=== PATIENT | female | born 1940 | race Caucasian/White ===

== ENCOUNTER 2017-09-01 08:14 | Inpatient (IN) ==
[2017-08-25 13:47] LABS: Appearance,Urine HAZY; Bacteria,Urine FEW /hpf (0); Bilirubin,Urine NEG (NEG); Color,Urine YELLOW; Glucose,Urine (UA) NEGATIVE (NEG); Leukocyte Esterase,Urine 250 /uL (NEG); Mucus,Urine FEW /hpf (0); Protein,Urine NEG (NEG); Specific Gravity,Urine 1.016 (1.000-1.035); Urine Blood NEG mg/dL (<0.03); Urine Hyaline Cast 5 /lpf (0-2); Urine RBC 1 /hpf (0-1); Urine Squamous Epithelial Cell < 1 /hpf (0-4); Urine Transitional Epi Cells < 1 /hpf (0-2); Urine WBC 96 /hpf (0-4); Urobilinogen,Urine NEG (NEG)
[2017-08-25 14:25] LABS: Basophils # (Auto) 0 K/mcL (0.0-0.3); Basophils % (Auto) 0.5 % (0.0-2.0); Eosinophils # (Auto) 0.2 K/mcL (0.0-0.7); Granulocytes % (Auto) 65.7 % (38.0-78.0); Lymphocytes # (Auto) 1.9 K/mcL (1.5-4.8); Lymphocytes % (Auto) 21.7 % (15.5-49.0); Mean Cell Volume 91.7 fL (80.0-100.0); Mean Corpuscular Hemoglobin 31.2 pg (26.0-34.0); Monocytes # (Auto) 0.9 K/mcL (0.1-0.9); Monocytes % (Auto) 10.1 % (1.0-12.0); Platelet Count 362 K/mcL (140-440); RBC 4.64 M/mcL (4.00-5.20); Red Cell Distribution Width 13.3 % (11.5-14.5)
[2017-08-25 14:54] LABS: Blood Urea Nitrogen 25 mg/dl (8-23)
[~2017-09-01 08:14] MED LIST: PREGABALIN 75 MG CAPSULE PO SCH; ceFAZolin 1 GM VIAL IV SCH; oxyCODONE 10 MG TAB.ER.12H PO SCH
[2017-09-01 09:56] LABS: Appearance,Urine CLEAR; Bilirubin,Urine NEG (NEG); Color,Urine YELLOW; Glucose,Urine (UA) NEGATIVE (NEG); Leukocyte Esterase,Urine NEG /uL (NEG); Protein,Urine NEG (NEG); Specific Gravity,Urine 1.016 (1.000-1.035); Urine Blood NEG mg/dL (<0.03); Urobilinogen,Urine NEG (NEG)
[2017-09-01] MEDS ORDERED: SCOPOLAMINE 1 PATCH PATCH TOPICAL ONE (11:00)
[2017-09-01] MEDS ORDERED: LIDOCAINE HCL/PF 100 MG/5 ML SYRINGE IV ONE (11:55)
[2017-09-01] MEDS ORDERED: PROPOFOL 200 MG/20 ML VIAL IV ONE (11:55)
[2017-09-01] MEDS ORDERED: ONDANSETRON 4 MG/2 ML VIAL IV ONE (11:55)
[2017-09-01] MEDS ORDERED: DEXAMETHASONE 10 MG/ML VIAL IV ONE (11:55)
[2017-09-01] MEDS ORDERED: MIDAZOLAM 2 MG/2 ML VIAL IV ONE (11:55)
[2017-09-01] MEDS ORDERED: ePHEDrine 50 MG/ML AMPUL IV ONE (11:55)
[2017-09-01] MEDS ORDERED: TRANEXAMIC ACID 1,000 MG/10 ML VIAL IV ONE ×2 (11:55→13:17)
[2017-09-01] MEDS ORDERED: KETAMINE 100 MG/ML ML IV ONE (11:55)
[2017-09-01] MEDS ORDERED: PHENYLEPHRINE 10 MG/ML VIAL IV ONE (11:55)
[2017-09-01] MEDS ORDERED: GLYCOPYRROLATE 0.2 MG/ML VIAL IV ONE (11:55)
[2017-09-01] MEDS ORDERED: ONDANSETRON 4 MG/2 ML VIAL IV PRN ×2 (12:32→13:17)
[2017-09-01] MEDS ORDERED: NALOXONE HCL 0.4 MG/ML VIAL IV PRN (12:32)
[2017-09-01] MEDS ORDERED: LACTATED RINGERS 250 ML IV PRN (12:32)
[2017-09-01] MEDS ORDERED: FLUMAZENIL 0.1 MG/ML ML IV PRN (12:32)
[2017-09-01] MEDS ORDERED: METHOCARBAMOL 1,000 MG/10 ML VIAL IV PRN (12:32)
[2017-09-01] MEDS ORDERED: IPRATROPIUM/ALBUTEROL 3 ML AMPUL.NEB NEB PRN (12:32)
[2017-09-01] MEDS ORDERED: PROMETHAZINE 25 MG/ML VIAL IV PRN (12:32)
[2017-09-01] MEDS ORDERED: BENZOCAINE/MENTHOL 1 LOZENGE PO PRN ×2 (12:32→13:17)
[2017-09-01] MEDS ORDERED: ACETAMINOPHEN 1,000 MG/100 ML BOTTLE IV ONE (12:32)
[2017-09-01] MEDS ORDERED: HEPARIN 20,000 UNIT/ML VIAL IR ONE (12:36)
[2017-09-01] MEDS ORDERED: LACTATED RINGERS 1,000 ML IV SCH (12:45)
[2017-09-01] MEDS ORDERED: MAGNESIUM HYDROXIDE 30 ML ORAL.SUSP PO PRN (13:17)
[2017-09-01] MEDS ORDERED: FLEETS ADULT ENEMA PR PRN (13:17)
[2017-09-01] MEDS ORDERED: BISACODYL 10 MG SUPP.RECT PR PRN (13:17)
[2017-09-01] MEDS ORDERED: POLYETHYLENE GLYCOL 3350 17 GM PACKET PO PRN (13:17)
--- NOTE | 2017-09-01 13:17 | Brief Operative Note ---
Date of procedure: 09/01/17 Pre-op diagnosis: R hip OA Post-op diagnosis: same Procedure: Right anterior total hip arthroplasty Grafts/Implants: Yes (Depuy Corail 13 std, +1 32 mm head, 50 cup, neutral altrx liner) Anesthesia: spinal, GLMA Findings: arthritis Complications: other (Femur fracture) Surgeon: Jamar Beaulieu Machine Operator Helper: Aurelia Neil Estimated blood loss (cc): 150 Specimens Removed/Pathology: none sent Condition: stable Disposition: PACU
[2017-09-01] MEDS ORDERED: DEXTROSE 50% 50 ML VIAL IV PRN (13:26)
[2017-09-01] MEDS ORDERED: DEXTROSE 31 GM ORAL.SUSP PO PRN (13:26)
[2017-09-01] MEDS: fentaNYL 100 MCG/2 ML VIAL IV PRN ×2 (13:40→13:50)
[2017-09-01] MEDS: MEPERIDINE 25 MG/ML SYRINGE IV PRN ×2 (14:05→14:11)
[2017-09-01] MEDS ORDERED: hydrALAZINE 20 MG/ML VIAL IV ONE (14:25)
[2017-09-01] MEDS ORDERED: hydrALAZINE 20 MG/ML VIAL ONE (14:32)
--- NOTE | 2017-09-01 14:58 | XRay Report ---
HISTORY: Reason for Exam:post op FINDINGS: There is a well-positioned right total hip prosthesis. No fracture is present and there are no abnormal soft tissue calcifications around the joint. There is arthritis and disc degeneration at L4-5. IMPRESSION: Well-positioned right hip prosthesis Interpreted and Authenticated by: William Gauthier 09/01/17
[2017-09-01] MEDS: CRANBERRY 400 MG PO SCH (15:08)
[2017-09-01] MEDS: 0.9 % SODIUM CHLORIDE 1,000 ML IV SCH ×2 (15:21→23:31)
[2017-09-01] MEDS: 0.9 % SODIUM CHLORIDE 10 ML SYRINGE IV SCH ×2 (15:52→20:42)
[2017-09-01] MEDS: POTASSIUM CHLORIDE 20 MEQ TABLET PO SCH (17:31)
[2017-09-01] MEDS: CALCIUM W/VIT D3 500 MG TABLET PO SCH ×2 (17:31→21:47)
[2017-09-01] MEDS: cloNIDine HCL 0.1 MG TABLET PO SCH ×2 (17:31→21:46)
[2017-09-01] MEDS ORDERED: metFORMIN 500 MG TAB.XL.24H PO SCH (18:00)
[2017-09-01] MEDS: INSULIN LISPRO 1 UNIT/0.01 ML UNIT SQ SCH ×2 (18:33→20:41)
[2017-09-01] MEDS: ceFAZolin 1 GM VIAL IV SCH (20:21)
[2017-09-01] MEDS: DOCUSATE SODIUM 100 MG CAPSULE PO SCH (20:22)
[2017-09-01] MEDS: GLUCOSAMINE/CHONDROITIN SULF A 1 CAP CAPSULE PO SCH (20:23)
[2017-09-01] MEDS: ASPIRIN 325 MG ENTERIC COATED TABLET PO SCH (20:23)
[2017-09-01] MEDS: PSYLLIUM HUSK 6 GM PACKET PO SCH (20:41)
[2017-09-01] MEDS: HYDROcodone/APAP 5/325MG TABLET PO PRN ×2 (20:41→21:50)
[2017-09-01] MEDS: VIT A PO SCH (20:42)
[2017-09-01] MEDS: VIT E PO SCH (20:42)
[2017-09-01] MEDS: COPPER PO SCH (20:42)
[2017-09-01] MEDS: ZINC PO SCH (20:42)
[2017-09-01] MEDS: VIT C PO SCH (20:42)
[2017-09-01] MEDS ORDERED: SENNOSIDES 1 TABLET PO SCH (21:00)
[2017-09-01] MEDS ORDERED: POTASSIUM CHLORIDE 20 MEQ TABLET PO SCH (21:00)
[2017-09-01] MEDS ORDERED: FISH OIL 1,000 MG CAPSULE PO SCH (21:00)
[2017-09-01] MEDS ORDERED: SIMVASTATIN 10 MG TABLET PO SCH (21:00)
[2017-09-02] MEDS: HYDROcodone/APAP 5/325MG TABLET PO PRN ×3 (01:36→11:10)
[2017-09-02] MEDS: CRANBERRY 400 MG PO SCH ×2 (03:07→15:53)
[2017-09-02] MEDS: ceFAZolin 1 GM VIAL IV SCH (04:08)
[2017-09-02] MEDS: 0.9 % SODIUM CHLORIDE 10 ML SYRINGE IV SCH ×2 (05:57→15:53)
[2017-09-02] MEDS ORDERED: LEVOTHYROXINE 50 MCG TABLET PO SCH (07:30)
[2017-09-02] MEDS: INSULIN LISPRO 1 UNIT/0.01 ML UNIT SQ SCH ×2 (07:43→11:28)
[2017-09-02] MEDS: POTASSIUM CHLORIDE 20 MEQ TABLET PO SCH (07:52)
--- NOTE | 2017-09-02 08:08 | Discharge Summary ---
Ortho Discharge - [facility] - Patient Instructions Diet: Regular Diet Activity: activity as tolerated, weight bearing as tolerated Total Hip Protocol: Follow activity instructions as provided by Physical Therapy. Dressing Care: May shower in 2 days, Aquacel Ag - leave on for 5 days Patient Education: Total Hip Replacement (DC) Additional Instructions: Isac LUCERO Physical Therapy APPOINTMENT: WednesdaySeptember 06 @ 8:40 AM - Follow Up Plan Follow Up Appointments: Frantz Capellan PA-C [Physician Manager Administrative Services] - 09/16/17 9:20 am Disposition: Home, Self-Care Prognosis: Good Rehab Potential: Good - Orders For Discharge Additional Discharge Orders: Physical Therapy at Discharge - [facility] Location: Determined By Patient Toilet Riser Discharge Order Location: Determined By Patient Walker Location: Determined By Patient
[2017-09-02] MEDS: PSYLLIUM HUSK 6 GM PACKET PO SCH (08:53)
--- NOTE | 2017-09-02 08:53 | Operative Note ---
DATE OF OPERATION: 09/01/2017 PREOPERATIVE DIAGNOSIS: Right hip severe osteoarthritis. POSTOPERATIVE DIAGNOSIS: Right hip severe osteoarthritis. PROCEDURE PERFORMED: Right total hip arthroplasty through direct anterior approach placing a DePuy Corail size 13 standard offset femoral stem, a +1, 32 mm delta ceramic head ball, a 50 mm cup with a neutral AltrX liner. SURGEON: Jamar Beaulieu MD. AWNING HANGER: Aurelia Neil PA-C ANESTHESIA: Spinal plus general. DRAINS: None. SPECIMENS: None. COMPLICATIONS: Intraoperative calcar fracture. POSTOPERATIVE CONDITION: Stable. INDICATIONS FOR SURGERY: This is a 77-year-old female who had progressive worsening hip pain and radiographs showed advanced [id number] osteoarthritis. FINDINGS AT SURGERY: As above. Post implantation showed good component position with good leg length and offset rastafari. PROCEDURE IN DETAIL: The patient had been seen preoperatively. Informed consent had been obtained after discussion of risks and benefits of surgery. Risks including, but not limited to, bleeding, possibly requiring transfusion; infection, possibly requiring implant removal and prolonged IV antibiotics; injury to nerves, blood vessels, and other surrounding structures; anesthetic risks; incomplete or no resolution of symptoms; leg length discrepancy; dislocation; fracture; DVT and pulmonary embolus risks; and the possibility of needing further revision surgery. She understood these risks and wished to proceed. The correct operative site was marked in preoperative holding and then the patient received spinal anesthesia. She was then taken to the operating room and LMA general given. She was carefully positioned on the fracture table and then the right hip and groin were carefully prepped and draped in normal sterile fashion and a timeout was performed verifying patient name, operative site, and plan. Standard anterior approach incision was made with a scalpel through skin and subcutaneous tissue and then hemostasis obtained with Bovie cautery. Careful blunt dissection was taken down onto the tensor fascia and this was undermined circumferentially. We then irrigated with except and placed a ring retractor. Tensor fascia was incised with the muscle fibers and then careful blunt dissection taken medial to the muscle belly. Blunt cobra retractors were placed on the superior and inferior neck. We then coagulated and cut the circumflex vessels and then split vastus fascia distally. An anterior capsulectomy was performed with capsule releases to the trochanter and then a corkscrew was placed in the femoral head. Traction was placed on the leg and then osteotome was used under fluoro to identify our neck cut trajectory. We then used the oscillating tip saw to perform our osteotomy and the femoral head was removed. The acetabulum was then exposed removing labrum circumferentially. We then removed soft tissue from the floor and then started reaming, initially directly medializing to the tear drop and then increasing our reamer size and angle until we got rim ream with a 49 mm reamer. We opened a 50 mm 3-hole [place] cup. We irrigated the acetabulum with IrriSept. After waiting a minute we pulse lavaged copiously with saline. We then placed the cup on the ME 1000 and holding the inclination between approximately 35 and 40 degrees we impacted the cup at about 15 to 20 degrees of anteversion. We used fluoroscopy to verify cup position and that it was fully seated. We got good pressfit, so we went ahead and placed a center hole cover. A neutral AltrX liner was opened. We did remove some osteophytes anteriorly and then ME 1000 was used to impact the liner. We then double checked to make sure the tabs were all flush. We then removed traction from the leg. It was externally rotated. A capsule release was extended around the medial neck and posteriorly and then the leg was extended and adducted. Box osteotome and awl were used to gain canal entry and then the rongeur and rasp to lateralize. We then started broaching with the ME 1000 up to a size 12. This started seating below our neck cut so I chose to go up to a size 13. As we were impacting the 13 stem with the ME 1000, we discovered a calcar crack posterior medially. At this point, we went ahead and opened up a 1.8 cable and using a cable passer below the greater trochanter and above the lesser trochanter we then tensioned this to 50 kilograms and then crimped and cut the excess wire. We then completed broaching until we were flush with our neck cut. We trialed a standard offset with +1 head ball trial. The hip was reduced. AP pelvis was taken to verify rotation and AP of the nonoperative and operative hips. Overlay revealed symmetrical leg length and offset. The stem was in good position and appeared appropriately sized. We redislocated. We removed the 13 trial. The 13 implant was opened. We irrigated the canal with IrriSept. After waiting a minute we pulse lavaged copiously with saline and then the 13 trial was impacted with the ME 1000 until the collar was seated on the medial calcar. We then opened a +1 head ball, the stem was carefully cleaned and dried and then head ball was carefully impacted. We then reduced the hip without excessive tension. X-rays were taken and saved and printed. We then irrigated with IrriSept and after met with pulse lavaged. Then, #1 Vicryl was used for closure over the tensor fascia, one running proximal and one running distal. The ring retractor was removed and IrriSept was irrigated again. After a minute we pulse lavaged and then 2-0 Monocryl for and veena for skin. Xeroform and sterile dressing were applied. The patient was then awakened, extubated, and transferred to recovery in stable condition. [email or web address] Job ID: [id number] Doc ID: [id number] Jamar Beaulieu MD
[2017-09-02] MEDS: ASPIRIN 325 MG ENTERIC COATED TABLET PO SCH (08:54)
[2017-09-02] MEDS: GLUCOSAMINE/CHONDROITIN SULF A 1 CAP CAPSULE PO SCH (08:54)
[2017-09-02] MEDS: cloNIDine HCL 0.1 MG TABLET PO SCH ×2 (08:54→15:01)
[2017-09-02] MEDS: CALCIUM W/VIT D3 500 MG TABLET PO SCH ×2 (08:54→15:01)
[2017-09-02] MEDS: DOCUSATE SODIUM 100 MG CAPSULE PO SCH (08:54)
[2017-09-02] MEDS: VIT C PO SCH (08:55)
[2017-09-02] MEDS: VIT A PO SCH (08:55)
[2017-09-02] MEDS: VIT E PO SCH (08:55)
[2017-09-02] MEDS: ZINC PO SCH (08:55)
[2017-09-02] MEDS: COPPER PO SCH (08:55)
[2017-09-02] MEDS ORDERED: amLODIPine 10 MG TABLET PO SCH (09:00)
[2017-09-02] MEDS ORDERED: HYDROCHLOROTHIAZIDE 25 MG TABLET PO SCH (09:00)
[2017-09-02] MEDS ORDERED: LOSARTAN 50 MG TABLET PO SCH (09:00)
[2017-09-02] MEDS ORDERED: MULTIVIT,THER IRON,CA,FA & MIN 1 TABLET PO SCH (09:00)
[2017-09-02] MEDS ORDERED: METOPROLOL SUCCINATE 50 MG TAB.XL.24H PO SCH (09:00)
[2017-09-02] MEDS ORDERED: VITAMIN D3 1,000 UNIT TABLET PO SCH (09:00)
--- NOTE | 2017-09-02 09:14 | Orthopedic Progress Note ---
Subjective Patient information: Note initiated : 09/02/17 at 9:13 am Service Date, if different from initiated Date: [] Patient: Joanne Nguyễn 77 y/o F admitted on 09/01/17 for Right Total Hip Arthroplasty. Chief Complaint: [] Principal diagnosis: s/p total hip Interval history: pain controlled, wants to go home Objective Vital signs: Vital Signs Temp Pulse Pulse Resp BP BP Pulse Ox 09/02/17 08:56 98.0 F 77 16 149/69 95 09/02/17 04:00 98.4 F 64 14 153/66 92 09/02/17 00:08 99.0 F H 68 14 156/76 94 09/01/17 19:55 97.6 F 80 18 156/77 97 09/01/17 16:51 169/66 98 09/01/17 16:21 172/72 99 09/01/17 15:54 98 09/01/17 15:51 175/74 98 09/01/17 15:36 175/70 98 09/01/17 15:22 159/75 98 09/01/17 15:15 167/74 96 09/01/17 14:52 97.8 F 70 20 178/80 100 09/01/17 14:48 73 20 158/74 98 09/01/17 14:38 72 26 H 179/90 100 09/01/17 14:31 68 17 186/70 98 09/01/17 14:15 63 17 185/78 98 09/01/17 14:10 68 18 188/79 98 09/01/17 14:05 62 20 192/75 98 09/01/17 14:00 64 20 182/74 98 09/01/17 13:55 62 17 198/72 98 09/01/17 13:50 64 20 189/75 98 09/01/17 13:45 60 18 186/69 98 09/01/17 13:40 66 15 168/78 98 09/01/17 13:35 97.8 F 69 10 L 134/59 98 Intake and Output 09/01/17 09/02/17 09/02/17 21:59 05:59 13:59 Intake Total 541 / 541 1134 / 1134 1400 / 1400 Output Total 1000 / 1000 400 / 400 250 / 250 Balance -459 / -459 734 / 734 1150 / 1150 Intake: IV 541 / 541 459 / 459 Sodium Chloride 0.9% 1,000 ml @ 541 / 541 459 / 459 100 mls/hr IV .Q10H LILLIAN Rx#: [id number] Oral 675 / 675 1400 / 1400 Output: Void Amount 1000 / 1000 400 / 400 250 / 250 Straight 850 / 850 Other: Meal Breakfast Percent of Meal Consumed 100% Feeding Ability Independent # Voids 1 Weight 157 lb Intake & Output: Intake & Output 09/01/17 09/02/17 09/02/17 21:59 05:59 13:59 Intake Total 541 / 541 1134 / 1134 1400 / 1400 Output Total 1000 / 1000 400 / 400 250 / 250 Balance -459 / -459 734 / 734 1150 / 1150 Weight 157 lb Intake: IV 541 / 541 459 / 459 Sodium Chloride 0.9% 1,000 ml @ 541 / 541 459 / 459 100 mls/hr IV .Q10H LILLIAN Rx#: [id number] Oral 675 / 675 1400 / 1400 Output: Void Amount 1000 / 1000 400 / 400 250 / 250 Straight 850 / 850 Other: Meal Breakfast Percent of Meal Consumed 100% Feeding Ability Independent # Voids 1 Neurological exam IM: Yes alert, Yes oriented X3 - Labs CBC & BMP: 09/02/17 05:25 08/25/17 10:30 Labs: 09/02/17 08/25/17 05:25 10:30 Hgb 11.6 L 14.5 Hct 34.7 L 42.6 Assessment and Plan (1) S/P total hip arthroplasty POD#1-stable d/c home Status: Acute
[2017-09-02] MEDS: 0.9 % SODIUM CHLORIDE 1,000 ML IV SCH (10:38)
[2017-09-02] MEDS ORDERED: POTASSIUM CHLORIDE 20 MEQ TABLET PO SCH (12:00)
== END 2017-09-02 15:35 | disposition home or self-care (01) | DRG 470 ==
LOC: MEDSUR 08:14
PROVIDERS: ADMIT Orthopaedic Surgery; ATTEND Orthopaedic Surgery

== ENCOUNTER 2019-05-18 10:16 | Inpatient (IN) ==
[2019-05-18] MEDS ORDERED: 0.9 % SODIUM CHLORIDE 1,000 ML IV ONE ×3 (10:24→13:54)
[2019-05-18] MEDS ORDERED: ONDANSETRON 4 MG/2 ML VIAL IV ONE (10:24)
[2019-05-18 11:15] LABS: POC Blood Urea Nitrogen 90 mg/dl (8-23); POC CO2 20 mmol/L (22-30); POC Calcium, Ionized 1.13 mmol/L (1.16-1.32); POC Chloride 104 mmol/L (96-108); POC Glucose, Random 137 mg/dL (70-105); POC Potassium 3.5 mmol/L (3.3-5.1); POC Sodium 137 mmol/L (133-145)
--- NOTE | 2019-05-18 11:37 | XRay Report ---
CLINICAL INFORMATION: cough, n/v X 8 days. COMPARISON: None. FINDINGS: The heart is mildly enlarged. Mediastinum and pulmonary vessels are normal. There is minor bibasilar scarring or atelectasis noted - no infiltrates or effusions IMPRESSION: Mild cardiomegaly and minor bibasilar scarring or atelectasis Interpreted and Authenticated by: Matthew Vasquez 05/18/19
--- NOTE | 2019-05-18 11:38 | XRay Report ---
CLINICAL INFORMATION: constipation COMPARISON: None. FINDINGS: The stool gas pattern is unremarkable. There is no free air, soft tissue mass, organomegaly or pathologic calcification. IMPRESSION: Normal abdomen Interpreted and Authenticated by: Matthew Vasquez 05/18/19
[2019-05-18 11:41] LABS: Basophils # (Auto) 0 K/mcL (0.0-0.3); Basophils % (Auto) 0 % (0.0-2.0); Eosinophils # (Auto) 0 K/mcL (0.0-0.7); Eosinophils % (Auto) 0 % (0.0-7.0); Granulocytes % (Auto) 87.8 % (38.0-78.0); Hematocrit 38.9 % (36.0-48.0); Hemoglobin 12.7 g/dL (12.0-15.0); Lymphocytes # (Auto) 0.9 K/mcL (1.5-4.8); Lymphocytes % (Auto) 3.7 % (15.5-49.0); Mean Cell Volume 93.4 fL (80.0-100.0); Mean Corpuscular HGB Conc 32.7 g/dL (31.0-36.0); Mean Platelet Volume 8.6 fL (7.4-10.4); Monocytes # (Auto) 2.2 K/mcL (0.1-0.9); Monocytes % (Auto) 8.5 % (1.0-12.0); Platelet Count 321 K/mcL (140-440); RBC 4.17 M/mcL (4.00-5.20); Red Cell Distribution Width 14.9 % (11.5-14.5); WBC 25.6 K/mcL (4.5-11.0)
[2019-05-18 12:08] LABS: ALT/SGPT 157 U/l (0-40); AST/SGOT 95 U/l (0-37); Albumin 2.9 gm/dL (3.2-5.2); Albumin/Globulin Ratio 0.7 (1.0-2.3); Alkaline Phosphatase 192 U/L (39-117); Bilirubin,Total 0.4 mg/dL (0.0-1.0); Blood Urea Nitrogen 90 mg/dl (8-23); C-Reactive Protein 28.8 mg/dl (0.0-0.8); Calcium 8.8 mg/dl (8.6-10.4); Carbon Dioxide 19 mmol/L (22-30); Glomerular Filtration Rate 16; Glucose 137 mg/dL (70-105)
[2019-05-18] MEDS ORDERED: DILTIAZEM 25 MG/5 ML VIAL IV ONE ×2 (12:27→12:35)
--- NOTE | 2019-05-18 12:34 | Emergency Department Note ---
General Adult HPI - General Chief complaint: Nausea/Vomiting/Diarrhea Stated complaint: nausea, bloody stool Time Seen by Provider: 05/18/19 10:40 Source: patient Mode of arrival: ambulatory Limitations: no limitations - History of Present Illness HPI Narrative: This pleasant 79-year-old female comes to the emergency room accompanied by her . She has had 8 days of some abdominal discomfort and dry heaves and vomiting. She has abdominal pain she reports due to the vomiting. She feels like she is been constipated although has not had a bowel movement for 8 days but has not eaten and drank that well. Her last bowel movement was 9 days ago according to the . Prior to that she had blood every time she wiped in the preceding week or so. She describes being very sleepy. She has had chills and sweats but no fevers. REVIEW OF SYSTEMS: Denies blurry vision or double vision Denies chest pain. Has some swelling in her legs quite often. Has had a cough for a week. Denies shortness of breath and wheezing Denies acid reflux and heartburn. Denies dysuria, frequency, urgency Denies back pain Denies headaches. Feels generally weak. Feels lightheaded. - Related Data Home Medications Medication Instructions Recorded Confirmed Aspirin 325 mg PO DAILY 10/26/16 05/18/19 Calcium Carbonate/Vitamin D3 1 tablet PO TID 10/26/16 05/18/19 [Calcium 600 + Vit D Tablet] Cholecalciferol (Vitamin D3) 2,000 unit PO DAILY 10/26/16 05/18/19 [Vitamin D3] Cranberry 650 mg PO BID 10/26/16 05/18/19 Gluc HCl/Csa/Collagen/Hyalur A 1 each PO BID 10/26/16 08/25/17 [Glucosamine Chondroitin Cap] Hydrochlorothiazide [Oretic] 25 mg PO DAILY 10/26/16 05/18/19 Krill/Om3/Dha/Epa/Om6/Lip/Astx 1 each PO HS 10/26/16 05/18/19 [Krill Oil 1,000 mg Softgel] Levothyroxine [Synthroid] 50 mcg PO ACB 10/26/16 05/18/19 Losartan [Cozaar] 100 mg PO DAILY 10/26/16 05/18/19 Multivitamin [Multi-Day Vitamins] 1 each PO DAILY 10/26/16 08/25/17 Potassium Chloride [Kdur] 20 meq PO 5XD 10/26/16 05/18/19 Psyllium Husk [Metamucil] 6 gm PO BID 10/26/16 09/01/17 Simvastatin [Zocor] 10 mg PO HS 10/26/16 05/18/19 Vit A/Vit C/Vit E/Zinc/Copper 1 each PO BID 10/26/16 08/25/17 [Preservision Areds Softgel] amLODIPine BESYLATE [Amlodipine 10 mg PO DAILY 10/26/16 05/18/19 Besylate] cloNIDine HCL [Catapres] 0.3 mg PO QIDP 10/26/16 05/18/19 metFORMIN HCL [Metformin ER 500 mg PO DAILY@1800 10/26/16 05/18/19 Osmotic] Metoprolol Succinate [Toprol Xl] 100 mg PO DAILY 08/25/17 05/18/19 Allergies Allergy/AdvReac Type Severity Reaction Status Date / Time oxycodone [Oxycodone] AdvReac Mild Vomiting Verified 05/18/19 10:20 Sulfa (Sulfonamide AdvReac Mild Redness of Verified 05/18/19 10:20 Antibiotics) Skin Past Medical History - Past Medical History [facility], [facility] Narrative: Medical History (Last Updated 05/18/19 @ 14:35 by Korey Gale DO) Hypertension, essential (Chronic) Diabetes mellitus, type 2 (Chronic) Past Surgical History (Last Updated 05/18/19 @ 14:37 by Korey Gale DO) S/P total hip arthroplasty (Chronic) History of bladder repair surgery (Acute) History of total right knee replacement (TKR) (Acute) Family History (Last Reviewed 05/18/19 @ 14:37 by Korey Gale DO) Family/Other No problems noted. Other Diabetes mellitus Medical history: Reports: other (UTI's. DENIES pyelonephritis. ). Denies: atrial fibrillation, chronic anticoagulation (except aspirin.), CVA, myocardial infarction, renal disease, TIA - Social History smoking status: Never smoker Physical Exam Limitations: no limitations General appearance: alert, consternation (Slight or mild), in no apparent distress, lethargic, malaise Head: atraumatic, normocephalic Eye: Present: EOMI ENT: Present: mucous membranes dry, other (Midline tongue and uvula) Neck: Present: trachea midline. Absent: lymphadenopathy, thyromegaly Chest: Present: symmetric chest wall rise Respiratory: Present: normal lung sounds bilaterally. Absent: respiratory distress, wheezes, stridor, accessory muscle use, prolonged expiratory phase Cardiovascular: Present: tachycardia, irregular rhythm. Absent: systolic murmur, diastolic murmur Abdominal: Present: soft, tenderness. Absent: distention, guarding, rebound, rigidity, organomegaly, mass Abdominal tenderness: Present: epigastrium, moderate, severe Rectal: Present: normal rectal tone, other (Only trace residue present on glove. No internal obstruction or stool noted. The residue was trace positive on Hemoccult testing.) Extremities: Absent: pedal edema, pretibial edema, calf tenderness Neurological: Present: alert, oriented X3 Psychiatric: Present: flat affect, serious. Absent: depressed, agitated, anxious, tearful, poor eye contact Skin: Present: warm, dry Course Vital Signs Temperature 96.9 F L 05/18/19 10:16 Pulse Rate 147 H 05/18/19 10:16 Respiratory Rate 18 05/18/19 10:16 Blood Pressure 135/96 05/18/19 10:16 Pulse Oximetry (%) 99 05/18/19 10:16 Temperature 91.1 F L 05/18/19 16:00 Pulse Rate 136 H 05/18/19 16:00 Respiratory Rate 14 05/18/19 16:00 Blood Pressure 111/86 05/18/19 16:00 Pulse Oximetry (%) 95 05/18/19 16:00 Medical Decision Making - [facility] Narrative Medical decision making narrative: 10:27 AM - 8 days of vomiting and/or diarrhea and poor bowel movements. Pre- existing history of blood with wiping. Concern for severe dehydration. Has new onset atrial fibrillation with rapid ventricular response. If she is septic this may complicate trying to get her rate down and maintain blood pressure. We will do fluid bolus to start with. 11:45 AM approximately - markedly elevated white count with markedly elevated CRP. Lipase is normal. Chest x-ray is unremarkable. Blood cultures ordered. 12:45 PM - patient feels some improved from when she was admitted but still feels a bit boggy in her mind. She is able to report her blood pressure m edicines as losartan, clonidine, amlodipine, metoprolol. 12:58 PM - unknown source for her sepsis discussed with Dr. Draper, hospitalist. Has multiple conditions and problems and probable primary concern at this point is where is her sepsis coming from. After CT scan comes back he requested I speak with Dr. Khan, personnel research scientist, and Dr. Adams, surgeon. 3:35 PM - spoke with Dr. Khan, who reviewed with me briefly this patient's findings on CT and her UA. With the perinephric stranding and urine dip that is currently available most likely this is pyelonephritis. Not likely to be a dialysis patient in that she is producing significant urine. She is willing to look at the sediment herself under the microscope. 4:23 PM - I reviewed above with Dr. Draper, hospitalist, is willing to accept this patient. Of note is that she has developed a low-grade temperature. Her heart rate has come down to under 100 with the IV fluids at least some of the time. Urine culture has been ordered. Microscopic does appear to have evidence of urinary tract infection with out contamination. Patient has already received vancomycin 1 g, Rocephin 1 g, Zosyn 3.375. - Lab Data Lab results reviewed: Yes I reviewed the patient's lab results. Result diagrams: 05/18/19 11:09 05/18/19 10:24 Lab Results 05/18/19 05/18/19 05/18/19 Range/Units 10:24 11:09 11:09 WBC 25.6 H (4.5-11.0) K/mcL RBC 4.17 (4.00-5.20) M/mcL Hgb 12.7 (12.0-15.0) g/dL Hct 38.9 (36.0-48.0) % POC Hct 39.0 (36.0-48.0) % MCV 93.4 (80.0-100.0) fL MCH 30.5 (26.0-34.0) pg MCHC 32.7 (31.0-36.0) g/dL RDW 14.9 H (11.5-14.5) % Plt Count 321 (140-440) K/mcL MPV 8.6 (7.4-10.4) fL Gran % 87.8 H (38.0-78.0) % Lymph % (Auto) 3.7 L (15.5-49.0) % [place] % (Auto) 8.5 (1.0-12.0) % Eos % (Auto) 0 (0.0-7.0) % Baso % (Auto) 0 (0.0-2.0) % Gran # 22.5 H (1.8-8.0) K/mcL Lymph # (Auto) 0.9 L (1.5-4.8) K/mcL [place] # (Auto) 2.2 H (0.1-0.9) K/mcL Eos # (Auto) 0 (0.0-0.7) K/mcL Baso # (Auto) 0 (0.0-0.3) K/mcL VBG Lactic Acid (0.5-2.0) mmol/L POC Sodium 137 (133-145) mmol/L Sodium 137 (133-145) mmol/L POC Potassium 3.5 (3.3-5.1) mmol/L Potassium 3.6 (3.3-5.1) mmol/L POC Chloride 104 (96-108) mmol/L Chloride 101 (96-108) mmol/L Carbon Dioxide 19 L (22-30) mmol/L POC Total CO2 20 L (22-30) mmol/L Anion Gap 17.0 H (8-16) POC BUN 90 H (8-23) mg/dl BUN 90 H (8-23) mg/dl Creatinine 2.8 H (0.6-1.1) mg/dl POC Creatinine 3.0 H (0.6-1.1) mg/dl GFR Calculation 16 Glucose 137 H (70-105) mg/dL POC Glucose 137 H (70-105) mg/dL Calcium 8.8 (8.6-10.4) mg/dl POC WB Ioniz Calcium 1.13 L (1.16-1.32) mmol/L Total Bilirubin 0.4 (0.0-1.0) mg/dL AST 95 H (0-37) U/l ALT 157 H (0-40) U/l Alkaline Phosphatase 192 H (39-117) U/L Troponin T < 0.01 (0-0.03) ng/ml C-Reactive Protein 28.8 H (0.0-0.8) mg/dl Total Protein 6.9 (5.9-8.4) gm/dL Albumin 2.9 L (3.2-5.2) gm/dL Globulin 4.0 H (2.2-3.7) gm/dL Albumin/Globulin Ratio 0.7 L (1.0-2.3) Lipase 17 (7-60) U/L Procalcitonin (<0.10) ng/mL Urine Color Urine Appearance Urine pH (5.0-9.0) Ur Specific [place] (1.000-1.035) Urine Protein (NEG) mg/dL Urine Glucose (UA) (NEG) mg/dL Urine Ketones (NEG) mg/dL Urine Occult Blood (<0.03) mg/dL Urine Nitrate (NEG) Urine Bilirubin (NEG) mg/dL Urine Urobilinogen (NEG) mg/dL Ur Leukocyte Esterase (NEG) /uL Urine RBC (0-1) /hpf Urine WBC (0-4) /hpf Ur Squamous Epith Cells (0-4) /hpf Urine Bacteria (0) /hpf Urine Mucus (0) /hpf Ur Culture Indicated? 05/18/19 05/18/19 05/18/19 Range/Units 11:09 13:10 15:31 WBC (4.5-11.0) K/mcL RBC (4.00-5.20) M/mcL Hgb (12.0-15.0) g/dL Hct (36.0-48.0) % POC Hct (36.0-48.0) % MCV (80.0-100.0) fL MCH (26.0-34.0) pg MCHC (31.0-36.0) g/dL RDW (11.5-14.5) % Plt Count (140-440) K/mcL MPV (7.4-10.4) fL Gran % (38.0-78.0) % Lymph % (Auto) (15.5-49.0) % [place] % (Auto) (1.0-12.0) % Eos % (Auto) (0.0-7.0) % Baso % (Auto) (0.0-2.0) % Gran # (1.8-8.0) K/mcL Lymph # (Auto) (1.5-4.8) K/mcL [place] # (Auto) (0.1-0.9) K/mcL Eos # (Auto) (0.0-0.7) K/mcL Baso # (Auto) (0.0-0.3) K/mcL VBG Lactic Acid 1.8 (0.5-2.0) mmol/L POC Sodium (133-145) mmol/L Sodium (133-145) mmol/L POC Potassium (3.3-5.1) mmol/L Potassium (3.3-5.1) mmol/L POC Chloride (96-108) mmol/L Chloride (96-108) mmol/L Carbon Dioxide (22-30) mmol/L POC Total CO2 (22-30) mmol/L Anion Gap (8-16) POC BUN (8-23) mg/dl BUN (8-23) mg/dl Creatinine (0.6-1.1) mg/dl POC Creatinine (0.6-1.1) mg/dl GFR Calculation Glucose (70-105) mg/dL POC Glucose (70-105) mg/dL Calcium (8.6-10.4) mg/dl POC WB Ioniz Calcium (1.16-1.32) mmol/L Total Bilirubin (0.0-1.0) mg/dL AST (0-37) U/l ALT (0-40) U/l Alkaline Phosphatase (39-117) U/L Troponin T (0-0.03) ng/ml C-Reactive Protein (0.0-0.8) mg/dl Total Protein (5.9-8.4) gm/dL Albumin (3.2-5.2) gm/dL Globulin (2.2-3.7) gm/dL Albumin/Globulin Ratio (1.0-2.3) Lipase (7-60) U/L Procalcitonin 1.40 (<0.10) ng/mL Urine Color Straw Urine Appearance Clear Urine pH 5.0 (5.0-9.0) Ur Specific [place] 1.009 (1.000-1.035) Urine Protein Neg (NEG) mg/dL Urine Glucose (UA) Negative (NEG) mg/dL Urine Ketones Neg (NEG) mg/dL Urine Occult Blood 0.2 A (<0.03) mg/dL Urine Nitrate Neg (NEG) Urine Bilirubin Neg (NEG) mg/dL Urine Urobilinogen Neg (NEG) mg/dL Ur Leukocyte Esterase 25 A (NEG) /uL Urine RBC 4 H (0-1) /hpf Urine WBC 14 H (0-4) /hpf Ur Squamous Epith Cells < 1 (0-4) /hpf Urine Bacteria Mod A (0) /hpf Urine Mucus Few (0) /hpf Ur Culture Indicated? Yes - Radiology Data Radiology results reviewed: Yes I reviewed the patient's radiology results. - EKG Data EKG #1 EKG attestation: Yes There are no EKG findings of acute coronary syndrome, Yes This EKG will be read by shoe lacer Rate: tachycardia Rhythm: A.Fib Disposition Pt seen by [facility] only: No Clinical Impression: Atrial fibrillation with rapid ventricular response, Elevated LFTs, Acute pyelonephritis Sepsis Qualifiers: Sepsis type: sepsis due to unspecified organism Sepsis acute organ dysfunction status: with acute organ dysfunction Severe sepsis acute organ dysfunction type: acute renal failure Acute renal failure type: unspecified Severe sepsis shock status: without septic shock Qualified Code(s): A41.9 - Sepsis, unspecified organism Leukocytosis (leucocytosis) Qualifiers: Leukocytosis type: leukemoid reaction Qualified Code(s): D72.823 - Leukemoid reaction ARF (acute renal failure) Qualifiers: Acute renal failure type: unspecified Qualified Code(s): N17.9 - Acute kidney failure, unspecified Disposition: Xfer As Inpt ([facility] Condition: Serious Referrals: Wilbur Adame DO [Primary Care Provider] -
[2019-05-18] MEDS ORDERED: PIPERACILLIN SODIUM/TAZOBACTAM 3.375 GM in DEXTROSE 5% IN WATER 50 ML IV ONE (12:37)
[2019-05-18 12:39] LABS: Chloride 101 mmol/L (96-108)
--- NOTE | 2019-05-18 15:22 | Cat Scan Report ---
CLINICAL INFORMATION: Nausea /vomiting and bloody stools. COMPARISON: None. TECHNIQUE: IV contrast was withheld due to renal insufficiency. 0.625 mm helical slices were obtained from the mid heart through the subtrochanteric regions. Following reconstruction, 2.5 mm sagittal, coronal and axial reformatted images were processed and reviewed at bone and soft tissue windows.The exam was performed using radiation dose optimization techniques including, but not limited to, automated exposure control, adjustment of the mA and/or kV according to patient size and use of iterative reconstruction technique. FINDINGS: Lung bases show scattered scarring and/or atelectasis and chronic bronchitis. There are no effusions. The visualized heart is mildly enlarged. Abdominal images show the noncontrasted gallbladder and bile ducts, liver, pancreas, spleen and aorta are normal in size configuration and attenuation without focal lesion. 17 mm well-defined low-attenuation lesion in the right adrenal gland and a 11 mm well superior low-attenuation lesion in the left adrenal gland are all most certainly benign adenomas. Kidneys show slight inhomogeneity and perinephric fat stranding which is suggestive, but not diagnostic, diffuse renal inflammation such as glomerulonephritis. 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 There is no free air, free fluid or adenopathy. Pelvic images show urinary bladder is unremarkable. Anteflexed postmenopausal uterus is normal in size: 6 x 2.5 cm. The region of the ovaries is normal. Multiple sigmoid diverticuli but no evidence of diverticulitis. The remaining colon, small bowel and stomach are normal. Appendix not identified may be surgically absent. No evidence of appendicitis. Right total hip prostheses is anatomically aligned without loosening or infection. There is mild degenerative change in the left hip and moderate L4-5 degenerative disc disease. There are no focal osseous lesions. IMPRESSION: 1. Sigmoid diverticulosis, but no evidence of diverticulitis. No gross evidence of colonic pathology responsible for GI bleeding on this limited noncontrast exam 2. Mild edema in both kidneys with injection of the perinephric fat. This is suggestive, but certainly not diagnostic, of bilateral renal inflammatory condition such as glomerulonephritis. Please correlate with UA and other clinical symptoms. 3. Moderate pancreatic atrophy and fat replacement of the pancreatic head and neck. 4. 17 mm nodule right adrenal gland and 11 mm nodule in the left adrenal gland both almost certainly benign adenomas. Interpreted and Authenticated by: Matthew Vasquez 05/18/19
[2019-05-18 15:58] LABS: Appearance,Urine CLEAR; Bacteria,Urine MOD /hpf (0); Bilirubin,Urine NEG (NEG); Color,Urine STRAW; Culture Indicated,Urine YES; Glucose,Urine (UA) NEGATIVE (NEG); Ketones,Urine NEG (NEG); Leukocyte Esterase,Urine 25 /uL (NEG); Mucus,Urine FEW /hpf (0); Nitrate,Urine NEG (NEG); Protein,Urine NEG (NEG); Specific Gravity,Urine 1.009 (1.000-1.035); Urine Blood 0.2 mg/dL (<0.03); Urine RBC 4 /hpf (0-1); Urine Squamous Epithelial Cell < 1 /hpf (0-4); Urine WBC 14 /hpf (0-4); Urobilinogen,Urine NEG (NEG)
--- NOTE | 2019-05-18 16:44 | Internal Med History&Physical ---
Medical - H&P: [facility] Patient information: Note initiated : 05/18/19 at 4:39 pm Service Date, if different from initiated Date: [] Patient: Joanne Nguyễn a 79 y/o F admitted on for nausea, bloody stool. Chief Complaint: [] Chief complaint: Abdominal pain, nausea History of present illness: Ms. Nguyễn is a 79 year old F history of diabetes/hypertension and hypothyroidism who presents with over 1 week onset of progressive nausea/upper mid abdominal pain along with associated vomiting. Patient has not been able to eat or drink much in the last 10 days. She went to urgent care a few days prior to presentation and was discharged after evaluation. Patient however failed to improve. She denies associated fever chills. She has not had a restful night sleep. Her pain is described as 6 out of 10 to 8 out of 10 associated with coughing, constant around epigastric area without radiation. She denies associated bloody emesis/bloody stools. She endorses to cough, with unrelenting symptoms patient presents to the ER for further evaluation Initial work-up was consistent with acute pyelonephritis on CT abdomen, sepsis with white count 25,000, acute renal failure with creatinine 3 and BUN 90. Patient was found to be in A. fib with RVR with rate around 150. Nephrology was consulted and subsequently hospitalist service requested for admission. Cultures were drawn and antibiotics were initiated including Rocephin/vancomycin/Zosyn At the time of evaluation patient is extremely distressed. Unable to talk in full sentences, lethargic and anxious. She endorses to history as above. She denies prior similar episodes. Review of systems A 10 point review of system was performed and is negative except for one discussed above Medical - H&P: PMH Medical history: Medical History (Last Updated 05/18/19 @ 14:35 by Korey Gale DO) Hypertension, essential (Chronic) Diabetes mellitus, type 2 (Chronic) CAD Hypothyroidism Past Surgical History (Last Updated 05/18/19 @ 14:37 by Korey Gale DO) S/P total hip arthroplasty (Chronic) History of bladder repair surgery (Acute) History of total right knee replacement (TKR) (Acute) Family History (Last Reviewed 05/18/19 @ 14:37 by Korey Gale DO) Family/Other Father cancer Mother hypertension, CAD, DC Sibling CAD/DC Smoking status: Never smoker Have you smoked in the last 12 months: No Medical - H&P: Meds Home Medications Medication Instructions Recorded Confirmed Type Aspirin 325 mg PO DAILY 10/26/16 05/18/19 History Calcium Carbonate/Vitamin D3 1 tablet PO TID 10/26/16 05/18/19 History [Calcium 600 + Vit D Tablet] Cholecalciferol (Vitamin D3) 2,000 unit PO DAILY 10/26/16 05/18/19 History [Vitamin D3] Cranberry 650 mg PO BID 10/26/16 05/18/19 History Gluc HCl/Csa/Collagen/Hyalur A 1 each PO BID 10/26/16 08/25/17 History [Glucosamine Chondroitin Cap] Hydrochlorothiazide [Oretic] 25 mg PO DAILY 10/26/16 05/18/19 History Krill/Om3/Dha/Epa/Om6/Lip/Astx 1 each PO HS 10/26/16 05/18/19 History [Krill Oil 1,000 mg Softgel] Levothyroxine [Synthroid] 50 mcg PO ACB 10/26/16 05/18/19 History Losartan [Cozaar] 100 mg PO DAILY 10/26/16 05/18/19 History Multivitamin [Multi-Day Vitamins] 1 each PO DAILY 10/26/16 08/25/17 History Potassium Chloride [Kdur] 20 meq PO 5XD 10/26/16 05/18/19 History Psyllium Husk [Metamucil] 6 gm PO BID 10/26/16 09/01/17 History Simvastatin [Zocor] 10 mg PO HS 10/26/16 05/18/19 History Vit A/Vit C/Vit E/Zinc/Copper 1 each PO BID 10/26/16 08/25/17 History [Preservision Areds Softgel] amLODIPine BESYLATE [Amlodipine 10 mg PO DAILY 10/26/16 05/18/19 History Besylate] cloNIDine HCL [Catapres] 0.3 mg PO QIDP 10/26/16 05/18/19 History metFORMIN HCL [Metformin ER 500 mg PO DAILY@1800 10/26/16 05/18/19 History Osmotic] Metoprolol Succinate [Toprol Xl] 100 mg PO DAILY 08/25/17 05/18/19 History Allergies Allergy/AdvReac Type Severity Reaction Status Date / Time oxycodone [Oxycodone] AdvReac Mild Vomiting Verified 05/18/19 10:20 Sulfa (Sulfonamide AdvReac Mild Redness of Verified 05/18/19 10:20 Antibiotics) Skin Medical - H&P: Exam - Constitutional Vitals: Temp Pulse Resp BP Pulse Ox 100.3 F H 130 H 25 H 122/107 93 05/18/19 16:36 05/18/19 16:36 05/18/19 16:36 05/18/19 16:36 05/18/19 16:36 General appearance: moderate distress Exam: Fatigue lethargic Anxious Head normocephalic Oral cavity dry Eye movement symmetrical No ear nose discharge S1-S2 irregular, tachycardia Diminished breath sounds bases Abdomen soft but tender epigastric area on palpation Lower extremity no cyanosis clubbing no joint swelling or erythema Skin no suspicious lesion Psych alert but anxious Neuro nonfocal Medical - H&P: Reslt - Labs CBC & Chem 7: 05/18/19 11:09 05/18/19 10:24 Labs: Short CBC 05/18/19 Range/Units 11:09 WBC 25.6 H (4.5-11.0) K/mcL Hgb 12.7 (12.0-15.0) g/dL Hct 38.9 (36.0-48.0) % Plt Count 321 (140-440) K/mcL BMP 05/18/19 10:24 Sodium 137 Potassium 3.6 Chloride 101 Carbon Dioxide 19 L BUN 90 H Creatinine 2.8 H Glucose 137 H Calcium 8.8 Cardiac Enzymes 05/18/19 Range/Units 11:09 Troponin T < 0.01 (0-0.03) ng/ml Liver Function 05/18/19 Range/Units 10:24 Total Bilirubin 0.4 (0.0-1.0) mg/dL AST 95 H (0-37) U/l ALT 157 H (0-40) U/l Alkaline Phosphatase 192 H (39-117) U/L Albumin 2.9 L (3.2-5.2) gm/dL Urine 05/18/19 Range/Units 15:31 Urine Color Straw Urine Appearance Clear Urine pH 5.0 (5.0-9.0) Ur Specific [place] 1.009 (1.000-1.035) Urine Protein Neg (NEG) mg/dL Urine Glucose (UA) Negative (NEG) mg/dL Medical - H&P: A/P (1) Acute pyelonephritis Current visit: Yes Status: Acute * Acute pyelonephritis-bilateral, start empiric antibiotic on Rocephin/Levaquin, de-escalate based on culture sensitivities. * Severe sepsis secondary to above-continue management guidelines. Continue antibiotics/crystalloids/monitoring of renal function/keep map at goal. Admit to ICU. * A. fib with RVR-likely secondary to sepsis endorgan dysfunction-continue rate control measures including CCB/beta-aman. Treatment of primary etiology * Acute renal failure likely secondary sepsis. Creatinine at 3. Baseline creatinine 1. Nephrology consulted. Continue crystalloid and monitor renal function. Avoid nephrotoxins. * Elevated LFTs secondary to sepsis endorgan dysfunction. Close monitoring. No evidence of biliary obstruction on imaging * DM type II continue sliding-scale insulin/CC diet, hold metformin * History of hypertension hold SIMONE inhibitor, continue beta-aman, restart antihypertensives gradually once renal function improves and sepsis resolves * Full code * Prophylaxis- Heparin PLAN * ICU admit * Broad antibiotic coverage, based de-escalate based on cultures * Rate control measures * Sepsis management guidelines * Monitor renal and liver function * PT OT/nutrition support
[2019-05-18] MEDS ORDERED: NOREPINEPHRINE BITARTRATE 16 MG in 0.9 % SODIUM CHLORIDE 234 ML IV PRN (17:01)
[2019-05-18] MEDS ORDERED: ACETAMINOPHEN 325 MG TABLET PO PRN (17:01)
[2019-05-18] MEDS ORDERED: ACETAMINOPHEN 650 MG/65 ML BOTTLE IV PRN (17:01)
[2019-05-18] MEDS ORDERED: HYDROmorphone 2 MG/ML VIAL IV PRN (17:01)
[2019-05-18] MEDS ORDERED: DEXTROSE 31 GM ORAL.SUSP PO PRN (17:01)
[2019-05-18] MEDS ORDERED: DEXTROSE 50% 50 ML VIAL IV PRN (17:01)
[2019-05-18] MEDS ORDERED: cloNIDine HCL 0.1 MG TABLET PO SCH (17:01)
[2019-05-18] MEDS: METOPROLOL TARTRATE 5 MG/5 ML VIAL IV SCH (17:15)
[2019-05-18] MEDS: INSULIN LISPRO 1 UNIT/0.01 ML UNIT SQ SCH ×2 (17:16→20:30)
[2019-05-18] MEDS ORDERED: PROMETHAZINE 25 MG/ML VIAL IV PRN (17:17)
[2019-05-18] MEDS ORDERED: LORazepam 2 MG/ML VIAL IV ONE (17:22)
[2019-05-18] MEDS: 0.9 % SODIUM CHLORIDE 10 ML SYRINGE IV SCH ×2 (17:34→20:31)
[2019-05-18] MEDS: DILTIAZEM 125 MG in 0.9 % SODIUM CHLORIDE 100 ML IV SCH (17:44)
[2019-05-18] MEDS: 0.9 % SODIUM CHLORIDE 250 ML IV SCH (17:45)
[2019-05-18] MEDS: cefTRIAXone 2 GM in DEXTROSE 5% IN WATER 50 ML IV SCH (18:33)
[2019-05-18] MEDS: 0.9 % SODIUM CHLORIDE 1,000 ML IV SCH (18:34)
[2019-05-18] MEDS ORDERED: BISACODYL 10 MG SUPP.RECT PR PRN (19:06)
[2019-05-18] MEDS: LEVOFLOXACIN 750 MG/150 ML BAG IV SCH (19:20)
--- NOTE | 2019-05-18 19:40 | Nephrology Consult Note ---
History of Present Illness - Reason for Consult Patient information: Note initiated : 05/18/19 at 7:37 pm Service Date, if different from initiated Date: [] Patient: Joanne Nguyễn 79 y/o F admitted on 05/18/19 for nausea, bloody stool. Chief Complaint: [] - History of Present Illness 79 y.o with diabetes, HTN, hypothyroidism, presents with 1 week of nausea, vomiting, abdominal pain, constipation. Unable to tolerate PO well. + cough, denies blood in stool, urine, emesis. Initial work up + Scr 2.8, leukocytosis. note to be in Afib with RVR. History limited as the patient seems tired/ in some distress. Past History Past medical history: Medical History (Last Updated 05/18/19 @ 14:35 by Korey Gale DO) Hypertension, essential (Chronic) Diabetes mellitus, type 2 (Chronic) Past surgical history: Past Surgical History (Last Updated 05/18/19 @ 14:37 by Korey Gale DO) S/P total hip arthroplasty (Chronic) History of bladder repair surgery (Acute) History of total right knee replacement (TKR) (Acute) Past family history: Social History No Social History Section defined Past social history: Family History (Last Reviewed 05/18/19 @ 14:37 by Korey Gale DO) Family/Other No problems noted. Other Diabetes mellitus Medications and Allergies Home Medications Medication Instructions Recorded Confirmed Type Aspirin 325 mg PO HS 10/26/16 05/18/19 History Cholecalciferol (Vitamin D3) 2,000 unit PO DAILY 10/26/16 05/18/19 History [Vitamin D3] Cranberry 650 mg PO BID 10/26/16 05/18/19 History Hydrochlorothiazide [Oretic] 25 mg PO DAILY 10/26/16 05/18/19 History Krill/Om3/Dha/Epa/Om6/Lip/Astx 500 mg PO DAILY 10/26/16 05/18/19 History [Krill Oil 1,000 mg Softgel] Levothyroxine [Synthroid] 50 mcg PO ACB 10/26/16 05/18/19 History Losartan [Cozaar] 100 mg PO DAILY 10/26/16 05/18/19 History Multivitamin [Multi-Day Vitamins] 1 each PO DAILY 10/26/16 05/18/19 History Potassium Chloride [Kdur] 20 meq PO 5XD 10/26/16 05/18/19 History Psyllium Husk [Metamucil] 6 gm PO BID 10/26/16 05/18/19 History Simvastatin [Zocor] 10 mg PO HS 10/26/16 05/18/19 History amLODIPine BESYLATE [Amlodipine 10 mg PO DAILY 10/26/16 05/18/19 History Besylate] cloNIDine HCL [Catapres] 0.3 mg PO QID 10/26/16 05/18/19 History metFORMIN HCL [Metformin ER 500 mg PO DAILY@1800 10/26/16 05/18/19 History Osmotic] Metoprolol Succinate [Toprol Xl] 100 mg PO DAILY 08/25/17 05/18/19 History Calcium/Magnesium/Zinc 1 each PO TID 05/18/19 05/18/19 History [Zgbveve-Abenlzswt-Kctx Tablet] Lutein/Zeaxanthin [Ocuvite Lutein 1 each PO DAILY 05/18/19 05/18/19 History 25-5 mg Softgel] Magnesium Citrate [Citrate of 296 ml PO ONCE 05/18/19 05/18/19 History Magnesia] Melatonin/Pyridoxine [Melatonin 5 5 mg PO QHS 05/18/19 05/18/19 History mg Tablet] Allergies Allergy/AdvReac Type Severity Reaction Status Date / Time oxycodone [Oxycodone] AdvReac Mild Vomiting Verified 05/18/19 10:20 Sulfa (Sulfonamide AdvReac Mild Redness of Verified 05/18/19 10:20 Antibiotics) Skin Exam - Vital Signs Vital signs: Temp Pulse Resp BP Pulse Ox 38.2 C H 141 H 21 145/88 95 05/18/19 18:31 05/18/19 17:00 05/18/19 18:31 05/18/19 18:31 05/18/19 18:31 Results - Lab Results 05/19/19 03:55 05/19/19 03:55 Most recent lab results Calcium 8.8 mg/dl (8.6-10.4) 05/18/19 10:24 Assessment and Plan (1) RODRIGUEZ (acute kidney injury) Status: Acute Priority: High - Narrative A/P Narrative: baseline Scr. 0.8 in 08/2017. Scr. 2.8 on presentation. most likely pre-renal as poor po intake and nausea + vomiting. also could have a component of CKD + azotemia BUN 90 ua leukocytosis, a few RBC in the setting of Ellis; no protein on dipstick Ct a/p read as Kidneys show slight inhomogeneity and perinephric fat stranding which is suggestive, but not diagnostic, diffuse renal inflammation such as glomerulonephritis. 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 There is no free air, free fluid or adenopathy. hemodynamics- volume clinically "dry", normotensive at the time of my visit. low normal values prior. HR 140s. * agree with iv fluids for volume resuscitation * ua rather unimpressive for UTI as source of sepsis; since > 10WBC, culture should be obtained * antibiotic coverage per primary team * am labs
[2019-05-18] MEDS: CALCIUM W/VIT D3 500 MG TABLET PO SCH (20:29)
[2019-05-18] MEDS: FISH OIL 1,000 MG CAPSULE PO SCH (20:30)
[2019-05-18] MEDS: HEPARIN 5,000 UNIT/ML VIAL SQ SCH (20:30)
[2019-05-18] MEDS: SIMVASTATIN 10 MG TABLET PO SCH (20:30)
[2019-05-18] MEDS: DOCUSATE SODIUM 100 MG CAPSULE PO SCH (20:30)
[2019-05-18] MEDS: SENNOSIDES/DOCUSATE SODIUM 1 TAB TABLET PO SCH (20:30)
[2019-05-18] MEDS: CYANOCOBALAMIN (VITAMIN B-12) 500 MCG TABLET PO SCH (20:30)
[2019-05-18] MEDS: CRANBERRY 650 MG PO SCH (20:54)
[2019-05-18] MEDS: MELATONIN 3 MG TABLET PO PRN (21:08)
[2019-05-19] MEDS: METOPROLOL TARTRATE 5 MG/5 ML VIAL IV SCH ×2 (00:45→07:53)
[2019-05-19] MEDS ORDERED: METOPROLOL TARTRATE 5 MG/5 ML VIAL IV ONE (00:46)
[2019-05-19] MEDS ORDERED: DILTIAZEM 125 MG/25 ML VIAL IV ONE (02:18)
[2019-05-19] MEDS: DILTIAZEM 125 MG in 0.9 % SODIUM CHLORIDE 100 ML IV SCH ×4 (02:20→20:06)
[2019-05-19] MEDS: ONDANSETRON 4 MG/2 ML VIAL IV PRN ×3 (03:21→17:38)
[2019-05-19] MEDS: 0.9 % SODIUM CHLORIDE 10 ML SYRINGE IV SCH ×3 (05:28→21:12)
[2019-05-19] MEDS: 0.9 % SODIUM CHLORIDE 1,000 ML IV SCH ×3 (05:28→20:34)
[2019-05-19 05:36] LABS: Hematocrit 35.7 % (36.0-48.0); Hemoglobin 11.5 g/dL (12.0-15.0); Mean Cell Volume 94.7 fL (80.0-100.0); Mean Corpuscular HGB Conc 32.3 g/dL (31.0-36.0); Mean Platelet Volume 8.6 fL (7.4-10.4); Platelet Count 363 K/mcL (140-440); RBC 3.77 M/mcL (4.00-5.20)
[2019-05-19 05:45] LABS: ALT/SGPT 132 U/l (0-40); AST/SGOT 64 U/l (0-37); Albumin 2.7 gm/dL (3.2-5.2); Albumin/Globulin Ratio 0.7 (1.0-2.3); Alkaline Phosphatase 207 U/L (39-117); Bilirubin,Direct < 0.2 mg/dL (0.0-0.3); Bilirubin,Total 0.3 mg/dL (0.0-1.0); Blood Urea Nitrogen 61 mg/dl (8-23); C-Reactive Protein 20.4 mg/dl (0.0-0.8); Calcium 8.6 mg/dl (8.6-10.4); Carbon Dioxide 19 mmol/L (22-30); Chloride 110 mmol/L (96-108); Globulin 3.7 gm/dL (2.2-3.7); Glomerular Filtration Rate 21; Glucose 121 mg/dL (70-105); Lactate Dehydrogenase 276 U/L (94-250); Phosphorous 3.8 mg/dL (2.7-4.5); Triglycerides 203 mg/dl (<150); Uric Acid 7.4 mg/dL (2.5-8.0)
[2019-05-19 08:08] LABS: Band Neutrophils % 5 % (0-10); Lymphocytes % 5 % (15-49); Monocytes % (Manual) 5 % (1-12); Platelet Estimate NORMAL (NORMAL); RBC Morphology NORMAL (NORMAL); Reactive Lymphocytes 2 % (0-2); Segmented Neutrophils % 83 % (38-78)
[2019-05-19] MEDS: 0.9 % SODIUM CHLORIDE 250 ML IV SCH ×2 (08:18→17:23)
[2019-05-19] MEDS: INSULIN LISPRO 1 UNIT/0.01 ML UNIT SQ SCH ×4 (08:21→21:09)
[2019-05-19] MEDS: ASPIRIN 325 MG ENTERIC COATED TABLET PO SCH (08:22)
[2019-05-19] MEDS: METOPROLOL SUCCINATE 50 MG TAB.XL.24H PO SCH (08:22)
[2019-05-19] MEDS: POLYETHYLENE GLYCOL 3350 17 GM PACKET PO PRN (08:22)
[2019-05-19] MEDS: DOCUSATE SODIUM 100 MG CAPSULE PO SCH ×2 (08:22→21:10)
[2019-05-19] MEDS: HEPARIN 5,000 UNIT/ML VIAL SQ SCH ×2 (08:22→21:11)
[2019-05-19] MEDS: FOLIC ACID 1 MG TABLET PO SCH (08:22)
[2019-05-19] MEDS: CRANBERRY 650 MG PO SCH ×2 (08:23→21:11)
[2019-05-19] MEDS: CALCIUM W/VIT D3 500 MG TABLET PO SCH ×3 (08:30→21:10)
[2019-05-19] MEDS: VITAMIN D3 1,000 UNIT TABLET PO SCH (08:30)
[2019-05-19] MEDS: CYANOCOBALAMIN (VITAMIN B-12) 500 MCG TABLET PO SCH ×2 (08:30→21:10)
[2019-05-19] MEDS: THIAMINE 100 MG TABLET PO SCH (08:30)
[2019-05-19] MEDS: LEVOTHYROXINE 50 MCG TABLET PO SCH (08:30)
[2019-05-19] MEDS: MULTIVIT,THER IRON,CA,FA & MIN 1 TABLET PO SCH (08:31)
[2019-05-19] MEDS ORDERED: POTASSIUM CHLORIDE 40 MEQ in DEXTROSE 5% IN WATER 500 ML IV ONE (08:59)
[2019-05-19] MEDS: cefTRIAXone 2 GM in DEXTROSE 5% IN WATER 50 ML IV SCH (09:00)
[2019-05-19] MEDS ORDERED: traZODone HCL 50 MG TABLET PO PRN (09:45)
--- NOTE | 2019-05-19 09:53 | Internal Med Progress Note ---
Medical - PN: Subj Patient information: Note initiated : 05/19/19 at 9:50 am Service Date, if different from initiated Date: [] Patient: Joanne Nguyễn a 79 y/o F admitted on 05/18/19 for nausea, bloody stool. Chief Complaint: [] Interval history: Ms. Nguyễn is a 79 year old F history of diabetes/hypertension and hypothyroidism who presents with over 1 week onset of progressive nausea/upper mid abdominal pain along with associated vomiting. Patient has not been able to eat or drink much in the last 10 days. She went to urgent care a few days prior to presentation and was discharged after evaluation. Patient however failed to improve. She denies associated fever chills. She has not had a restful night sleep. Her pain is described as 6 out of 10 to 8 out of 10 associated with coughing, constant around epigastric area without radiation. She denies associated bloody emesis/bloody stools. She endorses to cough, with unrelenting symptoms patient presents to the ER for further evaluation Initial work-up was consistent with acute pyelonephritis on CT abdomen, sepsis with white count 25,000, acute renal failure with creatinine 3 and BUN 90. Patient was found to be in A. fib with RVR with rate around 150. Nephrology was consulted and subsequently hospitalist service requested for admission. Cultures were drawn and antibiotics were initiated including Rocephin/vancomycin/Zosyn At the time of evaluation patient is extremely distressed. Unable to talk in full sentences, lethargic and anxious. She endorses to history as above. She denies prior similar episodes. 05/19-patient doing well. No overnight events. No concerns per staff. No fever chills. Persistent nausea. A. fib currently rate controlled on diltiazem drip at 15. at bedside. Updated on treatment plan/clinical improvement. Creatinine down to 2.2, white count down from 25.6-24. Downtrending LFTs. Continue ICU care. Patient remains critically ill with [place] score over 15 in the setting of profound sepsis with multiple organ dysfunction - Constitutional Vitals: Vital Signs Temp Pulse Resp BP Pulse Ox 99.1 F H 94 H 19 130/91 92 05/19/19 09:31 05/19/19 02:00 05/19/19 09:31 05/19/19 09:01 05/19/19 09:31 Period Temp Pulse Resp BP Sys/Fitch Pulse Ox Last 24 Hr 96.9 F-100.9 F 57-154 11-30 80-153/57-116 87-99 Intake and Output 05/18/19 05/19/19 05/19/19 21:59 05:59 13:59 Intake Total 1328 1591 480 Output Total 1570 1890 1100 Balance -242 -299 -620 Weight 151 lb Intake & Output: Intake & Output 05/18/19 05/19/19 05/19/19 21:59 05:59 13:59 Intake Total 1328 1591 480 Output Total 1570 1890 1100 Balance -242 -299 -620 Weight 151 lb Intake: Nourishment/Supplement quantity 120 120 (ml) IV 1208 1111 Sodium Chloride 0.9% 1,000 ml @ 1000 1000 100 mls/hr IV .Q10H [facility] Rx#: [id number] Cardizem 125 mg In Sodium 8 111 Chloride 0.9% 100 ml @ 5 MG/HR 5 mls/hr IV Q12H [facility] Rx#: [id number] Rocephin 2 gm In Dextrose 5% in 50 Water 50 ml @ 100 mls/hr IV Q24H [facility] Rx#:[id number] Oral 360 480 Output: Urine Catheter Amount 1570 1890 1100 Other: Meal Nourishment/Supplement Nourishment/Supplement Nourishment/Supplement Percent of Meal Consumed 100% 100% 100% Feeding Ability Independent Assist with Tray Set Up Nourishment/Supplement name JOSTIN williamson Urine Appearance Clear Clear Clear Uretheral (Ellis) Clear Clear Urine Color Pale Pale Straw Uretheral (Ellis) Pale Pale Urine Odor Normal General appearance: no acute distress - Head Additional comments: Fatigue lethargic but oriented Nonlabored breathing Tachycardia on telemetry A. fib Improved urine output Abdominal tenderness epigastric area with negative flank tenderness on bimanual palpation No lymphedema Medical - PN: Obj Da - Labs CBC & Chem 7: 05/19/19 03:55 05/19/19 03:55 Labs: Abnormal Lab Results 05/19/19 05/19/19 05/18/19 03:55 03:55 Unknown WBC 24.0 H RBC 3.77 L Hgb 11.5 L Hct 35.7 L RDW 15.0 H Gran % Lymph % (Auto) Gran # Lymph # (Auto) [place] # (Auto) Seg Neutrophils % 83 H Lymphocytes % 5 L ESR 92 H Potassium 3.0 L Chloride 110 H Carbon Dioxide 19 L POC Total CO2 Anion Gap POC BUN BUN 61 H Creatinine 2.2 H POC Creatinine Glucose 121 H POC Glucose POC WB Ioniz Calcium GGT 50 H AST 64 H ALT 132 H Alkaline Phosphatase 207 H Lactate Dehydrogenase 276 H C-Reactive Protein 20.4 H Albumin 2.7 L Globulin Albumin/Globulin Ratio 0.7 L Triglycerides 203 H Urine Occult Blood Ur Leukocyte Esterase Urine RBC Urine WBC Urine Bacteria 05/18/19 05/18/19 05/18/19 15:31 11:09 10:24 WBC 25.6 H RBC Hgb Hct RDW 14.9 H Gran % 87.8 H Lymph % (Auto) 3.7 L Gran # 22.5 H Lymph # (Auto) 0.9 L [place] # (Auto) 2.2 H Seg Neutrophils % Lymphocytes % ESR Potassium Chloride Carbon Dioxide 19 L POC Total CO2 20 L Anion Gap 17.0 H POC BUN 90 H BUN 90 H Creatinine 2.8 H POC Creatinine 3.0 H Glucose 137 H POC Glucose 137 H POC WB Ioniz Calcium 1.13 L GGT AST 95 H ALT 157 H Alkaline Phosphatase 192 H Lactate Dehydrogenase C-Reactive Protein 28.8 H Albumin 2.9 L Globulin 4.0 H Albumin/Globulin Ratio 0.7 L Triglycerides Urine Occult Blood 0.2 A Ur Leukocyte Esterase 25 A Urine RBC 4 H Urine WBC 14 H Urine Bacteria Mod A Meds: Medications Acetaminophen (Tylenol) 650 mg PO Q4-6HP PRN; Protocol PRN Reason: Per Pain Protocol/Fever > 101 Aspirin (Ecotrin) 325 mg PO DAILY [facility] Last Admin: 05/19/19 08:22 Dose: 325 mg Documented by: Bisacodyl (Dulcolax) 10 mg MA DAILYP PRN PRN Reason: Constipation Calcium/Vitamin D (Calcium W/Vit D3) 500 mg PO TID [facility] Last Admin: 05/19/19 08:30 Dose: 500 mg Documented by: Clonidine HCl (Catapres) 0.3 mg PO QIDP [facility] Cyanocobalamin (Vitamin B-12) 1,000 mcg PO BID [facility] Stop: 05/23/19 09:01 Last Admin: 05/19/19 08:30 Dose: 1,000 mcg Documented by: Dextrose (Dextrose 50%) 0 ml IV UD PRN PRN Reason: Hypoglycemia Diagnostic Test (Pha) (Accu-Chek) 1 each FS ACHS [facility] Last Admin: 05/19/19 08:17 Dose: 1 each Documented by: Docusate Sodium (Colace) 100 mg PO BID [facility] Last Admin: 05/19/19 08:22 Dose: 100 mg Documented by: Fish Oil (Fish Oil) 1,000 mg PO HS [facility] Last Admin: 05/18/19 20:30 Dose: 1,000 mg Documented by: Folic Acid (Folic Acid) 1 mg PO DAILY [facility] Last Admin: 05/19/19 08:22 Dose: 1 mg Documented by: Glucose (Insta-Glucose) 15 gm PO PRN PRN PRN Reason: Hypoglycemia Heparin Sodium (Porcine) (Heparin) 5,000 unit SQ Q12 [facility] Last Admin: 05/19/19 08:22 Dose: 5,000 unit Documented by: Hydromorphone HCl (Dilaudid) 0 mg IV Q4HP PRN; Protocol PRN Reason: Per Pain Protocol Sodium Chloride (Sodium Chloride 0.9%) 1,000 mls @ 100 mls/hr IV .Q10H [facility] Stop: 05/19/19 23:00 Last Admin: 05/19/19 05:28 Dose: 100 mls/hr Documented by: Acetaminophen (Ofirmev) 650 mg in 65 mls @ 130 mls/hr IV Q6HP PRN; Protocol PRN Reason: Per Pain Protocol/Fever > 101 Ceftriaxone Sodium 2 gm/ (Dextrose) 50 mls @ 100 mls/hr IV Q24H [facility]; Protocol Last Admin: 05/19/19 09:00 Dose: 100 mls/hr Documented by: Levofloxacin (Levaquin) 750 mg in 150 mls @ 100 mls/hr IV Q48H [facility]; Protocol Last Infusion: 05/18/19 21:00 Dose: Infused Documented by: Norepinephrine Bitartrate 16 (mg/ Sodium Chloride) 250 mls @ 9.375 mls/hr IV Q24HP PRN; Protocol PRN Reason: Hypotension Diltiazem HCl 125 mg/ Sodium (Chloride) 125 mls @ 5 mls/hr IV Q12H [facility]; Protocol Last Admin: 05/19/19 05:10 Dose: Not Given Documented by: Sodium Chloride (Sodium Chloride 0.9%) 250 mls @ 20 mls/hr IV .[id number] [facility] Last Admin: 05/19/19 08:18 Dose: Not Given Documented by: Potassium Chloride 40 meq/ (Dextrose) 520 mls @ 130 mls/hr IV ONCE ONE Stop: 05/19/19 12:58 Last Admin: 05/19/19 09:00 Dose: 130 mls/hr Documented by: Insulin Human Lispro (Humalog) 0 unit SQ [facility]; Protocol Last Admin: 05/19/19 08:21 Dose: 1 unit Documented by: Iron Carb/Multivit/Video Systems Engineer/Folic Acid (Multivitamin W/Minerals) 1 tab PO DAILY [facility] Last Admin: 05/19/19 08:31 Dose: 1 tab Documented by: Levothyroxine Sodium (Synthroid) 50 mcg PO ACB [facility] Last Admin: 05/19/19 08:30 Dose: 50 mcg Documented by: Melatonin (Melatonin 3mg Tablet) 3 mg PO [facility] PRN PRN Reason: Insomnia Last Admin: 05/18/19 21:08 Dose: 3 mg Documented by: Metoprolol Succinate (Toprol Xl) 100 mg PO DAILY [facility] Last Admin: 05/19/19 08:22 Dose: 100 mg Documented by: Ondansetron HCl (Zofran) 4 mg IV Q4-6HP PRN; Protocol PRN Reason: Nausea And Vomiting Last Admin: 05/19/19 08:37 Dose: 4 mg Documented by: Cranberry 650 Mg Cap 1 dose PO BID [facility] Last Admin: 05/19/19 08:23 Dose: Not Given Documented by: Polyethylene Glycol (Miralax) 17 gm PO DAILYP PRN PRN Reason: Constipation Last Admin: 05/19/19 08:22 Dose: 17 gm Documented by: Promethazine HCl (Phenergan) 12.5 - 25 mg IV Q4-6HP PRN PRN Reason: Nausea And Vomiting Last Admin: 05/18/19 17:32 Dose: 12.5 mg Documented by: Senna/Docusate Sodium (Senna Plus Tablet) 1 tab PO [facility] Last Admin: 05/18/19 20:30 Dose: 1 tab Documented by: Simvastatin (Zocor) 10 mg PO [facility] Last Admin: 05/18/19 20:30 Dose: 10 mg Documented by: Sodium Chloride (Saline Flush) 10 ml IV Q8 [facility] Last Admin: 05/19/19 05:28 Dose: Not Given Documented by: Thiamine HCl (Vitamin B1) 100 mg PO DAILY [facility] Last Admin: 05/19/19 08:30 Dose: 100 mg Documented by: Trazodone HCl (Desyrel) 50 mg PO [facility] PRN PRN Reason: Insomnia Vitamin D (Vitamin D3) 2,000 unit PO DAILY [facility] Last Admin: 05/19/19 08:30 Dose: 2,000 unit Documented by: Medical - PN: A/P - Time Spent With Patient Total time spent is greater than 50% in coordination of care (as documented) at patient's floor/unit and/or counseling patient: Greater than 35 minutes (Critical care time) (1) Acute pyelonephritis Status: Acute Assessment and plan: * Severe sepsis with multiple organ system dysfunction -including RODRIGUEZ/elevated LFTs/A. fib RVR/mental status change. Clinically improving with aggressive treatment of primary etiology. * Acute pyelonephritis-bilateral, continue antibiotic coverage. Clinically improving * A. fib with RVR-rate controlled on diltiazem drip. * Persistent nausea continue antiemetics. If not resolving will require upper endoscopy/GI consult * Acute renal failure likely secondary sepsis. Creatinine down from 3-2.2. Nephrology on board. Continue crystalloids * Elevated LFTs secondary to sepsis endorgan dysfunction. Clinically improving and downtrending * DM type II continue sliding-scale insulin/CC diet, held metformin * History of hypertension held SIMONE inhibitor, continue beta-aman * Full code * Prophylaxis- Heparin PLAN * continue ICU care * Broad antibiotic coverage de-escalate once CS available * Wean diltiazem drip * GI consult for upper endoscopy if Persistent nausea * Monitor renal and liver function * PT OT/nutrition support * Discharge planning Current Visit: Yes Medical - PN: Qual - VTE Deep Vein Thrombosis/Pulmonary Embolism Present on Admission: No
--- NOTE | 2019-05-19 10:19 | Nephrology Progress Note ---
Subjective Patient information: Note initiated : 05/19/19 at 10:17 am Patient: Joanne Nguyễn 79 y/o F admitted on 05/18/19 for nausea, bloody stool. Chief Complaint: Weakness Pertinent ROS: Weakness Ellis catheter No confusion No shortness of breath No edema Objective - Vital Signs Vital signs: Vital Signs Temp Pulse Pulse Resp BP BP Pulse Ox 05/19/19 09:31 99.1 F H 19 92 05/19/19 09:20 96 05/19/19 09:01 99.1 F H 19 130/91 05/19/19 08:17 99.3 F H 22 97 05/19/19 08:01 99.2 F H 21 129/88 97 05/19/19 07:31 99.0 F 18 93 05/19/19 07:01 99.0 F 22 153/79 94 05/19/19 06:01 99.0 F 21 149/89 94 05/19/19 05:01 99.2 F H 22 142/71 93 05/19/19 04:01 99.2 F H 21 145/75 94 05/19/19 03:01 99.5 F H 24 H 136/92 92 05/19/19 02:01 99.4 F H 22 142/76 93 05/19/19 02:00 94 H 22 95 05/19/19 01:01 98.9 F 19 139/87 95 05/19/19 00:31 99.1 F H 28 H 144/96 92 05/19/19 00:01 99.1 F H 25 H 127/101 93 05/18/19 23:31 98.9 F 23 H 140/88 93 05/18/19 23:01 99.1 F H 23 H 133/90 94 05/18/19 22:31 99.4 F H 22 140/90 94 05/18/19 22:01 99.4 F H 24 H 129/89 92 05/18/19 21:31 99.5 F H 11 L 128/91 97 05/18/19 21:01 99.7 F H 24 H 134/81 96 05/18/19 20:31 99.8 F H 23 H 149/91 95 05/18/19 20:16 100.1 F H 19 141/94 95 05/18/19 20:01 100.5 F H 24 H 136/95 95 05/18/19 20:00 97 05/18/19 19:46 100.5 F H 25 H 132/85 95 05/18/19 19:31 100.7 F H 24 H 131/91 98 05/18/19 19:16 100.8 F H 30 H 141/59 93 05/18/19 19:01 100.8 F H 24 H 150/98 94 05/18/19 18:47 100.8 F H 26 H 134/90 95 05/18/19 18:45 100.8 F H 22 131/100 94 05/18/19 18:31 100.8 F H 21 145/88 95 05/18/19 18:16 100.8 F H 29 H 138/89 96 05/18/19 18:06 100.9 F H 24 H 129/89 96 05/18/19 17:46 100.9 F H 24 H 132/86 92 05/18/19 17:31 100.9 F H 24 H 141/101 92 05/18/19 17:16 100.7 F H 25 H 151/110 87 L 05/18/19 17:06 100.5 F H 153/94 05/18/19 17:00 100.6 F H 141 H 24 H 153/94 96 05/18/19 16:45 100.3 F H 57 L 21 128/90 94 05/18/19 16:36 100.3 F H 130 H 25 H 122/107 93 05/18/19 16:30 100.3 F H 154 H 18 122/107 93 05/18/19 16:15 100.1 F H 140 H 22 130/95 93 05/18/19 16:00 136 H 14 111/86 95 05/18/19 15:58 100.0 F H 145 H 18 128/84 87 L 05/18/19 15:46 99.7 F H 107 H 21 80/57 93 05/18/19 15:31 99.6 F H 92 H 19 117/82 92 05/18/19 15:25 99.1 F H 92 H 21 128/95 88 L 05/18/19 15:20 99.3 F H 134 H 24 H 149/116 93 05/18/19 13:57 98.8 F 133 H 28 H 131/93 93 05/18/19 13:30 24 H 131/93 05/18/19 13:10 57 L 17 96 05/18/19 12:45 123 H 12 131/94 92 05/18/19 12:30 129 H 13 123/93 96 05/18/19 12:16 122 H 13 121/71 94 05/18/19 11:45 121 H 15 141/100 97 05/18/19 11:36 119 H 15 130/83 97 05/18/19 11:30 73 17 130/83 98 05/18/19 11:15 132 H 19 137/90 98 05/18/19 10:36 59 L 18 135/96 97 05/18/19 10:30 116 H 15 135/96 97 Intake and Output 05/18/19 05/19/19 05/19/19 21:59 05:59 13:59 Intake Total 1328 1591 480 Output Total 1570 1890 1100 Balance -242 -716 -431 Intake: Nourishment/Supplement quantity 120 120 (ml) IV 1208 1111 Sodium Chloride 0.9% 1,000 ml @ 1000 1000 100 mls/hr IV .Q10H [facility] Rx#: [id number] Cardizem 125 mg In Sodium 8 111 Chloride 0.9% 100 ml @ 5 MG/HR 5 mls/hr IV Q12H [facility] Rx#: [id number] Rocephin 2 gm In Dextrose 5% in 50 Water 50 ml @ 100 mls/hr IV Q24H [facility] Rx#:[id number] Oral 360 480 Output: Urine Catheter Amount 1570 1890 1100 Other: Meal Nourishment/Supplement Nourishment/Supplement Nourishment/Supplement Percent of Meal Consumed 100% 100% 100% Feeding Ability Independent Assist with Tray Set Up Nourishment/Supplement name JOSTIN williamson Urine Appearance Clear Clear Clear Uretheral (Ellis) Clear Clear Urine Color Pale Pale Straw Uretheral (Ellis) Pale Pale Urine Odor Normal Weight 151 lb Intake & Output: Intake & Output 05/18/19 05/19/19 05/19/19 21:59 05:59 13:59 Intake Total 1328 1591 480 Output Total 1570 1890 1100 Balance -242 299 -908 Weight 151 lb Intake: Nourishment/Supplement quantity 120 120 (ml) IV 1208 1111 Sodium Chloride 0.9% 1,000 ml @ 1000 1000 100 mls/hr IV .Q10H [facility] Rx#: [id number] Cardizem 125 mg In Sodium 8 111 Chloride 0.9% 100 ml @ 5 MG/HR 5 mls/hr IV Q12H [facility] Rx#: [id number] Rocephin 2 gm In Dextrose 5% in 50 Water 50 ml @ 100 mls/hr IV Q24H [facility] Rx#:[id number] Oral 360 480 Output: Urine Catheter Amount 1570 1890 1100 Other: Meal Nourishment/Supplement Nourishment/Supplement Nourishment/Supplement Percent of Meal Consumed 100% 100% 100% Feeding Ability Independent Assist with Tray Set Up Nourishment/Supplement name JELLO jello Urine Appearance Clear Clear Clear Uretheral (Ellis) Clear Clear Urine Color Pale Pale Straw Uretheral (Ellis) Pale Pale Urine Odor Normal - General Appearance General appearance: fatigue EENT: mucous membranes moist Neck: supple Respiratory: clear Cardiology: no edema Integumentary: warm and dry Neurologic: no focal deficit, alert and oriented x3 Musculoskeletal: no deformities Psychiatric: mood/affect appropriate, cooperative - Lab 05/19/19 03:55 05/19/19 03:55 Most recent lab results Calcium 8.6 mg/dl (8.6-10.4) 05/19/19 03:55 Phosphorus 3.8 mg/dL (2.7-4.5) 05/19/19 03:55 Magnesium 2.1 mg/dL (1.6-2.5) 05/19/19 03:55 Assessment and Plan (1) RODRIGUEZ (acute kidney injury) Joanne Nguyễn is a 79-year-old female with coronary artery disease s/p CABG and stents, hypertension, hyperlipidemia, hypothyroidism, diabetes mellitus type 2, admitted on 05/18/19. Acute kidney injury with metabolic acidosis, associated with intravascular volume depletion and NSAID (Ibuprofen) use, present on arrival, improving. Work up: Urinalysis on 05/18/19: Straw, Clear, pH 5.0, SG 1.009, protein negative, occult blood 0.2, leukocyte esterase 25, urine WBC 14, urine culture pending. CT Abdomen and Pelvis without contrast on 05/18/19: Kidneys show slight inhomogeneity and perinephric fat stranding which is suggestive, but not diagnostic, diffuse renal inflammation such as glomerulonephritis. 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 Progress: Urine output: 3460 ml reported in the past 18 hours. Creatinine decreased from 2.8 to 2.2 in the past 18 hours. Metabolic acidosis. Hypokalemia. No fluid overload. No uremic symptoms. Plan: No acute hemodialysis need. Avoid NSAIDs, nephrotoxic medications and IV contrast. Monitor BMP and urine output. Sodium Bicarbonate supplement as needed for metabolic acidosis. Further work up will be considered due to renal US findings based on progress. Status: Acute Priority: High
[2019-05-19] MEDS: cloNIDine HCL 0.1 MG TABLET PO SCH ×3 (15:45→21:10)
[2019-05-19] MEDS: FISH OIL 1,000 MG CAPSULE PO SCH (21:10)
[2019-05-19] MEDS: MELATONIN 3 MG TABLET PO PRN (21:10)
[2019-05-19] MEDS: SIMVASTATIN 10 MG TABLET PO SCH (21:10)
[2019-05-19] MEDS: SENNOSIDES/DOCUSATE SODIUM 1 TAB TABLET PO SCH (21:10)
[2019-05-20] MEDS: DILTIAZEM 125 MG in 0.9 % SODIUM CHLORIDE 100 ML IV SCH (02:30)
[2019-05-20] MEDS: 0.9 % SODIUM CHLORIDE 10 ML SYRINGE IV SCH ×3 (05:25→21:08)
[2019-05-20 06:03] LABS: Hematocrit 34.5 % (36.0-48.0); Hemoglobin 11.2 g/dL (12.0-15.0); Mean Cell Volume 95.2 fL (80.0-100.0); Mean Corpuscular HGB Conc 32.4 g/dL (31.0-36.0); Mean Platelet Volume 8.1 fL (7.4-10.4); Platelet Count 356 K/mcL (140-440); RBC 3.62 M/mcL (4.00-5.20); Red Cell Distribution Width 15.5 % (11.5-14.5); WBC 16.3 K/mcL (4.5-11.0)
[2019-05-20 06:09] LABS: ALT/SGPT 127 U/l (0-40); AST/SGOT 85 U/l (0-37); Albumin 2.1 gm/dL (3.2-5.2); Albumin/Globulin Ratio 0.6 (1.0-2.3); Alkaline Phosphatase 179 U/L (39-117); Bilirubin,Direct < 0.2 mg/dL (0.0-0.3); Bilirubin,Total 0.2 mg/dL (0.0-1.0); Blood Urea Nitrogen 43 mg/dl (8-23); Calcium 8.9 mg/dl (8.6-10.4); Carbon Dioxide 17 mmol/L (22-30); Chloride 113 mmol/L (96-108); Globulin 3.5 gm/dL (2.2-3.7); Glomerular Filtration Rate 27; Glucose 101 mg/dL (70-105); Lactate Dehydrogenase 305 U/L (94-250); Phosphorous 2.8 mg/dL (2.7-4.5); Triglycerides 134 mg/dl (<150); Uric Acid 6.4 mg/dL (2.5-8.0)
[2019-05-20] MEDS: 0.9 % SODIUM CHLORIDE 250 ML IV SCH (06:28)
[2019-05-20] MEDS: INSULIN LISPRO 1 UNIT/0.01 ML UNIT SQ SCH ×4 (07:01→20:41)
[2019-05-20] MEDS: DOCUSATE SODIUM 100 MG CAPSULE PO SCH ×2 (07:05→20:30)
[2019-05-20] MEDS: LEVOTHYROXINE 50 MCG TABLET PO SCH (07:05)
[2019-05-20] MEDS: POLYETHYLENE GLYCOL 3350 17 GM PACKET PO PRN (07:05)
--- NOTE | 2019-05-20 07:22 | Nephrology Progress Note ---
Subjective Patient information: Note initiated : 05/20/19 at 7:20 am Patient: Joanne Nguyễn 79 y/o F admitted on 05/18/19 for nausea, bloody stool. Chief Complaint: Weakness Pertinent ROS: Eating breakfast Confusion improved Weakness Ellis catheter No edema Objective - Vital Signs Vital signs: Vital Signs Temp Pulse Resp BP Pulse Ox 05/20/19 06:04 98.5 F 23 H 94 05/20/19 06:02 98.5 F 16 134/87 95 05/20/19 05:01 98.4 F 19 145/105 95 05/20/19 04:09 98.7 F 20 129/70 96 05/20/19 04:01 98.7 F 19 139/101 95 05/20/19 03:07 98.9 F 16 95 05/20/19 03:00 98.9 F 17 123/68 95 05/20/19 02:28 99.0 F 19 97 05/20/19 02:01 99.1 F H 18 120/66 96 05/20/19 01:01 99.6 F H 18 124/75 92 05/20/19 00:56 99.6 F H 19 127/77 94 05/20/19 00:44 99.6 F H 18 94 05/20/19 00:30 79 96 05/20/19 00:01 99.8 F H 17 109/67 95 05/19/19 23:01 99.7 F H 17 124/75 88 L 05/19/19 23:00 88 L 05/19/19 22:01 99.5 F H 17 129/64 94 05/19/19 21:01 99.7 F H 18 120/67 92 05/19/19 20:01 99.5 F H 22 149/79 92 05/19/19 19:01 99.4 F H 22 147/95 95 05/19/19 18:45 96 05/19/19 18:33 97 H 96 05/19/19 18:01 99.5 F H 24 H 150/88 95 05/19/19 17:01 99.0 F 20 150/104 93 05/19/19 16:22 99.0 F 22 140/102 94 05/19/19 15:01 99.1 F H 20 149/83 93 05/19/19 14:01 99.2 F H 22 141/92 95 05/19/19 14:00 95 H 20 95 05/19/19 13:01 98.8 F 21 160/89 95 05/19/19 12:08 98.9 F 22 95 05/19/19 12:01 98.9 F 24 H 148/85 95 05/19/19 11:39 98.8 F 15 95 05/19/19 11:01 98.8 F 17 142/89 94 05/19/19 10:02 98.8 F 18 116/68 97 05/19/19 09:31 99.1 F H 19 92 05/19/19 09:20 96 05/19/19 09:01 99.1 F H 19 130/91 05/19/19 08:17 99.3 F H 22 97 05/19/19 08:01 99.2 F H 21 129/88 97 05/19/19 08:00 121 H 20 96 05/19/19 07:31 99.0 F 18 93 Intake and Output 05/19/19 05/20/19 05/20/19 21:59 05:59 13:59 Intake Total 3260 818 Output Total 570 1225 Balance 2690 -407 Intake: IV 1895 243 Sodium Chloride 0.9% 1,000 ml @ 1000 100 mls/hr IV .Q10H [facility] Rx#: [id number] Sodium Chloride 0.9% 250 ml @ 250 182 20 mls/hr IV .[id number] [facility] Rx#: [id number] Cardizem 125 mg In Sodium 125 61 Chloride 0.9% 100 ml @ 5 MG/HR 5 mls/hr IV Q8H [facility] Rx#: [id number] Potassium Chloride 40 Meq In 520 Dextrose 5% in Water 500 ml @ 130 mls/hr IV ONCE ONE Rx#: [id number] Oral 1365 575 Output: Urine Catheter Amount 570 1225 Other: Meal Nourishment/Supplement Percent of Meal Consumed 50% Feeding Ability Assist with Tray Set Up Urine Appearance Clear Cloudy Uretheral (Ellis) Clear Clear Urine Color Pale Pale Uretheral (Ellis) Pale Pale Urine Odor Normal Normal Uretheral (Ellis) Normal Weight 154 lb 1.6 oz Intake & Output: Intake & Output 10/18/19 10/19/19 10/19/19 21:59 05:59 13:59 Intake Total 3260 818 Output Total 570 1225 Balance 2690 -407 Weight 154 lb 1.6 oz Intake: IV 1895 243 Sodium Chloride 0.9% 1,000 ml @ 1000 100 mls/hr IV .Q10H [facility] Rx#: [id number] Sodium Chloride 0.9% 250 ml @ 250 182 20 mls/hr IV .[id number] [facility] Rx#: [id number] Cardizem 125 mg In Sodium 125 61 Chloride 0.9% 100 ml @ 5 MG/HR 5 mls/hr IV Q8H [facility] Rx#: [id number] Potassium Chloride 40 Meq In 520 Dextrose 5% in Water 500 ml @ 130 mls/hr IV ONCE ONE Rx#: [id number] Oral 1365 575 Output: Urine Catheter Amount 570 1225 Other: Meal Nourishment/Supplement Percent of Meal Consumed 50% Feeding Ability Assist with Tray Set Up Urine Appearance Clear Cloudy Uretheral (Ellis) Clear Clear Urine Color Pale Pale Uretheral (Ellis) Pale Pale Urine Odor Normal Normal Uretheral (Ellis) Normal - General Appearance General appearance: fatigue EENT: mucous membranes moist Neck: supple Respiratory: clear Cardiology: no edema Integumentary: no rash, warm and dry Neurologic: no focal deficit Musculoskeletal: no deformities Psychiatric: mood/affect appropriate, cooperative - Lab 05/20/19 03:42 05/20/19 03:42 Most recent lab results Calcium 8.9 mg/dl (8.6-10.4) 05/20/19 03:42 Phosphorus 2.8 mg/dL (2.7-4.5) 05/20/19 03:42 Magnesium 1.8 mg/dL (1.6-2.5) 05/20/19 03:42 Assessment and Plan (1) RODRIGUZE (acute kidney injury) Joanne Nguyễn is a 79-year-old female with coronary artery disease s/p CABG and stents, hypertension, hyperlipidemia, hypothyroidism, diabetes mellitus type 2, admitted on 05/18/19. Acute kidney injury with metabolic acidosis, associated with gram negative sepsis with suspected pyelonephritis and NSAID (Ibuprofen) use, present on arrival, improving. Work up: Urinalysis on 05/18/19: Straw, Clear, pH 5.0, SG 1.009, protein negative, occult blood 0.2, leukocyte esterase 25, urine WBC 14, urine culture growing gram negative rods. CT Abdomen and Pelvis without contrast on 05/18/19: Kidneys show slight inhomogeneity and perinephric fat stranding which is suggestive, but not diagnostic, diffuse renal inflammation such as glomerulonephritis. 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 Progress: Creatinine decreased from 2.2 to 1.8 in the past 24 hours. Urine output: 3595 ml reported in the past 24 hours. Hypernatremia and hyperchloremic metabolic acidosis associated with NS infusions, worsening. Hypokalemia, resolved. No fluid overload. Blood and urine culture growing gram negative rods. Recommendations: No acute hemodialysis need. Avoid NSAIDs, nephrotoxic medications and IV contrast. Monitor BMP and urine output. IVF as Sodium Bicarbonate 100 mEq in 1 L D5W or LR or oral Sodium Bicarbonate for worsening hypernatremia and hyperchloremic metabolic acidosis associated with NS infusions. Status: Acute Priority: High
[2019-05-20 07:44] LABS: Band Neutrophils % 3 % (0-10); Lymphocytes % 4 % (15-49); Monocytes % (Manual) 6 % (1-12); Platelet Estimate NORMAL (NORMAL); RBC Morphology NORMAL (NORMAL); Segmented Neutrophils % 87 % (38-78)
[2019-05-20] MEDS: CRANBERRY 650 MG PO SCH ×2 (08:07→21:11)
[2019-05-20] MEDS: THIAMINE 100 MG TABLET PO SCH (08:22)
[2019-05-20] MEDS: CYANOCOBALAMIN (VITAMIN B-12) 500 MCG TABLET PO SCH ×2 (08:22→20:31)
[2019-05-20] MEDS: FOLIC ACID 1 MG TABLET PO SCH (08:22)
[2019-05-20] MEDS: METOPROLOL SUCCINATE 50 MG TAB.XL.24H PO SCH (08:22)
[2019-05-20] MEDS: VITAMIN D3 1,000 UNIT TABLET PO SCH (08:22)
[2019-05-20] MEDS: HEPARIN 5,000 UNIT/ML VIAL SQ SCH ×2 (08:22→20:30)
[2019-05-20] MEDS: CALCIUM W/VIT D3 500 MG TABLET PO SCH ×3 (08:23→20:31)
[2019-05-20] MEDS: ASPIRIN 325 MG ENTERIC COATED TABLET PO SCH (08:23)
[2019-05-20] MEDS: cloNIDine HCL 0.1 MG TABLET PO SCH ×4 (08:23→20:30)
[2019-05-20] MEDS: MULTIVIT,THER IRON,CA,FA & MIN 1 TABLET PO SCH (08:23)
[2019-05-20] MEDS: cefTRIAXone 2 GM in DEXTROSE 5% IN WATER 50 ML IV SCH (08:29)
[2019-05-20] MEDS ORDERED: DILTIAZEM 25 MG/5 ML VIAL IV ONE (09:07)
[2019-05-20] MEDS: DILTIAZEM 30 MG TABLET PO SCH ×3 (09:59→21:40)
[2019-05-20] MEDS: LEVOFLOXACIN 750 MG/150 ML BAG IV SCH (10:00)
--- NOTE | 2019-05-20 10:24 | Internal Med Progress Note ---
Medical - PN: Subj Patient information: Note initiated : 05/20/19 at 10:20 am Service Date, if different from initiated Date: [] Patient: Joanne Nguyễn a 79 y/o F admitted on 05/18/19 for nausea, bloody stool. Chief Complaint: [] Interval history: Ms. Nguyễn is a 79 year old F history of diabetes/hypertension and hypothyroidism who presents with over 1 week onset of progressive nausea/upper mid abdominal pain along with associated vomiting. Patient has not been able to eat or drink much in the last 10 days. She went to urgent care a few days prior to presentation and was discharged after evaluation. Patient however failed to improve. She denies associated fever chills. She has not had a restful night sleep. Her pain is described as 6 out of 10 to 8 out of 10 associated with coughing, constant around epigastric area without radiation. She denies associated bloody emesis/bloody stools. She endorses to cough, with unrelenting symptoms patient presents to the ER for further evaluation Initial work-up was consistent with acute pyelonephritis on CT abdomen, sepsis with white count 25,000, acute renal failure with creatinine 3 and BUN 90. Patient was found to be in A. fib with RVR with rate around 150. Nephrology was consulted and subsequently hospitalist service requested for admission. Cultures were drawn and antibiotics were initiated including Rocephin/vancomycin/Zosyn At the time of evaluation patient is extremely distressed. Unable to talk in full sentences, lethargic and anxious. She endorses to history as above. She denies prior similar episodes. 05/19-patient doing well. No overnight events. No concerns per staff. No fever chills. Persistent nausea. A. fib currently rate controlled on diltiazem drip at 15. at bedside. Updated on treatment plan/clinical improvement. Creatinine down to 2.2, white count down from 25.6-24. Downtrending LFTs. Continue ICU care. Patient remains critically ill with [place] score over 15 in the setting of profound sepsis with multiple organ dysfunction 05/20-persistent A. fib with RVR. Continue diltiazem drip for rate control measures. White count down to 16.3. Gram-negative víctor 2 out of 2 on blood cultures/urine culture. Continue antibiotic coverage and de-escalate based on sensitivities. Liver function improving. Renal function improved with creatinine down from 2.8-1.8. Patient now ambulating with physical therapy more alert lucid. Family including son and at bedside. Anticipate SNF transfer in the next 48 to 72 hours pending clinical improvement. - Constitutional Vitals: Vital Signs Temp Pulse Resp BP Pulse Ox 98.9 F 79 23 H 121/64 91 05/20/19 10:01 05/20/19 00:30 05/20/19 10:01 05/20/19 10:01 05/20/19 10:01 Period Temp Pulse Resp BP Sys/Fitch Pulse Ox Last 24 Hr 98.4 F-99.8 F 79-97 15-24 109-160/64-128 88-97 Intake and Output 05/19/19 05/20/19 05/20/19 21:59 05:59 13:59 Intake Total 3260 818 1050 Output Total 570 1225 380 Balance 2690 -407 670 Weight 154 lb 1.6 oz Intake & Output: Intake & Output 05/19/19 05/20/19 05/20/19 21:59 05:59 13:59 Intake Total 3260 818 1050 Output Total 570 1225 380 Balance 2690 -407 670 Weight 154 lb 1.6 oz Intake: IV 8784 636 1452 Sodium Chloride 0.9% 1,000 ml @ 1000 1000 100 mls/hr IV .Q10H [facility] Rx#: [id number] Sodium Chloride 0.9% 250 ml @ 250 182 20 mls/hr IV .[id number] [facility] Rx#: [id number] Cardizem 125 mg In Sodium 125 61 Chloride 0.9% 100 ml @ 5 MG/HR 5 mls/hr IV Q8H [facility] Rx#: [id number] Potassium Chloride 40 Meq In 520 Dextrose 5% in Water 500 ml @ 130 mls/hr IV ONCE ONE Rx#: [id number] Rocephin 2 gm In Dextrose 5% in 50 Water 50 ml @ 100 mls/hr IV Q24H [facility] Rx#:[id number] Oral 1365 575 Output: Urine Catheter Amount 570 1225 380 Other: Meal Nourishment/Supplement Percent of Meal Consumed 50% Feeding Ability Assist with Tray Set Up Urine Appearance Clear Cloudy Clear Uretheral (Ellis) Clear Clear Urine Color Pale Pale Pale Uretheral (Ellis) Pale Pale Urine Odor Normal Normal Normal Uretheral (Ellis) Normal Stool Size Large Stool Color Brown Stool Consistency Soft # Bowel Movements 1 General appearance: no acute distress Exam: Alert oriented Nonlabored breathing A. fib with RVR on telemetry Diminished breath sounds bases No lymphedema Medical - PN: Obj Da - Labs CBC & Chem 7: 05/20/19 03:42 05/20/19 03:42 Labs: Abnormal Lab Results 05/20/19 05/20/19 05/19/19 03:42 03:42 03:55 WBC 16.3 H RBC 3.62 L Hgb 11.2 L Hct 34.5 L RDW 15.5 H Gran % Lymph % (Auto) Gran # Lymph # (Auto) [place] # (Auto) Seg Neutrophils % 87 H Lymphocytes % 4 L ESR Sodium 146 H Potassium 3.0 L Chloride 113 H 110 H Carbon Dioxide 17 L 19 L POC Total CO2 Anion Gap POC BUN BUN 43 H 61 H Creatinine 1.8 H 2.2 H POC Creatinine Glucose 121 H POC Glucose POC WB Ioniz Calcium GGT 50 H 50 H AST 85 H 64 H ALT 127 H 132 H Alkaline Phosphatase 179 H 207 H Lactate Dehydrogenase 305 H 276 H C-Reactive Protein 20.4 H Total Protein 5.6 L Albumin 2.1 L 2.7 L Globulin Albumin/Globulin Ratio 0.6 L 0.7 L Triglycerides 203 H Urine Occult Blood Ur Leukocyte Esterase Urine RBC Urine WBC Urine Bacteria 05/19/19 05/18/19 05/18/19 03:55 Unknown 15:31 WBC 24.0 H RBC 3.77 L Hgb 11.5 L Hct 35.7 L RDW 15.0 H Gran % Lymph % (Auto) Gran # Lymph # (Auto) [place] # (Auto) Seg Neutrophils % 83 H Lymphocytes % 5 L ESR 92 H Sodium Potassium Chloride Carbon Dioxide POC Total CO2 Anion Gap POC BUN BUN Creatinine POC Creatinine Glucose POC Glucose POC WB Ioniz Calcium GGT AST ALT Alkaline Phosphatase Lactate Dehydrogenase C-Reactive Protein Total Protein Albumin Globulin Albumin/Globulin Ratio Triglycerides Urine Occult Blood 0.2 A Ur Leukocyte Esterase 25 A Urine RBC 4 H Urine WBC 14 H Urine Bacteria Mod A 05/18/19 05/18/19 11:09 10:24 WBC 25.6 H RBC Hgb Hct RDW 14.9 H Gran % 87.8 H Lymph % (Auto) 3.7 L Gran # 22.5 H Lymph # (Auto) 0.9 L [place] # (Auto) 2.2 H Seg Neutrophils % Lymphocytes % ESR Sodium Potassium Chloride Carbon Dioxide 19 L POC Total CO2 20 L Anion Gap 17.0 H POC BUN 90 H BUN 90 H Creatinine 2.8 H POC Creatinine 3.0 H Glucose 137 H POC Glucose 137 H POC WB Ioniz Calcium 1.13 L GGT AST 95 H ALT 157 H Alkaline Phosphatase 192 H Lactate Dehydrogenase C-Reactive Protein 28.8 H Total Protein Albumin 2.9 L Globulin 4.0 H Albumin/Globulin Ratio 0.7 L Triglycerides Urine Occult Blood Ur Leukocyte Esterase Urine RBC Urine WBC Urine Bacteria Meds: Medications Acetaminophen (Tylenol) 650 mg PO Q4-6HP PRN; Protocol PRN Reason: Per Pain Protocol/Fever > 101 Last Admin: 05/20/19 08:23 Dose: 650 mg Documented by: Aspirin (Ecotrin) 325 mg PO DAILY [facility] Last Admin: 05/20/19 08:23 Dose: 325 mg Documented by: Bisacodyl (Dulcolax) 10 mg [place] DAILYP PRN PRN Reason: Constipation Calcium/Vitamin D (Calcium W/Vit D3) 500 mg PO TID [facility] Last Admin: 05/20/19 08:23 Dose: 500 mg Documented by: Clonidine HCl (Catapres) 0.3 mg PO QID [facility] Last Admin: 05/20/19 08:23 Dose: 0.3 mg Documented by: Cyanocobalamin (Vitamin B-12) 1,000 mcg PO BID [facility] Stop: 05/23/19 09:01 Last Admin: 05/20/19 08:22 Dose: 1,000 mcg Documented by: Dextrose (Dextrose 50%) 0 ml IV UD PRN PRN Reason: Hypoglycemia Diagnostic Test (Pha) (Accu-Chek) 1 each FS ACHS [facility] Last Admin: 05/20/19 06:57 Dose: 1 each Documented by: Diltiazem HCl (Cardizem) 60 mg PO Q6H [facility] Last Admin: 05/20/19 09:59 Dose: 60 mg Documented by: Docusate Sodium (Colace) 100 mg PO BID [facility] Last Admin: 05/20/19 07:05 Dose: 100 mg Documented by: Fish Oil (Fish Oil) 1,000 mg PO HS [facility] Last Admin: 05/19/19 21:10 Dose: 1,000 mg Documented by: Folic Acid (Folic Acid) 1 mg PO DAILY [facility] Last Admin: 05/20/19 08:22 Dose: 1 mg Documented by: Glucose (Insta-Glucose) 15 gm PO PRN PRN PRN Reason: Hypoglycemia Heparin Sodium (Porcine) (Heparin) 5,000 unit SQ Q12 [facility] Last Admin: 05/20/19 08:22 Dose: 5,000 unit Documented by: Hydromorphone HCl (Dilaudid) 0 mg IV Q4HP PRN; Protocol PRN Reason: Per Pain Protocol Acetaminophen (Ofirmev) 650 mg in 65 mls @ 130 mls/hr IV Q6HP PRN; Protocol PRN Reason: Per Pain Protocol/Fever > 101 Ceftriaxone Sodium 2 gm/ (Dextrose) 50 mls @ 100 mls/hr IV Q24H [facility]; Protocol Last Infusion: 05/20/19 09:00 Dose: Infused Documented by: Levofloxacin (Levaquin) 750 mg in 150 mls @ 100 mls/hr IV Q48H [facility]; Protocol Last Admin: 05/20/19 10:00 Dose: 100 mls/hr Documented by: Norepinephrine Bitartrate 16 (mg/ Sodium Chloride) 250 mls @ 9.375 mls/hr IV Q24HP PRN; Protocol PRN Reason: Hypotension Insulin Human Lispro (Humalog) 0 unit SQ ACHS [facility]; Protocol Last Admin: 05/20/19 07:01 Dose: Not Given Documented by: Iron Carb/Multivit/Acid Patroller/Folic Acid (Multivitamin W/Minerals) 1 tab PO DAILY [facility] Last Admin: 05/20/19 08:23 Dose: 1 tab Documented by: Levothyroxine Sodium (Synthroid) 50 mcg PO ACB [facility] Last Admin: 05/20/19 07:05 Dose: 50 mcg Documented by: Melatonin (Melatonin 3mg Tablet) 3 mg PO HSP PRN PRN Reason: Insomnia Last Admin: 05/19/19 21:10 Dose: 3 mg Documented by: Metoprolol Succinate (Toprol Xl) 100 mg PO DAILY [facility] Last Admin: 05/20/19 08:22 Dose: 100 mg Documented by: Ondansetron HCl (Zofran) 4 mg IV Q4-6HP PRN; Protocol PRN Reason: Nausea And Vomiting Last Admin: 05/19/19 17:38 Dose: 4 mg Documented by: Cranberry 650 Mg Cap 1 dose PO BID [facility] Last Admin: 05/20/19 08:07 Dose: Not Given Documented by: Polyethylene Glycol (Miralax) 17 gm PO DAILYP PRN PRN Reason: Constipation Last Admin: 05/20/19 07:05 Dose: 17 gm Documented by: Promethazine HCl (Phenergan) 12.5 - 25 mg IV Q4-6HP PRN PRN Reason: Nausea And Vomiting Last Admin: 05/18/19 17:32 Dose: 12.5 mg Documented by: Senna/Docusate Sodium (Senna Plus Tablet) 1 tab PO [facility] Last Admin: 05/19/19 21:10 Dose: 1 tab Documented by: Simvastatin (Zocor) 10 mg PO [facility] Last Admin: 05/19/19 21:10 Dose: 10 mg Documented by: Sodium Chloride (Saline Flush) 10 ml IV Q8 [facility] Last Admin: 05/20/19 05:25 Dose: Not Given Documented by: Thiamine HCl (Vitamin B1) 100 mg PO DAILY [facility] Last Admin: 05/20/19 08:22 Dose: 100 mg Documented by: Trazodone HCl (Desyrel) 50 mg PO [facility] Vitamin D (Vitamin D3) 2,000 unit PO DAILY [facility] Last Admin: 05/20/19 08:22 Dose: 2,000 unit Documented by: Medical - PN: A/P - Time Spent With Patient Total time spent is greater than 50% in coordination of care (as documented) at patient's floor/unit and/or counseling patient: 25 - 35 minutes (1) Acute pyelonephritis Status: Acute Assessment and plan: * Severe sepsis with multiple organ system dysfunction -including RODRIGUEZ/elevated LFTs/A. fib RVR/mental status change. Clinically improving with aggressive treatment of primary etiology. * A. fib with RVR-continue diltiazem drip/beta-aman. Transition to oral CCB. Check echocardiogram. Discussed option for anticoagulation for CVA prophylaxis. * Acute pyelonephritis-bilateral, continue antibiotic coverage. Clinically im proving * A. fib with RVR-rate controlled on diltiazem drip. * Persistent nausea continue antiemetics. If not resolving will require upper endoscopy/GI consult * Acute renal failure likely secondary sepsis. Creatinine down from 3-2.2. Nephrology on board. Continue crystalloids * Elevated LFTs secondary to sepsis endorgan dysfunction. Clinically improving and downtrending * DM type II continue sliding-scale insulin/CC diet, held metformin * History of hypertension held SIMONE inhibitor, continue beta-aman * Full code * Prophylaxis- Heparin PLAN * Target 14 days antibiotics based on sensitivities * Wean diltiazem drip and transition to oral diltiazem * Echocardiogram * Discussed anticoagulation for CVA prophylaxis * PT OT/nutrition support * Discharge planning likely to SNF Current Visit: Yes Medical - PN: Qual - VTE Deep Vein Thrombosis/Pulmonary Embolism Present on Admission: No
[2019-05-20] MEDS: SIMVASTATIN 10 MG TABLET PO SCH (20:30)
[2019-05-20] MEDS: SENNOSIDES/DOCUSATE SODIUM 1 TAB TABLET PO SCH (20:30)
[2019-05-20] MEDS: FISH OIL 1,000 MG CAPSULE PO SCH (20:31)
[2019-05-20] MEDS: traZODone HCL 50 MG TABLET PO SCH (20:31)
[2019-05-20] MEDS: MELATONIN 3 MG TABLET PO PRN (21:15)
[2019-05-21] MEDS: DILTIAZEM 30 MG TABLET PO SCH ×4 (03:45→20:53)
[2019-05-21 05:16] LABS: Hematocrit 35.6 % (36.0-48.0); Hemoglobin 11.6 g/dL (12.0-15.0); Mean Cell Volume 94.7 fL (80.0-100.0); Mean Corpuscular HGB Conc 32.5 g/dL (31.0-36.0); Mean Platelet Volume 8.1 fL (7.4-10.4); Platelet Count 458 K/mcL (140-440); RBC 3.76 M/mcL (4.00-5.20); WBC 18.1 K/mcL (4.5-11.0)
[2019-05-21] MEDS: ONDANSETRON 4 MG/2 ML VIAL IV PRN (05:16)
[2019-05-21] MEDS: 0.9 % SODIUM CHLORIDE 10 ML SYRINGE IV SCH ×3 (05:16→21:11)
[2019-05-21 05:38] LABS: ALT/SGPT 103 U/l (0-40); AST/SGOT 47 U/l (0-37); Albumin 2.3 gm/dL (3.2-5.2); Albumin/Globulin Ratio 0.7 (1.0-2.3); Alkaline Phosphatase 176 U/L (39-117); Bilirubin,Direct < 0.2 mg/dL (0.0-0.3); Bilirubin,Total 0.3 mg/dL (0.0-1.0); Blood Urea Nitrogen 38 mg/dl (8-23); Calcium 9.8 mg/dl (8.6-10.4); Carbon Dioxide 22 mmol/L (22-30); Chloride 108 mmol/L (96-108); Globulin 3.5 gm/dL (2.2-3.7); Glomerular Filtration Rate 27; Glucose 105 mg/dL (70-105); Lactate Dehydrogenase 221 U/L (94-250); Phosphorous 3.1 mg/dL (2.7-4.5); Triglycerides 142 mg/dl (<150); Uric Acid 6.3 mg/dL (2.5-8.0)
[2019-05-21 06:56] LABS: Band Neutrophils % 2 % (0-10); Eosinophils % (Manual) 1 % (0-7); Lymphocytes % 13 % (15-49); Monocytes % (Manual) 7 % (1-12); Platelet Estimate INCREASED (NORMAL); RBC Morphology NORMAL (NORMAL); Segmented Neutrophils % 77 % (38-78)
--- NOTE | 2019-05-21 07:12 | Nephrology Progress Note ---
Subjective Patient information: Note initiated : 05/21/19 at 7:10 am Patient: Joanne Nguyễn 79 y/o F admitted on 05/18/19 for nausea, bloody stool. Chief Complaint: Weakness Pertinent ROS: Weakness No edema Objective - Vital Signs Vital signs: Vital Signs Temp Pulse Resp BP Pulse Ox 05/21/19 07:01 99.4 F H 19 136/87 92 05/21/19 06:57 103 H 12 94 05/21/19 06:01 99.6 F H 150/108 93 05/21/19 05:06 163/98 05/21/19 05:01 99.7 F H 156/117 90 05/21/19 04:13 99.6 F H 159/106 05/21/19 04:01 99.6 F H 135/88 94 05/21/19 03:01 99.5 F H 12 157/74 91 05/21/19 02:27 99.5 F H 92 05/21/19 02:01 99.4 F H 151/77 95 05/21/19 01:01 99.1 F H 143/69 88 L 05/21/19 00:01 98.5 F 139/64 92 05/20/19 23:01 98.6 F 129/76 93 05/20/19 22:01 98.5 F 12 124/63 92 05/20/19 21:01 98.6 F 16 138/67 96 05/20/19 20:01 98.5 F 18 126/67 94 05/20/19 19:01 98.5 F 16 112/59 93 05/20/19 18:38 95 05/20/19 18:01 99.0 F 108/59 95 05/20/19 17:28 99.0 F 17 108/72 93 05/20/19 17:00 98.5 F 16 146/78 92 05/20/19 16:01 98.5 F 20 117/77 93 05/20/19 15:06 98.3 F 19 123/63 91 05/20/19 14:00 79 18 92 05/20/19 13:01 98.7 F 109/62 92 05/20/19 12:01 98.6 F 114/82 92 05/20/19 12:00 98.7 F 21 114/82 94 05/20/19 11:00 99.0 F 22 121/78 94 05/20/19 10:01 98.9 F 23 H 121/64 91 05/20/19 09:01 98.9 F 22 149/83 95 05/20/19 08:01 98.9 F 24 H 146/128 94 05/20/19 08:00 141 H 22 92 Intake and Output 05/20/19 05/21/19 05/21/19 21:59 05:59 13:59 Intake Total 940 780 Output Total 303 1255 Balance 637 -475 Intake: Oral 940 780 Output: Urine Catheter Amount 303 1255 Other: Urine Appearance Clear Clear Uretheral (Ellis) Clear Clear Clear Urine Color Bright Yellow Bright Yellow Uretheral (Ellis) Light Ani Light Ani Bright Yellow Urine Odor Normal Normal Uretheral (Ellis) Normal Normal Stool Size Large Large Stool Color Brown Brown Stool Consistency Soft Formed Liquid # Bowel Movements 1 Weight 157 lb 6.4 oz Intake & Output: Intake & Output 05/20/19 05/21/19 05/21/19 21:59 05:59 13:59 Intake Total 940 780 Output Total 303 1255 Balance 637 -475 Weight 157 lb 6.4 oz Intake: Oral 940 780 Output: Urine Catheter Amount 303 1255 Other: Urine Appearance Clear Clear Uretheral (Ellis) Clear Clear Clear Urine Color Bright Yellow Bright Yellow Uretheral (Ellis) Light Ani Light Ani Bright Yellow Urine Odor Normal Normal Uretheral (Ellis) Normal Normal Stool Size Large Large Stool Color Brown Brown Stool Consistency Soft Formed Liquid # Bowel Movements 1 - General Appearance General appearance: fatigue EENT: mucous membranes moist Neck: supple Respiratory: clear Cardiology: no edema, rapid rhythm, irregular rhythm Integumentary: warm and dry Neurologic: no focal deficit Musculoskeletal: no deformities Psychiatric: mood/affect appropriate, cooperative - Lab 05/21/19 04:04 05/21/19 04:04 Most recent lab results Calcium 9.8 mg/dl (8.6-10.4) 05/21/19 04:04 Phosphorus 3.1 mg/dL (2.7-4.5) 05/21/19 04:04 Magnesium 1.6 mg/dL (1.6-2.5) 05/21/19 04:04 Assessment and Plan (1) RODRIGUEZ (acute kidney injury) Joanne Nguyễn is a 79-year-old female with coronary artery disease s/p CABG and stents, hypertension, hyperlipidemia, hypothyroidism, diabetes mellitus type 2, admitted on 05/18/19. Acute kidney injury with metabolic acidosis, associated with gram negative sepsis with suspected pyelonephritis and NSAID (Ibuprofen) use, present on arrival, improving. Work up: Urinalysis on 05/18/19: Straw, Clear, pH 5.0, SG 1.009, protein negative, occult blood 0.2, leukocyte esterase 25, urine WBC 14, urine culture growing gram negative rods. CT Abdomen and Pelvis without contrast on 05/18/19: Kidneys show slight inhomogeneity and perinephric fat stranding which is suggestive, but not diagnostic, diffuse renal inflammation such as glomerulonephritis. 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 Progress: Creatinine 1.8, did not change in the past 24 hours. Urine output: Not reported in the past 24 hours. Hypernatremia and hyperchloremic metabolic acidosis, resolved. No fluid overload. Blood and urine culture growing gram negative rods. Recommendations: Avoid NSAIDs, nephrotoxic medications and IV contrast. Monitor BMP and urine output. Status: Acute Priority: High
[2019-05-21] MEDS: INSULIN LISPRO 1 UNIT/0.01 ML UNIT SQ SCH ×4 (08:28→20:53)
[2019-05-21] MEDS: METOPROLOL SUCCINATE 50 MG TAB.XL.24H PO SCH (09:05)
[2019-05-21] MEDS ORDERED: DILTIAZEM 30 MG TABLET PO ONE (09:10)
--- NOTE | 2019-05-21 10:00 | Internal Med Progress Note ---
Medical - PN: Subj Patient information: Note initiated : 05/21/19 at 9:58 am Service Date, if different from initiated Date: [] Patient: Joanne Nguyễn a 79 y/o F admitted on 05/18/19 for nausea, bloody stool. Chief Complaint: [] Interval history: Ms. Nguyễn is a 79 year old F history of diabetes/hypertension and hypothyroidism who presents with over 1 week onset of progressive nausea/upper mid abdominal pain along with associated vomiting. Patient has not been able to eat or drink much in the last 10 days. She went to urgent care a few days prior to presentation and was discharged after evaluation. Patient however failed to improve. She denies associated fever chills. She has not had a restful night sleep. Her pain is described as 6 out of 10 to 8 out of 10 associated with coughing, constant around epigastric area without radiation. She denies associated bloody emesis/bloody stools. She endorses to cough, with unrelenting symptoms patient presents to the ER for further evaluation Initial work-up was consistent with acute pyelonephritis on CT abdomen, sepsis with white count 25,000, acute renal failure with creatinine 3 and BUN 90. Patient was found to be in A. fib with RVR with rate around 150. Nephrology was consulted and subsequently hospitalist service requested for admission. Cultures were drawn and antibiotics were initiated including Rocephin/vancomycin/Zosyn At the time of evaluation patient is extremely distressed. Unable to talk in full sentences, lethargic and anxious. She endorses to history as above. She denies prior similar episodes. 05/19-patient doing well. No overnight events. No concerns per staff. No fever chills. Persistent nausea. A. fib currently rate controlled on diltiazem drip at 15. at bedside. Updated on treatment plan/clinical improvement. Creatinine down to 2.2, white count down from 25.6-24. Downtrending LFTs. Continue ICU care. Patient remains critically ill with Linwood score over 15 in the setting of profound sepsis with multiple organ dysfunction 05/20-persistent A. fib with RVR. Continue diltiazem drip for rate control measures. White count down to 16.3. Gram-negative víctor 2 out of 2 on blood cultures/urine culture. Continue antibiotic coverage and de-escalate based on sensitivities. Liver function improving. Renal function improved with creatinine down from 2.8-1.8. Patient now ambulating with physical therapy more alert lucid. Family including son and at bedside. Anticipate SNF transfer in the next 48 to 72 hours pending clinical improvement. 05/21-clinically improving. Pansensitive E. coli. Levaquin discontinued. Continue Rocephin for total of 14 days from start. Persistent A. fib RVR after brief spontaneous conversion to sinus last night. Start anticoagulation Eliquis for CVA prophylaxis. Consider digoxin as dual AV jose eduardo blockade unable to control rate. Continue PT OT/nutrition support. - Constitutional Vitals: Vital Signs Temp Pulse Resp BP Pulse Ox 98.2 F 103 H 20 142/74 96 05/21/19 08:03 05/21/19 06:57 05/21/19 08:03 05/21/19 08:03 05/21/19 08:18 Period Temp Pulse Resp BP Sys/Fitch Pulse Ox Last 24 Hr 98.2 F-99.7 F 79-103 12-23 108-163/59-117 88-96 Intake and Output 05/20/19 05/21/19 05/21/19 21:59 05:59 13:59 Intake Total 940 780 Output Total 303 1255 Balance 637 -475 Weight 157 lb 6.4 oz Intake & Output: Intake & Output 05/20/19 05/21/19 05/21/19 21:59 05:59 13:59 Intake Total 940 780 Output Total 303 1255 Balance 637 -475 Weight 157 lb 6.4 oz Intake: Oral 940 780 Output: Urine Catheter Amount 303 1255 Other: Urine Appearance Clear Clear Uretheral (Ellis) Clear Clear Clear Urine Color Bright Yellow Bright Yellow Uretheral (Ellis) Light Ani Light Ani Bright Yellow Urine Odor Normal Normal Uretheral (Ellis) Normal Normal Stool Size Large Large Copious Stool Color Brown Brown Brown Stool Consistency Soft Formed Soft Liquid # Bowel Movements 1 1 General appearance: no acute distress Exam: Alert oriented sitting on chair Nonlabored breathing Telemetry atrial fibrillation with RVR around 140 No lymphedema feels fatigue lethargic Medical - PN: Obj Da - Labs CBC & Chem 7: 05/21/19 04:04 05/21/19 04:04 Labs: Abnormal Lab Results 05/21/19 05/21/19 05/20/19 04:04 04:04 03:42 WBC 18.1 H RBC 3.76 L Hgb 11.6 L Hct 35.6 L RDW 15.0 H Plt Count 458 H Gran % Lymph % (Auto) Gran # Lymph # (Auto) [place] # (Auto) Seg Neutrophils % Lymphocytes % 13 L ESR Sodium 146 H Potassium Chloride 113 H Carbon Dioxide 17 L POC Total CO2 Anion Gap POC BUN BUN 38 H 43 H Creatinine 1.8 H 1.8 H POC Creatinine Glucose POC Glucose POC WB Ioniz Calcium GGT 69 H 50 H AST 47 H 85 H ALT 103 H 127 H Alkaline Phosphatase 176 H 179 H Lactate Dehydrogenase 305 H C-Reactive Protein Total Protein 5.8 L 5.6 L Albumin 2.3 L 2.1 L Globulin Albumin/Globulin Ratio 0.7 L 0.6 L Triglycerides Urine Occult Blood Ur Leukocyte Esterase Urine RBC Urine WBC Urine Bacteria 05/20/19 05/19/19 05/19/19 03:42 03:55 03:55 WBC 16.3 H 24.0 H RBC 3.62 L 3.77 L Hgb 11.2 L 11.5 L Hct 34.5 L 35.7 L RDW 15.5 H 15.0 H Plt Count Gran % Lymph % (Auto) Gran # Lymph # (Auto) [place] # (Auto) Seg Neutrophils % 87 H 83 H Lymphocytes % 4 L 5 L ESR Sodium Potassium 3.0 L Chloride 110 H Carbon Dioxide 19 L POC Total CO2 Anion Gap POC BUN BUN 61 H Creatinine 2.2 H POC Creatinine Glucose 121 H POC Glucose POC WB Ioniz Calcium GGT 50 H AST 64 H ALT 132 H Alkaline Phosphatase 207 H Lactate Dehydrogenase 276 H C-Reactive Protein 20.4 H Total Protein Albumin 2.7 L Globulin Albumin/Globulin Ratio 0.7 L Triglycerides 203 H Urine Occult Blood Ur Leukocyte Esterase Urine RBC Urine WBC Urine Bacteria 05/18/19 05/18/19 05/18/19 Unknown 15:31 11:09 WBC 25.6 H RBC Hgb Hct RDW 14.9 H Plt Count Gran % 87.8 H Lymph % (Auto) 3.7 L Gran # 22.5 H Lymph # (Auto) 0.9 L [place] # (Auto) 2.2 H Seg Neutrophils % Lymphocytes % ESR 92 H Sodium Potassium Chloride Carbon Dioxide POC Total CO2 Anion Gap POC BUN BUN Creatinine POC Creatinine Glucose POC Glucose POC WB Ioniz Calcium GGT AST ALT Alkaline Phosphatase Lactate Dehydrogenase C-Reactive Protein Total Protein Albumin Globulin Albumin/Globulin Ratio Triglycerides Urine Occult Blood 0.2 A Ur Leukocyte Esterase 25 A Urine RBC 4 H Urine WBC 14 H Urine Bacteria Mod A 05/18/19 10:24 WBC RBC Hgb Hct RDW Plt Count Gran % Lymph % (Auto) Gran # Lymph # (Auto) [place] # (Auto) Seg Neutrophils % Lymphocytes % ESR Sodium Potassium Chloride Carbon Dioxide 19 L POC Total CO2 20 L Anion Gap 17.0 H POC BUN 90 H BUN 90 H Creatinine 2.8 H POC Creatinine 3.0 H Glucose 137 H POC Glucose 137 H POC WB Ioniz Calcium 1.13 L GGT AST 95 H ALT 157 H Alkaline Phosphatase 192 H Lactate Dehydrogenase C-Reactive Protein 28.8 H Total Protein Albumin 2.9 L Globulin 4.0 H Albumin/Globulin Ratio 0.7 L Triglycerides Urine Occult Blood Ur Leukocyte Esterase Urine RBC Urine WBC Urine Bacteria Meds: Medications Acetaminophen (Tylenol) 650 mg PO Q4-6HP PRN; Protocol PRN Reason: Per Pain Protocol/Fever > 101 Last Admin: 05/20/19 08:23 Dose: 650 mg Documented by: Aspirin (Ecotrin) 325 mg PO DAILY [facility] Last Admin: 05/20/19 08:23 Dose: 325 mg Documented by: Bisacodyl (Dulcolax) 10 mg [place] DAILYP PRN PRN Reason: Constipation Calcium/Vitamin D (Calcium W/Vit D3) 500 mg PO TID [facility] Last Admin: 05/20/19 20:31 Dose: 500 mg Documented by: Clonidine HCl (Catapres) 0.3 mg PO QID [facility] Last Admin: 05/20/19 20:30 Dose: 0.3 mg Documented by: Cyanocobalamin (Vitamin B-12) 1,000 mcg PO BID [facility] Stop: 05/23/19 09:01 Last Admin: 05/20/19 20:31 Dose: 1,000 mcg Documented by: Dextrose (Dextrose 50%) 0 ml IV UD PRN PRN Reason: Hypoglycemia Diagnostic Test (Pha) (Accu-Chek) 1 each FS ACHS [facility] Last Admin: 05/21/19 08:26 Dose: 1 each Documented by: Diltiazem HCl (Cardizem) 90 mg PO Q6H [facility] Docusate Sodium (Colace) 100 mg PO BID [facility] Last Admin: 05/20/19 20:30 Dose: 100 mg Documented by: Fish Oil (Fish Oil) 1,000 mg PO HS [facility] Last Admin: 05/20/19 20:31 Dose: 1,000 mg Documented by: Folic Acid (Folic Acid) 1 mg PO DAILY [facility] Last Admin: 05/20/19 08:22 Dose: 1 mg Documented by: Glucose (Insta-Glucose) 15 gm PO PRN PRN PRN Reason: Hypoglycemia Heparin Sodium (Porcine) (Heparin) 5,000 unit SQ Q12 [facility] Last Admin: 05/20/19 20:30 Dose: 5,000 unit Documented by: Hydromorphone HCl (Dilaudid) 0 mg IV Q4HP PRN; Protocol PRN Reason: Per Pain Protocol Acetaminophen (Ofirmev) 650 mg in 65 mls @ 130 mls/hr IV Q6HP PRN; Protocol PRN Reason: Per Pain Protocol/Fever > 101 Ceftriaxone Sodium 2 gm/ (Dextrose) 50 mls @ 100 mls/hr IV Q24H [facility]; Protocol Last Infusion: 05/20/19 09:00 Dose: Infused Documented by: Norepinephrine Bitartrate 16 (mg/ Sodium Chloride) 250 mls @ 9.375 mls/hr IV Q24HP PRN; Protocol PRN Reason: Hypotension Insulin Human Lispro (Humalog) 0 unit SQ ACHS [facility]; Protocol Last Admin: 05/21/19 08:28 Dose: Not Given Documented by: Iron Carb/Multivit/[place]/Folic Acid (Multivitamin W/Minerals) 1 tab PO DAILY [facility] Last Admin: 05/20/19 08:23 Dose: 1 tab Documented by: Levothyroxine Sodium (Synthroid) 50 mcg PO ACB [facility] Last Admin: 05/20/19 07:05 Dose: 50 mcg Documented by: Melatonin (Melatonin 3mg Tablet) 3 mg PO HSP PRN PRN Reason: Insomnia Last Admin: 05/20/19 21:15 Dose: 3 mg Documented by: Metoprolol Succinate (Toprol Xl) 100 mg PO DAILY [facility] Last Admin: 05/21/19 09:05 Dose: 100 mg Documented by: Ondansetron HCl (Zofran) 4 mg IV Q4-6HP PRN; Protocol PRN Reason: Nausea And Vomiting Last Admin: 05/21/19 05:16 Dose: 4 mg Documented by: Cranberry 650 Mg Cap 1 dose PO BID [facility] Last Admin: 05/20/19 21:11 Dose: Not Given Documented by: Polyethylene Glycol (Miralax) 17 gm PO DAILYP PRN PRN Reason: Constipation Last Admin: 05/20/19 07:05 Dose: 17 gm Documented by: Promethazine HCl (Phenergan) 12.5 - 25 mg IV Q4-6HP PRN PRN Reason: Nausea And Vomiting Last Admin: 05/18/19 17:32 Dose: 12.5 mg Documented by: Senna/Docusate Sodium (Senna Plus Tablet) [address] [facility] Last Admin: 05/20/19 20:30 Dose: 1 tab Documented by: Simvastatin (Zocor) [address] [facility] Last Admin: 05/20/19 20:30 Dose: 10 mg Documented by: Sodium Chloride (Saline Flush) 10 ml IV Q8 [facility] Last Admin: 05/21/19 05:16 Dose: 10 ml Documented by: Thiamine HCl (Vitamin B1) 100 mg PO DAILY [facility] Last Admin: 05/20/19 08:22 Dose: 100 mg Documented by: Trazodone HCl (Desyrel) [address] [facility] Last Admin: 05/20/19 20:31 Dose: 50 mg Documented by: Vitamin D (Vitamin D3) 2,000 unit PO DAILY [facility] Last Admin: 05/20/19 08:22 Dose: 2,000 unit Documented by: Medical - PN: A/P - Time Spent With Patient Total time spent is greater than 50% in coordination of care (as documented) at patient's floor/unit and/or counseling patient: 25 - 35 minutes (1) Acute pyelonephritis Status: Acute Assessment and plan: * Severe sepsis secondary to E. coli bacteremia with multiple organ system dysfunction -clinical improvement noted. White count normalizing. * E. coli bacteremia-continue 14 days antibiotics. Pansensitive. * A. fib with RVR-continue diltiazem drip/beta-aman. Start digoxin load if inadequate control. Echocardiogram normal systolic function without valvular involvement. Start anticoagulation for CVA prophylaxis on Xarelto based on chads Vasc score * Acute pyelonephritis-bilateral, clinical improvement noted on antibiotic coverage * A. fib with RVR-rate controlled on diltiazem drip. * Acute renal failure likely secondary sepsis. Creatinine down to 1.8. * Elevated LFTs secondary to sepsis endorgan dysfunction. Clinically improving and downtrending * DM type II continue sliding-scale insulin/CC diet, held metformin * History of hypertension held SIMONE inhibitor, continue beta-aman * Full code * Prophylaxis- Heparin PLAN * DC Levaquin * Consider digoxin * Start anticoagulation on rivaroxaban * PT OT/nutrition support * Discharge planning likely to SNF in 48 hours Current Visit: Yes Medical - PN: Qual - VTE Deep Vein Thrombosis/Pulmonary Embolism Present on Admission: No
[2019-05-21] MEDS: DOCUSATE SODIUM 100 MG CAPSULE PO SCH ×2 (10:01→20:53)
[2019-05-21] MEDS: CRANBERRY 650 MG PO SCH ×2 (10:02→21:11)
[2019-05-21] MEDS: HEPARIN 5,000 UNIT/ML VIAL SQ SCH (10:04)
[2019-05-21] MEDS: FOLIC ACID 1 MG TABLET PO SCH (10:05)
[2019-05-21] MEDS: cloNIDine HCL 0.1 MG TABLET PO SCH ×4 (10:05→21:01)
[2019-05-21] MEDS: ASPIRIN 325 MG ENTERIC COATED TABLET PO SCH (10:05)
[2019-05-21] MEDS: cefTRIAXone 2 GM in DEXTROSE 5% IN WATER 50 ML IV SCH (10:06)
[2019-05-21] MEDS: CALCIUM W/VIT D3 500 MG TABLET PO SCH ×3 (10:10→20:53)
[2019-05-21] MEDS: CYANOCOBALAMIN (VITAMIN B-12) 500 MCG TABLET PO SCH ×2 (10:10→20:52)
[2019-05-21] MEDS: MULTIVIT,THER IRON,CA,FA & MIN 1 TABLET PO SCH (10:10)
[2019-05-21] MEDS: VITAMIN D3 1,000 UNIT TABLET PO SCH (10:10)
[2019-05-21] MEDS: LEVOTHYROXINE 50 MCG TABLET PO SCH (10:11)
[2019-05-21] MEDS: THIAMINE 100 MG TABLET PO SCH (10:15)
[2019-05-21] MEDS ORDERED: RIVAROXABAN 15 MG TABLET PO SCH (17:30)
[2019-05-21] MEDS: SIMVASTATIN 10 MG TABLET PO SCH (20:53)
[2019-05-21] MEDS: traZODone HCL 50 MG TABLET PO SCH (20:53)
[2019-05-21] MEDS: SENNOSIDES/DOCUSATE SODIUM 1 TAB TABLET PO SCH (21:11)
[2019-05-21] MEDS: FISH OIL 1,000 MG CAPSULE PO SCH (21:11)
[2019-05-22] MEDS: DILTIAZEM 30 MG TABLET PO SCH ×2 (02:44→12:32)
[2019-05-22] MEDS: 0.9 % SODIUM CHLORIDE 10 ML SYRINGE IV SCH ×3 (05:03→20:34)
[2019-05-22 05:50] LABS: Hematocrit 34.2 % (36.0-48.0); Hemoglobin 11.4 g/dL (12.0-15.0); Mean Cell Volume 93.5 fL (80.0-100.0); Mean Corpuscular HGB Conc 33.2 g/dL (31.0-36.0); Mean Platelet Volume 8.1 fL (7.4-10.4); Platelet Count 526 K/mcL (140-440); RBC 3.66 M/mcL (4.00-5.20); Red Cell Distribution Width 15.1 % (11.5-14.5); WBC 17.7 K/mcL (4.5-11.0)
[2019-05-22 07:14] LABS: ALT/SGPT 100 U/l (0-40); AST/SGOT 62 U/l (0-37); Albumin 2.2 gm/dL (3.2-5.2); Albumin/Globulin Ratio 0.6 (1.0-2.3); Alkaline Phosphatase 190 U/L (39-117); Bilirubin,Direct < 0.2 mg/dL (0.0-0.3); Bilirubin,Total 0.2 mg/dL (0.0-1.0); Blood Urea Nitrogen 33 mg/dl (8-23); Carbon Dioxide 22 mmol/L (22-30); Chloride 106 mmol/L (96-108); Globulin 3.5 gm/dL (2.2-3.7); Glomerular Filtration Rate 31; Glucose 116 mg/dL (70-105); Lactate Dehydrogenase 211 U/L (94-250); Phosphorous 4.2 mg/dL (2.7-4.5); Triglycerides 114 mg/dl (<150); Uric Acid 6.8 mg/dL (2.5-8.0)
--- NOTE | 2019-05-22 07:25 | Nephrology Progress Note ---
Subjective Patient information: Note initiated : 05/22/19 at 7:22 am Patient: Joanne Nguyễn 79 y/o F admitted on 05/18/19 for nausea, bloody stool. Chief Complaint: Weakness Pertinent ROS: Feels better Weakness Ellis catheter No edema Objective - Vital Signs Vital signs: Vital Signs Temp Pulse Pulse Resp BP Pulse Ox 05/22/19 05:02 99.3 F H 95 05/22/19 05:00 99.3 F H 16 127/78 95 05/22/19 04:19 99.4 F H 14 95 05/22/19 04:00 99.4 F H 138/98 89 L 05/22/19 03:59 99.4 F H 16 92 05/22/19 03:00 99.6 F H 16 152/74 97 05/22/19 02:59 99.6 F H 96 05/22/19 02:00 99.6 F H 14 135/83 96 05/22/19 01:59 99.6 F H 96 05/22/19 01:58 99.6 F H 14 135/83 96 05/22/19 01:00 99.3 F H 130/85 92 05/22/19 00:56 99.3 F H 16 91 05/22/19 00:06 99.0 F 16 95 05/22/19 00:00 99.0 F 131/69 95 05/21/19 23:29 66 18 95 05/21/19 23:01 98.9 F 14 119/68 94 05/21/19 23:00 98.9 F 93 05/21/19 22:12 98.9 F 18 91 05/21/19 22:08 98.9 F 89 L 05/21/19 22:01 98.9 F 117/77 89 L 05/21/19 21:04 99.1 F H 139/93 94 05/21/19 21:03 99.1 F H 95 05/21/19 21:01 99.1 F H 131/80 93 05/21/19 20:10 99.0 F 93 05/21/19 20:01 99.0 F 114/70 93 05/21/19 19:01 98.9 F 115/71 93 05/21/19 18:01 99.0 F 15 123/80 93 05/21/19 17:01 98.9 F 16 130/82 93 05/21/19 16:09 98.9 F 05/21/19 16:01 98.9 F 16 118/69 93 05/21/19 15:01 98.9 F 17 133/80 95 05/21/19 14:01 98.9 F 16 140/87 95 05/21/19 14:00 100 H 16 93 05/21/19 13:01 99.1 F H 19 121/60 05/21/19 12:01 98.5 F 16 129/67 94 05/21/19 11:01 98.5 F 16 128/89 93 05/21/19 10:01 98.5 F 20 140/97 94 05/21/19 09:01 98.5 F 16 138/107 92 05/21/19 08:18 96 05/21/19 08:03 98.2 F 20 142/74 94 Intake and Output 05/21/19 05/22/19 05/22/19 21:59 05:59 13:59 Intake Total 720 240 Output Total 1425 990 Balance -705 -990 240 Intake: Oral 720 240 Output: Urine Catheter Amount 1425 990 Other: Meal Dinner Percent of Meal Consumed 100% Feeding Ability Independent Urine Appearance Clear Clear Uretheral (Ellis) Clear Clear Urine Color Bright Yellow Bright Yellow Uretheral (Ellis) Bright Yellow Bright Yellow Urine Odor Strong Normal Uretheral (Ellis) Normal Stool Size Copious Moderate Stool Color Brown Green Stool Consistency Soft Soft Formed # Bowel Movements 1 Weight 164 lb 8 oz Intake & Output: Intake & Output 05/21/19 05/22/19 05/22/19 21:59 05:59 13:59 Intake Total 720 240 Output Total 1425 990 Balance -705 -990 240 Weight 164 lb 8 oz Intake: Oral 720 240 Output: Urine Catheter Amount 1425 990 Other: Meal Dinner Percent of Meal Consumed 100% Feeding Ability Independent Urine Appearance Clear Clear Uretheral (Ellis) Clear Clear Urine Color Bright Yellow Bright Yellow Uretheral (Ellis) Bright Yellow Bright Yellow Urine Odor Strong Normal Uretheral (Ellis) Normal Stool Size Copious Moderate Stool Color Brown Green Stool Consistency Soft Soft Formed # Bowel Movements 1 - General Appearance General appearance: fatigue EENT: mucous membranes moist Neck: supple Respiratory: clear Cardiology: no edema Gastrointestinal: no tenderness Integumentary: warm and dry Neurologic: no focal deficit Musculoskeletal: no deformities Psychiatric: mood/affect appropriate, cooperative - Lab 05/22/19 04:25 05/22/19 04:25 Most recent lab results Calcium 10.0 mg/dl (8.6-10.4) 05/22/19 04:25 Phosphorus 4.2 mg/dL (2.7-4.5) 05/22/19 04:25 Magnesium 1.6 mg/dL (1.6-2.5) 05/22/19 04:25 Assessment and Plan (1) RODRIGUEZ (acute kidney injury) Joanne Nguyễn is a 79-year-old female with coronary artery disease s/p CABG and stents, hypertension, hyperlipidemia, hypothyroidism, diabetes mellitus type 2, admitted on 05/18/19. Acute kidney injury with metabolic acidosis, associated with gram negative sepsis with suspected pyelonephritis and NSAID (Ibuprofen) use, present on arrival, improving. Work up: Urinalysis on 05/18/19: Straw, Clear, pH 5.0, SG 1.009, protein negative, occult blood 0.2, leukocyte esterase 25, urine WBC 14, urine culture growing gram negative rods. CT Abdomen and Pelvis without contrast on 05/18/19: Kidneys show slight inhomogeneity and perinephric fat stranding which is suggestive, but not diagnostic, diffuse renal inflammation such as glomerulonephritis. 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 Progress: Creatinine decreased from 1.8 to 1.6 in the past 24 hours. Urine output: 2415 reported in the past 24 hours. No fluid overload. Blood and urine culture growing gram negative rods. Recommendations: Avoid NSAIDs, nephrotoxic medications and IV contrast. Recommend outpatient nephrology referral. Nephrology will sign off. Status: Acute Priority: High
[2019-05-22] MEDS ORDERED: LEVOFLOXACIN 750 MG TABLET PO SCH (09:00)
[2019-05-22] MEDS ORDERED: DILTIAZEM 180 MG CAP.XL.24H PO SCH (09:00)
[2019-05-22] MEDS ORDERED: MAGNESIUM SULFATE 2 GM/50 ML BAG IV ONE (09:15)
[2019-05-22] MEDS: INSULIN LISPRO 1 UNIT/0.01 ML UNIT SQ SCH ×4 (09:16→20:26)
[2019-05-22] MEDS: LEVOTHYROXINE 50 MCG TABLET PO SCH (09:16)
[2019-05-22] MEDS: CALCIUM W/VIT D3 500 MG TABLET PO SCH ×3 (09:17→20:26)
[2019-05-22] MEDS: cloNIDine HCL 0.1 MG TABLET PO SCH ×4 (09:17→20:25)
--- NOTE | 2019-05-22 09:17 | Internal Med Progress Note ---
Medical - PN: Subj Patient information: Note initiated : 05/22/19 at 9:15 am Service Date, if different from initiated Date: [] Patient: Joanne Nguyễn a 79 y/o F admitted on 05/18/19 for nausea, bloody stool. Chief Complaint: [] Interval history: Ms. Nguyễn is a 79 year old F history of diabetes/hypertension and hypothyroidism who presents with over 1 week onset of progressive nausea/upper mid abdominal pain along with associated vomiting. Patient has not been able to eat or drink much in the last 10 days. She went to urgent care a few days prior to presentation and was discharged after evaluation. Patient however failed to improve. She denies associated fever chills. She has not had a restful night sleep. Her pain is described as 6 out of 10 to 8 out of 10 associated with coughing, constant around epigastric area without radiation. She denies associated bloody emesis/bloody stools. She endorses to cough, with unrelenting symptoms patient presents to the ER for further evaluation Initial work-up was consistent with acute pyelonephritis on CT abdomen, sepsis with white count 25,000, acute renal failure with creatinine 3 and BUN 90. Patient was found to be in A. fib with RVR with rate around 150. Nephrology was consulted and subsequently hospitalist service requested for admission. Cultures were drawn and antibiotics were initiated including Rocephin/vancomycin/Zosyn At the time of evaluation patient is extremely distressed. Unable to talk in full sentences, lethargic and anxious. She endorses to history as above. She denies prior similar episodes. 05/19-patient doing well. No overnight events. No concerns per staff. No fever chills. Persistent nausea. A. fib currently rate controlled on diltiazem drip at 15. at bedside. Updated on treatment plan/clinical improvement. Creatinine down to 2.2, white count down from 25.6-24. Downtrending LFTs. Continue ICU care. Patient remains critically ill with [place] score over 15 in the setting of profound sepsis with multiple organ dysfunction 05/20-persistent A. fib with RVR. Continue diltiazem drip for rate control measures. White count down to 16.3. Gram-negative víctor 2 out of 2 on blood cultures/urine culture. Continue antibiotic coverage and de-escalate based on sensitivities. Liver function improving. Renal function improved with creatinine down from 2.8-1.8. Patient now ambulating with physical therapy more alert lucid. Family including son and at bedside. Anticipate SNF transfer in the next 48 to 72 hours pending clinical improvement. 05/21-clinically improving. Pansensitive E. coli. Levaquin discontinued. Continue Rocephin for total of 14 days from start. Persistent A. fib RVR after brief spontaneous conversion to sinus last night. Start anticoagulation Eliquis for CVA prophylaxis. Consider digoxin as dual AV jose eduardo blockade unable to control rate. Continue PT OT/nutrition support. 05/22-pansensitive E. coli. De-escalate antibiotics to Levaquin for additional 10 days. White count 17.7. Afebrile and clinically improving. Atrial for ablation now rate controlled on diltiazem 360/metoprolol 100. On anticoagulation for CVA prophylaxis. Creatinine down to 1.6. Nephrology signing off. LFTs gradually improving. Anticipate discharge in 24 hours to SNF with continued antibiotics and aggressive posthospitalization rehab - Constitutional Vitals: Vital Signs Temp Pulse Resp BP Pulse Ox 99.7 F H 66 16 136/84 99 05/22/19 08:46 05/21/19 23:29 05/22/19 05:00 05/22/19 08:09 05/22/19 08:09 Period Temp Pulse Resp BP Sys/Fitch Pulse Ox Last 24 Hr 98.5 F-99.7 F 66-100 14-20 114-153/60-104 89-99 Intake and Output 05/21/19 05/22/19 05/22/19 21:59 05:59 13:59 Intake Total 720 240 Output Total 1425 990 Balance -705 -990 240 Weight 164 lb 8 oz Intake & Output: Intake & Output 05/21/19 05/22/19 05/22/19 21:59 05:59 13:59 Intake Total 720 240 Output Total 1425 990 Balance -705 -990 240 Weight 164 lb 8 oz Intake: Oral 720 240 Output: Urine Catheter Amount 1425 990 Other: Meal Dinner Percent of Meal Consumed 100% Feeding Ability Independent Urine Appearance Clear Clear Uretheral (Ellis) Clear Clear Urine Color Bright Yellow Bright Yellow Uretheral (Ellis) Bright Yellow Bright Yellow Urine Odor Strong Normal Uretheral (Ellis) Normal Stool Size Copious Moderate Stool Color Brown Green Stool Consistency Soft Soft Formed # Bowel Movements 1 General appearance: cooperative, no acute distress Exam: Minimally anxious Nonlabored breathing Telemetry atrial fibrillation now rate controlled Appears fatigued lethargic No lymphedema Medical - PN: Obj Da - Labs CBC & Chem 7: 05/22/19 04:25 05/22/19 04:25 Labs: Abnormal Lab Results 05/22/19 05/22/19 05/21/19 04:25 04:25 04:04 WBC 17.7 H RBC 3.66 L Hgb 11.4 L Hct 34.2 L RDW 15.1 H Plt Count 526 H Seg Neutrophils % Lymphocytes % Sodium Chloride Carbon Dioxide BUN 33 H 38 H Creatinine 1.6 H 1.8 H Glucose 116 H GGT 89 H 69 H AST 62 H 47 H ALT 100 H 103 H Alkaline Phosphatase 190 H 176 H Lactate Dehydrogenase Total Protein 5.7 L 5.8 L Albumin 2.2 L 2.3 L Albumin/Globulin Ratio 0.6 L 0.7 L 05/21/19 05/20/19 05/20/19 04:04 03:42 03:42 WBC 18.1 H 16.3 H RBC 3.76 L 3.62 L Hgb 11.6 L 11.2 L Hct 35.6 L 34.5 L RDW 15.0 H 15.5 H Plt Count 458 H Seg Neutrophils % 87 H Lymphocytes % 13 L 4 L Sodium 146 H Chloride 113 H Carbon Dioxide 17 L BUN 43 H Creatinine 1.8 H Glucose GGT 50 H AST 85 H ALT 127 H Alkaline Phosphatase 179 H Lactate Dehydrogenase 305 H Total Protein 5.6 L Albumin 2.1 L Albumin/Globulin Ratio 0.6 L Meds: Medications Acetaminophen (Tylenol) 650 mg PO Q4-6HP PRN; Protocol PRN Reason: Per Pain Protocol/Fever > 101 Last Admin: 05/20/19 08:23 Dose: 650 mg Documented by: Bisacodyl (Dulcolax) [address] DAILYP PRN PRN Reason: Constipation Calcium/Vitamin D (Calcium W/Vit D3) 500 mg PO TID [facility] Last Admin: 05/21/19 20:53 Dose: 500 mg Documented by: Clonidine HCl (Catapres) 0.3 mg PO QID [facility] Last Admin: 05/21/19 21:01 Dose: 0.3 mg Documented by: Cyanocobalamin (Vitamin B-12) 1,000 mcg PO BID [facility] Stop: 05/23/19 09:01 Last Admin: 05/21/19 20:52 Dose: 1,000 mcg Documented by: Dextrose (Dextrose 50%) 0 ml IV UD PRN PRN Reason: Hypoglycemia Diagnostic Test (Pha) (Accu-Chek) 1 each FS ACHS [facility] Last Admin: 05/21/19 20:25 Dose: 1 each Documented by: Diltiazem HCl (Cardizem Cd) 360 mg PO DAILY [facility] Docusate Sodium (Colace) 100 mg PO BID [facility] Last Admin: 05/21/19 20:53 Dose: 100 mg Documented by: Fish Oil (Fish Oil) 1,000 mg PO HS [facility] Last Admin: 05/21/19 21:11 Dose: 1,000 mg Documented by: Folic Acid (Folic Acid) 1 mg PO DAILY [facility] Last Admin: 05/21/19 10:05 Dose: 1 mg Documented by: Glucose (Insta-Glucose) 15 gm PO PRN PRN PRN Reason: Hypoglycemia Hydromorphone HCl (Dilaudid) 0 mg IV Q4HP PRN; Protocol PRN Reason: Per Pain Protocol Acetaminophen (Ofirmev) 650 mg in 65 mls @ 130 mls/hr IV Q6HP PRN; Protocol PRN Reason: Per Pain Protocol/Fever > 101 Norepinephrine Bitartrate 16 (mg/ Sodium Chloride) 250 mls @ 9.375 mls/hr IV Q2 4HP PRN; Protocol PRN Reason: Hypotension Magnesium Sulfate (Magnesium Sulfate) 2 gm in 50 mls @ 25 mls/hr IV ONCE ONE Stop: 05/22/19 11:14 Insulin Human Lispro (Humalog) [address] [facility]; Protocol Last Admin: 05/21/19 20:53 Dose: 2 unit Documented by: Iron Carb/Multivit/[place]namenter/Folic Acid (Multivitamin W/Minerals) 1 tab PO DAILY [facility] Last Admin: 05/21/19 10:10 Dose: 1 tab Documented by: Levofloxacin (Levaquin) 750 mg PO Q48H [facility] Stop: 05/30/19 09:01 Levothyroxine Sodium (Synthroid) 50 mcg PO ACB [facility] Last Admin: 05/21/19 10:11 Dose: 50 mcg Documented by: Melatonin (Melatonin 3mg Tablet) 3 mg PO HSP PRN PRN Reason: Insomnia Last Admin: 05/20/19 21:15 Dose: 3 mg Documented by: Metoprolol Succinate (Toprol Xl) 100 mg PO DAILY [facility] Last Admin: 05/21/19 09:05 Dose: 100 mg Documented by: Ondansetron HCl (Zofran) 4 mg IV Q4-6HP PRN; Protocol PRN Reason: Nausea And Vomiting Last Admin: 05/21/19 05:16 Dose: 4 mg Documented by: Cranberry 650 Mg Cap 1 dose PO BID [facility] Last Admin: 05/21/19 21:11 Dose: Not Given Documented by: Polyethylene Glycol (Miralax) 17 gm PO DAILYP PRN PRN Reason: Constipation Last Admin: 05/20/19 07:05 Dose: 17 gm Documented by: Promethazine HCl (Phenergan) 12.5 - 25 mg IV Q4-6HP PRN PRN Reason: Nausea And Vomiting Last Admin: 05/18/19 17:32 Dose: 12.5 mg Documented by: Rivaroxaban (Xarelto) 15 mg PO QPMCC [facility] Last Admin: 05/21/19 17:13 Dose: 15 mg Documented by: Senna/Docusate Sodium (Senna Plus Tablet) 1 tab PO [facility] Last Admin: 05/21/19 21:11 Dose: 1 tab Documented by: Simvastatin (Zocor) 10 mg PO [facility] Last Admin: 05/21/19 20:53 Dose: 10 mg Documented by: Sodium Chloride (Saline Flush) 10 ml IV Q8 [facility] Last Admin: 05/22/19 05:03 Dose: 10 ml Documented by: Thiamine HCl (Vitamin B1) 100 mg PO DAILY [facility] Last Admin: 05/21/19 10:15 Dose: 100 mg Documented by: Trazodone HCl (Desyrel) 50 mg PO [facility] Last Admin: 05/21/19 20:53 Dose: 50 mg Documented by: Vitamin D (Vitamin D3) 2,000 unit PO DAILY [facility] Last Admin: 05/21/19 10:10 Dose: 2,000 unit Documented by: Medical - PN: A/P - Time Spent With Patient Total time spent is greater than 50% in coordination of care (as documented) at patient's floor/unit and/or counseling patient: 25 - 35 minutes (1) Acute pyelonephritis Status: Acute Assessment and plan: * Severe sepsis secondary to E. coli bacteremia with multiple organ system dysfunction -white count down to 17.7 from 25. * E. coli bacteremia-continue additional 10 days of Levaquin based on culture sensitivities. * A. fib with RVR-continue metoprolol 100/diltiazem 360 extended release. Echocardiogram normal systolic function without valvular involvement. Continue Xarelto based on chads Vasc score * Acute pyelonephritis-bilateral, clinical improvement noted on antibiotic coverage * A. fib with RVR-rate controlled on diltiazem drip. * Acute renal failure likely secondary sepsis. Creatinine down to 1.8. * Elevated LFTs secondary to sepsis endorgan dysfunction. Clinically improving and downtrending * DM type II continue sliding-scale insulin/CC diet, held metformin * History of hypertension held SIMONE inhibitor, continue metoprolol * Full code * Prophylaxis- Heparin PLAN * Continue Cardizem 360 CD, DC amlodipine on discharge, restart losartan once creatinine less than 1.5 * Switch to Levaquin 750 every 48 for additional 10 days * Continue Xarelto for CVA prophylaxis * PT OT/nutrition support likely SNF transfer in 24 hours * Case management to coordinate discharge planning Current Visit: Yes Medical - PN: Qual - VTE Deep Vein Thrombosis/Pulmonary Embolism Present on Admission: No
[2019-05-22] MEDS: DOCUSATE SODIUM 100 MG CAPSULE PO SCH ×2 (09:18→20:25)
[2019-05-22] MEDS: FOLIC ACID 1 MG TABLET PO SCH (09:18)
[2019-05-22] MEDS: VITAMIN D3 1,000 UNIT TABLET PO SCH (09:18)
[2019-05-22] MEDS: CYANOCOBALAMIN (VITAMIN B-12) 500 MCG TABLET PO SCH ×2 (09:18→20:25)
[2019-05-22] MEDS: MULTIVIT,THER IRON,CA,FA & MIN 1 TABLET PO SCH (09:19)
[2019-05-22] MEDS: THIAMINE 100 MG TABLET PO SCH (09:19)
[2019-05-22] MEDS: METOPROLOL SUCCINATE 50 MG TAB.XL.24H PO SCH (09:19)
[2019-05-22] MEDS: cefTRIAXone 2 GM in DEXTROSE 5% IN WATER 50 ML IV SCH (09:22)
[2019-05-22] MEDS: CRANBERRY 650 MG PO SCH ×2 (09:31→21:51)
[2019-05-22 09:41] LABS: Band Neutrophils % 7 % (0-10); Basophils % (Manual) 1 % (0-2); Eosinophils % (Manual) 2 % (0-7); Lymphocytes % 5 % (15-49); Monocytes % (Manual) 3 % (1-12); Myelocytes % 1 % (0-0); Platelet Estimate INCREASED (NORMAL); RBC Morphology NORMAL (NORMAL); Segmented Neutrophils % 81 % (38-78)
[2019-05-22] MEDS: ONDANSETRON 4 MG/2 ML VIAL IV PRN (09:47)
[2019-05-22] MEDS ORDERED: DEXTROSE 50% 50 ML VIAL IV PRN (10:32)
[2019-05-22] MEDS ORDERED: HYDROmorphone 2 MG/ML VIAL IV PRN (10:32)
[2019-05-22] MEDS ORDERED: PROMETHAZINE 25 MG/ML VIAL IV PRN (10:32)
[2019-05-22] MEDS ORDERED: POLYETHYLENE GLYCOL 3350 17 GM PACKET PO PRN (10:32)
[2019-05-22] MEDS ORDERED: ACETAMINOPHEN 650 MG/65 ML BOTTLE IV PRN (10:32)
[2019-05-22] MEDS ORDERED: NOREPINEPHRINE BITARTRATE 16 MG in 0.9 % SODIUM CHLORIDE 234 ML IV PRN (10:32)
[2019-05-22] MEDS ORDERED: DEXTROSE 31 GM ORAL.SUSP PO PRN (10:32)
[2019-05-22] MEDS ORDERED: ACETAMINOPHEN 325 MG TABLET PO PRN (10:32)
[2019-05-22] MEDS ORDERED: BISACODYL 10 MG SUPP.RECT PR PRN (10:32)
[2019-05-22] MEDS: RIVAROXABAN 15 MG TABLET PO SCH (17:36)
[2019-05-22] MEDS: metFORMIN 500 MG TAB.XL.24H PO SCH (17:37)
[2019-05-22] MEDS ORDERED: metFORMIN 500 MG TAB.XL.24H PO SCH (18:00)
[2019-05-22] MEDS: traZODone HCL 50 MG TABLET PO SCH (20:25)
[2019-05-22] MEDS: SIMVASTATIN 10 MG TABLET PO SCH (20:26)
[2019-05-22] MEDS: FISH OIL 1,000 MG CAPSULE PO SCH (20:26)
[2019-05-22] MEDS: MELATONIN 3 MG TABLET PO SCH (20:26)
[2019-05-22] MEDS ORDERED: MELATONIN 3 MG TABLET PO SCH (21:00)
[2019-05-22] MEDS ORDERED: [UNRECOGNIZED DRUG - OTHER] PO SCH (21:00)
[2019-05-22] MEDS ORDERED: MELATONIN PO SCH (21:00)
[2019-05-22] MEDS ORDERED: PYRIDOXINE PO SCH (21:00)
[2019-05-22] MEDS: SENNOSIDES/DOCUSATE SODIUM 1 TAB TABLET PO SCH (21:16)
[2019-05-23] MEDS: 0.9 % SODIUM CHLORIDE 10 ML SYRINGE IV SCH ×3 (05:41→21:46)
[2019-05-23 05:49] LABS: Hemoglobin 11.1 g/dL (12.0-15.0); Mean Cell Volume 94.3 fL (80.0-100.0); Mean Corpuscular HGB Conc 32.7 g/dL (31.0-36.0); Mean Platelet Volume 7.9 fL (7.4-10.4); Platelet Count 537 K/mcL (140-440); RBC 3.61 M/mcL (4.00-5.20); Red Cell Distribution Width 14.9 % (11.5-14.5); WBC 17.9 K/mcL (4.5-11.0)
[2019-05-23 06:15] LABS: ALT/SGPT 105 U/l (0-40); AST/SGOT 64 U/l (0-37); Albumin 2.3 gm/dL (3.2-5.2); Albumin/Globulin Ratio 0.7 (1.0-2.3); Alkaline Phosphatase 191 U/L (39-117); Bilirubin,Direct < 0.2 mg/dL (0.0-0.3); Bilirubin,Total 0.2 mg/dL (0.0-1.0); Blood Urea Nitrogen 31 mg/dl (8-23); Calcium 10.2 mg/dl (8.6-10.4); Carbon Dioxide 25 mmol/L (22-30); Chloride 105 mmol/L (96-108); Globulin 3.4 gm/dL (2.2-3.7); Glomerular Filtration Rate 33; Glucose 108 mg/dL (70-105); Lactate Dehydrogenase 171 U/L (94-250); Phosphorous 3.9 mg/dL (2.7-4.5); Triglycerides 141 mg/dl (<150); Uric Acid 6.4 mg/dL (2.5-8.0)
[2019-05-23] MEDS: LEVOTHYROXINE 50 MCG TABLET PO SCH (07:37)
[2019-05-23] MEDS: INSULIN LISPRO 1 UNIT/0.01 ML UNIT SQ SCH ×4 (07:51→21:38)
[2019-05-23 08:23] LABS: Band Neutrophils % 1 % (0-10); Basophils % (Manual) 1 % (0-2); Eosinophils % (Manual) 2 % (0-7); Lymphocytes % 12 % (15-49); Monocytes % (Manual) 2 % (1-12); Platelet Estimate INCREASED (NORMAL); RBC Morphology NORMAL (NORMAL); Segmented Neutrophils % 82 % (38-78)
[2019-05-23] MEDS: CYANOCOBALAMIN (VITAMIN B-12) 500 MCG TABLET PO SCH (08:54)
[2019-05-23] MEDS: FOLIC ACID 1 MG TABLET PO SCH (08:55)
[2019-05-23] MEDS: THIAMINE 100 MG TABLET PO SCH (08:56)
[2019-05-23] MEDS: VITAMIN D3 1,000 UNIT TABLET PO SCH (08:57)
[2019-05-23] MEDS ORDERED: DILTIAZEM 180 MG CAP.XL.24H PO SCH (09:00)
[2019-05-23] MEDS: DILTIAZEM 240 MG CAP.XL.24H PO SCH (09:00)
[2019-05-23] MEDS ORDERED: amLODIPine 10 MG TABLET PO SCH (09:00)
[2019-05-23] MEDS: CALCIUM W/VIT D3 500 MG TABLET PO SCH ×3 (09:01→21:43)
[2019-05-23] MEDS: DOCUSATE SODIUM 100 MG CAPSULE PO SCH ×2 (09:01→21:43)
[2019-05-23] MEDS: MULTIVIT,THER IRON,CA,FA & MIN 1 TABLET PO SCH (09:02)
[2019-05-23] MEDS: METOPROLOL SUCCINATE 50 MG TAB.XL.24H PO SCH (09:03)
[2019-05-23] MEDS: ONDANSETRON 4 MG/2 ML VIAL IV PRN (09:39)
[2019-05-23] MEDS: cloNIDine HCL 0.1 MG TABLET PO SCH ×4 (10:42→21:44)
--- NOTE | 2019-05-23 14:33 | Internal Med Progress Note ---
Medical - PN: Subj Patient information: Note initiated : 05/23/19 at 2:28 pm Service Date, if different from initiated Date: [] Patient: Joanne Nguyễn a 79 y/o F admitted on 05/18/19 for nausea, bloody stool. Chief Complaint: [] Interval history: Ms. Nguyễn is a 79 year old F history of diabetes/hypertension and hypothyroidism who presents with over 1 week onset of progressive nausea/upper mid abdominal pain along with associated vomiting. Patient has not been able to eat or drink much in the last 10 days. She went to urgent care a few days prior to presentation and was discharged after evaluation. Patient however failed to improve. She denies associated fever chills. She has not had a restful night sleep. Her pain is described as 6 out of 10 to 8 out of 10 associated with coughing, constant around epigastric area without radiation. She denies associated bloody emesis/bloody stools. She endorses to cough, with unrelenting symptoms patient presents to the ER for further evaluation Initial work-up was consistent with acute pyelonephritis on CT abdomen, sepsis with white count 25,000, acute renal failure with creatinine 3 and BUN 90. Patient was found to be in A. fib with RVR with rate around 150. Nephrology was consulted and subsequently hospitalist service requested for admission. Cultures were drawn and antibiotics were initiated including Rocephin/vancomycin/Zosyn At the time of evaluation patient is extremely distressed. Unable to talk in full sentences, lethargic and anxious. She endorses to history as above. She denies prior similar episodes. 05/19-patient doing well. No overnight events. No concerns per staff. No fever chills. Persistent nausea. A. fib currently rate controlled on diltiazem drip at 15. at bedside. Updated on treatment plan/clinical improvement. Creatinine down to 2.2, white count down from 25.6-24. Downtrending LFTs. Continue ICU care. Patient remains critically ill with [place] score over 15 in the setting of profound sepsis with multiple organ dysfunction 05/20-persistent A. fib with RVR. Continue diltiazem drip for rate control measures. White count down to 16.3. Gram-negative víctor 2 out of 2 on blood cultures/urine culture. Continue antibiotic coverage and de-escalate based on sensitivities. Liver function improving. Renal function improved with creatinine down from 2.8-1.8. Patient now ambulating with physical therapy more alert lucid. Family including son and at bedside. Anticipate SNF transfer in the next 48 to 72 hours pending clinical improvement. 05/21-clinically improving. Pansensitive E. coli. Levaquin discontinued. Continue Rocephin for total of 14 days from start. Persistent A. fib RVR after brief spontaneous conversion to sinus last night. Start anticoagulation Eliquis for CVA prophylaxis. Consider digoxin as dual AV jose eduardo blockade unable to control rate. Continue PT OT/nutrition support. 05/22-pansensitive E. coli. De-escalate antibiotics to Levaquin for additional 10 days. White count 17.7. Afebrile and clinically improving. Atrial for ablation now rate controlled on diltiazem 360/metoprolol 100. On anticoagulation for CVA prophylaxis. Creatinine down to 1.6. Nephrology signing off. LFTs gradually improving. Anticipate discharge in 24 hours to SNF with continued antibiotics and aggressive posthospitalization rehab 05/23-persistent elevation white count at 17.9. LFTs uptrending. Despite antibiotics. Continues to experience nausea. Case discussed with ID. Recommends monitoring labs for additional 24 hours as the course coincides with normal clearance of pyelonephritis. Afebrile. Will rescan in 24 hours if patient does not show improvement. Intermittent RVR but over the last 24 hours heart rate has been steady around 90s to 110. Case discussed with family. Discharge pending improvement in 24 to 48 hours. Patient does not want to go to SNF. - Constitutional Vitals: Vital Signs Temp Pulse Resp BP Pulse Ox 97.5 F 122 H 20 130/86 92 05/23/19 12:00 05/23/19 12:00 05/23/19 12:00 05/23/19 12:00 05/23/19 12:00 Period Temp Pulse Resp BP Sys/Fitch Pulse Ox Last 24 Hr 97.1 F-98.6 F 89-123 16-20 116-153/64-86 91-94 Intake and Output 05/23/19 05/23/19 05/23/19 05:59 13:59 21:59 Intake Total 350 960 Output Total 650 450 Balance -300 510 Weight 167 lb 6.4 oz Patient Weight 05/24/19 05:59 Weight 167 lb 6.4 oz Intake & Output: Intake & Output 05/23/19 05/23/19 05/23/19 05:59 13:59 21:59 Intake Total 350 960 Output Total 650 450 Balance -300 510 Weight 167 lb 6.4 oz Intake: Oral 350 960 Output: Void Amount 650 450 Other: Meal Lunch Percent of Meal Consumed 75% Feeding Ability Independent Urine Appearance Clear Clear Urine Color Bright Yellow Straw Urine Odor Normal Normal Stool Size Moderate Stool Color Brown Green Stool Consistency Liquid Loose # Voids 1 # Bowel Movements 1 General appearance: no acute distress Exam: Alert but anxious Intermittent nausea Nonlabored breathing Intermittent RVR Abdomen nontender Medical - PN: Obj Da - Labs CBC & Chem 7: 05/23/19 04:15 05/23/19 04:15 Labs: Abnormal Lab Results 05/23/19 05/23/19 05/22/19 04:15 04:15 04:25 WBC 17.9 H RBC 3.61 L Hgb 11.1 L Hct 34.0 L RDW 14.9 H Plt Count 537 H Seg Neutrophils % 82 H Lymphocytes % 12 L Myelocytes % BUN 31 H 33 H Creatinine 1.5 H 1.6 H Glucose 108 H 116 H GGT 95 H 89 H AST 64 H 62 H ALT 105 H 100 H Alkaline Phosphatase 191 H 190 H Total Protein 5.7 L 5.7 L Albumin 2.3 L 2.2 L Albumin/Globulin Ratio 0.7 L 0.6 L 05/22/19 05/21/19 05/21/19 04:25 04:04 04:04 WBC 17.7 H 18.1 H RBC 3.66 L 3.76 L Hgb 11.4 L 11.6 L Hct 34.2 L 35.6 L RDW 15.1 H 15.0 H Plt Count 526 H 458 H Seg Neutrophils % 81 H Lymphocytes % 5 L 13 L Myelocytes % 1 H BUN 38 H Creatinine 1.8 H Glucose GGT 69 H AST 47 H ALT 103 H Alkaline Phosphatase 176 H Total Protein 5.8 L Albumin 2.3 L Albumin/Globulin Ratio 0.7 L Meds: Medications Acetaminophen (Tylenol) 650 mg PO Q4-6HP PRN; Protocol PRN Reason: Per Pain Protocol/Fever > 101 Bisacodyl (Dulcolax) 10 mg [place] DAILYP PRN PRN Reason: Constipation Calcium/Vitamin D (Calcium W/Vit D3) 500 mg PO TID [facility] Last Admin: 05/23/19 09:01 Dose: 500 mg Documented by: Clonidine HCl (Catapres) 0.3 mg PO QID [facility] Last Admin: 05/23/19 10:42 Dose: 0.3 mg Documented by: Dextrose (Dextrose 50%) 0 ml IV UD PRN PRN Reason: Hypoglycemia Diagnostic Test (Pha) (Accu-Chek) 1 each FS ACHS [facility] Last Admin: 05/23/19 13:03 Dose: Not Given Documented by: Diltiazem HCl (Cardizem Cd) 480 mg PO DAILY [facility] Last Admin: 05/23/19 09:00 Dose: 480 mg Documented by: Docusate Sodium (Colace) 100 mg PO BID [facility] Last Admin: 05/23/19 09:01 Dose: 100 mg Documented by: Fish Oil (Fish Oil) 1,000 mg PO HS [facility] Last Admin: 05/22/19 20:26 Dose: 1,000 mg Documented by: Folic Acid (Folic Acid) 1 mg PO DAILY [facility] Last Admin: 05/23/19 08:55 Dose: 1 mg Documented by: Glucose (Insta-Glucose) 15 gm PO PRN PRN PRN Reason: Hypoglycemia Hydromorphone HCl (Dilaudid) 0 mg IV Q4HP PRN; Protocol PRN Reason: Per Pain Protocol Norepinephrine Bitartrate 16 (mg/ Sodium Chloride) 250 mls @ 9.375 mls/hr IV Q24HP PRN; Protocol PRN Reason: Hypotension Acetaminophen (Ofirmev) 650 mg in 65 mls @ 130 mls/hr IV Q6HP PRN; Protocol PRN Reason: Per Pain Protocol/Fever > 101 Insulin Human Lispro (Humalog) 0 unit SQ [facility]; Protocol Last Admin: 05/23/19 07:51 Dose: Not Given Documented by: Iron Carb/Multivit/[place]/Folic Acid (Multivitamin W/Minerals) 1 tab PO DAILY [facility] Last Admin: 05/23/19 09:02 Dose: 1 tab Documented by: Levofloxacin (Levaquin) 750 mg PO Q48H [facility] Stop: 05/30/19 09:01 Levothyroxine Sodium (Synthroid) 50 mcg PO ACB [facility] Last Admin: 05/23/19 07:37 Dose: 50 mcg Documented by: Melatonin (Melatonin 3mg Tablet) 6 mg PO [facility] Last Admin: 05/22/19 20:26 Dose: 6 mg Documented by: Metformin HCl (Glucophage) 500 mg PO DAILY@1800 [facility] Last Admin: 05/22/19 17:37 Dose: 500 mg Documented by: Metoprolol Succinate (Toprol Xl) 100 mg PO DAILY [facility] Last Admin: 05/23/19 09:03 Dose: 100 mg Documented by: Ondansetron HCl (Zofran) 4 mg IV Q4-6HP PRN; Protocol PRN Reason: Nausea And Vomiting Last Admin: 05/23/19 09:39 Dose: 4 mg Documented by: Cranberry 650 Mg Cap 1 dose PO BID [facility] Last Admin: 05/22/19 21:51 Dose: Not Given Documented by: Polyethylene Glycol (Miralax) 17 gm PO DAILYP PRN PRN Reason: Constipation Promethazine HCl (Phenergan) 12.5 - 25 mg IV Q4-6HP PRN PRN Reason: Nausea And Vomiting Rivaroxaban (Xarelto) 15 mg PO QPMCC [facility] Last Admin: 05/22/19 17:36 Dose: 15 mg Documented by: Senna/Docusate Sodium (Senna Plus Tablet) 1 tab PO [facility] Last Admin: 05/22/19 21:16 Dose: Not Given Documented by: Simvastatin (Zocor) 10 mg PO [facility] Last Admin: 05/22/19 20:26 Dose: 10 mg Documented by: Sodium Chloride (Saline Flush) 10 ml IV Q8 [facility] Last Admin: 05/23/19 05:41 Dose: 10 ml Documented by: Thiamine HCl (Vitamin B1) 100 mg PO DAILY [facility] Last Admin: 05/23/19 08:56 Dose: 100 mg Documented by: Trazodone HCl (Desyrel) 50 mg PO [facility] Last Admin: 05/22/19 20:25 Dose: 50 mg Documented by: Vitamin D (Vitamin D3) 2,000 unit PO DAILY [facility] Last Admin: 05/23/19 08:57 Dose: 2,000 unit Documented by: Medical - PN: A/P - Time Spent With Patient Total time spent is greater than 50% in coordination of care (as documented) at patient's floor/unit and/or counseling patient: 25 - 35 minutes (1) Acute pyelonephritis Status: Acute Assessment and plan: * Acute pyelonephritis-bilateral, on antibiotic coverage. Rescan in 24 hours if no clinical improvement * Severe sepsis secondary to E. coli bacteremia with multiple organ system dysfunction -persistent elevation white count around 17.9. Continue trending white count and rescan in 24 hours * Reactive thrombocytosis-secondary to infection * E. coli bacteremia-continue additional 9 days Levaquin based on culture sensitivities. * A. fib with RVR-continue metoprolol 100/diltiazem for 480 extended release. Echocardiogram normal LVEF without valvular involvement. Continue Xarelto based on chads Vasc score * A. fib with RVR-rate controlled on diltiazem drip. * Acute renal failure likely secondary sepsis. Creatinine down to 1.8. * Elevated LFTs secondary to sepsis endorgan dysfunction. Clinically improving and downtrending * DM type II continue sliding-scale insulin/CC diet, held metformin * History of hypertension held SIMONE inhibitor, continue metoprolol * Full code * Prophylaxis- Heparin PLAN * Continues diltiazem for AT/metoprolol 100 * Continue Levaquin 750 every 48 for 9 days * Repeat abdominal imaging in 24 hours if no improvement * Continue Xarelto for CVA prophylaxis * PT OT/nutrition support * Case management to coordinate discharge planning Current Visit: Yes Medical - PN: Qual - VTE Deep Vein Thrombosis/Pulmonary Embolism Present on Admission: No
[2019-05-23] MEDS: CRANBERRY 650 MG PO SCH ×2 (15:56→21:44)
[2019-05-23] MEDS: RIVAROXABAN 15 MG TABLET PO SCH (17:41)
[2019-05-23] MEDS: metFORMIN 500 MG TAB.XL.24H PO SCH (18:11)
[2019-05-23] MEDS: SENNOSIDES/DOCUSATE SODIUM 1 TAB TABLET PO SCH (21:42)
[2019-05-23] MEDS: FISH OIL 1,000 MG CAPSULE PO SCH (21:43)
[2019-05-23] MEDS: SIMVASTATIN 10 MG TABLET PO SCH (21:43)
[2019-05-23] MEDS: traZODone HCL 50 MG TABLET PO SCH (21:43)
[2019-05-23] MEDS: MELATONIN 3 MG TABLET PO SCH (21:43)
[2019-05-24] MEDS: 0.9 % SODIUM CHLORIDE 10 ML SYRINGE IV SCH ×3 (06:12→22:03)
[2019-05-24] MEDS: LEVOTHYROXINE 50 MCG TABLET PO SCH (08:31)
[2019-05-24] MEDS: INSULIN LISPRO 1 UNIT/0.01 ML UNIT SQ SCH ×4 (08:32→21:35)
[2019-05-24 08:48] LABS: Hematocrit 36.4 % (36.0-48.0); Mean Cell Volume 93.7 fL (80.0-100.0); Mean Corpuscular HGB Conc 33.1 g/dL (31.0-36.0); Mean Platelet Volume 7.3 fL (7.4-10.4); Platelet Count 657 K/mcL (140-440); RBC 3.88 M/mcL (4.00-5.20); WBC 20.6 K/mcL (4.5-11.0)
[2019-05-24] MEDS: cloNIDine HCL 0.1 MG TABLET PO SCH ×4 (08:52→22:00)
[2019-05-24] MEDS: DILTIAZEM 240 MG CAP.XL.24H PO SCH (08:52)
[2019-05-24] MEDS: METOPROLOL SUCCINATE 50 MG TAB.XL.24H PO SCH (08:52)
[2019-05-24] MEDS: CALCIUM W/VIT D3 500 MG TABLET PO SCH ×3 (08:56→22:00)
[2019-05-24] MEDS: THIAMINE 100 MG TABLET PO SCH (08:57)
[2019-05-24] MEDS: MULTIVIT,THER IRON,CA,FA & MIN 1 TABLET PO SCH (08:57)
[2019-05-24] MEDS: FOLIC ACID 1 MG TABLET PO SCH (08:57)
[2019-05-24] MEDS: DOCUSATE SODIUM 100 MG CAPSULE PO SCH ×2 (08:58→22:00)
[2019-05-24] MEDS: VITAMIN D3 1,000 UNIT TABLET PO SCH (08:58)
[2019-05-24] MEDS: CRANBERRY 650 MG PO SCH ×2 (08:59→22:01)
[2019-05-24] MEDS ORDERED: LEVOFLOXACIN 750 MG TABLET PO SCH (09:00)
[2019-05-24 09:06] LABS: ALT/SGPT 98 U/l (0-40); AST/SGOT 43 U/l (0-37); Albumin 3.1 gm/dL (3.2-5.2); Albumin/Globulin Ratio 0.8 (1.0-2.3); Alkaline Phosphatase 208 U/L (39-117); Bilirubin,Direct < 0.2 mg/dL (0.0-0.3); Bilirubin,Total 0.3 mg/dL (0.0-1.0); Blood Urea Nitrogen 22 mg/dl (8-23); Calcium 10.5 mg/dl (8.6-10.4); Carbon Dioxide 26 mmol/L (22-30); Chloride 104 mmol/L (96-108); Glomerular Filtration Rate 36; Glucose 107 mg/dL (70-105); Lactate Dehydrogenase 163 U/L (94-250); Phosphorous 3.9 mg/dL (2.7-4.5); Triglycerides 198 mg/dl (<150); Uric Acid 6.4 mg/dL (2.5-8.0)
[2019-05-24] MEDS ORDERED: DIGOXIN 500 MCG/2 ML AMPUL IV ONE (09:15)
[2019-05-24 09:40] LABS: Lymphocytes % 12 % (15-49); Monocytes % (Manual) 11 % (1-12); Platelet Estimate INCREASED (NORMAL); RBC Morphology NORMAL (NORMAL); Segmented Neutrophils % 77 % (38-78)
--- NOTE | 2019-05-24 10:18 | Internal Med Progress Note ---
Medical - PN: Subj Patient information: Note initiated : 05/24/19 at 10:16 am Service Date, if different from initiated Date: [] Patient: Joanne Nguyễn a 79 y/o F admitted on 05/18/19 for nausea, bloody stool. Chief Complaint: [] Interval history: Ms. Nguyễn is a 79 year old F history of diabetes/hypertension and hypothyroidism who presents with over 1 week onset of progressive nausea/upper mid abdominal pain along with associated vomiting. Patient has not been able to eat or drink much in the last 10 days. She went to urgent care a few days prior to presentation and was discharged after evaluation. Patient however failed to improve. She denies associated fever chills. She has not had a restful night sleep. Her pain is described as 6 out of 10 to 8 out of 10 associated with coughing, constant around epigastric area without radiation. She denies associated bloody emesis/bloody stools. She endorses to cough, with unrelenting symptoms patient presents to the ER for further evaluation Initial work-up was consistent with acute pyelonephritis on CT abdomen, sepsis with white count 25,000, acute renal failure with creatinine 3 and BUN 90. Patient was found to be in A. fib with RVR with rate around 150. Nephrology was consulted and subsequently hospitalist service requested for admission. Cultures were drawn and antibiotics were initiated including Rocephin/vancomycin/Zosyn At the time of evaluation patient is extremely distressed. Unable to talk in full sentences, lethargic and anxious. She endorses to history as above. She denies prior similar episodes. 05/19-patient doing well. No overnight events. No concerns per staff. No fever chills. Persistent nausea. A. fib currently rate controlled on diltiazem drip at 15. at bedside. Updated on treatment plan/clinical improvement. Creatinine down to 2.2, white count down from 25.6-24. Downtrending LFTs. Continue ICU care. Patient remains critically ill with [place] score over 15 in the setting of profound sepsis with multiple organ dysfunction 05/20-persistent A. fib with RVR. Continue diltiazem drip for rate control measures. White count down to 16.3. Gram-negative víctor 2 out of 2 on blood cultures/urine culture. Continue antibiotic coverage and de-escalate based on sensitivities. Liver function improving. Renal function improved with creatinine down from 2.8-1.8. Patient now ambulating with physical therapy more alert lucid. Family including son and at bedside. Anticipate SNF transfer in the next 48 to 72 hours pending clinical improvement. 05/21-clinically improving. Pansensitive E. coli. Levaquin discontinued. Continue Rocephin for total of 14 days from start. Persistent A. fib RVR after brief spontaneous conversion to sinus last night. Start anticoagulation Eliquis for CVA prophylaxis. Consider digoxin as dual AV jose eduardo blockade unable to control rate. Continue PT OT/nutrition support. 05/22-pansensitive E. coli. De-escalate antibiotics to Levaquin for additional 10 days. White count 17.7. Afebrile and clinically improving. Atrial for ablation now rate controlled on diltiazem 360/metoprolol 100. On anticoagulation for CVA prophylaxis. Creatinine down to 1.6. Nephrology signing off. LFTs gradually improving. Anticipate discharge in 24 hours to SNF with continued antibiotics and aggressive posthospitalization rehab 05/23-persistent elevation white count at 17.9. LFTs uptrending. Despite antibiotics. Continues to experience nausea. Case discussed with ID. Recommends monitoring labs for additional 24 hours as the course coincides with normal clearance of pyelonephritis. Afebrile. Will rescan in 24 hours if patient does not show improvement. Intermittent RVR but over the last 24 hours heart rate has been steady around 90s to 110. Case discussed with family. Discharge pending improvement in 24 to 48 hours. Patient does not want to go to SNF. 05/24-worsening leukocytosis. Persistent A. fib RVR. Started digoxin load. CT abdomen pelvis with contrast to rule out intra-abdominal abscess. Repeat blood cultures. ID consulted. No overnight fever chills. at bedside. Discussed treatment plan. Continuing anticoagulation. Will possibly require cardioversion in 28 days if persistent A. fib despite multidrug rate control measures. Worsening reactive thrombocytosis highly suspicious for smoldering infection/abscess. Creatinine improved to 1.4 - Constitutional Vitals: Vital Signs Temp Pulse Resp BP Pulse Ox 98.3 F 128 H 18 157/84 95 05/24/19 07:54 05/24/19 08:30 05/24/19 08:30 05/24/19 07:54 05/24/19 08:30 Period Temp Pulse Resp BP Sys/Fitch Pulse Ox Last 24 Hr 97.4 F-98.5 F 103-128 18-24 125-157/71-91 92-96 Intake and Output 05/23/19 05/24/19 05/24/19 21:59 05:59 13:59 Intake Total 960 450 Output Total 5577 611 1097 Balance -190 -450 -1150 Weight 166 lb 8 oz Intake & Output: Intake & Output 05/23/19 05/24/19 05/24/19 21:59 05:59 13:59 Intake Total 960 450 Output Total 5342 973 4585 Balance -190 -450 -1150 Weight 166 lb 8 oz Intake: Oral 960 450 Output: Void Amount 9055 181 9164 Other: Meal Dinner Percent of Meal Consumed 75% Feeding Ability Independent Urine Appearance Clear Clear Clear Urine Color Bright Yellow Bright Yellow Straw Urine Odor Normal Normal Normal Stool Size Small Moderate Stool Color Brown Brown Stool Consistency Formed Soft # Voids 1 # Bowel Movements 1 Exam: Nauseous and anxious Nonlabored breathing A. fib with intermittent RVR up to 150 Nontender nondistended abdomen Diminished breath sounds bases Medical - PN: Obj Da - Labs CBC & Chem 7: 05/24/19 08:18 05/24/19 08:18 Labs: Abnormal Lab Results 05/24/19 05/24/19 05/23/19 08:18 08:18 04:15 WBC 20.6 H RBC 3.88 L Hgb Hct RDW 15.0 H Plt Count 657 H MPV 7.3 L Seg Neutrophils % Lymphocytes % 12 L Myelocytes % BUN 31 H Creatinine 1.4 H 1.5 H Glucose 107 H 108 H Calcium 10.5 H GGT 101 H 95 H AST 43 H 64 H ALT 98 H 105 H Alkaline Phosphatase 208 H 191 H Total Protein 5.7 L Albumin 3.1 L 2.3 L Globulin 4.0 H Albumin/Globulin Ratio 0.8 L 0.7 L Triglycerides 198 H 05/23/19 05/22/19 05/22/19 04:15 04:25 04:25 WBC 17.9 H 17.7 H RBC 3.61 L 3.66 L Hgb 11.1 L 11.4 L Hct 34.0 L 34.2 L RDW 14.9 H 15.1 H Plt Count 537 H 526 H MPV Seg Neutrophils % 82 H 81 H Lymphocytes % 12 L 5 L Myelocytes % 1 H BUN 33 H Creatinine 1.6 H Glucose 116 H Calcium GGT 89 H AST 62 H ALT 100 H Alkaline Phosphatase 190 H Total Protein 5.7 L Albumin 2.2 L Globulin Albumin/Globulin Ratio 0.6 L Triglycerides Meds: Medications Acetaminophen (Tylenol) 650 mg PO Q4-6HP PRN; Protocol PRN Reason: Per Pain Protocol/Fever > 101 Bisacodyl (Dulcolax) 10 mg [place] DAILYP PRN PRN Reason: Constipation Calcium/Vitamin D (Calcium W/Vit D3) 500 mg PO TID [facility] Last Admin: 05/24/19 08:56 Dose: 500 mg Documented by: Clonidine HCl (Catapres) 0.3 mg PO QID [facility] Last Admin: 05/24/19 08:52 Dose: 0.3 mg Documented by: Dextrose (Dextrose 50%) 0 ml IV UD PRN PRN Reason: Hypoglycemia Diagnostic Test (Pha) (Accu-Chek) 1 each FS [facility] Last Admin: 05/24/19 08:30 Dose: 1 each Documented by: Diltiazem HCl (Cardizem Cd) 480 mg PO DAILY [facility] Last Admin: 05/24/19 08:52 Dose: 480 mg Documented by: Docusate Sodium (Colace) 100 mg PO BID [facility] Last Admin: 05/24/19 08:58 Dose: 100 mg Documented by: Fish Oil (Fish Oil) 1,000 mg PO HS [facility] Last Admin: 05/23/19 21:43 Dose: 1,000 mg Documented by: Folic Acid (Folic Acid) 1 mg PO DAILY [facility] Last Admin: 05/24/19 08:57 Dose: 1 mg Documented by: Glucose (Insta-Glucose) 15 gm PO PRN PRN PRN Reason: Hypoglycemia Hydromorphone HCl (Dilaudid) 0 mg IV Q4HP PRN; Protocol PRN Reason: Per Pain Protocol Norepinephrine Bitartrate 16 (mg/ Sodium Chloride) 250 mls @ 9.375 mls/hr IV Q24HP PRN; Protocol PRN Reason: Hypotension Insulin Human Lispro (Humalog) 0 unit SQ ACHS [facility]; Protocol Last Admin: 05/24/19 08:32 Dose: Not Given Documented by: Iron Carb/Multivit/Rosamond/Folic Acid (Multivitamin W/Minerals) 1 tab PO DAILY [facility] Last Admin: 05/24/19 08:57 Dose: 1 tab Documented by: Levofloxacin (Levaquin) 750 mg PO Q48H [facility] Stop: 05/30/19 09:01 Last Admin: 05/24/19 09:05 Dose: 750 mg Documented by: Levothyroxine Sodium (Synthroid) 50 mcg PO ACB [facility] Last Admin: 05/24/19 08:31 Dose: 50 mcg Documented by: Melatonin (Melatonin 3mg Tablet) 6 mg PO [facility] Last Admin: 05/23/19 21:43 Dose: 6 mg Documented by: Metformin HCl (Glucophage) 500 mg PO DAILY@1800 [facility] Last Admin: 05/23/19 18:11 Dose: 500 mg Documented by: Metoprolol Succinate (Toprol Xl) 100 mg PO DAILY [facility] Last Admin: 05/24/19 08:52 Dose: 100 mg Documented by: Ondansetron HCl (Zofran) 4 mg IV Q4-6HP PRN; Protocol PRN Reason: Nausea And Vomiting Last Admin: 05/23/19 09:39 Dose: 4 mg Documented by: Cranberry 650 Mg Cap 1 dose PO BID [facility] Last Admin: 05/24/19 08:59 Dose: Not Given Documented by: Polyethylene Glycol (Miralax) 17 gm PO DAILYP PRN PRN Reason: Constipation Promethazine HCl (Phenergan) 12.5 - 25 mg IV Q4-6HP PRN PRN Reason: Nausea And Vomiting Rivaroxaban (Xarelto) 15 mg PO QPMCC [facility] Last Admin: 05/23/19 17:41 Dose: 15 mg Documented by: Senna/Docusate Sodium (Senna Plus Tablet) 1 tab PO [facility] Last Admin: 05/23/19 21:42 Dose: 1 tab Documented by: Simvastatin (Zocor) 10 mg PO [facility] Last Admin: 05/23/19 21:43 Dose: 10 mg Documented by: Sodium Chloride (Saline Flush) 10 ml IV Q8 [facility] Last Admin: 05/24/19 06:12 Dose: Not Given Documented by: Thiamine HCl (Vitamin B1) 100 mg PO DAILY [facility] Last Admin: 05/24/19 08:57 Dose: 100 mg Documented by: Trazodone HCl (Desyrel) 50 mg PO [facility] Last Admin: 05/23/19 21:43 Dose: 50 mg Documented by: Vitamin D (Vitamin D3) 2,000 unit PO DAILY [facility] Last Admin: 05/24/19 08:58 Dose: 2,000 unit Documented by: Medical - PN: A/P - Time Spent With Patient Total time spent is greater than 50% in coordination of care (as documented) at patient's floor/unit and/or counseling patient: 25 - 35 minutes (1) Acute pyelonephritis Status: Acute Assessment and plan: * Worsening leukocytosis highly suspicious for abscess/persistent infection. ID consulted. CT abdomen pelvis with contrast. Blood cultures drawn. * Acute pyelonephritis-bilateral, on Levaquin * Severe sepsis secondary to E. coli bacteremia with multiple organ system dysfunction -white count over 20,000 with reactive thrombocytosis. Abdominal imaging * Reactive thrombocytosis-secondary to infection. Platelets over 650 * E. coli bacteremia-on oral Levaquin * A. fib with RVR-inadequate rate control. Start digoxin load. Continue metoprolol 100/diltiazem for 480 extended release. Echocardiogram normal LVEF without valvular involvement. Continue Xarelto based on chads Vasc score * Acute renal failure likely secondary sepsis. Creatinine down from 2.2-1.4 * Elevated LFTs secondary to sepsis endorgan dysfunction. Transaminitis now plateaued * DM type II continue sliding-scale insulin/CC diet, held metformin * History of hypertension held SIMONE inhibitor, continue metoprolol * Full code * Prophylaxis- Heparin PLAN * CT abdomen pelvis with contrast * Blood cultures/ID consult * Digoxin load * Antibiotics per ID * Consider cardioversion in 4 weeks * Continue Xarelto for CVA prophylaxis * Continue PT OT/nutrition support * Hold discharge until further work-up negative for persistent infection Current Visit: Yes Medical - PN: Qual - VTE Deep Vein Thrombosis/Pulmonary Embolism Present on Admission: No
[2019-05-24] MEDS: ONDANSETRON 4 MG/2 ML VIAL IV PRN ×2 (11:00→19:05)
[2019-05-24] MEDS ORDERED: IOPAMIDOL 100 ML BOTTLE IV ONE (11:12)
--- NOTE | 2019-05-24 11:31 | Cat Scan Report ---
CLINICAL INFORMATION: Elevated white blood cell count. Nausea. Gastrointestinal bleeding TECHNIQUE: Axial images through the abdomen and pelvis. Arterial and portal venous phase images obtained. Sagittal and coronal reformatted images COMPARISON: Noncontrast enhanced examination dated 05/18/2019 FINDINGS: Lung bases: Small bilateral pleural effusions. Bilateral lower lobe volume loss, left worse than right. These findings are new since previous examination. Probable small hiatal hernia. No pericardial effusion. Lung bases are otherwise negative. No parenchymal mass. Liver: No focal intrahepatic abnormality. Liver contour is smooth. No evidence for cirrhosis. No hepatic mass. No evidence for abscess. Gallbladder, biliary colon no calcified gallstones. No dilated bile ducts. Common bile duct measures 3 mm Spleen: Negative spleen. No splenomegaly. Normal enhancement of splenic and portal veins. Superior mesenteric vein enhances normally Pancreas: Negative. No pancreatic mass. No peripancreatic abnormality. Adrenal glands: 12 mm right adrenal nodule. 11 mm left adrenal nodule. Findings are unchanged and probably benign Kidneys: Negative. No solid renal mass. There are very small right renal cysts. No hydronephrosis. No hydroureter. No obstructing or nonobstructing calculi. There is no perinephric abnormality. Reproductive: Uterus is present. No adnexal mass Gastrointestinal: Colon is negative. There is mild sigmoid diverticulosis. No diverticulitis. No detectable colonic mass. There is prominent fecal material within the ascending colon. Appendix is not well-visualized but there is no evidence for appendicitis. Small bowel is not dilated. No mechanical small bowel obstruction Vascular: Calcification of the abdominal aorta and common iliac arteries. No abdominal aortic aneurysm musculoskeletal: Degenerative disc disease at L4-5 and L5-S1. No compression deformities. Sacrum and pelvis are negative. Previous right total hip arthroplasty. Degenerative joint disease in the left hip. No abdominal wall or inguinal hernia Peritoneal, mesenteric: No free intraperitoneal fluid. No intra-abdominal abscess. There is no pneumoperitoneum. No biliary or portal venous gas. No pneumatosis. IMPRESSION: 1. Small bilateral pleural effusions and bilateral lower lobe volume loss 2. Small adrenal nodules. These are probably benign and are unchanged 3. Degenerative disc disease in the lower lumbar spine. Degenerative joint disease in the left hip Interpreted and Authenticated by: Matthew Farrell 05/24/19
--- NOTE | 2019-05-24 14:03 | Infectious Disease Consult ---
History of Present Illness Patient information: Note initiated : 05/24/19 at 1:58 pm Service Date, if different from initiated Date: [] Patient: Joanne Nguyễn 79 y/o F admitted on 05/18/19 for nausea, bloody stool. Chief Complaint: [] Consult date: 05/24/19 Requesting Physician: Pancho Guo Reason for Consult: worsening leucocytosis Chief complaint: i have some nausea History of present illness: 79 year old lady with past history of Afib, DM2, hypertension and hypothyroidism; was admitted on 05/18 with about a week history of progressive nausea, vomiting and belly pain. The belly pain was in epigastric region, rated 6-8/10 at admission. She also had fever, chills, loss of appetite associated with these symptoms. She denied any burning while urination, flank pain, increased freq of urination, cough, SOB, chest pain. In ED: she was tachycardic with HR 147, BP 135/96, RR 18 on room air. WBC was 25 .6K, Cr 2.8, Lactic acid 1.8. CT abd showed perinepheric stranding concerning for pyelonepheritis. EKG showed Afib with RVR. Pt received IV vancomycin 1 g, Rocephin 1 g, Zosyn 3.375, and was admitted. 2 sets of blood cx, urine Cx were sent. Both blood Cx and urine Cx grew baron sens E coli. She was on IV Zosyn which was changed to IV Ceftriaxone 2 gm q24 on 05/21 once sensitivities came back. She was switched to PO Levaquin on 05/22 (renally dosed as 500 q48 hrs). Although she became afebrile, her WBC didnot come down and went from 17k to 20k on 05/24. In addition her LFts didnot come down and have been fluctuating. Today AST 43, ALT 98, ALP 208, normal rose. Today her blood Cx were repeated. At time of visit, she confirmed above Hx. Added that she feels about 50% better. She specifically denied any belly pain, flank pain, fever, chills, cough, SOB, diarrhea. Endorsed nausea when she takes pills or when she sits up. Review of Systems All systems PM: reviewed and no additional remarkable complaints except as stated Constitutional: as per HPI Past History Past family history: no sick contacts Past social history: doesnot smoke Medications and Allergies Home Medications Medication Instructions Recorded Confirmed Type Aspirin 325 mg PO HS 10/26/16 05/18/19 History Cholecalciferol (Vitamin D3) 2,000 unit PO DAILY 10/26/16 05/18/19 History [Vitamin D3] Cranberry 650 mg PO BID 10/26/16 05/18/19 History Hydrochlorothiazide [Oretic] 25 mg PO DAILY 10/26/16 05/18/19 History Krill/Om3/Dha/Epa/Om6/Lip/Astx 500 mg PO DAILY 10/26/16 05/18/19 History [Krill Oil 1,000 mg Softgel] Levothyroxine [Synthroid] 50 mcg PO ACB 10/26/16 05/18/19 History Multivitamin [Multi-Day Vitamins] 1 each PO DAILY 10/26/16 05/18/19 History Potassium Chloride [Kdur] 20 meq PO 5XD 10/26/16 05/18/19 History Psyllium Husk [Metamucil] 6 gm PO BID 10/26/16 05/18/19 History Simvastatin [Zocor] 10 mg PO HS 10/26/16 05/18/19 History cloNIDine HCL [Catapres] 0.3 mg PO QID 10/26/16 05/18/19 History metFORMIN HCL [Metformin ER 500 mg PO DAILY@1800 10/26/16 05/18/19 History Osmotic] Metoprolol Succinate [Toprol Xl] 100 mg PO DAILY 08/25/17 05/18/19 History Calcium/Magnesium/Zinc 1 each PO TID 05/18/19 05/18/19 History [Ghnxyzh-Wfpyjwbei-Qnej Tablet] Lutein/Zeaxanthin [Ocuvite Lutein 1 each PO DAILY 05/18/19 05/18/19 History 25-5 mg Softgel] Magnesium Citrate [Citrate of 296 ml PO ONCE 05/18/19 05/18/19 History Magnesia] Melatonin/Pyridoxine [Melatonin 5 5 mg PO QHS 05/18/19 05/18/19 History mg Tablet] Diltiazem [Cardizem Cd] 480 mg PO DAILY #30 cap.xl.24h 05/25/19 Rx Losartan [Cozaar] 50 mg PO DAILY #30 tab 05/25/19 Rx Rivaroxaban [Xarelto] 15 mg PO QPMCC #30 tab 05/25/19 Rx Allergies Allergy/AdvReac Type Severity Reaction Status Date / Time oxycodone [Oxycodone] AdvReac Mild Vomiting Verified 05/18/19 10:20 Sulfa (Sulfonamide AdvReac Mild Redness of Verified 05/18/19 10:20 Antibiotics) Skin Physical Examination Vital signs: Temp Pulse Resp BP Pulse Ox 37.0 C 128 H 18 140/71 95 05/24/19 12:00 05/24/19 08:30 05/24/19 12:00 05/24/19 12:00 05/24/19 12:00 General appearance: no acute distress Eyes pulmonary: nonicteric ENT: oropharynx moist Auscultation: bilateral: clear Cardiovascular: other (s1 s2 normal, no m/r/g) Gastrointestinal: normoactive bowel sounds, soft, non-tender Extremities: no edema normal mental status no CVA tenderness Results - Laboratory Findings CBC and BMP: 05/25/19 06:17 05/25/19 06:17 Abnormal lab findings: Abnormal Labs 05/18/19 05/18/19 05/18/19 10:24 11:09 15:31 WBC 25.6 H RBC Hgb Hct RDW 14.9 H Plt Count MPV Gran % 87.8 H Lymph % (Auto) 3.7 L Gran # 22.5 H Lymph # (Auto) 0.9 L [place] # (Auto) 2.2 H Seg Neutrophils % Lymphocytes % Myelocytes % ESR Sodium Potassium Chloride Carbon Dioxide 19 L POC Total CO2 20 L Anion Gap 17.0 H POC BUN 90 H BUN 90 H Creatinine 2.8 H POC Creatinine 3.0 H Glucose 137 H POC Glucose 137 H Calcium POC WB Ioniz Calcium 1.13 L GGT AST 95 H ALT 157 H Alkaline Phosphatase 192 H Lactate Dehydrogenase C-Reactive Protein 28.8 H Total Protein Albumin 2.9 L Globulin 4.0 H Albumin/Globulin Ratio 0.7 L Triglycerides Urine Occult Blood 0.2 A Ur Leukocyte Esterase 25 A Urine RBC 4 H Urine WBC 14 H Urine Bacteria Mod A 05/18/19 05/19/19 05/19/19 Unknown 03:55 03:55 WBC 24.0 H RBC 3.77 L Hgb 11.5 L Hct 35.7 L RDW 15.0 H Plt Count MPV Gran % Lymph % (Auto) Gran # Lymph # (Auto) [place] # (Auto) Seg Neutrophils % 83 H Lymphocytes % 5 L Myelocytes % ESR 92 H Sodium Potassium 3.0 L Chloride 110 H Carbon Dioxide 19 L POC Total CO2 Anion Gap POC BUN BUN 61 H Creatinine 2.2 H POC Creatinine Glucose 121 H POC Glucose Calcium POC WB Ioniz Calcium GGT 50 H AST 64 H ALT 132 H Alkaline Phosphatase 207 H Lactate Dehydrogenase 276 H C-Reactive Protein 20.4 H Total Protein Albumin 2.7 L Globulin Albumin/Globulin Ratio 0.7 L Triglycerides 203 H Urine Occult Blood Ur Leukocyte Esterase Urine RBC Urine WBC Urine Bacteria 05/20/19 05/20/19 05/21/19 03:42 03:42 04:04 WBC 16.3 H 18.1 H RBC 3.62 L 3.76 L Hgb 11.2 L 11.6 L Hct 34.5 L 35.6 L RDW 15.5 H 15.0 H Plt Count 458 H MPV Gran % Lymph % (Auto) Gran # Lymph # (Auto) [place] # (Auto) Seg Neutrophils % 87 H Lymphocytes % 4 L 13 L Myelocytes % ESR Sodium 146 H Potassium Chloride 113 H Carbon Dioxide 17 L POC Total CO2 Anion Gap POC BUN BUN 43 H Creatinine 1.8 H POC Creatinine Glucose POC Glucose Calcium POC WB Ioniz Calcium GGT 50 H AST 85 H ALT 127 H Alkaline Phosphatase 179 H Lactate Dehydrogenase 305 H C-Reactive Protein Total Protein 5.6 L Albumin 2.1 L Globulin Albumin/Globulin Ratio 0.6 L Triglycerides Urine Occult Blood Ur Leukocyte Esterase Urine RBC Urine WBC Urine Bacteria 05/21/19 05/22/19 05/22/19 04:04 04:25 04:25 WBC 17.7 H RBC 3.66 L Hgb 11.4 L Hct 34.2 L RDW 15.1 H Plt Count 526 H MPV Gran % Lymph % (Auto) Gran # Lymph # (Auto) [place] # (Auto) Seg Neutrophils % 81 H Lymphocytes % 5 L Myelocytes % 1 H ESR Sodium Potassium Chloride Carbon Dioxide POC Total CO2 Anion Gap POC BUN BUN 38 H 33 H Creatinine 1.8 H 1.6 H POC Creatinine Glucose 116 H POC Glucose Calcium POC WB Ioniz Calcium GGT 69 H 89 H AST 47 H 62 H ALT 103 H 100 H Alkaline Phosphatase 176 H 190 H Lactate Dehydrogenase C-Reactive Protein Total Protein 5.8 L 5.7 L Albumin 2.3 L 2.2 L Globulin Albumin/Globulin Ratio 0.7 L 0.6 L Triglycerides Urine Occult Blood Ur Leukocyte Esterase Urine RBC Urine WBC Urine Bacteria 05/23/19 05/23/19 05/24/19 04:15 04:15 08:18 WBC 17.9 H 20.6 H RBC 3.61 L 3.88 L Hgb 11.1 L Hct 34.0 L RDW 14.9 H 15.0 H Plt Count 537 H 657 H MPV 7.3 L Gran % Lymph % (Auto) Gran # Lymph # (Auto) [place] # (Auto) Seg Neutrophils % 82 H Lymphocytes % 12 L 12 L Myelocytes % ESR Sodium Potassium Chloride Carbon Dioxide POC Total CO2 Anion Gap POC BUN BUN 31 H Creatinine 1.5 H POC Creatinine Glucose 108 H POC Glucose Calcium POC WB Ioniz Calcium GGT 95 H AST 64 H ALT 105 H Alkaline Phosphatase 191 H Lactate Dehydrogenase C-Reactive Protein Total Protein 5.7 L Albumin 2.3 L Globulin Albumin/Globulin Ratio 0.7 L Triglycerides Urine Occult Blood Ur Leukocyte Esterase Urine RBC Urine WBC Urine Bacteria 05/24/19 08:18 WBC RBC Hgb Hct RDW Plt Count MPV Gran % Lymph % (Auto) Gran # Lymph # (Auto) [place] # (Auto) Seg Neutrophils % Lymphocytes % Myelocytes % ESR Sodium Potassium Chloride Carbon Dioxide POC Total CO2 Anion Gap POC BUN BUN Creatinine 1.4 H POC Creatinine Glucose 107 H POC Glucose Calcium 10.5 H POC WB Ioniz Calcium GGT 101 H AST 43 H ALT 98 H Alkaline Phosphatase 208 H Lactate Dehydrogenase C-Reactive Protein Total Protein Albumin 3.1 L Globulin 4.0 H Albumin/Globulin Ratio 0.8 L Triglycerides 198 H Urine Occult Blood Ur Leukocyte Esterase Urine RBC Urine WBC Urine Bacteria Microbiology: Microbiology 05/18/19 13:12 Blood Blood Culture - Final Escherichia coli 05/18/19 15:57 Urine - Clean Void Mid-Stream Urine Culture - Final Escherichia coli Gram negative bacillus#2 05/18/19 13:19 Blood Blood Culture - Final Escherichia coli 05/18/19 17:03 Nose MRSA (PCR) - Final Assessment and Plan - Narrative A/P Narrative: A: 1. E coli bacteremia: urine likely source - no defined pyelonepheritis on CT imaging, although perinepheric tranding coul dbe suggestive - afebrile, on appropriate antibiotics (Ceftriaxone initially, now on PO Levofloxacin- renally dosed) 2. Worsening leucocytosis: neutrophilic predominance - based on LFT abnormalities, neg gall stones on CT imaging; acalculous cholecystitis must be ruled out - I am not convinced if it is due to infection alone 3. Elevated liver enz:?drug-induced Recommendations: - Switch Levofloxacin to IV Ceftriaxone 2 gm q24 hrs - Consider GB US (HIDA scan not available) - await repeat blood Cx will follow Casey Cabral MD Infectious diseases
[2019-05-24] MEDS: cefTRIAXone 2 GM in DEXTROSE 5% IN WATER 50 ML IV SCH (15:03)
[2019-05-24] MEDS: RIVAROXABAN 15 MG TABLET PO SCH (17:36)
[2019-05-24] MEDS: metFORMIN 500 MG TAB.XL.24H PO SCH (17:37)
--- NOTE | 2019-05-24 19:35 | Ultrasound Report ---
CLINICAL INFORMATION: Elevated white blood cell count. TECHNIQUE: Routine grayscale and color flow Doppler spectral imaging COMPARISON: CT scans dated 05/24/2019 and 05/18/2019 FINDINGS: Possible 2 mm gallbladder wall polyp or adherent stone. No other gallbladder abnormality. No mobile gallstones. Gallbladder wall thickening. No pericholecystic fluid. No dilated bile ducts. Common bile duct measures 5 mm. There is a 6 mm echogenic abnormality in the left lobe liver. In retrospect this is identified on CT scan. This may be a small hemangioma. Liver is otherwise negative. Spleen is not evaluated. Normal hepatopedal portal venous flow. Visualized portions of the pancreas are negative. Right kidney measures 13.2 x 5.1 x 4.7 cm. No solid or cystic lesions. No hydronephrosis. IMPRESSION: Negative gallbladder. Negative limited abdominal ultrasound Interpreted and Authenticated by: Matthew Farrell 05/24/19
[2019-05-24] MEDS: FISH OIL 1,000 MG CAPSULE PO SCH (22:00)
[2019-05-24] MEDS: MELATONIN 3 MG TABLET PO SCH (22:00)
[2019-05-24] MEDS: SENNOSIDES/DOCUSATE SODIUM 1 TAB TABLET PO SCH (22:00)
[2019-05-24] MEDS: SIMVASTATIN 10 MG TABLET PO SCH (22:01)
[2019-05-24] MEDS: traZODone HCL 50 MG TABLET PO SCH (22:01)
[2019-05-25] MEDS: 0.9 % SODIUM CHLORIDE 10 ML SYRINGE IV SCH ×3 (05:19→21:51)
[2019-05-25 07:18] LABS: Hematocrit 29.9 % (36.0-48.0); Hemoglobin 9.9 g/dL (12.0-15.0); Mean Cell Volume 94.8 fL (80.0-100.0); Mean Corpuscular HGB Conc 33.2 g/dL (31.0-36.0); Mean Platelet Volume 7.3 fL (7.4-10.4); Platelet Count 561 K/mcL (140-440); RBC 3.15 M/mcL (4.00-5.20); WBC 14.9 K/mcL (4.5-11.0)
[2019-05-25] MEDS: INSULIN LISPRO 1 UNIT/0.01 ML UNIT SQ SCH ×4 (07:34→22:00)
[2019-05-25] MEDS: LEVOTHYROXINE 50 MCG TABLET PO SCH (07:36)
[2019-05-25 07:42] LABS: ALT/SGPT 66 U/l (0-40); AST/SGOT 31 U/l (0-37); Albumin 2.7 gm/dL (3.2-5.2); Albumin/Globulin Ratio 0.8 (1.0-2.3); Alkaline Phosphatase 156 U/L (39-117); Bilirubin,Direct < 0.2 mg/dL (0.0-0.3); Bilirubin,Total 0.2 mg/dL (0.0-1.0); Blood Urea Nitrogen 20 mg/dl (8-23); Calcium 9.5 mg/dl (8.6-10.4); Carbon Dioxide 28 mmol/L (22-30); Chloride 103 mmol/L (96-108); Globulin 3.3 gm/dL (2.2-3.7); Glomerular Filtration Rate 33; Glucose 98 mg/dL (70-105); Lactate Dehydrogenase 165 U/L (94-250); Phosphorous 4.4 mg/dL (2.7-4.5); Triglycerides 147 mg/dl (<150); Uric Acid 6.4 mg/dL (2.5-8.0)
[2019-05-25 08:12] LABS: Band Neutrophils % 15 % (0-10); Hypochromasia 1+ (NONE SEEN); Lymphocytes % 8 % (15-49); Metamyelocytes % 1 % (0-0); Monocytes % (Manual) 6 % (1-12); Platelet Estimate INCREASED (NORMAL); Polychromasia 1+ (NONE SEEN); RBC Morphology ABNORM (NORMAL); Segmented Neutrophils % 70 % (38-78); Toxic Granulation FEW (NONE SEEN)
[2019-05-25] MEDS: ONDANSETRON 4 MG/2 ML VIAL IV PRN (09:20)
[2019-05-25] MEDS: METOPROLOL SUCCINATE 50 MG TAB.XL.24H PO SCH (09:21)
[2019-05-25] MEDS: DILTIAZEM 240 MG CAP.XL.24H PO SCH (09:21)
[2019-05-25] MEDS: THIAMINE 100 MG TABLET PO SCH (09:27)
[2019-05-25] MEDS: FOLIC ACID 1 MG TABLET PO SCH (09:27)
[2019-05-25] MEDS: VITAMIN D3 1,000 UNIT TABLET PO SCH (09:28)
[2019-05-25] MEDS: MULTIVIT,THER IRON,CA,FA & MIN 1 TABLET PO SCH (09:28)
[2019-05-25] MEDS: CALCIUM W/VIT D3 500 MG TABLET PO SCH ×3 (09:28→21:47)
[2019-05-25] MEDS: DOCUSATE SODIUM 100 MG CAPSULE PO SCH ×2 (09:28→21:48)
[2019-05-25] MEDS: cloNIDine HCL 0.1 MG TABLET PO SCH ×4 (09:29→21:48)
[2019-05-25] MEDS: CRANBERRY 650 MG PO SCH ×2 (09:29→21:48)
[2019-05-25] MEDS: cefTRIAXone 2 GM in DEXTROSE 5% IN WATER 50 ML IV SCH (10:07)
--- NOTE | 2019-05-25 10:31 | Discharge Summary ---
Medical - DS: Prov Patient information: Note initiated : 05/26/19 at 07:28 am Service Date, if different from initiated Date: [] Patient: Joanne Nguyễn 79 y/o F admitted on 05/18/19 for nausea, bloody stool. Chief Complaint: [] Date of admission: 05/18/19 16:55 Discharge date: 05/26/19 Primary care physician: Wilbur Adame Consults: 05/18/19 Consult to Physician [CONS] Stat Comment: Consulting Provider: Pancho Guo Reason For Exam: Physician to Consult 05/18/19 15:35 Consult to Physician [CONS] Routine Comment: Consulting Provider: Adriana Khan Reason For Exam: Physician to Consult 05/24/19 10:07 Consult to Physician [CONS] Routine Comment: Consulting Provider: Casey Cabral Reason For Exam: Physician to Consult Medical - DS: Meds - Discharge Medications Prescriptions: Diltiazem [Cardizem Cd] 480 mg PO DAILY #30 cap.xl.24h Prescription Printed Losartan [Cozaar] 50 mg PO DAILY #30 tab Prescription Printed cefTRIAXone [Rocephin] 2 gm IV Q24H #1 vial Prescription Printed Rivaroxaban [Xarelto] 15 mg PO QPMCC #30 tab Prescription Printed Active and Home Medications: Home Medications Aspirin 325 mg PO HS 10/26/16 [History Confirmed 05/18/19 Last Taken 08/25/17] Cholecalciferol (Vitamin D3) [Vitamin D3] 2,000 unit PO DAILY 10/26/16 [History Confirmed 05/18/19 Last Taken 10/27/16 08:00] Cranberry 650 mg PO BID 10/26/16 [History Confirmed 05/18/19 Last Taken 10/27/16 22:00] Hydrochlorothiazide [Oretic] 25 mg PO DAILY 10/26/16 [History Confirmed 05/18/19 Last Taken 08/31/17] Krill/Om3/Dha/Epa/Om6/Lip/Astx [Krill Oil 1,000 mg Softgel] 500 mg PO DAILY 10/26/16 [History Confirmed 05/18/19 Last Taken 10/21/16] Levothyroxine [Synthroid] 50 mcg PO ACB 10/26/16 [History Confirmed 05/18/19 Last Taken 08/31/17] Losartan [Cozaar] 100 mg PO DAILY 10/26/16 [History Confirmed 05/18/19 Last Taken 09/01/17] Multivitamin [Multi-Day Vitamins] 1 each PO DAILY 10/26/16 [History Confirmed 05/18/19 Last Taken 10/27/16 08:00] Potassium Chloride [Kdur] 20 meq PO 5XD 10/26/16 [History Confirmed 05/18/19 Last Taken 08/31/17] Psyllium Husk [Metamucil] 6 gm PO BID 10/26/16 [History Confirmed 05/18/19 Last Taken 08/30/17] Simvastatin [Zocor] 10 mg PO HS 10/26/16 [History Confirmed 05/18/19 Last Taken 08/31/17] cloNIDine HCL [Catapres] 0.3 mg PO QID 10/26/16 [History Confirmed 05/18/19 Last Taken 09/01/17] metFORMIN HCL [Metformin ER Osmotic] 500 mg PO DAILY@1800 10/26/16 [History Confirmed 05/18/19 Last Taken 08/31/17] Metoprolol Succinate [Toprol Xl] 100 mg PO DAILY 08/25/17 [History Confirmed 05/18/19 Last Taken 09/01/17] Calcium/Magnesium/Zinc [Ymdhgso-Djfmxtakp-Hhao Tablet] 1 each PO TID 05/18/19 [History Confirmed 05/18/19 Last Taken Unknown] Lutein/Zeaxanthin [Ocuvite Lutein 25-5 mg Softgel] 1 each PO DAILY 05/18/19 [History Confirmed 05/18/19 Last Taken Unknown] Magnesium Citrate [Citrate of Magnesia] 296 ml PO ONCE 05/18/19 [History Confirmed 05/18/19 Last Taken Unknown] Melatonin/Pyridoxine [Melatonin 5 mg Tablet] 5 mg PO QHS 05/18/19 [History Confirmed 05/18/19 Last Taken Unknown] Diltiazem [Cardizem Cd] 360 mg PO DAILY #0 cap.xl.24h 05/22/19 [Rx Last Taken Unknown] Rivaroxaban [Xarelto] 15 mg PO QPMCC #60 tab 05/22/19 [Rx Last Taken Unknown] Medical - DS: Hosp Hospital Course: Discharge diagnosis * E. coli bacteremia secondary to acute pyelonephritis. Status post 8 days antibiotics. Continue additional 1 days rocephin * Severe sepsis secondary to E. coli bacteremia with multiple endorgan dysfunction. Patient was managed aggressively during hospitalization for 8 days with white count downtrending to 14,000 prior to discharge. Endorgan dysfunction have resolved. * Acute pyelonephritis as evident on abdominal imaging. Clinically improved on interval imaging. * A. fib with RVR-converted to sinus. Continue diltiazem/metoprolol. Patient anticoagulated for CVA prophylaxis on rivaroxaban based on chads Vasc score. * Reactive thrombocytosis-secondary to infection. Platelets now downtrending * Acute on chronic kidney disease secondary sepsis endorgan dysfunction. Creatinine down from 2.2-1.5 * Elevated LFTs secondary to sepsis endorgan dysfunction. Improved transaminases * DM type II continue sliding-restart home dose metformin/CC diet * History of hypertension-continue metoprolol/diltiazem/thiazide/restart ARB at half dose at 50. PCP to further optimize hypertension management as outpatient Brief hospital course Ms. Nguyễn is a 79 year old F history of diabetes/hypertension and hypothyroidism who presents with over 1 week onset of progressive nausea/upper mid abdominal pain along with associated vomiting. Patient has not been able to eat or drink much in the last 10 days. She went to urgent care a few days prior to presentation and was discharged after evaluation. Patient however failed to improve. She denies associated fever chills. She has not had a restful night sleep. Her pain is described as 6 out of 10 to 8 out of 10 associated with coughing, constant around epigastric area without radiation. She denies associated bloody emesis/bloody stools. She endorses to cough, with unrelenting symptoms patient presents to the ER for further evaluation Initial work-up was consistent with acute pyelonephritis on CT abdomen, sepsis with white count 25,000, acute renal failure with creatinine 3 and BUN 90. Patient was found to be in A. fib with RVR with rate around 150. Nephrology was consulted and subsequently hospitalist service requested for admission. Cultures were drawn and antibiotics were initiated including Rocephin/vancomycin/Zosyn At the time of evaluation patient is extremely distressed. Unable to talk in full sentences, lethargic and anxious. She endorses to history as above. She denies prior similar episodes. 05/19-patient doing well. No overnight events. No concerns per staff. No fever chills. Persistent nausea. A. fib currently rate controlled on diltiazem drip at 15. at bedside. Updated on treatment plan/clinical improvement. Creatinine down to 2.2, white count down from 25.6-24. Downtrending LFTs. Continue ICU care. Patient remains critically ill with [place] score over 15 in the setting of profound sepsis with multiple organ dysfunction 05/20-persistent A. fib with RVR. Continue diltiazem drip for rate control measures. White count down to 16.3. Gram-negative víctor 2 out of 2 on blood cultures/urine culture. Continue antibiotic coverage and de-escalate based on sensitivities. Liver function improving. Renal function improved with creatinine down from 2.8-1.8. Patient now ambulating with physical therapy more alert lucid. Family including son and at bedside. Anticipate SNF transfer in the next 48 to 72 hours pending clinical improvement. 05/21-clinically improving. Pansensitive E. coli. Levaquin discontinued. Continue Rocephin for total of 14 days from start. Persistent A. fib RVR after brief spontaneous conversion to sinus last night. Start anticoagulation Eliquis for CVA prophylaxis. Consider digoxin as dual AV jose eduardo blockade unable to control rate. Continue PT OT/nutrition support. 05/22-pansensitive E. coli. De-escalate antibiotics to Levaquin for additional 10 days. White count 17.7. Afebrile and clinically improving. Atrial for ablation now rate controlled on diltiazem 360/metoprolol 100. On anticoagulation for CVA prophylaxis. Creatinine down to 1.6. Nephrology signing off. LFTs gradually improving. Anticipate discharge in 24 hours to SNF with continued antibiotics and aggressive posthospitalization rehab 05/23-persistent elevation white count at 17.9. LFTs uptrending. Despite antibiotics. Continues to experience nausea. Case discussed with ID. Recommends monitoring labs for additional 24 hours as the course coincides with normal clearance of pyelonephritis. Afebrile. Will rescan in 24 hours if patient does not show improvement. Intermittent RVR but over the last 24 hours heart rate has been steady around 90s to 110. Case discussed with family. Discharge pending improvement in 24 to 48 hours. Patient does not want to go to SNF. 05/24-worsening leukocytosis. Persistent A. fib RVR. Started digoxin load. CT abdomen pelvis with contrast to rule out intra-abdominal abscess. Repeat blood cultures. ID consulted. No overnight fever chills. at bedside. Discussed treatment plan. Continuing anticoagulation. Will possibly require cardioversion in 28 days if persistent A. fib despite multidrug rate control measures. Worsening reactive thrombocytosis highly suspicious for smoldering infection/abscess. Creatinine improved to 1.4 05/25-patient clinically improved. Heart rate now around 70-1 10. White count down to 14,000. CT abdomen with contrast negative for acute process. Abdominal ultrasound negative for cholecystitis. LFTs downtrending. Patient feels remarkably improved. Discharging on antibiotics as per ID recommendations. Schedule follow-up with primary care physician in 5 to 7 days on discharge. Patient will require outpatient cardioversion in 28 days. Continue anticoagulation on rivaroxaban. Detailed discharge instructions as below. 05/26-patient doing better. No overnight events. Continue antibiotic coverage for additional 24 hours as per ID. No overnight fever chills. Ongoing systolics at goal. Sats 90% on room air. Alert and nondistressed. No concerns expressed by nursing staff. Currently in sinus. Ongoing physical therapy and progressing at goal. Continue metoprolol/Cardizem/rivaroxaban for CVA prophylaxis. Discharge diagnosis: . - Time Spent with Patient Total time spent providing and/or coordinating discharge services: Greater than 30 minutes Medical - DS: Exam - Constitutional Vitals: Vital Signs Temp Pulse Pulse Resp BP BP BP 05/25/19 07:49 71 16 05/25/19 07:47 98.1 F 76 16 156/77 146/75 05/25/19 03:12 97.8 F 77 16 146/69 05/24/19 22:59 98.4 F 80 14 148/74 05/24/19 18:53 98.5 F 111 H 16 143/97 05/24/19 16:00 97.7 F 18 136/80 05/24/19 12:00 98.6 F 18 140/71 Pulse Ox 05/25/19 07:49 95 05/25/19 07:47 91 05/25/19 03:12 91 05/24/19 22:59 91 05/24/19 18:53 96 05/24/19 16:00 95 05/24/19 12:00 95 Intake and Output 05/24/19 05/25/19 05/25/19 21:59 05:59 13:59 Intake Total 850 420 360 Output Total 1200 600 500 Balance -350 -180 -140 Intake: IV 50 Rocephin 2 gm In Dextrose 5% in 50 Water 50 ml @ 100 mls/hr IV Q24H [facility] Rx#:[id number] Oral 800 420 360 Output: Urine Catheter Amount 400 Void Amount 800 600 500 Other: Meal Dinner Percent of Meal Consumed 25% Feeding Ability Assist with Tray Set Up Urine Appearance Clear Clear Clear Urine Color Bright Yellow Bright Yellow Bright Yellow Urine Odor Normal Normal Weight 162 lb Medical - DS: Data Labs on day of discharge: Labs from last 24 hours 05/25/19 05/25/19 06:17 06:17 WBC 14.9 H RBC 3.15 L Hgb 9.9 L Hct 29.9 L MCV 94.8 MCH 31.5 MCHC 33.2 RDW 15.0 H Plt Count 561 H MPV 7.3 L Total Counted 100 Seg Neutrophils % 70 Band Neutrophils % 15 H Lymphocytes % 8 L Monocytes % (Manual) 6 Metamyelocytes % 1 H WBC Morphology Abnorm A Toxic Granulation Few A Platelet Estimate Increased RBC Morphology Abnorm A Polychromasia 1+ A Hypochromasia 1+ A Sodium 141 Potassium 3.4 Chloride 103 Carbon Dioxide 28 Anion Gap 10.0 BUN 20 Creatinine 1.5 H GFR Calculation 33 Glucose 98 Uric Acid 6.4 Calcium 9.5 Phosphorus 4.4 Magnesium 1.8 Total Bilirubin 0.2 Direct Bilirubin < 0.2 GGT 76 H AST 31 ALT 66 H Alkaline Phosphatase 156 H Lactate Dehydrogenase 165 Total Protein 6.0 Albumin 2.7 L Globulin 3.3 Albumin/Globulin Ratio 0.8 L Triglycerides 147 Medical - DS: A/P - Patient/Caregiver Discharge Instructions Activity: increase activity as tolerated Diet: Regular Diet Additional Instructions: Continue rivaroxaban for paroxysmal atrial fibrillation CVA prophylaxis PCP to address anticoagulation if patient remains in sinus may be discontinued at a later date Continue rate control measures on metoprolol and diltiazem as advised for proximal atrial fibrillation Follow primary care physician in 5 to 7 days Continue rocephin for additional 24 hours as outpatient Return to ER worsening abdominal pain nausea vomiting diarrhea noted. Lower dose of losartan to 50. PCP to further optimize hypertension management as outpatient Continue aggressive bowel regimen to prevent constipation Continue fall precaution Home health PT OT All meals on chair sitting upright at 90 degrees to prevent aspiration Review risk and side effect profile of medications including antibiotics/diltiazem. Side effect may include mild to severe reaction including hypotension/bradycardia, rash, diarrhea, cdiff and even which can be prevented by close follow-up with PCP and monitoring for side effects Continue low-sodium diet Discussed importance of medication adherence Please review medication list with patient prior to discharge Please schedule follow-up with PCP/Providers prior to discharge and provide printouts Prescriptions: Diltiazem [Cardizem Cd] 480 mg PO DAILY #30 cap.xl.24h Prescription Printed Losartan [Cozaar] 50 mg PO DAILY #30 tab Prescription Printed cefTRIAXone [Rocephin] 2 gm IV Q24H #1 vial Prescription Printed Rivaroxaban [Xarelto] 15 mg PO QPMCC #30 tab Prescription Printed - Problem Maintenance (1) Acute pyelonephritis Status: Acute - Follow up Plan Follow up with: Wilbur Adame DO [Primary Care Provider] - 06/01/19 10:20 am Disposition: Home Health Service Prognosis: Fair Rehab Potential: Fair I certify that the patient requires SNF services: No Overall status at discharge: patient is progressing back to baseline Medical - DS: Qual - VTE Deep Vein Thrombosis/Pulmonary Embolism Present on Admission: No
--- NOTE | 2019-05-25 11:21 | Internal Med Progress Note ---
Medical - PN: Subj Patient information: Note initiated : 05/25/19 at 11:15 am Service Date, if different from initiated Date: [] Patient: Joanne Nguyễn a 79 y/o F admitted on 05/18/19 for nausea, bloody stool. Chief Complaint: [] Interval history: Ms. Nguyễn is a 79 year old F history of diabetes/hypertension and hypothyroidism who presents with over 1 week onset of progressive nausea/upper mid abdominal pain along with associated vomiting. Patient has not been able to eat or drink much in the last 10 days. She went to urgent care a few days prior to presentation and was discharged after evaluation. Patient however failed to improve. She denies associated fever chills. She has not had a restful night sleep. Her pain is described as 6 out of 10 to 8 out of 10 associated with coughing, constant around epigastric area without radiation. She denies associated bloody emesis/bloody stools. She endorses to cough, with unrelenting symptoms patient presents to the ER for further evaluation Initial work-up was consistent with acute pyelonephritis on CT abdomen, sepsis with white count 25,000, acute renal failure with creatinine 3 and BUN 90. Patient was found to be in A. fib with RVR with rate around 150. Nephrology was consulted and subsequently hospitalist service requested for admission. Cultures were drawn and antibiotics were initiated including Rocephin/vancomycin/Zosyn At the time of evaluation patient is extremely distressed. Unable to talk in full sentences, lethargic and anxious. She endorses to history as above. She denies prior similar episodes. 05/19-patient doing well. No overnight events. No concerns per staff. No fever chills. Persistent nausea. A. fib currently rate controlled on diltiazem drip at 15. at bedside. Updated on treatment plan/clinical improvement. Creatinine down to 2.2, white count down from 25.6-24. Downtrending LFTs. Continue ICU care. Patient remains critically ill with Mastic score over 15 in the setting of profound sepsis with multiple organ dysfunction 05/20-persistent A. fib with RVR. Continue diltiazem drip for rate control measures. White count down to 16.3. Gram-negative víctor 2 out of 2 on blood cultures/urine culture. Continue antibiotic coverage and de-escalate based on sensitivities. Liver function improving. Renal function improved with creatinine down from 2.8-1.8. Patient now ambulating with physical therapy more alert lucid. Family including son and at bedside. Anticipate SNF transfer in the next 48 to 72 hours pending clinical improvement. 05/21-clinically improving. Pansensitive E. coli. Levaquin discontinued. Continue Rocephin for total of 14 days from start. Persistent A. fib RVR after brief spontaneous conversion to sinus last night. Start anticoagulation Eliquis for CVA prophylaxis. Consider digoxin as dual AV jose eduardo blockade unable to control rate. Continue PT OT/nutrition support. 05/22-pansensitive E. coli. De-escalate antibiotics to Levaquin for additional 10 days. White count 17.7. Afebrile and clinically improving. Atrial for ablation now rate controlled on diltiazem 360/metoprolol 100. On anticoagulation for CVA prophylaxis. Creatinine down to 1.6. Nephrology signing off. LFTs gradually improving. Anticipate discharge in 24 hours to SNF with continued antibiotics and aggressive posthospitalization rehab 05/23-persistent elevation white count at 17.9. LFTs uptrending. Despite antibiotics. Continues to experience nausea. Case discussed with ID. Recommends monitoring labs for additional 24 hours as the course coincides with normal clearance of pyelonephritis. Afebrile. Will rescan in 24 hours if patient does not show improvement. Intermittent RVR but over the last 24 hours heart rate has been steady around 90s to 110. Case discussed with family. Discharge pending improvement in 24 to 48 hours. Patient does not want to go to SNF. 05/24-worsening leukocytosis. Persistent A. fib RVR. Started digoxin load. CT abdomen pelvis with contrast to rule out intra-abdominal abscess. Repeat blood cultures. ID consulted. No overnight fever chills. at bedside. Discussed treatment plan. Continuing anticoagulation. Will possibly require cardioversion in 28 days if persistent A. fib despite multidrug rate control measures. Worsening reactive thrombocytosis highly suspicious for smoldering infection/abscess. Creatinine improved to 1.4 05/25-patient clinically improved. Heart rate now around 70-110. White count down to 14,900. Cr 1.5. CT abdomen with contrast negative for acute process. Abdominal ultrasound negative for cholecystitis. LFTs downtrending. Patient feels remarkably improved. plan discharge in 24 hours pending clinical improvement on antibiotics as per ID recommendations. 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 Patient will require outpatient car dioversion in 28 days. Continue anticoagulation on rivaroxaban. - Constitutional Vitals: Vital Signs Temp Pulse Resp BP Pulse Ox 98.1 F 71 16 156/77 95 05/25/19 07:47 05/25/19 07:49 05/25/19 07:49 05/25/19 07:47 05/25/19 07:49 Period Temp Pulse Resp BP Sys/Fitch Pulse Ox Last 24 Hr 97.7 F-98.6 F 71-111 14-18 136-156/69-97 91-96 Intake and Output 05/24/19 05/25/19 05/25/19 21:59 05:59 13:59 Intake Total 850 420 360 Output Total 1200 600 500 Balance -350 -180 -140 Weight 162 lb Intake & Output: Intake & Output 05/24/19 05/25/19 05/25/19 21:59 05:59 13:59 Intake Total 850 420 360 Output Total 1200 600 500 Balance -350 -180 -140 Weight 162 lb Intake: IV 50 Rocephin 2 gm In Dextrose 5% in 50 Water 50 ml @ 100 mls/hr IV Q24H [facility] Rx#:[id number] Oral 800 420 360 Output: Urine Catheter Amount 400 Void Amount 800 600 500 Other: Meal Dinner Percent of Meal Consumed 25% Feeding Ability Assist with Tray Set Up Urine Appearance Clear Clear Clear Urine Color Bright Yellow Bright Yellow Bright Yellow Urine Odor Normal Normal General appearance: no acute distress Exam: Alert oriented Nonlabored breathing Irregular rate but controlled around 70-1 10 No lymphedema No anxiety Medical - PN: Obj Da - Labs CBC & Chem 7: 05/25/19 06:17 05/25/19 06:17 Labs: Abnormal Lab Results 05/25/19 05/25/19 05/24/19 06:17 06:17 08:18 WBC 14.9 H RBC 3.15 L Hgb 9.9 L Hct 29.9 L RDW 15.0 H Plt Count 561 H MPV 7.3 L Seg Neutrophils % Band Neutrophils % 15 H Lymphocytes % 8 L Metamyelocytes % 1 H WBC Morphology Abnorm A Toxic Granulation Few A RBC Morphology Abnorm A Polychromasia 1+ A Hypochromasia 1+ A BUN Creatinine 1.5 H 1.4 H Glucose 107 H Calcium 10.5 H GGT 76 H 101 H AST 43 H ALT 66 H 98 H Alkaline Phosphatase 156 H 208 H Total Protein Albumin 2.7 L 3.1 L Globulin 4.0 H Albumin/Globulin Ratio 0.8 L 0.8 L Triglycerides 198 H 05/24/19 05/23/19 05/23/19 08:18 04:15 04:15 WBC 20.6 H 17.9 H RBC 3.88 L 3.61 L Hgb 11.1 L Hct 34.0 L RDW 15.0 H 14.9 H Plt Count 657 H 537 H MPV 7.3 L Seg Neutrophils % 82 H Band Neutrophils % Lymphocytes % 12 L 12 L Metamyelocytes % WBC Morphology Toxic Granulation RBC Morphology Polychromasia Hypochromasia BUN 31 H Creatinine 1.5 H Glucose 108 H Calcium GGT 95 H AST 64 H ALT 105 H Alkaline Phosphatase 191 H Total Protein 5.7 L Albumin 2.3 L Globulin Albumin/Globulin Ratio 0.7 L Triglycerides Meds: Medications Acetaminophen (Tylenol) 650 mg PO Q4-6HP PRN; Protocol PRN Reason: Per Pain Protocol/Fever > 101 Bisacodyl (Dulcolax) 10 mg MI DAILYP PRN PRN Reason: Constipation Calcium/Vitamin D (Calcium W/Vit D3) 500 mg PO TID [facility] Last Admin: 05/25/19 09:28 Dose: 500 mg Documented by: Clonidine HCl (Catapres) 0.3 mg PO QID [facility] Last Admin: 05/25/19 09:29 Dose: 0.3 mg Documented by: Dextrose (Dextrose 50%) 0 ml IV UD PRN PRN Reason: Hypoglycemia Diagnostic Test (Pha) (Accu-Chek) 1 each FS ACHS [facility] Last Admin: 05/25/19 07:34 Dose: 1 each Documented by: Diltiazem HCl (Cardizem Cd) 480 mg PO DAILY [facility] Last Admin: 05/25/19 09:21 Dose: 480 mg Documented by: Docusate Sodium (Colace) 100 mg PO BID [facility] Last Admin: 05/25/19 09:28 Dose: 100 mg Documented by: Fish Oil (Fish Oil) 1,000 mg PO HS [facility] Last Admin: 05/24/19 22:00 Dose: 1,000 mg Documented by: Folic Acid (Folic Acid) 1 mg PO DAILY [facility] Last Admin: 05/25/19 09:27 Dose: 1 mg Documented by: Glucose (Insta-Glucose) 15 gm PO PRN PRN PRN Reason: Hypoglycemia Hydromorphone HCl (Dilaudid) 0 mg IV Q4HP PRN; Protocol PRN Reason: Per Pain Protocol Norepinephrine Bitartrate 16 (mg/ Sodium Chloride) 250 mls @ 9.375 mls/hr IV Q24HP PRN; Protocol PRN Reason: Hypotension Ceftriaxone Sodium 2 gm/ (Dextrose) 50 mls @ 100 mls/hr IV Q24H [facility]; Protocol Last Admin: 05/25/19 10:07 Dose: 100 mls/hr Documented by: Insulin Human Lispro (Humalog) 0 unit SQ ACHS [facility]; Protocol Last Admin: 05/25/19 07:34 Dose: Not Given Documented by: Iron Carb/Multivit/[place]/Folic Acid (Multivitamin W/Minerals) 1 tab PO DAILY [facility] Last Admin: 05/25/19 09:28 Dose: 1 tab Documented by: Levothyroxine Sodium (Synthroid) 50 mcg PO ACB [facility] Last Admin: 05/25/19 07:36 Dose: 50 mcg Documented by: Melatonin (Melatonin 3mg Tablet) 6 mg PO HS [facility] Last Admin: 05/24/19 22:00 Dose: 6 mg Documented by: Metformin HCl (Glucophage) 500 mg PO DAILY@1800 [facility] Last Admin: 05/24/19 17:37 Dose: Not Given Documented by: Metoprolol Succinate (Toprol Xl) 100 mg PO DAILY [facility] Last Admin: 05/25/19 09:21 Dose: 100 mg Documented by: Ondansetron HCl (Zofran) 4 mg IV Q4-6HP PRN; Protocol PRN Reason: Nausea And Vomiting Last Admin: 05/25/19 09:20 Dose: 4 mg Documented by: Cranberry 650 Mg Cap 1 dose PO BID [facility] Last Admin: 05/25/19 09:29 Dose: Not Given Documented by: Polyethylene Glycol (Miralax) 17 gm PO DAILYP PRN PRN Reason: Constipation Last Admin: 05/25/19 09:31 Dose: 17 gm Documented by: Promethazine HCl (Phenergan) 12.5 - 25 mg IV Q4-6HP PRN PRN Reason: Nausea And Vomiting Last Admin: 05/24/19 21:35 Dose: 12.5 mg Documented by: Rivaroxaban (Xarelto) 15 mg PO QPMCC [facility] Last Admin: 05/24/19 17:36 Dose: Not Given Documented by: Senna/Docusate Sodium (Senna Plus Tablet) 1 tab PO HS [facility] Last Admin: 05/24/19 22:00 Dose: 1 tab Documented by: Simvastatin (Zocor) 10 mg PO HS [facility] Last Admin: 05/24/19 22:01 Dose: 10 mg Documented by: Sodium Chloride (Saline Flush) 10 ml IV Q8 [facility] Last Admin: 05/25/19 05:19 Dose: 10 ml Documented by: Thiamine HCl (Vitamin B1) 100 mg PO DAILY [facility] Last Admin: 05/25/19 09:27 Dose: 100 mg Documented by: Trazodone HCl (Desyrel) 50 mg PO [facility] Last Admin: 05/24/19 22:01 Dose: 50 mg Documented by: Vitamin D (Vitamin D3) 2,000 unit PO DAILY [facility] Last Admin: 05/25/19 09:28 Dose: 2,000 unit Documented by: Medical - PN: A/P - Time Spent With Patient Total time spent is greater than 50% in coordination of care (as documented) at patient's floor/unit and/or counseling patient: 25 - 35 minutes (1) Acute pyelonephritis Status: Acute Assessment and plan: * E. coli bacteremia secondary to acute pyelonephritis. Status post 8 days antibiotics. Continue antibiotics as per ID * Severe sepsis secondary to E. coli bacteremia with multiple endorgan dysfunction. WBC downtrending. Endorgan dysfunction have resolved. * Acute pyelonephritis as evident on abdominal imaging. Clinically improved on interval imaging. * A. fib with RVR-aggressively rate controlled on dual AV jose eduardo blockade initially on diltiazem drip followed by Cardizem for AT/metoprolol 100. Patient anticoagulated for CVA prophylaxis on rivaroxaban based on chads Vasc score. Will require outpatient cardiology follow-up in 4 weeks for elective cardioversion * Reactive thrombocytosis-secondary to infection. Platelets now downtrending * Acute on chronic kidney disease secondary sepsis endorgan dysfunction. Creatinine down from 2.2-1.5 * Elevated LFTs secondary to sepsis endorgan dysfunction. Improved transaminases * DM type II continue sliding-sliding scale insulin/continue CC diet * History of hypertension-continue metoprolol/diltiazem/thiazide/restart ARB at half dose at 50 on discharge. Recommend PCP to further optimize hypertension management as outpatient PLAN * Antibiotics per ID * Schedule cardiology follow-up for elective cardioversion in 4 weeks * Continue Xarelto for CVA prophylaxis * Continue PT OT/nutrition support * Possible discharge in 24 hours pending clinical improvement Current Visit: Yes Medical - PN: Qual - VTE Deep Vein Thrombosis/Pulmonary Embolism Present on Admission: No
--- NOTE | 2019-05-25 14:19 | Infectious Disease Prog Note ---
Subjective Patient information: Note initiated : 05/25/19 at 2:16 pm Service Date, if different from initiated Date: [] Patient: Joanne Nguyễn 79 y/o F admitted on 05/18/19 for nausea, bloody stool. Chief Complaint: [] Interval history: Pt feels much better. denied any fevers, chills, n/v, diarrhea. discussed wbc and ongoing antibiotics. possible d/c tomorrow if wbc continues to downtrend Objective Objective Narrative: ao x 3, in nad no thrush chest cta s1 s2 normal bs ++ nttd - Vital Signs Vital signs: Vital Signs Temp Pulse Pulse Resp BP BP BP 05/25/19 13:25 36.9 C 72 16 141/72 05/25/19 11:34 88 16 05/25/19 07:49 71 16 05/25/19 07:47 36.7 C 76 16 156/77 146/75 05/25/19 03:12 36.6 C 77 16 146/69 05/24/19 22:59 36.9 C 80 14 148/74 05/24/19 18:53 36.9 C 111 H 16 143/97 05/24/19 16:00 36.5 C 18 136/80 Pulse Ox 05/25/19 13:25 91 05/25/19 11:34 95 05/25/19 07:49 95 05/25/19 07:47 91 05/25/19 03:12 91 05/24/19 22:59 91 05/24/19 18:53 96 05/24/19 16:00 95 Intake and Output 05/25/19 05/25/19 05/25/19 05:59 13:59 21:59 Intake Total 420 1190 Output Total 600 1050 Balance -180 140 Intake: Nourishment/Supplement quantity 240 (ml) IV 50 Rocephin 2 gm In Dextrose 5% in 50 Water 50 ml @ 100 mls/hr IV Q24H [facility] Rx#:[id number] Oral 420 900 Output: Void Amount 600 1050 Other: Meal Breakfast Percent of Meal Consumed 100% Nourishment/Supplement name Glucerna Urine Appearance Clear Clear Urine Color Bright Yellow Bright Yellow Urine Odor Normal Intake & Output: Intake & Output 05/25/19 05/25/19 05/25/19 05:59 13:59 21:59 Intake Total 420 1190 Output Total 600 1050 Balance -180 140 Intake: Nourishment/Supplement quantity 240 (ml) IV 50 Rocephin 2 gm In Dextrose 5% in 50 Water 50 ml @ 100 mls/hr IV Q24H [facility] Rx#:[id number] Oral 420 900 Output: Void Amount 600 1050 Other: Meal Breakfast Percent of Meal Consumed 100% Nourishment/Supplement name Glucerna Urine Appearance Clear Clear Urine Color Bright Yellow Bright Yellow Urine Odor Normal - Lab 05/25/19 06:17 05/25/19 06:17 Most recent lab results Calcium 9.5 mg/dl (8.6-10.4) 05/25/19 06:17 Phosphorus 4.4 mg/dL (2.7-4.5) 05/25/19 06:17 Magnesium 1.8 mg/dL (1.6-2.5) 05/25/19 06:17 Microbiology 05/24/19 10:33 Blood Blood Culture - Preliminary 05/24/19 10:39 Blood Blood Culture - Preliminary 05/18/19 13:12 Blood Blood Culture - Final Escherichia coli 05/18/19 15:57 Urine - Clean Void Mid-Stream Urine Culture - Final Escherichia coli Gram negative bacillus#2 05/18/19 13:19 Blood Blood Culture - Final Escherichia coli 05/18/19 17:03 Nose MRSA (PCR) - Final Medications Active Medications: Acetaminophen (Tylenol) 650 mg PO Q4-6HP PRN; Protocol PRN Reason: Per Pain Protocol/Fever > 101 Bisacodyl (Dulcolax) 10 mg NV DAILYP PRN PRN Reason: Constipation Calcium/Vitamin D (Calcium W/Vit D3) 500 mg PO TID [facility] Last Admin: 05/25/19 09:28 Dose: 500 mg Documented by: [email or web address] Admin: 05/24/19 22:00 Dose: 500 mg Documented by: Admin: 05/24/19 15:03 Dose: Not Given Documented by: EZRA Non-Admin Reason: NPO Admin: 05/24/19 08:56 Dose: 500 mg Documented by: [email or web address] Admin: 05/23/19 21:43 Dose: 500 mg Documented by: Admin: 05/23/19 15:20 Dose: 500 mg Documented by: Admin: 05/23/19 09:01 Dose: 500 mg Documented by: TREY Cosigned by: CHRISTA Admin: 05/22/19 20:26 Dose: 500 mg Documented by: Admin: 05/22/19 15:13 Dose: 500 mg Documented by: HALLIE Cosigned by: CHRISTA Clonidine HCl (Catapres) 0.3 mg PO QID [facility] Last Admin: 05/25/19 13:06 Dose: 0.3 mg Documented by: [email or web address] Admin: 05/25/19 09:29 Dose: 0.3 mg Documented by: Admin: 05/24/19 22:00 Dose: 0.3 mg Documented by: Admin: 05/24/19 17:36 Dose: Not Given Documented by: EZRA Non-Admin Reason: NPO Admin: 05/24/19 13:01 Dose: 0.3 mg Documented by: Admin: 05/24/19 08:52 Dose: 0.3 mg Documented by: Admin: 05/23/19 21:44 Dose: 0.3 mg Documented by: Admin: 05/23/19 21:37 Dose: Not Given Documented by: IRENE Non-Admin Reason: Clinical Judgement Admin: 05/23/19 15:19 Dose: 0.3 mg Documented by: Admin: 05/23/19 10:42 Dose: 0.3 mg Documented by: Admin: 05/22/19 20:25 Dose: 0.3 mg Documented by: Admin: 05/22/19 17:36 Dose: 0.3 mg Documented by: [email or web address] Admin: 05/22/19 12:48 Dose: 0.3 mg Documented by: [email or web address] Dextrose (Dextrose 50%) 0 ml IV UD PRN PRN Reason: Hypoglycemia Diagnostic Test (Pha) (Accu-Chek) 1 each FS ACHS [facility] Last Admin: 05/25/19 11:19 Dose: 1 each Documented by: [email or web address] Admin: 05/25/19 07:34 Dose: 1 each Documented by: [email or web address] Admin: 05/24/19 21:34 Dose: 1 each Documented by: Admin: 05/24/19 17:24 Dose: 1 each Documented by: [email or web address] Admin: 05/24/19 12:03 Dose: 1 each Documented by: Admin: 05/24/19 08:30 Dose: 1 each Documented by: [email or web address] Admin: 05/23/19 21:37 Dose: 1 each Documented by: Admin: 05/23/19 17:37 Dose: Not Given Documented by: DON Non-Admin Reason: No Coverage Needed Admin: 05/23/19 13:03 Dose: Not Given Documented by: DON Non-Admin Reason: No Coverage Needed Admin: 05/23/19 07:49 Dose: 1 each Documented by: Admin: 05/22/19 20:24 Dose: 1 each Documented by: Admin: 05/22/19 17:37 Dose: 1 each Documented by: [email or web address] Admin: 05/22/19 12:11 Dose: 1 each Documented by: [email or web address] Diltiazem HCl (Cardizem Cd) 480 mg PO DAILY [facility] Last Admin: 05/25/19 09:21 Dose: 480 mg Documented by: [email or web address] Admin: 05/24/19 08:52 Dose: 480 mg Documented by: [email or web address] Admin: 05/23/19 09:00 Dose: 480 mg Documented by: TREY Cosigned by: CHRISTA Docusate Sodium (Colace) 100 mg PO BID [facility] Last Admin: 05/25/19 09:28 Dose: 100 mg Documented by: [email or web address] Admin: 05/24/19 22:00 Dose: 100 mg Documented by: Admin: 05/24/19 08:58 Dose: 100 mg Documented by: [email or web address] Admin: 05/23/19 21:43 Dose: 100 mg Documented by: Admin: 05/23/19 09:01 Dose: 100 mg Documented by: TREY Cosigned by: CHRISTA Admin: 05/22/19 20:25 Dose: 100 mg Documented by: JORGE Fish Oil (Fish Oil) 1,000 mg PO HS [facility] Last Admin: 05/24/19 22:00 Dose: 1,000 mg Documented by: Admin: 05/23/19 21:43 Dose: 1,000 mg Documented by: Admin: 05/22/19 20:26 Dose: 1,000 mg Documented by: JORGE Folic Acid (Folic Acid) 1 mg PO DAILY [facility] Last Admin: 05/25/19 09:27 Dose: 1 mg Documented by: [email or web address] Admin: 05/24/19 08:57 Dose: 1 mg Documented by: [email or web address] Admin: 05/23/19 08:55 Dose: 1 mg Documented by: TREY Cosigned by: CHRISTA Glucose (Insta-Glucose) 15 gm PO PRN PRN PRN Reason: Hypoglycemia Hydromorphone HCl (Dilaudid) 0 mg IV Q4HP PRN; Protocol PRN Reason: Per Pain Protocol Norepinephrine Bitartrate 16 (mg/ Sodium Chloride) 250 mls @ 9.375 mls/hr IV Q24HP PRN; Protocol PRN Reason: Hypotension Ceftriaxone Sodium 2 gm/ (Dextrose) 50 mls @ 100 mls/hr IV Q24H [facility]; Protocol Last Infusion: 05/25/19 10:37 Dose: 0 mls/hr Documented by: [email or web address] Admin: 05/25/19 10:07 Dose: 100 mls/hr Documented by: [email or web address] Infusion: 05/24/19 15:40 Dose: 0 mls/hr Documented by: Admin: 05/24/19 15:03 Dose: 100 mls/hr Documented by: EZRA Insulin Human Lispro (Humalog) 0 unit SQ ACHS [facility]; Protocol Last Admin: 05/25/19 11:24 Dose: Not Given Documented by: [email or web address] Non-Admin Reason: No Coverage Needed Admin: 05/25/19 07:34 Dose: Not Given Documented by: [email or web address] Non-Admin Reason: No Coverage Needed Admin: 05/24/19 21:35 Dose: Not Given Documented by: IRENE Non-Admin Reason: No Coverage Needed Admin: 05/24/19 17:24 Dose: Not Given Documented by: [email or web address] Non-Admin Reason: No Coverage Needed Admin: 05/24/19 12:03 Dose: Not Given Documented by: EZRA Non-Admin Reason: No Coverage Needed Admin: 05/24/19 08:32 Dose: Not Given Documented by: [email or web address] Non-Admin Reason: No Coverage Needed Admin: 05/23/19 21:38 Dose: Not Given Documented by: IRENE Non-Admin Reason: No Coverage Needed Admin: 05/23/19 17:37 Dose: Not Given Documented by: DON Non-Admin Reason: No Coverage Needed Admin: 05/23/19 15:57 Dose: Not Given Documented by: DON Non-Admin Reason: No Coverage Needed Admin: 05/23/19 07:51 Dose: Not Given Documented by: DON Non-Admin Reason: No Coverage Needed Admin: 05/22/19 20:26 Dose: 1 unit Documented by: Admin: 05/22/19 17:37 Dose: Not Given Documented by: DEMARCUS Non-Admin Reason: No Coverage Needed Admin: 05/22/19 12:18 Dose: 1 unit Documented by: [email or web address] Iron Carb/Multivit/Tensas/Folic Acid (Multivitamin W/Minerals) 1 tab PO DAILY [facility] Last Admin: 05/25/19 09:28 Dose: 1 tab Documented by: [email or web address] Admin: 05/24/19 08:57 Dose: 1 tab Documented by: Admin: 05/23/19 09:02 Dose: 1 tab Documented by: TREY Cosigned by: CHRISTA Levothyroxine Sodium (Synthroid) 50 mcg PO ACB [facility] Last Admin: 05/25/19 07:36 Dose: 50 mcg Documented by: [email or web address] Admin: 05/24/19 08:31 Dose: 50 mcg Documented by: [email or web address] Admin: 05/23/19 07:37 Dose: 50 mcg Documented by: DON Melatonin (Melatonin 3mg Tablet) 6 mg PO HS [facility] Last Admin: 05/24/19 22:00 Dose: 6 mg Documented by: Admin: 05/23/19 21:43 Dose: 6 mg Documented by: Admin: 05/22/19 20:26 Dose: 6 mg Documented by: JORGE Metformin HCl (Glucophage) 500 mg PO DAILY@1800 [facility] Last Admin: 05/24/19 17:37 Dose: Not Given Documented by: EZRA Non-Admin Reason: recent CT scan Admin: 05/23/19 18:11 Dose: 500 mg Documented by: [email or web address] Admin: 05/22/19 17:37 Dose: 500 mg Documented by: [email or web address] Metoprolol Succinate (Toprol Xl) 100 mg PO DAILY [facility] Last Admin: 05/25/19 09:21 Dose: 100 mg Documented by: [email or web address] Admin: 05/24/19 08:52 Dose: 100 mg Documented by: [email or web address] Admin: 05/23/19 09:03 Dose: 100 mg Documented by: TREY Cosigned by: CHRISTA Ondansetron HCl (Zofran) 4 mg IV Q4-6HP PRN; Protocol PRN Reason: Nausea And Vomiting Last Admin: 05/25/19 09:20 Dose: 4 mg Documented by: [email or web address] Admin: 05/24/19 19:05 Dose: 4 mg Documented by: Admin: 05/24/19 11:00 Dose: 4 mg Documented by: [email or web address] Admin: 05/23/19 09:39 Dose: 4 mg Documented by: DON Cranberry 650 Mg Cap 1 dose PO BID [facility] Last Admin: 05/25/19 09:29 Dose: Not Given Documented by: DELICIA Non-Admin Reason: Unavailable Admin: 05/24/19 22:01 Dose: Not Given Documented by: IRENE Non-Admin Reason: Unavailable Admin: 05/24/19 08:59 Dose: Not Given Documented by: DELICIA Non-Admin Reason: Unavailable Admin: 05/23/19 21:44 Dose: Not Given Documented by: IRENE Non-Admin Reason: Unavailable Admin: 05/23/19 15:56 Dose: Not Given Documented by: DON Non-Admin Reason: Unavailable Admin: 05/22/19 21:51 Dose: Not Given Documented by: JORGE Non-Admin Reason: Unavailable Polyethylene Glycol (Miralax) 17 gm PO DAILYP PRN PRN Reason: Constipation Last Admin: 05/25/19 09:31 Dose: 17 gm Documented by: [email or web address] Promethazine HCl (Phenergan) 12.5 - 25 mg IV Q4-6HP PRN PRN Reason: Nausea And Vomiting Last Admin: 05/24/19 21:35 Dose: 12.5 mg Documented by: IRENE Rivaroxaban (Xarelto) 15 mg PO QPMCC [facility] Last Admin: 05/24/19 17:36 Dose: Not Given Documented by: EZRA Non-Admin Reason: NPO Admin: 05/23/19 17:41 Dose: 15 mg Documented by: Admin: 05/22/19 17:36 Dose: 15 mg Documented by: [email or web address] Senna/Docusate Sodium (Senna Plus Tablet) 1 tab PO [facility] Admin: 05/24/19 22:00 Dose: 1 tab Documented by: Admin: 05/23/19 21:42 Dose: 1 tab Documented by: Admin: 05/22/19 21:16 Dose: Not Given Documented by: JORGE Non-Admin Reason: Patient Request Simvastatin (Zocor) 10 mg PO [facility] Last Admin: 05/24/19 22:01 Dose: 10 mg Documented by: Admin: 05/23/19 21:43 Dose: 10 mg Documented by: Admin: 05/22/19 20:26 Dose: 10 mg Documented by: JORGE Sodium Chloride (Saline Flush) 10 ml IV Q8 [facility] Admin: 05/25/19 13:10 Dose: 10 ml Documented by: [email or web address] Admin: 05/25/19 05:19 Dose: 10 ml Documented by: Admin: 05/24/19 22:03 Dose: 10 ml Documented by: Admin: 05/24/19 13:01 Dose: 10 ml Documented by: Admin: 05/24/19 06:12 Dose: Not Given Documented by: IRENE Non-Admin Reason: Patient Asleep Admin: 05/23/19 21:46 Dose: 10 ml Documented by: Admin: 05/23/19 15:20 Dose: 10 ml Documented by: Admin: 05/23/19 05:41 Dose: 10 ml Documented by: Admin: 05/22/19 20:34 Dose: 10 ml Documented by: Admin: 05/22/19 13:52 Dose: 10 ml Documented by: [email or web address] Thiamine HCl (Vitamin B1) 100 mg PO DAILY [facility] Admin: 05/25/19 09:27 Dose: 100 mg Documented by: [email or web address] Admin: 05/24/19 08:57 Dose: 100 mg Documented by: [email or web address] Admin: 05/23/19 08:56 Dose: 100 mg Documented by: TREY Cosigned by: CHRISTA Trazodone HCl (Desyrel) 50 mg PO HS [facility] Last Admin: 05/24/19 22:01 Dose: 50 mg Documented by: Admin: 05/23/19 21:43 Dose: 50 mg Documented by: Admin: 05/22/19 20:25 Dose: 50 mg Documented by: JORGE Vitamin D (Vitamin D3) 2,000 unit PO DAILY [facility] Last Admin: 05/25/19 09:28 Dose: 2,000 unit Documented by: [email or web address] Admin: 05/24/19 08:58 Dose: 2,000 unit Documented by: [email or web address] Admin: 05/23/19 08:57 Dose: 2,000 unit Documented by: TREY Cosigned by: CHRISTA Assessment and Plan - Narrative A/P Narrative: A: 1. E coli bacteremia: urine likely source - no defined pyelonepheritis on CT imaging, although perinepheric stranding seen could be suggestive of it - afebrile, on appropriate antibiotics (Ceftriaxone initially, then on PO Levofloxacin- renally dosed, on IV Ceftriaxone again) - no active s/s of infection 2. Leucocytosis: neutrophilic predominance - improving. 20k yesterday ----> 14k today - GB US and CT abd/pelvis/chest neg for obvious infection 3. Elevated liver enz:?drug-induced - resolving Recommendations: -Continue IV Ceftriaxone 2 gm q24 hrs until tomorrow. If WBC further downtrending, will switch to PO Cipro 500 mg bid x 1 additional day will follow Casey Cabral MD Infectious diseases
[2019-05-25] MEDS: RIVAROXABAN 15 MG TABLET PO SCH (17:21)
[2019-05-25] MEDS: metFORMIN 500 MG TAB.XL.24H PO SCH (17:21)
[2019-05-25] MEDS: MELATONIN 3 MG TABLET PO SCH (21:47)
[2019-05-25] MEDS: SIMVASTATIN 10 MG TABLET PO SCH (21:47)
[2019-05-25] MEDS: SENNOSIDES/DOCUSATE SODIUM 1 TAB TABLET PO SCH (21:47)
[2019-05-25] MEDS: traZODone HCL 50 MG TABLET PO SCH (21:47)
[2019-05-25] MEDS: FISH OIL 1,000 MG CAPSULE PO SCH (21:48)
[2019-05-26] MEDS: 0.9 % SODIUM CHLORIDE 10 ML SYRINGE IV SCH (05:26)
[2019-05-26] MEDS: INSULIN LISPRO 1 UNIT/0.01 ML UNIT SQ SCH ×2 (07:38→13:22)
[2019-05-26] MEDS: LEVOTHYROXINE 50 MCG TABLET PO SCH (07:39)
[2019-05-26 08:18] LABS: Hematocrit 31.7 % (36.0-48.0); Hemoglobin 10.5 g/dL (12.0-15.0); Mean Cell Volume 93.9 fL (80.0-100.0); Mean Corpuscular HGB Conc 33.1 g/dL (31.0-36.0); Mean Platelet Volume 7.2 fL (7.4-10.4); Platelet Count 598 K/mcL (140-440); RBC 3.38 M/mcL (4.00-5.20); Red Cell Distribution Width 14.9 % (11.5-14.5); WBC 14.6 K/mcL (4.5-11.0)
[2019-05-26 08:46] LABS: ALT/SGPT 58 U/l (0-40); AST/SGOT 27 U/l (0-37); Albumin 2.9 gm/dL (3.2-5.2); Albumin/Globulin Ratio 0.9 (1.0-2.3); Alkaline Phosphatase 157 U/L (39-117); Bilirubin,Direct < 0.2 mg/dL (0.0-0.3); Bilirubin,Total 0.3 mg/dL (0.0-1.0); Blood Urea Nitrogen 21 mg/dl (8-23); Calcium 9.6 mg/dl (8.6-10.4); Carbon Dioxide 26 mmol/L (22-30); Chloride 102 mmol/L (96-108); Globulin 3.4 gm/dL (2.2-3.7); Glomerular Filtration Rate 33; Glucose 93 mg/dL (70-105); Lactate Dehydrogenase 179 U/L (94-250); Phosphorous 3.9 mg/dL (2.7-4.5); Triglycerides 136 mg/dl (<150); Uric Acid 6.1 mg/dL (2.5-8.0)
[2019-05-26 08:48] LABS: Band Neutrophils % 4 % (0-10); Hypochromasia FEW (NONE SEEN); Lymphocytes % 9 % (15-49); Monocytes % (Manual) 4 % (1-12); Plasmacytoid RARE (NONE SEEN); Platelet Estimate INCREASED (NORMAL); Polychromasia FEW (NONE SEEN); RBC Morphology ABNORM (NORMAL); Reactive Lymphocytes 1 % (0-2); Segmented Neutrophils % 82 % (38-78)
[2019-05-26] MEDS: VITAMIN D3 1,000 UNIT TABLET PO SCH (09:08)
[2019-05-26] MEDS: DILTIAZEM 240 MG CAP.XL.24H PO SCH (09:09)
[2019-05-26] MEDS: METOPROLOL SUCCINATE 50 MG TAB.XL.24H PO SCH (09:09)
[2019-05-26] MEDS: DOCUSATE SODIUM 100 MG CAPSULE PO SCH (09:09)
[2019-05-26] MEDS: cloNIDine HCL 0.1 MG TABLET PO SCH (09:09)
[2019-05-26] MEDS: THIAMINE 100 MG TABLET PO SCH (09:10)
[2019-05-26] MEDS: CALCIUM W/VIT D3 500 MG TABLET PO SCH (09:10)
[2019-05-26] MEDS: CRANBERRY 650 MG PO SCH (09:10)
[2019-05-26] MEDS: FOLIC ACID 1 MG TABLET PO SCH (09:10)
[2019-05-26] MEDS: ONDANSETRON 4 MG/2 ML VIAL IV PRN (09:18)
[2019-05-26] MEDS: cefTRIAXone 2 GM in DEXTROSE 5% IN WATER 50 ML IV SCH (10:26)
[2019-05-26] MEDS: MULTIVIT,THER IRON,CA,FA & MIN 1 TABLET PO SCH (10:26)
== END 2019-05-26 11:55 | disposition home health service (06) | DRG 872 ==
LOC: ED 10:16 → ICU 16:55 → MEDSUR 05-22 14:04
PROVIDERS: ADMIT Internal Medicine; ATTEND Internal Medicine

== ENCOUNTER 2019-06-20 12:55 | Inpatient (IN) ==
[2019-06-20] MEDS ORDERED: LACTATED RINGERS 1,000 ML IV ONE (13:12)
--- NOTE | 2019-06-20 13:21 | Emergency Department Note ---
GI Bleed HPI - General Chief complaint: Rectal Bleed Stated complaint: Rectal bleed Time Seen by Provider: 06/20/19 13:11 Source: patient Mode of arrival: ambulatory Limitations: no limitations - History of Present Illness HPI Narrative: This patient has recently had some blood mixed with her stools. She was on Xarelto until last week for atrial fibrillation apparently has stopped that. She also has some nausea. No abdominal pain. - Related Data Home Medications Medication Instructions Recorded Confirmed Hydrochlorothiazide [Oretic] 25 mg PO DAILY 10/26/16 06/20/19 Levothyroxine [Synthroid] 50 mcg PO ACB 10/26/16 06/20/19 Potassium Chloride [Kdur] 20 meq PO 5XD 10/26/16 06/20/19 Simvastatin [Zocor] 10 mg PO HS 10/26/16 06/20/19 cloNIDine HCL [Catapres] 0.3 mg PO BID 10/26/16 06/20/19 metFORMIN HCL [Metformin ER 500 mg PO DAILY@1800 10/26/16 06/20/19 Osmotic] Metoprolol Succinate [Toprol Xl] 100 mg PO DAILY 08/25/17 06/20/19 Furosemide [Lasix] 20 mg PO DAILY 06/20/19 06/20/19 Melatonin 5 mg PO HS 06/20/19 06/20/19 Omeprazole 40 mg PO QAM 06/20/19 06/20/19 Polyethylene Glycol 3350 [Miralax] 1 dose PO DAILY 06/20/19 06/20/19 Sucralfate [Carafate] 1 gm PO BID 06/20/19 06/20/19 Previous Rx's Medication Instructions Recorded Diltiazem [Cardizem Cd] 480 mg PO DAILY #30 cap.xl.24h 05/25/19 Losartan [Cozaar] 50 mg PO DAILY #30 tab 05/25/19 Rivaroxaban [Xarelto] 15 mg PO QPMCC #30 tab 05/25/19 Ondansetron [Zofran ODT] 4 mg SL Q4-6HP PRN #10 tab 06/15/19 Allergies Allergy/AdvReac Type Severity Reaction Status Date / Time hydrocodone Allergy Vomiting Verified 06/15/19 14:15 oxycodone [Oxycodone] AdvReac Mild Vomiting Verified 06/15/19 09:40 Sulfa (Sulfonamide AdvReac Mild Redness of Verified 06/15/19 09:40 Antibiotics) Skin Review of Systems All systems ED: reviewed and negative except as stated. Past Medical History - Past Medical History [facility] Narrative: Medical History (Last Reviewed 06/15/19 @ 12:03 by Ani Williamson PA-C) Hypertension, essential (Chronic) Diabetes mellitus, type 2 (Chronic) Past Surgical History (Last Reviewed 06/15/19 @ 12:03 by Ani Williamson PA-C) S/P total hip arthroplasty (Chronic) History of bladder repair surgery (Acute) History of total right knee replacement (TKR) (Acute) Family History (Last Reviewed 06/15/19 @ 12:03 by Ani Williamson PA-C) Family/Other No problems noted. Other Diabetes mellitus Medical history: Reports: DM, other (UTI's. DENIES pyelonephritis. ). Denies: atrial fibrillation, chronic anticoagulation (except aspirin.), CVA, myocardial infarction, renal disease, [employer]ERK history: Reports: non-contributory Surgical history ED: Reports: hip replacement, orthopedic, other - Social History smoking status: Never smoker Alcohol use: Reports: None Physical Exam Limitations: no limitations General appearance: alert Head: atraumatic Eye: Present: normal appearance ENT: Present: normal exam Neck: Present: normal inspection Chest: Present: normal inspection Respiratory: Present: normal lung sounds bilaterally Cardiovascular: Present: regular rate, normal rhythm, normal heart sounds Abdominal: Present: soft. Absent: distention, tenderness Rectal: Present: normal inspection, normal rectal tone, hemorrhoids. Absent: black stool, bloody stool, fecal impaction, mass, tenderness Neurological: Present: alert Psychiatric: Present: normal affect Skin: Present: warm, dry Course Vital Signs Temperature 97.9 F 06/20/19 12:57 Pulse Rate 140 H 06/20/19 12:57 Respiratory Rate 20 06/20/19 12:57 Blood Pressure 112/78 06/20/19 12:57 Pulse Oximetry (%) 99 06/20/19 12:57 Temperature 97.9 F 06/20/19 12:57 Pulse Rate 41 L 06/20/19 14:50 Respiratory Rate 17 06/20/19 14:50 Blood Pressure 119/74 06/20/19 14:46 Pulse Oximetry (%) 91 06/20/19 14:50 GI Bleed - [facility] Narrative Medical decision making narrative: This patient was given diltiazem 20 mg IV and a 5 mg/h drip for her atrial fibrillation. Heart rate came down to about 90. I discussed the case with Dr. Draper and she will be admitted to the hospital. - Lab Data Lab results reviewed: Yes I reviewed the patient's lab results. Result diagrams: 06/20/19 13:19 06/20/19 13: Lab Results 06/20/19 06/20/19 Range/Units 13: 13: WBC 13.3 H (4.5-11.0) K/mcL RBC 3.32 L (4.00-5.20) M/mcL Hgb 9.9 L (12.0-15.0) g/dL Hct 31.2 L (36.0-48.0) % POC Hct 30.0 L (36.0-48.0) % MCV 93.9 (80.0-100.0) fL MCH 29.8 (26.0-34.0) pg MCHC 31.7 (31.0-36.0) g/dL RDW 15.3 H (11.5-14.5) % Plt Count 387 (140-440) K/mcL MPV 8.9 (7.4-10.4) fL Gran % 73.4 (38.0-78.0) % Lymph % (Auto) 17.5 (15.5-49.0) % Piatt % (Auto) 8.0 (1.0-12.0) % Eos % (Auto) 0.5 (0.0-7.0) % Baso % (Auto) 0.6 (0.0-2.0) % Gran # 9.7 H (1.8-8.0) K/mcL Lymph # (Auto) 2.3 (1.5-4.8) K/mcL Piatt # (Auto) 1.1 H (0.1-0.9) K/mcL Eos # (Auto) 0.1 (0.0-0.7) K/mcL Baso # (Auto) 0.1 (0.0-0.3) K/mcL POC Sodium 139 (133-145) mmol/L Sodium 140 (133-145) mmol/L POC Potassium 5.4 H (3.3-5.1) mmol/L Potassium 5.5 H (3.3-5.1) mmol/L POC Chloride 109 H (96-108) mmol/L Chloride 106 (96-108) mmol/L Carbon Dioxide 18 L (22-30) mmol/L POC Total CO2 20 L (22-30) mmol/L Anion Gap 16.0 (8-16) POC BUN 64 H (8-23) mg/dl BUN 64 H (8-23) mg/dl Creatinine 2.5 H (0.6-1.1) mg/dl POC Creatinine 2.8 H (0.6-1.1) mg/dl GFR Calculation 18 Glucose 123 H (70-105) mg/dL POC Glucose 121 H (70-105) mg/dL Calcium 9.6 (8.6-10.4) mg/dl POC WB Ioniz Calcium 1.16 (1.16-1.32) mmol/L Total Bilirubin 0.6 (0.0-1.0) mg/dL AST 258 H (0-37) U/l ALT 220 H (0-40) U/l Alkaline Phosphatase 217 H (39-117) U/L Total Protein 7.1 (5.9-8.4) gm/dL Albumin 3.4 (3.2-5.2) gm/dL Globulin 3.7 (2.2-3.7) gm/dL Albumin/Globulin Ratio 0.9 L (1.0-2.3) Disposition 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
[2019-06-20 13:27] LABS: POC Blood Urea Nitrogen 64 mg/dl (8-23); POC CO2 20 mmol/L (22-30); POC Calcium, Ionized 1.16 mmol/L (1.16-1.32); POC Chloride 109 mmol/L (96-108); POC Creatinine 2.8 mg/dl (0.6-1.1); POC Glucose, Random 121 mg/dL (70-105); POC Potassium 5.4 mmol/L (3.3-5.1); POC Sodium 139 mmol/L (133-145)
[2019-06-20] MEDS ORDERED: DILTIAZEM 25 MG/5 ML VIAL IV ONE (14:19)
[2019-06-20 14:29] LABS: Basophils # (Auto) 0.1 K/mcL (0.0-0.3); Basophils % (Auto) 0.6 % (0.0-2.0); Eosinophils # (Auto) 0.1 K/mcL (0.0-0.7); Eosinophils % (Auto) 0.5 % (0.0-7.0); Granulocytes % (Auto) 73.4 % (38.0-78.0); Hematocrit 31.2 % (36.0-48.0); Hemoglobin 9.9 g/dL (12.0-15.0); Lymphocytes # (Auto) 2.3 K/mcL (1.5-4.8); Lymphocytes % (Auto) 17.5 % (15.5-49.0); Mean Cell Volume 93.9 fL (80.0-100.0); Mean Corpuscular HGB Conc 31.7 g/dL (31.0-36.0); Mean Platelet Volume 8.9 fL (7.4-10.4); Monocytes # (Auto) 1.1 K/mcL (0.1-0.9); Platelet Count 387 K/mcL (140-440); RBC 3.32 M/mcL (4.00-5.20); Red Cell Distribution Width 15.3 % (11.5-14.5); WBC 13.3 K/mcL (4.5-11.0)
[2019-06-20] MEDS ORDERED: DILTIAZEM 125 MG in DEXTROSE 5% IN WATER 100 ML IV SCH (14:30)
[2019-06-20 14:35] LABS: ALT/SGPT 220 U/l (0-40); AST/SGOT 258 U/l (0-37); Albumin 3.4 gm/dL (3.2-5.2); Albumin/Globulin Ratio 0.9 (1.0-2.3); Alkaline Phosphatase 217 U/L (39-117); Bilirubin,Total 0.6 mg/dL (0.0-1.0); Calcium 9.6 mg/dl (8.6-10.4); Chloride 106 mmol/L (96-108); Globulin 3.7 gm/dL (2.2-3.7); Glomerular Filtration Rate 18; Glucose 123 mg/dL (70-105)
[2019-06-20 14:41] LABS: Blood Urea Nitrogen 64 mg/dl (8-23); Carbon Dioxide 18 mmol/L (22-30)
--- NOTE | 2019-06-20 16:08 | Internal Med History&Physical ---
Medical - H&P: [facility] Patient information: Note initiated : 06/20/19 at 4:05 pm Service Date, if different from initiated Date: [] Patient: Joanne Nguyễn a 79 y/o F admitted on for Rectal bleed. Chief Complaint: [] Chief complaint: Nausea vomiting, rectal bleed History of present illness: Ms. Nguyễn is a 79 year old F with a known history of CAD/CABG, CKD stage III, HTN, HLD and DM type II who was recently discharged following sepsis secondary to E. coli bacteremia and pyelonephritis. She was discharged and completed 10 days antibiotics. Patient has been intermittently nauseous with episodic retching. She has not been able to eat normal diet. Symptoms are triggered after each meals. She denies food getting stuck in her throat or dysphagia to solids but preferentially takes liquids as she does well with those. She has been taking Zofran to alleviate her symptoms. She has had a progressive decline with severe dehydration due to inability to keep fluids down. She was seen at primary care physician Wilbur garsia office and was given IV fluids. She was diagnosed with dehydration. However within 24 hours patient comes back after she noted blood smeared stool and on toilet paper. She however denies large volume bloody bowel. She endorses it was fresh blood. She presents to the ER with combination of above symptoms. Initial work-up was consistent with A. fib with RVR, elevated creatinine at 2.5, elevated potassium 5.5, BUN 65 but hemoglobin at 9.9. However negative digital rectal exam for blood. She also had elevated LFTs and underwent abdominal ultrasound. Subsequently hospitalist service was consulted after it was controlled on diltiazem drip. At the time of evaluation patient is accompanied with her . She was able to answer most of the questions. She is quite distressed due to her symptoms. She endorses symptoms as above. Denies fever, dysuria, diarrhea, headache, photophobia. Review of systems A 10 point review of system was performed and is negative except was discussed above Medical - H&P: PMH Medical history: Hypertension, essential (Chronic) Diabetes mellitus, type 2 (Chronic) CAD CKD III Hypothyroidism Acute pyelonephritis/ Ecoli bacteremia 05/18/19 Mod PAHTN echo/Nl LVEF Past Surgical History S/P total hip arthroplasty (Chronic) History of bladder repair surgery (Acute) History of total right knee replacement (TKR) (Acute) Family History Family/Other Father cancer Mother hypertension, CAD, [place] Sibling CAD/[place] Smoking status: Never smoker Medical - H&P: Meds Home Medications Medication Instructions Recorded Confirmed Type Hydrochlorothiazide [Oretic] 25 mg PO DAILY 10/26/16 06/20/19 History Levothyroxine [Synthroid] 50 mcg PO ACB 10/26/16 06/20/19 History Potassium Chloride [Kdur] 20 meq PO 5XD 10/26/16 06/20/19 History Simvastatin [Zocor] 10 mg PO HS 10/26/16 06/20/19 History cloNIDine HCL [Catapres] 0.3 mg PO BID 10/26/16 06/20/19 History metFORMIN HCL [Metformin ER 500 mg PO DAILY@1800 10/26/16 06/20/19 History Osmotic] Metoprolol Succinate [Toprol Xl] 100 mg PO DAILY 08/25/17 06/20/19 History Diltiazem [Cardizem Cd] 480 mg PO DAILY #30 cap.xl.24h 05/25/19 06/20/19 Rx Losartan [Cozaar] 50 mg PO DAILY #30 tab 05/25/19 06/20/19 Rx Rivaroxaban [Xarelto] 15 mg PO QPMCC #30 tab 05/25/19 06/20/19 Rx Ondansetron [Zofran ODT] 4 mg SL Q4-6HP PRN #10 tab 06/15/19 06/20/19 Rx Furosemide [Lasix] 20 mg PO DAILY 06/20/19 06/20/19 History Melatonin 5 mg PO HS 06/20/19 06/20/19 History Omeprazole 40 mg PO QAM 06/20/19 06/20/19 History Polyethylene Glycol 3350 [Miralax] 1 dose PO DAILY 06/20/19 06/20/19 History Sucralfate [Carafate] 1 gm PO BID 06/20/19 06/20/19 History Allergies Allergy/AdvReac Type Severity Reaction Status Date / Time hydrocodone Allergy Vomiting Verified 06/15/19 14:15 oxycodone [Oxycodone] AdvReac Mild Vomiting Verified 06/15/19 09:40 Sulfa (Sulfonamide AdvReac Mild Redness of Verified 06/15/19 09:40 Antibiotics) Skin Medical - H&P: Exam - Constitutional Vitals: Temp Pulse Resp BP Pulse Ox 97.9 F 41 L 17 119/74 91 06/20/19 12:57 06/20/19 14:50 06/20/19 14:50 06/20/19 14:46 06/20/19 14:50 General appearance: no acute distress Exam: Fatigued but respond to commands Oriented Nonlabored breathing Head normocephalic Oral cavity dry No ear nose discharge Neck no lymph adenopathy S1-S2 irregular, tachycardia, ESM Diminished breath sounds bases Abdomen soft nontender Lower extremity no cyanosis clubbing no joint swelling Skin no suspicious lesion Psych alert cooperative Neuro nonfocal Medical - H&P: Reslt - Labs CBC & Chem 7: 06/20/19 13:19 06/20/19 13:19 Labs: Short CBC 06/20/19 Range/Units 13:19 WBC 13.3 H (4.5-11.0) K/mcL Hgb 9.9 L (12.0-15.0) g/dL Hct 31.2 L (36.0-48.0) % Plt Count 387 (140-440) K/mcL BMP 06/20/19 13:19 Sodium 140 Potassium 5.5 H Chloride 106 Carbon Dioxide 18 L BUN 64 H Creatinine 2.5 H Glucose 123 H Calcium 9.6 Liver Function 06/20/19 Range/Units 13:19 Total Bilirubin 0.6 (0.0-1.0) mg/dL AST 258 H (0-37) U/l ALT 220 H (0-40) U/l Alkaline Phosphatase 217 H (39-117) U/L Albumin 3.4 (3.2-5.2) gm/dL Medical - H&P: A/P (1) Atrial fibrillation with rapid ventricular response Current visit: Yes Status: Acute * A. fib with RVR-continue weaning diltiazem drip and transition to oral AV jose eduardo blockers. Echocardiogram reviewed from May 2019. * Elevated LFTs-abdominal ultrasound awaited. May represent shock liver in light of volume depletion. Review of prior CT/ultrasound no chronic process * Persistent nausea vomiting and retching with oral intake. GI consult for upper endoscopy * Volume depletion with metabolic acidosis-nephrology on board. Initiating bicarbonate drip * Acute on chronic kidney disease, baseline creatinine 1.5 current creatinine 2.5. Nephrology consulted * Leukocytosis-blood cultures. Antibiotics if elevated procalcitonin or signs of infection. * Pulmonary hypertension * Rectal bleed-no further bleeding noted. Hold Xarelto for 24 hours. Check serial hemoglobin * DM type II continue CC diet/sliding scale insulin. * Hypothyroidism continue thyroxine * Moderate pulmonary hypertension at baseline * History of CAD continue aspirin/beta-aman/statin * History of hypertension continue beta-aman/clonidine/hold ARB/thiazide until renal function improves * Full code * Prophylaxis anticoagulations on hold continue SCDs Plan * Inpatient PCU admit * Diltiazem drip wean as tolerated * nephrology consult * GI consult for severe nausea vomiting * Volume expansion * Bicarbonate and diltiazem drip * Restart anticoagulation if no evidence of further bleed * PT OT * Nutrition support
--- NOTE | 2019-06-20 16:23 | Nephrology Consult Note ---
History of Present Illness - Reason for Consult Patient information: Note initiated : 06/20/19 at 4:21 pm Patient: Joanne Nguyễn 79 y/o F admitted on for Rectal bleed. Consult date: 06/20/19 acute renal failure, chronic renal failure, hyperkalemia, metabolic acidosis Requesting physician: Kwasi Saucedo - Chief Complaint Weakness - History of Present Illness Joanne Nguyễn is a 79-year-old female with coronary artery disease s/p CABG and stents, hypertension, hyperlipidemia, hypothyroidism, diabetes mellitus type 2, being admitted on 06/20/19. She presented to ED for nausea and not able to eat. She also noted blood smeared stool and on toilet paper. Initial work-up was consistent with acute kidney injury, atrial fibrillation with RVR and elevated LFTs. Review of Systems Constitutional: fatigue, weakness Nose, mouth and throat: no nasal congestion, no sore throat Cardiovascular: palpatations, no leg edema Respiratory: dyspnea, no wheezing Gastrointestinal: nausea, no abdominal pain Genitourinary: no dysuria, no hematuria Musculoskeletal: no back pain, no neck pain Integumentary: no rash, no wounds Neurological: no confusion, no focal weakness Psychiatric: no anxiety, no panic attacks Endocrine: no cold intolerance, no heat intolerance Hematologic/Lymphatic: no easy bleeding, no easy bruising Allergic/Immunologic: no tongue swelling, no uticaria Past History Past medical history: Medical History (Last Reviewed 06/15/19 @ 12:03 by Ani Williamson PA-C) Hypertension, essential (Chronic) Diabetes mellitus, type 2 (Chronic) Past surgical history: Past Surgical History (Last Reviewed 06/15/19 @ 12:03 by Ani Williamson PA-C) S/P total hip arthroplasty (Chronic) History of bladder repair surgery (Acute) History of total right knee replacement (TKR) (Acute) Past family history: Family History (Last Reviewed 06/15/19 @ 12:03 by Ani Williamson PA-C) Family/Other No problems noted. Other Diabetes mellitus Past social history: Never smoker Medications and Allergies Home Medications Medication Instructions Recorded Confirmed Type Hydrochlorothiazide [Oretic] 25 mg PO DAILY 10/26/16 06/20/19 History Levothyroxine [Synthroid] 50 mcg PO ACB 10/26/16 06/20/19 History Potassium Chloride [Kdur] 20 meq PO 5XD 10/26/16 06/20/19 History Simvastatin [Zocor] 10 mg PO HS 10/26/16 06/20/19 History cloNIDine HCL [Catapres] 0.3 mg PO BID 10/26/16 06/20/19 History metFORMIN HCL [Metformin ER 500 mg PO DAILY@1800 10/26/16 06/20/19 History Osmotic] Metoprolol Succinate [Toprol Xl] 100 mg PO DAILY 08/25/17 06/20/19 History Diltiazem [Cardizem Cd] 480 mg PO DAILY #30 cap.xl.24h 05/25/19 06/20/19 Rx Losartan [Cozaar] 50 mg PO DAILY #30 tab 05/25/19 06/20/19 Rx Rivaroxaban [Xarelto] 15 mg PO QPMCC #30 tab 05/25/19 06/20/19 Rx Ondansetron [Zofran ODT] 4 mg SL Q4-6HP PRN #10 tab 06/15/19 06/20/19 Rx Furosemide [Lasix] 20 mg PO DAILY 06/20/19 06/20/19 History Melatonin 5 mg PO HS 06/20/19 06/20/19 History Omeprazole 40 mg PO QAM 06/20/19 06/20/19 History Polyethylene Glycol 3350 [Miralax] 1 dose PO DAILY 06/20/19 06/20/19 History Sucralfate [Carafate] 1 gm PO BID 06/20/19 06/20/19 History Allergies Allergy/AdvReac Type Severity Reaction Status Date / Time hydrocodone Allergy Vomiting Verified 06/15/19 14:15 oxycodone [Oxycodone] AdvReac Mild Vomiting Verified 06/15/19 09:40 Sulfa (Sulfonamide AdvReac Mild Redness of Verified 06/15/19 09:40 Antibiotics) Skin Exam - Vital Signs Vital signs: Temp Pulse Resp BP Pulse Ox 97.9 F 41 L 17 119/74 91 06/20/19 12:57 06/20/19 14:50 06/20/19 14:50 06/20/19 14:46 06/20/19 14:50 - General Appearance General appearance: appears started age, chronically ill, fatigue EENT: mucous membranes dry Neck: supple Respiratory: clear Cardiology: no edema Gastrointestinal: no tenderness Integumentary: no rash, warm and dry Neurologic: no focal deficit, alert and oriented x3 Musculoskeletal: no deformities Psychiatric: mood/affect appropriate, cooperative Results - Lab Results 06/20/19 13:19 06/20/19 13:19 Most recent lab results Calcium 9.6 mg/dl (8.6-10.4) 06/20/19 13:19 Assessment and Plan (1) ARF (acute renal failure) Joanne Nguyễn is a 79-year-old female with coronary artery disease s/p CABG and stents, hypertension, hyperlipidemia, hypothyroidism, diabetes mellitus type 2, being admitted on 06/20/19. Acute kidney injury with hyperkalemia and metabolic acidosis, associated with suspected decreased renal perfusion due to recent nausea/vomiting and diuretic use, present on arrival. She had no recent IV contrast or NSAIDs. Recent work up: Urinalysis on 05/18/19: Straw, Clear, pH 5.0, SG 1.009, protein negative, occult blood 0.2, leukocyte esterase 25, urine WBC 14, urine culture growing gram negative rods. CT Abdomen and Pelvis without contrast on 05/18/19: Kidneys show slight inhomogeneity and perinephric fat stranding which is suggestive, but not diagnostic, diffuse renal inflammation such as glomerulonephritis. 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 Recommendations: Avoid NSAIDs, nephrotoxic medications and IV contrast. Hold SIMONE/ARB. Sodium Bicarbonate infusion at 60 ml/hour x 1 liter. Urinalysis. Monitor BMP and urine output. Status: Acute Priority: High Qualifiers: Acute renal failure type: unspecified Qualified Code(s): N17.9 - Acute kidney failure, unspecified (2) Hyperkalemia Please see above Status: Acute Priority: High (3) Metabolic acidosis Please see above Status: Acute Priority: Medium
--- NOTE | 2019-06-20 17:57 | Ultrasound Report ---
CLINICAL INFORMATION: elevated liver enzymes, renal failure COMPARISON: Abdomen and pelvic CT 05/24/2019. FINDINGS: Multiple stones within the gallbladder and the gallbladder wall is moderately thickened compatible with acute cholecystitis. Common bile is normal: 4 mm. A 6 mm well-circumscribed hyperechoic lesion in the posterior right hepatic lobe is compatible with hemangioma. No significant hepatic abnormality. Pancreas unremarkable. No free fluid IMPRESSION: Acute cholecystitis Interpreted and Authenticated by: Matthew Vasquez 06/20/19
[2019-06-20] MEDS ORDERED: DEXTROSE 31 GM ORAL.SUSP PO PRN (17:59)
[2019-06-20] MEDS ORDERED: ACETAMINOPHEN 650 MG/65 ML BOTTLE IV PRN (17:59)
[2019-06-20] MEDS ORDERED: MAGNESIUM SULFATE 2 GM/50 ML BAG IV PRN (17:59)
[2019-06-20] MEDS ORDERED: ONDANSETRON 4 MG/2 ML VIAL IV PRN (17:59)
[2019-06-20] MEDS ORDERED: ACETAMINOPHEN 325 MG TABLET PO PRN (17:59)
[2019-06-20] MEDS ORDERED: SODIUM BICARBONATE VIAL 150 MEQ in DEXTROSE 5% IN WATER 850 ML IV SCH (17:59)
[2019-06-20] MEDS ORDERED: DEXTROSE 50% 50 ML VIAL IV PRN (17:59)
[2019-06-20] MEDS ORDERED: POTASSIUM CHLORIDE 20 MEQ PACKET PO PRN (17:59)
[2019-06-20] MEDS: INSULIN LISPRO 1 UNIT/0.01 ML UNIT SQ SCH ×2 (18:04→20:23)
[2019-06-20] MEDS: METOPROLOL TARTRATE 5 MG/5 ML VIAL IV SCH ×2 (18:23→18:40)
[2019-06-20] MEDS ORDERED: METOPROLOL TARTRATE 5 MG/5 ML VIAL IV ONE ×2 (18:25→18:41)
[2019-06-20] MEDS ORDERED: SODIUM BICARBONATE 50 MEQ/50 ML VIAL ONE (19:49)
[2019-06-20] MEDS: 0.9 % SODIUM CHLORIDE 1,000 ML IV SCH (19:58)
[2019-06-20] MEDS: DOCUSATE SODIUM 100 MG CAPSULE PO SCH (20:17)
[2019-06-20] MEDS: SENNOSIDES/DOCUSATE SODIUM 1 TAB TABLET PO SCH (20:17)
[2019-06-20] MEDS: 0.9 % SODIUM CHLORIDE 10 ML SYRINGE IV SCH (20:17)
[2019-06-20 21:09] LABS: Appearance,Urine CLEAR; Bacteria,Urine 0 /hpf (0); Bilirubin,Urine NEG (NEG); Color,Urine YELLOW; Culture Indicated,Urine NO; Glucose,Urine (UA) NEGATIVE (NEG); Ketones,Urine NEG (NEG); Leukocyte Esterase,Urine 75 /uL (NEG); Nitrate,Urine NEG (NEG); Protein,Urine NEG (NEG); Specific Gravity,Urine 1.012 (1.000-1.035); Urine Blood NEG mg/dL (<0.03); Urine Hyaline Cast 22 /lpf (0-2); Urine RBC 0 /hpf (0-1); Urine Squamous Epithelial Cell 1 /hpf (0-4); Urine WBC 9 /hpf (0-4); Urobilinogen,Urine NEG (NEG)
[2019-06-21] MEDS ORDERED: DILTIAZEM 125 MG in DEXTROSE 5% IN WATER 100 ML IV SCH (02:30)
[2019-06-21] MEDS ORDERED: DILTIAZEM 125 MG/25 ML VIAL IV ONE (03:44)
[2019-06-21] MEDS: 0.9 % SODIUM CHLORIDE 10 ML SYRINGE IV SCH ×3 (05:06→20:03)
[2019-06-21 05:50] LABS: Hematocrit 28.5 % (36.0-48.0); Hemoglobin 9.2 g/dL (12.0-15.0); Mean Cell Volume 92.9 fL (80.0-100.0); Mean Corpuscular HGB Conc 32.3 g/dL (31.0-36.0); Mean Platelet Volume 8.6 fL (7.4-10.4); Platelet Count 302 K/mcL (140-440); RBC 3.07 M/mcL (4.00-5.20); Red Cell Distribution Width 15.8 % (11.5-14.5); WBC 11.3 K/mcL (4.5-11.0)
--- NOTE | 2019-06-21 06:16 | Nephrology Progress Note ---
Subjective Patient information: Note initiated : 06/21/19 at 6:14 am Patient: Joanne Nguyễn 79 y/o F admitted on 06/20/19 for Rectal bleed. Chief Complaint: Weakness Pertinent ROS: Feels better Weakness No Ellis catheter No edema Objective - Vital Signs Vital signs: Vital Signs Temp Pulse Pulse Resp BP BP Pulse Ox 06/21/19 06:01 105 H 18 162/118 98 06/21/19 05:01 34 L 18 150/93 95 06/21/19 04:01 98.6 F 90 17 141/98 96 06/21/19 03:01 91 H 12 127/98 99 06/21/19 02:01 104 H 18 142/93 100 06/21/19 02:00 102 H 20 100 06/21/19 01:01 97 H 14 130/82 99 06/21/19 00:01 97.7 F 87 13 123/80 97 06/20/19 23:01 97 H 24 H 124/93 99 06/20/19 22:01 101 H 21 126/88 99 06/20/19 21:01 19 138/85 92 06/20/19 20:31 118 H 18 131/80 96 06/20/19 20:01 98.4 F 120 H 22 145/103 98 06/20/19 19:46 102 H 20 126/92 96 06/20/19 19:31 99 H 20 122/100 94 06/20/19 19:16 120 H 14 133/95 97 06/20/19 19:01 48 L 24 H 128/99 82 L 06/20/19 18:56 107 H 21 129/101 96 06/20/19 18:46 124 H 22 132/84 97 06/20/19 18:42 104 H 19 135/103 97 06/20/19 18:36 130 H 26 H 129/97 92 06/20/19 18:31 106 H 23 H 138/96 96 06/20/19 18:30 98.4 F 109 H 20 126/92 94 06/20/19 18:01 113 H 17 137/100 95 06/20/19 17:58 92 H 21 134/99 95 06/20/19 17:56 27 H 127/115 06/20/19 17:47 97.9 F 121 H 16 127/100 96 06/20/19 17:35 97.6 F 17 134/99 95 06/20/19 17:31 102 H 24 H 137/118 96 06/20/19 17:16 133 H 21 140/111 96 06/20/19 17:01 97 H 122/105 96 06/20/19 16:46 102 H 36 H 150/83 95 06/20/19 16:31 121 H 16 127/100 96 06/20/19 16:16 130 H 17 139/116 96 06/20/19 16:01 101 H 24 H 124/98 98 06/20/19 15:46 104 H 12 137/92 97 06/20/19 15:31 81 11 L 118/74 89 L 06/20/19 15:16 119 H 20 139/97 97 06/20/19 15:01 85 21 126/94 94 06/20/19 14:50 41 L 17 91 06/20/19 14:46 119/74 92 06/20/19 14:31 70 96/63 96 06/20/19 14:16 108 H 22 131/90 94 06/20/19 13:47 132 H 123/97 91 06/20/19 13:33 20 114/92 06/20/19 12:57 97.9 F 140 H 20 112/78 99 Intake and Output 06/20/19 06/21/19 06/21/19 21:59 05:59 13:59 Intake Total 1246 724 Output Total 175 475 Balance 1071 249 Intake: IV 1006 364 Sodium Chloride 0.9% 1,000 ml @ 276 50 mls/hr IV .Q20H [facility] Rx#: [id number] Cardizem 125 mg In Dextrose 5% 6 88 in Water 100 ml @ 5 MG/HR 5 mls /hr IV Q12H [facility] Rx#:[id number] Lactated Ringers 1,000 ml @ 1000 Wide Open IV [facility] Rx#: [id number] Oral 240 360 Output: Void Amount 175 475 Other: Meal Dinner Percent of Meal Consumed 50% Feeding Ability Independent Urine Appearance Clear Clear Urine Color Bright Yellow Dark Yellow Weight 153 lb 2 oz Intake & Output: Intake & Output 06/20/19 06/21/19 06/21/19 21:59 05:59 13:59 Intake Total 1246 724 Output Total 175 475 Balance 1071 249 Weight 153 lb 2 oz Intake: IV 1006 364 Sodium Chloride 0.9% 1,000 ml @ 276 50 mls/hr IV .Q20H [facility] Rx#: [id number] Cardizem 125 mg In Dextrose 5% 6 88 in Water 100 ml @ 5 MG/HR 5 mls /hr IV Q12H [facility] Rx#:[id number] Lactated Ringers 1,000 ml @ 1000 Wide Open IV [facility] Rx#: [id number] Oral 240 360 Output: Void Amount 175 475 Other: Meal Dinner Percent of Meal Consumed 50% Feeding Ability Independent Urine Appearance Clear Clear Urine Color Bright Yellow Dark Yellow - General Appearance General appearance: appears started age, chronically ill, fatigue EENT: mucous membranes moist Neck: supple Respiratory: clear Cardiology: no edema Gastrointestinal: no tenderness Integumentary: warm and dry Neurologic: no focal deficit, alert and oriented x3 Musculoskeletal: no deformities Psychiatric: mood/affect appropriate, cooperative - Lab 06/21/19 03:50 06/21/19 03:50 Most recent lab results Calcium 9.6 mg/dl (8.6-10.4) 06/20/19 13:19 Assessment and Plan (1) ARF (acute renal failure) Joanne Nguyễn is a 79-year-old female with coronary artery disease s/p CABG and stents, hypertension, hyperlipidemia, hypothyroidism, diabetes mellitus type 2, recent admission for E Coli bacteremia and pyelonephritis in May 2019, admitted on 06/20/19. She presented to ED for nausea and not able to eat. She also noted blood smeared stool and on toilet paper. Initial work-up was consistent with acute kidney injury, atrial fibrillation with RVR and elevated LFTs. Acute kidney injury with initial hyperkalemia and metabolic acidosis, associated with suspected decreased renal perfusion due to recent nausea/vomiting, diuretic use and atrial fibrillation with RVR, present on arrival. She had no recent IV contrast or NSAIDs. Recent work up: Urinalysis on 05/18/19: Straw, Clear, pH 5.0, SG 1.009, protein negative, occult blood 0.2, leukocyte esterase 25, urine WBC 14. CT Abdomen and Pelvis without contrast on 05/18/19: Kidneys show slight inhomogeneity and perinephric fat stranding which is suggestive, but not diagnostic, diffuse renal inflammation such as glomerulonephritis. 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 Current work up: Urinalysis on 06/20/19: Yellow, Clear, pH 5.0, SG 1.012, protein negative, occult blood negative, leukocyte esterase 75. Progress: Creatinine decreased from 2.5 to 2.0 in the past 14 hours. Urine output: 650 reported in the past 8 hours. Hyperkalemia, resolved. Metabolic acidosis, resolved. No fluid overload. Recommendations: Anticipate no hemodialysis need. Avoid NSAIDs, nephrotoxic medications and IV contrast. Hold SIMONE/ARB. Monitor BMP and urine output. Status: Acute Priority: High Qualifiers: Acute renal failure type: unspecified Qualified Code(s): N17.9 - Acute kidney failure, unspecified (2) Hyperkalemia Please see above Status: Acute Priority: High (3) Metabolic acidosis Please see above Status: Acute Priority: Medium
[2019-06-21 06:34] LABS: ALT/SGPT 216 U/l (0-40); AST/SGOT 199 U/l (0-37); Albumin 3.3 gm/dL (3.2-5.2); Albumin/Globulin Ratio 1.1 (1.0-2.3); Alkaline Phosphatase 223 U/L (39-117); Bilirubin,Direct < 0.2 mg/dL (0.0-0.3); Bilirubin,Total 0.5 mg/dL (0.0-1.0); Blood Urea Nitrogen 54 mg/dl (8-23); Calcium 8.8 mg/dl (8.6-10.4); Chloride 101 mmol/L (96-108); Globulin 3.1 gm/dL (2.2-3.7); Glomerular Filtration Rate 23; Glucose 137 mg/dL (70-105); Lactate Dehydrogenase 346 U/L (94-250); Phosphorous 4.1 mg/dL (2.7-4.5); Triglycerides 88 mg/dl (<150); Uric Acid 9.8 mg/dL (2.5-8.0)
[2019-06-21 06:35] LABS: Carbon Dioxide 25 mmol/L (22-30)
[2019-06-21] MEDS: METOPROLOL TARTRATE 5 MG/5 ML VIAL IV SCH (06:40)
[2019-06-21] MEDS: INSULIN LISPRO 1 UNIT/0.01 ML UNIT SQ SCH ×4 (08:05→20:03)
[2019-06-21] MEDS: DOCUSATE SODIUM 100 MG CAPSULE PO SCH ×2 (08:06→20:02)
[2019-06-21] MEDS: MULTIVIT,THER IRON,CA,FA & MIN 1 TABLET PO SCH (08:06)
[2019-06-21 08:13] LABS: Band Neutrophils % 1 % (0-10); Hypochromasia 1+ (NONE SEEN); Lymphocytes % 18 % (15-49); Monocytes % (Manual) 9 % (1-12); Myelocytes % 1 % (0-0); Nucleated Red Blood Cells 1 % (0-0); Platelet Estimate NORMAL (NORMAL); Polychromasia 1+ (NONE SEEN); RBC Morphology ABNORM (NORMAL); Segmented Neutrophils % 71 % (38-78)
[2019-06-21] MEDS ORDERED: HYDROCHLOROTHIAZIDE 25 MG TABLET PO SCH (09:00)
[2019-06-21] MEDS ORDERED: FUROSEMIDE 40 MG TABLET PO SCH (09:00)
[2019-06-21] MEDS ORDERED: LOSARTAN 50 MG TABLET PO SCH (09:00)
[2019-06-21] MEDS ORDERED: ONDANSETRON 4 MG ODT TABLET SL PRN (09:05)
[2019-06-21] MEDS: OMEPRAZOLE 20 MG CAPSULE PO SCH (09:55)
[2019-06-21] MEDS: DILTIAZEM 240 MG CAP.XL.24H PO SCH (09:57)
[2019-06-21] MEDS: METOPROLOL SUCCINATE 50 MG TAB.XL.24H PO SCH (09:58)
[2019-06-21] MEDS: cloNIDine HCL 0.1 MG TABLET PO SCH ×2 (10:00→20:02)
[2019-06-21] MEDS: POTASSIUM CHLORIDE 20 MEQ TABLET PO SCH ×4 (10:01→20:01)
[2019-06-21] MEDS: LEVOTHYROXINE 50 MCG TABLET PO SCH (10:02)
--- NOTE | 2019-06-21 10:07 | Internal Med Progress Note ---
Medical - PN: Subj Patient information: Note initiated : 06/21/19 at 10:03 am Service Date, if different from initiated Date: [] Patient: Joanne Nguyễn a 79 y/o F admitted on 06/20/19 for Rectal bleed. Chief Complaint: [] Interval history: Ms. Nguyễn is a 79 year old F with a known history of CAD/CABG, CKD stage III, HTN, HLD and DM type II who was recently discharged following sepsis secondary to E. coli bacteremia and pyelonephritis. She was discharged and completed 10 days antibiotics. Patient has been intermittently nauseous with episodic retching. She has not been able to eat normal diet. Symptoms are triggered after each meals. She denies food getting stuck in her throat or dysphagia to solids but preferentially takes liquids as she does well with those. She has been taking Zofran to alleviate her symptoms. She has had a progressive decline with severe dehydration due to inability to keep fluids down. She was seen at primary care physician Wilbur garsia office and was given IV fluids. She was diagnosed with dehydration. However within 24 hours patient comes back after she noted blood smeared stool and on toilet paper. She however denies large volume bloody bowel. She endorses it was fresh blood. She presents to the ER with combination of above symptoms. Initial work-up was consistent with A. fib with RVR, elevated creatinine at 2.5, elevated potassium 5.5, BUN 65 but hemoglobin at 9.9. However negative digital rectal exam for blood. She also had elevated LFTs and underwent abdominal ultrasound. Subsequently hospitalist service was consulted after it was controlled on diltiazem drip. Of note patient has been seen by nuclear medicine officer Dr. Stout office and antico agulated was held until she was to see GI for endoscopy evaluation. She is yet to schedule an appointment with Dr. Black at [facility]. At the time of evaluation patient is accompanied with her . She was able to answer most of the questions. She is quite distressed due to her symptoms. She endorses symptoms as above. Denies fever, dysuria, diarrhea, headache, photophobia. 06/21-patient currently on diltiazem drip. Case discussed with Dr. christo Ellington cardiology. Cardiology recommends continuing to hold anticoagulation until such time deemed appropriate by GI to reinitiate. Case discussed with the toolroom checker Dr. Sidhu. Patient will undergo upper and lower end oscopy in 24 hours for evaluation of GI bleed. Currently patient on diltiazem drip rate controlled. Restart home dose Cardizem. - Constitutional Vitals: Vital Signs Temp Pulse Resp BP Pulse Ox 97.1 F 116 H 18 148/90 97 06/21/19 08:02 06/21/19 06:18 06/21/19 09:01 06/21/19 09:01 06/21/19 09:01 Period Temp Pulse Resp BP Sys/Fitch Pulse Ox Last 24 Hr 97.1 F-98.6 F 34-140 11-36 96-162/63-118 82-100 Intake and Output 06/20/19 06/21/19 06/21/19 21:59 05:59 13:59 Intake Total 1246 755 162 Output Total 175 475 500 Balance 1071 280 -338 Weight 153 lb 2 oz Intake & Output: Intake & Output 06/20/19 06/21/19 06/21/19 21:59 05:59 13:59 Intake Total 1246 755 162 Output Total 175 475 500 Balance 1071 280 -338 Weight 153 lb 2 oz Intake: IV 1006 395 42 Sodium Chloride 0.9% 1,000 ml @ 276 50 mls/hr IV .Q20H [facility] Rx#: [id number] Cardizem 125 mg In Dextrose 5% 6 119 42 in Water 100 ml @ 5 MG/HR 5 mls /hr IV Q12H [facility] Rx#:[id number] Lactated Ringers 1,000 ml @ 1000 Wide Open IV BOLUS ONE Rx#: [id number] Oral 240 360 120 Output: Void Amount 175 475 500 Other: Meal Dinner Breakfast Percent of Meal Consumed 50% 100% Feeding Ability Independent Independent Urine Appearance Clear Clear Urine Color Bright Yellow Dark Yellow General appearance: no acute distress Exam: Alert and oriented Nonlabored breathing Telemetry A. fib with rate around 110 Sitting on chair No anxiety Medical - PN: Obj Da - Labs CBC & Chem 7: 06/21/19 03:50 06/21/19 03:50 Labs: Abnormal Lab Results 06/21/19 06/21/19 06/20/19 03:50 03:50 20:00 WBC 11.3 H RBC 3.07 L Hgb 9.2 L Hct 28.5 L POC Hct RDW 15.8 H Gran # [place] # (Auto) Myelocytes % 1 H Nucleated RBCs 1 H RBC Morphology Abnorm A Polychromasia 1+ A Hypochromasia 1+ A POC Potassium Potassium POC Chloride Carbon Dioxide POC Total CO2 POC BUN BUN 54 H Creatinine 2.0 H POC Creatinine Glucose 137 H POC Glucose Uric Acid 9.8 H GGT 136 H AST 199 H ALT 216 H Alkaline Phosphatase 223 H Lactate Dehydrogenase 346 H Albumin/Globulin Ratio Ur Leukocyte Esterase 75 A Urine WBC 9 H Hyaline Casts 22 H 06/20/19 06/20/19 13:19 13:19 WBC 13.3 H RBC 3.32 L Hgb 9.9 L Hct 31.2 L POC Hct 30.0 L RDW 15.3 H Gran # 9.7 H [place] # (Auto) 1.1 H Myelocytes % Nucleated RBCs RBC Morphology Polychromasia Hypochromasia POC Potassium 5.4 H Potassium 5.5 H POC Chloride 109 H Carbon Dioxide 18 L POC Total CO2 20 L POC BUN 64 H BUN 64 H Creatinine 2.5 H POC Creatinine 2.8 H Glucose 123 H POC Glucose 121 H Uric Acid GGT AST 258 H ALT 220 H Alkaline Phosphatase 217 H Lactate Dehydrogenase Albumin/Globulin Ratio 0.9 L Ur Leukocyte Esterase Urine WBC Hyaline Casts Meds: Medications Acetaminophen (Tylenol) 650 mg PO Q4-6HP PRN; Protocol PRN Reason: Per Pain Protocol/Fever > 101 Clonidine HCl (Catapres) 0.3 mg PO BID [facility] Last Admin: 06/21/19 10:00 Dose: 0.3 mg Documented by: Dextrose (Dextrose 50%) 0 ml IV UD PRN PRN Reason: Hypoglycemia Diagnostic Test (Pha) (Accu-Chek) 1 each FS ACHS [facility] Last Admin: 06/21/19 07:13 Dose: 1 each Documented by: Diltiazem HCl (Cardizem Cd) 480 mg PO DAILY [facility] Last Admin: 06/21/19 09:57 Dose: 480 mg Documented by: Docusate Sodium (Colace) 100 mg PO BID [facility] Last Admin: 06/21/19 08:06 Dose: 100 mg Documented by: Furosemide (Lasix) 20 mg PO DAILY [facility] Last Admin: 06/21/19 10:01 Dose: 20 mg Documented by: Glucose (Insta-Glucose) 15 gm PO PRN PRN PRN Reason: Hypoglycemia Hydrochlorothiazide (Oretic) 25 mg PO DAILY [facility] Last Admin: 06/21/19 09:59 Dose: 25 mg Documented by: Diltiazem HCl 125 mg/ Dextrose 125 mls @ 5 mls/hr IV Q12H [facility]; Protocol Last Titration: 06/21/19 07:55 Dose: 15 mg/hr, 15 mls/hr Documented by: Sodium Chloride (Sodium Chloride 0.9%) 1,000 mls @ 50 mls/hr IV .Q20H [facility] Stop: 06/23/19 05:58 Last Infusion: 06/21/19 01:29 Dose: 20 mls/hr Documented by: Acetaminophen (Ofirmev) 650 mg in 65 mls @ 130 mls/hr IV Q6HP PRN; Protocol PRN Reason: Per Pain Protocol/Fever > 101 Magnesium Sulfate (Magnesium Sulfate) 2 gm in 50 mls @ 50 mls/hr IV UD PRN PRN Reason: MG = or < 1.7 Sodium Bicarbonate 150 meq/ (Dextrose) 1,000 mls @ 60 mls/hr IV Q20H [facility] Stop: 06/21/19 10:38 Last Admin: 06/20/19 19:58 Dose: 60 mls/hr Documented by: Insulin Human Lispro (Humalog) 0 unit SQ ACHS [facility]; Protocol Last Admin: 06/21/19 08:05 Dose: 1 unit Documented by: Iron Carb/Multivit/[place]/Folic Acid (Multivitamin W/Minerals) 1 tab PO DAILY [facility] Last Admin: 06/21/19 08:06 Dose: 1 tab Documented by: Levothyroxine Sodium (Synthroid) 50 mcg PO ACB [facility] Last Admin: 06/21/19 10:02 Dose: 50 mcg Documented by: Losartan Potassium (Cozaar) 50 mg PO DAILY [facility] Last Admin: 06/21/19 09:59 Dose: 50 mg Documented by: Melatonin (Melatonin 3mg Tablet) 3 mg PO HS [facility] Metformin HCl (Glucophage) 500 mg PO DAILY@1800 [facility] Metoprolol Succinate (Toprol Xl) 100 mg PO DAILY [facility] Last Admin: 06/21/19 09:58 Dose: 100 mg Documented by: Omeprazole (Prilosec) 40 mg PO QAMAC [facility] Last Admin: 06/21/19 09:55 Dose: 40 mg Documented by: Ondansetron HCl (Zofran) 4 mg IV Q4-6HP PRN; Protocol PRN Reason: Nausea And Vomiting Ondansetron HCl (Zofran Odt) 4 mg SL Q4-6HP PRN PRN Reason: Nausea Polyethylene Glycol (Miralax) 17 gm PO DAILY [facility] Potassium Chloride (Klor-Con) 40 meq PO DAILYP PRN PRN Reason: K+ < 3.5 Potassium Chloride (Kdur) 20 meq PO 5XD [facility] Last Admin: 06/21/19 10:01 Dose: 20 meq Documented by: Senna/Docusate Sodium (Senna Plus Tablet) 1 tab PO HS [facility] Last Admin: 06/20/19 20:17 Dose: Not Given Documented by: Simvastatin (Zocor) 10 mg PO HS [facility] Sodium Chloride (Saline Flush) 10 ml IV Q8 [facility] Last Admin: 06/21/19 05:06 Dose: Not Given Documented by: Sucralfate (Carafate) 1 gm PO BID [facility] Medical - PN: A/P - Time Spent With Patient Total time spent is greater than 50% in coordination of care (as documented) at patient's floor/unit and/or counseling patient: 25 - 35 minutes (1) Atrial fibrillation with rapid ventricular response Status: Acute Assessment and plan: * Acute cholecystitis with elevated LFTs and persistent nausea and retching- abdominal ultrasound consistent with acute cholecystitis. Surgery consulted * Collin. fib with RVR-transition to oral diltiazem. Wean diltiazem drip. Echocardiogram reviewed from May 2019. Case discussed with [place] cardiology Dr. Stout. Advised to continue holding anticoagulation until approved by GI for initiation. * Lower GI bleed-no further drop in crit with recent hematocrit 33/10.7. Case discussed with gastroenterology Dr. Sidhu. Patient undergo upper and lower endoscopy in 24 hours. Patient has known history of hemorrhoids status post hemorrhoidectomy by Dr. Black in the past * Volume depletion with metabolic acidosis-nephrology on board. Improving with crystalloids * Acute on chronic kidney disease, creatinine down from 2.5-1.3. Nephrology on board * Leukocytosis-blood cultures. Antibiotics if elevated procalcitonin or signs of infection. * History of pulmonary hypertension * DM type II continue CC diet/sliding scale insulin. * Hypothyroidism continue thyroxine * Moderate pulmonary hypertension at baseline * History of CAD continue aspirin/beta-aman/statin * History of hypertension continue beta-aman/clonidine/hold ARB/thiazide until renal function improves * Full code * Prophylaxis SCDs, anticoagulation on hold Plan * Surgery/GI /nephrology consult * Keep n.p.o. * nephrology consult * Bicarbonate and diltiazem drip * Continue anticoagulation on hold as per cardiology recommendations * PT OT Current Visit: Yes Medical - PN: Qual - VTE Deep Vein Thrombosis/Pulmonary Embolism Present on Admission: No
[2019-06-21] MEDS: 0.9 % SODIUM CHLORIDE 1,000 ML IV SCH ×2 (12:32→14:32)
[2019-06-21] MEDS ORDERED: DILTIAZEM 125 MG in DEXTROSE 5% IN WATER 100 ML IV PRN (13:00)
--- NOTE | 2019-06-21 13:41 | Internal Med Progress Note ---
Medical - PN: Subj Patient information: Note initiated : 06/21/19 at 1:24 pm Service Date, if different from initiated Date: [] Patient: Joanne Nguyễn a 79 y/o F admitted on 06/20/19 for Rectal bleed. Chief Complaint: [] Interval history: Ms. Nguyễn is a 79 year old F with a known history of CAD/CABG, CKD stage III, HTN, HLD and DM type II who was recently discharged following sepsis secondary to E. coli bacteremia and pyelonephritis. She was discharged and completed 10 days antibiotics. Patient has been intermittently nauseous with episodic retching. She has not been able to eat normal diet. Symptoms are triggered after each meals. She denies food getting stuck in her throat or dysphagia to solids but preferentially takes liquids as she does well with those. She has been taking Zofran to alleviate her symptoms. She has had a progressive decline with severe dehydration due to inability to keep fluids down. She was seen at primary care physician Wilbur garsia office and was given IV fluids. She was diagnosed with dehydration. However within 24 hours patient comes back after she noted blood smeared stool and on toilet paper. She however denies large volume bloody bowel. She endorses it was fresh blood. She presents to the ER with combination of above symptoms. Initial work-up was consistent with A. fib with RVR, elevated creatinine at 2.5, elevated potassium 5.5, BUN 65 but hemoglobin at 9.9. However negative digital rectal exam for blood. She also had elevated LFTs and underwent abdominal ultrasound. Subsequently hospitalist service was consulted after it was controlled on diltiazem drip. Of note patient has been seen by head waiter/waitress banquet Dr. Stout office and anticoa gulated was held until she was to see GI for endoscopy evaluation. She is yet to schedule an appointment with Dr. Black at [facility]. At the time of evaluation patient is accompanied with her . She was able to answer most of the questions. She is quite distressed due to her symptoms. She endorses symptoms as above. Denies fever, dysuria, diarrhea, headache, photophobia. 06/21-patient currently on diltiazem drip. Case discussed with Dr. christo Ellington cardiology. Cardiology recommends continuing to hold anticoagulation until such time deemed appropriate by GI to reinitiate. Case discussed with the air conditioning insulation installer Dr. Sidhu. Patient will undergo upper and lower endo scopy in 24 hours for evaluation of GI bleed. Currently patient on diltiazem drip rate controlled. Restart home dose Cardizem. - Constitutional Vitals: Vital Signs Temp Pulse Resp BP Pulse Ox 97.1 F 116 H 19 147/97 95 06/21/19 08:02 06/21/19 06:18 06/21/19 11:01 06/21/19 11:01 06/21/19 11:01 Period Temp Pulse Resp BP Sys/Fitch Pulse Ox Last 24 Hr 97.1 F-98.6 F 34-133 11-36 96-162/63-118 82-100 Intake and Output 06/20/19 06/21/19 06/21/19 21:59 05:59 13:59 Intake Total 1246 755 422 Output Total 516 456 3125 Balance 1071 280 -678 Weight 69.456 kg 69.456 kg Patient Weight 06/22/19 05:59 Weight 69.456 kg Intake & Output: Intake & Output 06/20/19 06/21/19 06/21/19 21:59 05:59 13:59 Intake Total 1246 755 422 Output Total 548 550 3881 Balance 1071 280 -678 Weight 69.456 kg 69.456 kg Intake: IV 1006 395 302 Sodium Chloride 0.9% 1,000 ml @ 276 205 50 mls/hr IV .Q20H [facility] Rx#: [id number] Cardizem 125 mg In Dextrose 5% 6 119 97 in Water 100 ml @ 5 MG/HR 5 mls /hr IV Q12H [facility] Rx#:[id number] Lactated Ringers 1,000 ml @ 1000 Wide Open IV BOLUS ONE Rx#: [id number] Oral 240 360 120 Output: Void Amount [phone] Other: Meal Dinner Breakfast Percent of Meal Consumed 50% 100% Feeding Ability Independent Independent Urine Appearance Clear Clear Clear Urine Color Bright Yellow Dark Yellow Bright Yellow Exam: General: Alert, Awake, No acute Distress Eyes/N/T: EOMI, Head/Neck: neck supple, CV: irreg irreg, No murmurs, Pulm: Clear b/l, no wheezing/rhonchi/rales Abd: soft, nontender, +BS x4 Ext: no clubbing/cyanosis/edema Neuro: Alert, no focal deficits, moves all extremities, Skin: warm/dry Medical - PN: Obj Da - Labs CBC & Chem 7: 06/21/19 03:50 06/21/19 03:50 Labs: Abnormal Lab Results 06/21/19 06/21/19 06/20/19 03:50 03:50 20:00 WBC 11.3 H RBC 3.07 L Hgb 9.2 L Hct 28.5 L POC Hct RDW 15.8 H Gran # [place] # (Auto) Myelocytes % 1 H Nucleated RBCs 1 H RBC Morphology Abnorm A Polychromasia 1+ A Hypochromasia 1+ A POC Potassium Potassium POC Chloride Carbon Dioxide POC Total CO2 POC BUN BUN 54 H Creatinine 2.0 H POC Creatinine Glucose 137 H POC Glucose Uric Acid 9.8 H GGT 136 H AST 199 H ALT 216 H Alkaline Phosphatase 223 H Lactate Dehydrogenase 346 H Albumin/Globulin Ratio Ur Leukocyte Esterase 75 A Urine WBC 9 H Hyaline Casts 22 H 06/20/19 06/20/19 13:19 13:19 WBC 13.3 H RBC 3.32 L Hgb 9.9 L Hct 31.2 L POC Hct 30.0 L RDW 15.3 H Gran # 9.7 H [place] # (Auto) 1.1 H Myelocytes % Nucleated RBCs RBC Morphology Polychromasia Hypochromasia POC Potassium 5.4 H Potassium 5.5 H POC Chloride 109 H Carbon Dioxide 18 L POC Total CO2 20 L POC BUN 64 H BUN 64 H Creatinine 2.5 H POC Creatinine 2.8 H Glucose 123 H POC Glucose 121 H Uric Acid GGT AST 258 H ALT 220 H Alkaline Phosphatase 217 H Lactate Dehydrogenase Albumin/Globulin Ratio 0.9 L Ur Leukocyte Esterase Urine WBC Hyaline Casts Meds: Medications Acetaminophen (Tylenol) 650 mg PO Q4-6HP PRN; Protocol PRN Reason: Per Pain Protocol/Fever > 101 Clonidine HCl (Catapres) 0.3 mg PO BID [facility] Last Admin: 06/21/19 10:00 Dose: 0.3 mg Documented by: Dextrose (Dextrose 50%) 0 ml IV UD PRN PRN Reason: Hypoglycemia Diagnostic Test (Pha) (Accu-Chek) 1 each FS ACHS [facility] Last Admin: 06/21/19 11:40 Dose: 1 each Documented by: Diltiazem HCl (Cardizem Cd) 480 mg PO DAILY [facility] Last Admin: 06/21/19 09:57 Dose: 480 mg Documented by: Docusate Sodium (Colace) 100 mg PO BID [facility] Last Admin: 06/21/19 08:06 Dose: 100 mg Documented by: Furosemide (Lasix) 20 mg PO DAILY [facility] Last Admin: 06/21/19 10:01 Dose: 20 mg Documented by: Glucose (Insta-Glucose) 15 gm PO PRN PRN PRN Reason: Hypoglycemia Hydrochlorothiazide (Oretic) 25 mg PO DAILY [facility] Last Admin: 06/21/19 09:59 Dose: 25 mg Documented by: Acetaminophen (irm) 650 mg in 65 mls @ 130 mls/hr IV Q6HP PRN; Protocol PRN Reason: Per Pain Protocol/Fever > 101 Magnesium Sulfate (Magnesium Sulfate) 2 gm in 50 mls @ 50 mls/hr IV UD PRN PRN Reason: MG = or < 1.7 Diltiazem HCl 125 mg/ Dextrose 125 mls @ 5 mls/hr IV Q12HP PRN; Protocol PRN Reason: Tachyarrhythmias Insulin Human Lispro (Humalog) 0 unit SQ ACHS [facility]; Protocol Last Admin: 06/21/19 12:25 Dose: Not Given Documented by: Iron Carb/Multivit/[place]/Folic Acid (Multivitamin W/Minerals) 1 tab PO DAILY [facility] Last Admin: 06/21/19 08:06 Dose: 1 tab Documented by: Levothyroxine Sodium (Synthroid) 50 mcg PO ACB [facility] Last Admin: 06/21/19 10:02 Dose: 50 mcg Documented by: Losartan Potassium (Cozaar) 50 mg PO DAILY [facility] Last Admin: 06/21/19 09:59 Dose: 50 mg Documented by: Melatonin (Melatonin 3mg Tablet) 3 mg PO HS [facility] Metformin HCl (Glucophage) 500 mg PO DAILY@1800 [facility] Metoprolol Succinate (Toprol Xl) 100 mg PO DAILY [facility] Last Admin: 06/21/19 09:58 Dose: 100 mg Documented by: Omeprazole (Prilosec) 40 mg PO QAMAC [facility] Last Admin: 06/21/19 09:55 Dose: 40 mg Documented by: Ondansetron HCl (Zofran) 4 mg IV Q4-6HP PRN; Protocol PRN Reason: Nausea And Vomiting Last Admin: 06/21/19 10:19 Dose: 4 mg Documented by: Ondansetron HCl (Zofran Odt) 4 mg SL Q4-6HP PRN PRN Reason: Nausea Polyethylene Glycol (Miralax) 17 gm PO DAILY [facility] Potassium Chloride (Klor-Con) 40 meq PO DAILYP PRN PRN Reason: K+ < 3.5 Potassium Chloride (Kdur) 20 meq PO 5XD [facility] Last Admin: 06/21/19 12:30 Dose: Not Given Documented by: Senna/Docusate Sodium (Senna Plus Tablet) 1 tab PO HS [facility] Last Admin: 06/20/19 20:17 Dose: Not Given Documented by: Simvastatin (Zocor) 10 mg PO HS [facility] Sodium Chloride (Saline Flush) 10 ml IV Q8 [facility] Last Admin: 06/21/19 05:06 Dose: Not Given Documented by: Sucralfate (Carafate) 1 gm PO BID [facility] Medical - PN: A/P - Time Spent With Patient Total time spent is greater than 50% in coordination of care (as documented) at patient's floor/unit and/or counseling patient: - Narrative A/P Narrative: A: *Acute cholecystitis w/transaminitis: -ultrasound consistent with acute cholecystitis *AFib w/RVR: -Echo reviewed from May 2019 -Case d/w [place] cardiology Dr. Mahoney; Advised to continue holding anticoagulation until approved by GI for initiation. *Lower GI bleed: -Patient has known history of hemorrhoids s/p hemorrhoidectomy by Dr. Black in the past *Volume depletion w/metabolic acidosis: Improving with crystalloids *RODRIGUEZ on CKD III-IV: *DM II: *Hypothyroidism: *Moderate Pulm HTN at baseline: *CAD: continue aspirin/beta-aman/statin *HTN: Plan: -Dr. Adams following -Zosyn -Dr. Schaefer following, likely endoscopy tomorrow -Nephrology following -npo except meds -nephrology consult -Continue anticoagulation on hold as per cardiology recommendations -continue home Dilt/BB/Clonidine, hold ARB/thiazide/lasix until renal function improves -continue CC diet/sliding scale insulin, hold metformin until renal fxn improved -PT OT -ppx: Prophylaxis SCDs, anticoagulation (rivaroxaban) on hold full code Medical - PN: Qual - VTE Deep Vein Thrombosis/Pulmonary Embolism Present on Admission: No
[2019-06-21] MEDS: PIPERACILLIN SODIUM/TAZOBACTAM 2.25 GM in DEXTROSE 5% IN WATER 50 ML IV SCH ×3 (14:31→23:42)
[2019-06-21 15:09] LABS: Creatinine,Urine Random 39.9 mg/dl
--- NOTE | 2019-06-21 15:57 | General Surgery Consult Note ---
History of Present Illness Patient information: Note initiated : 06/21/19 at 3:56 pm Service Date, if different from initiated Date: [] Patient: Joanne Nguyễn 79 y/o F admitted on 06/20/19 for Rectal bleed. Chief Complaint: [] Reason for consult: abdominal pain Requesting physician: Pancho Guo History of present illness: 79-year-old female who is being seen for evaluation of recurrent nausea, vomiting and upper abdominal pain. The patient states that she is had recurrent symptoms since her last admission which was 18 MAY 2019. AT THAT TIME SHE PRESENTED WITH A 10 DAY HISTORY OF UPPER ABDOMINAL PAIN WITH NAUSEA AND VOMITING. EVALUATION REVEALED ACUTE PYELONEPHRITIS WITH SEPSIS DUE TO ESCHERICHIA COLI. SHE HAD ESCHERICHIA COLI BACTEREMIA. AT THAT TIME SHE GAVE A HISTORY OF HAVING ABDOMINAL PAIN AFTER EACH MEAL. SHE HAS HAD PROGRESSIVE DETE RIORATION AND PRESENTED TO HER OUTPATIENT CLINIC WITH EVIDENCE OF DEHYDRATION DUE TO RECURRENT NAUSEA AND VOMITING. SHE WAS TREATED PRIMARILY AN OUTPATIENT. ON PRESENTATION TO THE EMERGENCY ROOM ON YESTERDAY SHE HAD ATRIAL FIBRILLATION WITH RAPID VENTRICULAR RESPONSE WITH SERUM CREATININE OF 2.5, POTASSIUM 5.5, BUN 65, HEMOGLOBIN 9.9. SHE ALSO HAD MILD ELEVATION OF HER LFTS. BECAUSE OF THIS, SHE HAD UPPER ABDOMINAL ULTRASOUND WHICH SHOWED MULTIPLE GALLSTONES WITH THICKENED GALLBLADDER WALL. NORMAL COMMON BILE DUCT WITHOUT EVIDENCE OF COMMON BILE DUCT STONES. THE PATIENT STATES THAT SHE HAS NAUSEA AND VOMITING AND PAIN AFTER FEMALE AND HER SYMPTOMS ARE PRIMARILY EPIGASTRIC AND RIGHT UPPER QUADRANT. SHE IS SCHEDULED TO HAVE UPPER ENDOSCOPY BY GI TOMORROW. SHE DID HAVE SOME BRIGHT RED RECTAL BLEEDING. SHE HAD BEEN STARTED ON SOME XARELTO AND THIS WAS DISCONTINUED ON WEDNESDAY. PATIENT PRESENTLY COMPLAINS OF UPPER ABDOMINAL DISCOMFORT AND POSTPRANDIAL NAUSEA. SHE HAS BEEN AFEBRILE. her present white blood count 11.1, hemoglobin 9.2, hematocrit 28.5, BUN 54, creatinine 2.0. She also has some elevation in her transaminases and alkaline phosphatase. Patient has significant dehydration at this time and will need to be further rehydrated preoperatively. She also needs to have an echocardiogram, which has not been done. She has been off Xarelto and should continue off for the time being. I will wait and see what the results of her upper endoscopy are but have counseled her and her for laparoscopic cholecystectomy to be done on Wednesday. Review of Systems - Constitutional anorexia, fatigue, malaise, weight loss - EENT Nose, mouth and throat: dizziness - Cardiovascular irregular heart rhythm, palpatations, rapid heart rate - Respiratory cough, dyspnea on exertion - Gastrointestinal abdominal pain, bloating, dyspepsia, nausea, vomiting - Genitourinary Genitourinary: no dysuria, no urinary frequency, no urinary hesitancy, no urinary incontinence, no urinary urgency - Musculoskeletal arthralgias, back pain - Integumentary no non-healing lesions, no pruritus, no rash - Neurological weakness, no abnormal gait, no confusion, no dizziness, no headache(s) - Psychiatric anxiety, depression - Endocrine palpitations, no fatigue - Hematologic/Lymphatic no easy bleeding, no easy bruising, no lymphadenopathy - Allergic/Immunologic no tongue swelling, no throat swelling, no uticaria, no wheezing, no lip swelling Past History Past medical history: Hypertension. Diabetes mellitus type 2. Hypothyroidism. History of acute pyelonephritis with acute renal failure (May 2019 ). History of paroxysmal atrial fibrillation with rapid ventricular response since May 2019. Presently on Cardizem Past surgical history: Right total knee arthroplasty. Right total hip arthroplasty. Bladder repair Past family history: Father due to cancer Mother due to heart attack; she also has hypertension. Sibling with history of coronary artery disease and heart attack Past social history: Never smoker. Denies alcohol use Medications and Allergies Home Medications Medication Instructions Recorded Confirmed Type Hydrochlorothiazide [Oretic] 25 mg PO DAILY 10/26/16 06/20/19 History Levothyroxine [Synthroid] 50 mcg PO ACB 10/26/16 06/20/19 History Potassium Chloride [Kdur] 20 meq PO 5XD 10/26/16 06/20/19 History Simvastatin [Zocor] 10 mg PO HS 10/26/16 06/20/19 History cloNIDine HCL [Catapres] 0.3 mg PO BID 10/26/16 06/20/19 History metFORMIN HCL [Metformin ER 500 mg PO DAILY@1800 10/26/16 06/20/19 History Osmotic] Metoprolol Succinate [Toprol Xl] 100 mg PO DAILY 08/25/17 06/20/19 History Diltiazem [Cardizem Cd] 480 mg PO DAILY #30 cap.xl.24h 05/25/19 06/20/19 Rx Losartan [Cozaar] 50 mg PO DAILY #30 tab 05/25/19 06/20/19 Rx Rivaroxaban [Xarelto] 15 mg PO QPMCC #30 tab 05/25/19 06/20/19 Rx Ondansetron [Zofran ODT] 4 mg SL Q4-6HP PRN #10 tab 06/15/19 06/20/19 Rx Furosemide [Lasix] 20 mg PO DAILY 06/20/19 06/20/19 History Melatonin 5 mg PO HS 06/20/19 06/20/19 History Omeprazole 40 mg PO QAM 06/20/19 06/20/19 History Polyethylene Glycol 3350 [Miralax] 1 dose PO DAILY 06/20/19 06/20/19 History Sucralfate [Carafate] 1 gm PO BID 06/20/19 06/20/19 History Allergies Allergy/AdvReac Type Severity Reaction Status Date / Time hydrocodone Allergy Vomiting Verified 06/15/19 14:15 oxycodone [Oxycodone] AdvReac Mild Vomiting Verified 06/15/19 09:40 Sulfa (Sulfonamide AdvReac Mild Redness of Verified 06/15/19 09:40 Antibiotics) Skin Exam Temp Pulse Resp BP Pulse Ox 97.1 F 116 H 18 144/92 95 06/21/19 08:02 06/21/19 06:18 06/21/19 15:03 06/21/19 15:03 06/21/19 15:03 - General physical appearance well developed, well nourished, moderate pain, chronically ill - Eyes PERRL, normal ocular movement - ENT normal pinna, normal nares, normal mucosa, no hearing loss, no congestion - Head Head exam IM: Present: atraumatic, normal inspection, normocephalic - Neck no masses, no bruits, trachea midline, no lymphadenopathy, no venous distension - Cardiovascular Cardiovascular exam IM: Present: normal rate and rhythm, irregular rhythm, +S1, +S2, tachycardia - Respiratory normal expansion, normal respiratory effort, clear to auscultation - Abdomen Abdomen: Present: soft, tender (tenderness to palpation in epigastrium and right upper quadrant with guarding in the right upper quadrant), bowel sounds Hernia: Present: none - Genitourinary Present: normal external genitalia - Integumentary Present: no rash, no growths, no abnormal pigmentation - Neurologic Present: normal coordination, normal sensation - Musculoskeletal Present: other (. Gait and stance are not tested) - Psychiatric Present: oriented to time, oriented to person, oriented to place, speech is normal, memory intact Results - Labs 06/21/19 03:50 06/21/19 03:50 Abnormal lab results 06/20/19 06/21/19 06/21/19 Range/Units 20:00 03:50 03:50 WBC 11.3 H (4.5-11.0) K/mcL RBC 3.07 L (4.00-5.20) M/mcL Hgb 9.2 L (12.0-15.0) g/dL Hct 28.5 L (36.0-48.0) % RDW 15.8 H (11.5-14.5) % Myelocytes % 1 H (0-0) % Nucleated RBCs 1 H (0-0) % RBC Morphology Abnorm A (NORMAL) Polychromasia 1+ A (NONE SEEN) Hypochromasia 1+ A (NONE SEEN) BUN 54 H (8-23) mg/dl Creatinine 2.0 H (0.6-1.1) mg/dl Glucose 137 H (70-105) mg/dL Uric Acid 9.8 H (2.5-8.0) mg/dL GGT 136 H (5-36) U/L AST 199 H (0-37) U/l ALT 216 H (0-40) U/l Alkaline Phosphatase 223 H (39-117) U/L Lactate Dehydrogenase 346 H (94-250) U/L Ur Leukocyte Esterase 75 A (NEG) /uL Urine WBC 9 H (0-4) /hpf Hyaline Casts 22 H (0-2) /lpf Diabetes panel 06/21/19 Range/Units 03:50 Sodium 139 (133-145) mmol/L Potassium 3.7 (3.3-5.1) mmol/L Chloride 101 (96-108) mmol/L Carbon Dioxide 25 (22-30) mmol/L BUN 54 H (8-23) mg/dl Creatinine 2.0 H (0.6-1.1) mg/dl Glucose 137 H (70-105) mg/dL Calcium 8.8 (8.6-10.4) mg/dl AST 199 H (0-37) U/l ALT 216 H (0-40) U/l Alkaline Phosphatase 223 H (39-117) U/L Total Protein 6.4 (5.9-8.4) gm/dL Albumin 3.3 (3.2-5.2) gm/dL Triglycerides 88 (<150) mg/dl Calcium panel 06/21/19 Range/Units 03:50 Calcium 8.8 (8.6-10.4) mg/dl Phosphorus 4.1 (2.7-4.5) mg/dL Albumin 3.3 (3.2-5.2) gm/dL Pituitary panel 06/21/19 Range/Units 03:50 Sodium 139 (133-145) mmol/L Potassium 3.7 (3.3-5.1) mmol/L Chloride 101 (96-108) mmol/L Carbon Dioxide 25 (22-30) mmol/L BUN 54 H (8-23) mg/dl Creatinine 2.0 H (0.6-1.1) mg/dl Glucose 137 H (70-105) mg/dL Calcium 8.8 (8.6-10.4) mg/dl Adrenal panel 06/21/19 Range/Units 03:50 Sodium 139 (133-145) mmol/L Potassium 3.7 (3.3-5.1) mmol/L Chloride 101 (96-108) mmol/L Carbon Dioxide 25 (22-30) mmol/L BUN 54 H (8-23) mg/dl Creatinine 2.0 H (0.6-1.1) mg/dl Glucose 137 H (70-105) mg/dL Calcium 8.8 (8.6-10.4) mg/dl Total Bilirubin 0.5 (0.0-1.0) mg/dL AST 199 H (0-37) U/l ALT 216 H (0-40) U/l Alkaline Phosphatase 223 H (39-117) U/L Total Protein 6.4 (5.9-8.4) gm/dL Albumin 3.3 (3.2-5.2) gm/dL All other labs normal. Assessment and Plan (1) Cholelithiasis and acute cholecystitis without obstruction Patient is counseled for cholecystectomy to be performed tentatively on June 20 She is to continue on IV antibiotics until that time. I will wait until GI has completed the upper endoscopy for those results. continue TO Withhold XARELTO Status: Acute (2) Atrial fibrillation with rapid ventricular response Echocardiogram to be done with over read by cardiology Status: Acute (3) RODRIGUEZ (acute kidney injury) Continue aggressive rehydration Status: Acute Priority: High (4) Dehydration Status: Acute (5) Diabetes mellitus, type 2 Status: Chronic (6) Hypertension, essential Status: Chronic
[2019-06-21] MEDS ORDERED: metFORMIN 500 MG TAB.XL.24H PO SCH (18:00)
[2019-06-21] MEDS: SUCRALFATE 1 GM TABLET PO SCH (20:02)
[2019-06-21] MEDS: SENNOSIDES/DOCUSATE SODIUM 1 TAB TABLET PO SCH (20:02)
[2019-06-21] MEDS ORDERED: MELATONIN 3 MG TABLET PO SCH (21:00)
[2019-06-21] MEDS ORDERED: SIMVASTATIN 10 MG TABLET PO SCH (21:00)
[2019-06-21] MEDS ORDERED: NON FORMULARY MEDICATION 1 DOSE MISCELL (Melatonin 5 MG) PO SCH (21:00)
[2019-06-22 04:55] LABS: Hematocrit 26.6 % (36.0-48.0); Hemoglobin 8.9 g/dL (12.0-15.0); Mean Cell Volume 92.3 fL (80.0-100.0); Mean Corpuscular HGB Conc 33.5 g/dL (31.0-36.0); Mean Platelet Volume 8.3 fL (7.4-10.4); Platelet Count 268 K/mcL (140-440); RBC 2.89 M/mcL (4.00-5.20); Red Cell Distribution Width 15.6 % (11.5-14.5); WBC 12.3 K/mcL (4.5-11.0)
[2019-06-22 05:27] LABS: C-Reactive Protein 1.4 mg/dl (0.0-0.8); Iron 28 mcg/dl (37-145); TIBC Calculation 215 ug/dl (228-428); Transferrin % Saturation 13 % (15-50)
[2019-06-22 05:38] LABS: Anisocytosis 1+ (NONE SEEN); Lymphocytes % 14 % (15-49); Monocytes % (Manual) 1 % (1-12); Platelet Estimate NORMAL (NORMAL); Polychromasia 1+ (NONE SEEN); RBC Morphology ABNORMAL (NORMAL); Segmented Neutrophils % 85 % (38-78)
[2019-06-22 05:41] LABS: ALT/SGPT 163 U/l (0-40); AST/SGOT 98 U/l (0-37); Albumin 2.9 gm/dL (3.2-5.2); Alkaline Phosphatase 194 U/L (39-117); Bilirubin,Direct 0.2 mg/dL (0.0-0.3); Bilirubin,Total 0.7 mg/dL (0.0-1.0); Calcium 8.5 mg/dl (8.6-10.4); Carbon Dioxide 26 mmol/L (22-30); Chloride 102 mmol/L (96-108); Glomerular Filtration Rate 31; Glucose 104 mg/dL (70-105); Lactate Dehydrogenase 240 U/L (94-250); Triglycerides 77 mg/dl (<150)
[2019-06-22] MEDS: PIPERACILLIN SODIUM/TAZOBACTAM 2.25 GM in DEXTROSE 5% IN WATER 50 ML IV SCH ×3 (05:45→17:26)
[2019-06-22] MEDS: 0.9 % SODIUM CHLORIDE 10 ML SYRINGE IV SCH ×3 (05:45→21:33)
[2019-06-22 05:47] LABS: Blood Urea Nitrogen 35 mg/dl (8-23); Phosphorous 2.3 mg/dL (2.7-4.5); Uric Acid 6.7 mg/dL (2.5-8.0)
--- NOTE | 2019-06-22 06:48 | Nephrology Progress Note ---
Subjective Patient information: Note initiated : 06/22/19 at 6:46 am Patient: Joanne Nguyễn 79 y/o F admitted on 06/20/19 for Rectal bleed. Chief Complaint: Weakness Pertinent ROS: Feels better Weakness No Ellis catheter No edema Objective - Vital Signs Vital signs: Vital Signs Temp Pulse Resp BP Pulse Ox 06/22/19 05:01 13 123/77 95 06/22/19 04:01 98.7 F 22 127/78 96 06/22/19 03:01 16 127/82 96 06/22/19 02:01 17 123/75 97 06/22/19 02:00 91 H 17 98 06/22/19 01:01 14 110/67 99 06/22/19 00:01 97.6 F 14 109/68 99 06/21/19 23:01 14 94/55 93 06/21/19 22:01 17 101/62 94 06/21/19 21:01 18 106/73 97 06/21/19 20:03 22 120/85 98 06/21/19 19:01 98.0 F 22 118/61 99 06/21/19 18:49 20 98 06/21/19 18:01 17 120/80 98 06/21/19 17:18 16 113/66 98 06/21/19 16:01 97.4 F 142/80 96 06/21/19 15:03 18 144/92 95 06/21/19 14:01 15 130/63 97 06/21/19 13:01 18 128/91 06/21/19 12:40 15 126/82 06/21/19 12:01 19 129/100 93 06/21/19 11:01 19 147/97 95 06/21/19 10:01 18 135/71 97 06/21/19 09:01 18 148/90 97 06/21/19 08:03 19 157/86 90 06/21/19 08:02 97.1 F 20 157/86 94 06/21/19 07:01 19 134/97 Intake and Output 06/21/19 06/22/19 06/22/19 21:59 05:59 13:59 Intake Total 580 390 Output Total 650 750 Balance -70 -360 Intake: IV 100 50 Zosyn 2.25 gm In Dextrose 5% in 100 50 Water 50 ml @ 100 mls/hr IV Q6H LILLIAN Rx#:[id number] Oral 480 340 Output: Void Amount 650 750 Other: Meal Nourishment/Supplement Percent of Meal Consumed 50% Feeding Ability Independent Nourishment/Supplement name applesauce with meds Urine Appearance Clear Clear Urine Color Pale Bright Yellow Weight 149 lb 5 oz Intake & Output: Intake & Output 06/21/19 06/22/19 06/22/19 21:59 05:59 13:59 Intake Total 580 390 Output Total 650 750 Balance -70 -360 Weight 149 lb 5 oz Intake: IV 100 50 Zosyn 2.25 gm In Dextrose 5% in 100 50 Water 50 ml @ 100 mls/hr IV Q6H LILLIAN Rx#:[id number] Oral 480 340 Output: Void Amount 650 750 Other: Meal Nourishment/Supplement Percent of Meal Consumed 50% Feeding Ability Independent Nourishment/Supplement name applesauce with meds Urine Appearance Clear Clear Urine Color Pale Bright Yellow - General Appearance General appearance: appears started age, fatigue EENT: mucous membranes moist Neck: supple Respiratory: clear Cardiology: no edema Gastrointestinal: no tenderness Integumentary: warm and dry Neurologic: no focal deficit, alert and oriented x3 Musculoskeletal: no deformities Psychiatric: mood/affect appropriate, cooperative - Lab 06/22/19 03:42 06/22/19 03:42 Most recent lab results Calcium 8.5 mg/dl (8.6-10.4) L 06/22/19 03:42 Phosphorus 2.3 mg/dL (2.7-4.5) L 06/22/19 03:42 Magnesium 2.1 mg/dL (1.6-2.5) 06/22/19 03:42 Assessment and Plan (1) ARF (acute renal failure) Joanne Nguyễn is a 79-year-old female with coronary artery disease s/p CABG and stents, hypertension, hyperlipidemia, hypothyroidism, diabetes mellitus type 2, recent admission for E Coli bacteremia and pyelonephritis in May 2019, admitted on 06/20/19. She presented to ED for nausea and not able to eat. She also noted blood smeared stool and on toilet paper. Initial work-up was consistent with acute kidney injury, atrial fibrillation with RVR and elevated LFTs. Acute kidney injury with initial hyperkalemia and metabolic acidosis, associated with suspected decreased renal perfusion due to recent nausea/vomiting, diuretic use and atrial fibrillation with RVR, present on arrival. She had no recent IV contrast or NSAIDs. Recent work up: Urinalysis on 05/18/19: Straw, Clear, pH 5.0, SG 1.009, protein negative, occult blood 0.2, leukocyte esterase 25, urine WBC 14. CT Abdomen and Pelvis without contrast on 05/18/19: Kidneys show slight inhomogeneity and perinephric fat stranding which is suggestive, but not diagnostic, diffuse renal inflammation such as glomerulonephritis. 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 Current work up: Urinalysis on 06/20/19: Yellow, Clear, pH 5.0, SG 1.012, protein negative, occult blood negative, leukocyte esterase 75. Random urine total protein/creatinine ratio on 06/21/19: 9/39.9= 225 mg/g creatinine. Labs on 06/21/19: TIBC 13%, CRP 1.4, ESR 43. Labs on 06/21/19: Serum free kappa/lambda light chain ratio, C3, C4, ANCA screen, anti-GBM Ab, Vitamin D Total (25-Hydroxy), PTH (intact) pending. Progress: Creatinine decreased from 2.0 to 1.6 in the past 24 hours. Urine output: 2500 reported in the past 24 hours. No fluid overload. Recommendations: Anticipate no hemodialysis need. Avoid NSAIDs, nephrotoxic medications and IV contrast. Hold SIMONE/ARB. Monitor BMP and urine output. Outpatient follow up appointment on 06/28/19 at 15:00 with me scheduled. BMP on 06/26/19 before the appointment. Status: Acute Priority: High Qualifiers: Acute renal failure type: unspecified Qualified Code(s): N17.9 - Acute kidney failure, unspecified
[2019-06-22 07:21] LABS: Parathyroid Hormone Intact-SO 145.5 pg/ml (15-65); Vitamin D 25 Hydroxy-SO 59.94 ng/mL (>=30)
[2019-06-22] MEDS: SUCRALFATE 1 GM TABLET PO SCH ×2 (07:28→21:32)
[2019-06-22] MEDS: OMEPRAZOLE 20 MG CAPSULE PO SCH (07:28)
[2019-06-22] MEDS: INSULIN LISPRO 1 UNIT/0.01 ML UNIT SQ SCH ×5 (07:29→21:32)
[2019-06-22] MEDS: LEVOTHYROXINE 50 MCG TABLET PO SCH (07:31)
--- NOTE | 2019-06-22 07:38 | Internal Med Progress Note ---
Medical - PN: Subj Patient information: Note initiated : 06/22/19 at 7:34 am Service Date, if different from initiated Date: [] Patient: Joanne Nguyễn a 79 y/o F admitted on 06/20/19 for Rectal bleed. Chief Complaint: [] Interval history: Ms. Nguyễn is a 79 year old F with a known history of CAD/CABG, CKD stage III, HTN, HLD and DM type II who was recently discharged following sepsis secondary to E. coli bacteremia and pyelonephritis. She was discharged and completed 10 days antibiotics. Patient has been intermittently nauseous with episodic retching. She has not been able to eat normal diet. Symptoms are triggered after each meals. She denies food getting stuck in her throat or dysphagia to solids but preferentially takes liquids as she does well with those. She has been taking Zofran to alleviate her symptoms. She has had a progressive decline with severe dehydration due to inability to keep fluids down. She was seen at primary care physician Wilbur garsia office and was given IV fluids. She was diagnosed with dehydration. However within 24 hours patient comes back after she noted blood smeared stool and on toilet paper. She however denies large volume bloody bowel. She endorses it was fresh blood. She presents to the ER with combination of above symptoms. Initial work-up was consistent with A. fib with RVR, elevated creatinine at 2.5, elevated potassium 5.5, BUN 65 but hemoglobin at 9.9. However negative digital rectal exam for blood. She also had elevated LFTs and underwent abdominal ultrasound. Subsequently hospitalist service was consulted after it was controlled on diltiazem drip. Of note patient has been seen by gang tailer Dr. Stout office and anticoa gulated was held until she was to see GI for endoscopy evaluation. She is yet to schedule an appointment with Dr. Black at [facility]. At the time of evaluation patient is accompanied with her . She was able to answer most of the questions. She is quite distressed due to her symptoms. She endorses symptoms as above. Denies fever, dysuria, diarrhea, headache, photophobia. 06/21-patient currently on diltiazem drip. Case discussed with Dr. christo Ellington cardiology. Cardiology recommends continuing to hold anticoagulation until such time deemed appropriate by GI to reinitiate. Case discussed with the fuse cup expander Dr. Sidhu. Patient will undergo upper and lower endo scopy in 24 hours for evaluation of GI bleed. Currently patient on diltiazem drip rate controlled. Restart home dose Cardizem. 06/22 Patient off diltiazem drip yesterday. On home diltiazem and Toprol. No overnight events or new complaints. Some nausea earlier resolved now. Heart rate is been 80s to low 100's. Reports some constipation now. Review of Systems: denies headache/fever/chills/vomiting/chest or abdominal pain/cough/dyspnea/diarrhea. Otherwise see above. - Constitutional Vitals: Vital Signs Temp Pulse Resp BP Pulse Ox 98.7 F 91 H 18 132/79 96 06/22/19 07:01 06/22/19 02:00 06/22/19 07:01 06/22/19 07:01 06/22/19 07:01 Period Temp Pulse Resp BP Sys/Fitch Pulse Ox Last 24 Hr 97.1 F-98.7 F 91 13-22 94-157/55-100 90-99 Intake and Output 06/21/19 06/22/19 06/22/19 21:59 05:59 13:59 Intake Total 580 390 50 Output Total 650 750 Balance -70 -360 50 Weight 67.727 kg Intake & Output: Intake & Output 06/21/19 06/22/19 06/22/19 21:59 05:59 13:59 Intake Total 580 390 50 Output Total 650 750 Balance -70 -360 50 Weight 67.727 kg Intake: IV 100 50 50 Zosyn 2.25 gm In Dextrose 5% in 100 50 50 Water 50 ml @ 100 mls/hr IV Q6H [facility] Rx#:[id number] Oral 480 340 Output: Void Amount 650 750 Other: Meal Nourishment/Supplement Percent of Meal Consumed 50% Feeding Ability Independent Nourishment/Supplement name applesauce with meds Urine Appearance Clear Clear Urine Color Pale Bright Yellow Exam: General: Alert, Awake, No acute Distress Eyes/N/T: EOMI, Head/Neck: neck supple, CV: irreg irreg, No murmurs, Pulm: Clear b/l, no wheezing/rhonchi/rales Abd: soft, nontender, +BS x4 Ext: no clubbing/cyanosis/edema Neuro: Alert, no focal deficits, moves all extremities, Skin: warm/dry Medical - PN: Obj Da - Labs CBC & Chem 7: 06/22/19 03:42 06/22/19 03:42 Labs: Abnormal Lab Results 06/22/19 06/22/19 06/22/19 03:42 03:42 03:42 WBC RBC Hgb Hct POC Hct RDW Gran # Titus # (Auto) Seg Neutrophils % Lymphocytes % Myelocytes % Nucleated RBCs RBC Morphology Polychromasia Hypochromasia Anisocytosis ESR 43 H POC Potassium Potassium POC Chloride Carbon Dioxide POC Total CO2 POC BUN BUN Creatinine POC Creatinine Glucose POC Glucose Uric Acid Calcium Phosphorus Iron 28 L TIBC 215 L Transferrin % Sat 13 L GGT AST ALT Alkaline Phosphatase Lactate Dehydrogenase C-Reactive Protein 1.4 H Albumin Albumin/Globulin Ratio PTH Intact 145.5 H Ur Leukocyte Esterase Urine WBC Hyaline Casts 06/22/19 06/22/19 06/21/19 03:42 03:42 03:50 WBC 12.3 H RBC 2.89 L Hgb 8.9 L Hct 26.6 L POC Hct RDW 15.6 H Gran # Titus # (Auto) Seg Neutrophils % 85 H Lymphocytes % 14 L Myelocytes % Nucleated RBCs RBC Morphology Polychromasia 1+ A Hypochromasia Anisocytosis 1+ A ESR POC Potassium Potassium POC Chloride Carbon Dioxide POC Total CO2 POC BUN BUN 35 H 54 H Creatinine 1.6 H 2.0 H POC Creatinine Glucose 137 H POC Glucose Uric Acid 9.8 H Calcium 8.5 L Phosphorus 2.3 L Iron TIBC Transferrin % Sat GGT 115 H 136 H AST 98 H 199 H ALT 163 H 216 H Alkaline Phosphatase 194 H 223 H Lactate Dehydrogenase 346 H C-Reactive Protein Albumin 2.9 L Albumin/Globulin Ratio PTH Intact Ur Leukocyte Esterase Urine WBC Hyaline Casts 06/21/19 06/20/19 06/20/19 03:50 20:00 13:19 WBC 11.3 H 13.3 H RBC 3.07 L 3.32 L Hgb 9.2 L 9.9 L Hct 28.5 L 31.2 L POC Hct RDW 15.8 H 15.3 H Gran # 9.7 H Titus # (Auto) 1.1 H Seg Neutrophils % Lymphocytes % Myelocytes % 1 H Nucleated RBCs 1 H RBC Morphology Abnorm A Polychromasia 1+ A Hypochromasia 1+ A Anisocytosis ESR POC Potassium Potassium POC Chloride Carbon Dioxide POC Total CO2 POC BUN BUN Creatinine POC Creatinine Glucose POC Glucose Uric Acid Calcium Phosphorus Iron TIBC Transferrin % Sat GGT AST ALT Alkaline Phosphatase Lactate Dehydrogenase C-Reactive Protein Albumin Albumin/Globulin Ratio PTH Intact Ur Leukocyte Esterase 75 A Urine WBC 9 H Hyaline Casts 22 H 06/20/19 13:19 WBC RBC Hgb Hct POC Hct 30.0 L RDW Gran # Titus # (Auto) Seg Neutrophils % Lymphocytes % Myelocytes % Nucleated RBCs RBC Morphology Polychromasia Hypochromasia Anisocytosis ESR POC Potassium 5.4 H Potassium 5.5 H POC Chloride 109 H Carbon Dioxide 18 L POC Total CO2 20 L POC BUN 64 H BUN 64 H Creatinine 2.5 H POC Creatinine 2.8 H Glucose 123 H POC Glucose 121 H Uric Acid Calcium Phosphorus Iron TIBC Transferrin % Sat GGT AST 258 H ALT 220 H Alkaline Phosphatase 217 H Lactate Dehydrogenase C-Reactive Protein Albumin Albumin/Globulin Ratio 0.9 L PTH Intact Ur Leukocyte Esterase Urine WBC Hyaline Casts Meds: Medications Acetaminophen (Tylenol) 650 mg PO Q4-6HP PRN; Protocol PRN Reason: Per Pain Protocol/Fever > 101 Clonidine HCl (Catapres) 0.3 mg PO BID [facility] Last Admin: 06/21/19 20:02 Dose: 0.3 mg Documented by: Dextrose (Dextrose 50%) 0 ml IV UD PRN PRN Reason: Hypoglycemia Diagnostic Test (Pha) (Accu-Chek) 1 each FS ACHS [facility] Last Admin: 06/22/19 07:29 Dose: 1 each Documented by: Diltiazem HCl (Cardizem Cd) 480 mg PO DAILY [facility] Last Admin: 06/21/19 09:57 Dose: 480 mg Documented by: Docusate Sodium (Colace) 100 mg PO BID [facility] Last Admin: 06/21/19 20:02 Dose: 100 mg Documented by: Glucose (Insta-Glucose) 15 gm PO PRN PRN PRN Reason: Hypoglycemia Acetaminophen (Ofirmev) 650 mg in 65 mls @ 130 mls/hr IV Q6HP PRN; Protocol PRN Reason: Per Pain Protocol/Fever > 101 Magnesium Sulfate (Magnesium Sulfate) 2 gm in 50 mls @ 50 mls/hr IV UD PRN PRN Reason: MG = or < 1.7 Piperacillin Sod/Tazobactam (Sod 2.25 gm/ Dextrose) 50 mls @ 100 mls/hr IV Q6H [facility]; Protocol Last Infusion: 06/22/19 06:15 Dose: Infused Documented by: Sodium Chloride (Sodium Chloride 0.9%) 1,000 mls @ 50 mls/hr IV .Q20H [facility] Stop: 06/24/19 02:29 Last Admin: 06/21/19 14:32 Dose: 50 mls/hr Documented by: Insulin Human Lispro (Humalog) 0 unit SQ ACHS [facility]; Protocol Last Admin: 06/22/19 07:29 Dose: Not Given Documented by: Iron Carb/Multivit/[place]/Folic Acid (Multivitamin W/Minerals) 1 tab PO DAILY [facility] Last Admin: 06/21/19 08:06 Dose: 1 tab Documented by: Levothyroxine Sodium (Synthroid) 50 mcg PO ACB [facility] Last Admin: 06/22/19 07:31 Dose: 50 mcg Documented by: Melatonin (Melatonin 3mg Tablet) 3 mg PO HS [facility] Last Admin: 06/21/19 20:02 Dose: 3 mg Documented by: Metoprolol Succinate (Toprol Xl) 100 mg PO DAILY [facility] Last Admin: 06/21/19 09:58 Dose: 100 mg Documented by: Omeprazole (Prilosec) 40 mg PO QAMAC [facility] Last Admin: 06/22/19 07:28 Dose: 40 mg Documented by: Ondansetron HCl (Zofran) 4 mg IV Q4-6HP PRN; Protocol PRN Reason: Nausea And Vomiting Last Admin: 06/21/19 10:19 Dose: 4 mg Documented by: Ondansetron HCl (Zofran Odt) 4 mg SL Q4-6HP PRN PRN Reason: Nausea Polyethylene Glycol (Miralax) 17 gm PO DAILY [facility] Potassium Chloride (Klor-Con) 40 meq PO DAILYP PRN PRN Reason: K+ < 3.5 Potassium Chloride (Kdur) 20 meq PO 5XD [facility] Last Admin: 06/21/19 20:01 Dose: 20 meq Documented by: Senna/Docusate Sodium (Senna Plus Tablet) 1 tab PO HS [facility] Last Admin: 06/21/19 20:02 Dose: 1 tab Documented by: Simvastatin (Zocor) 10 mg PO HS [facility] Last Admin: 06/21/19 20:02 Dose: 10 mg Documented by: Sodium Chloride (Saline Flush) 10 ml IV Q8 [facility] Last Admin: 06/22/19 05:45 Dose: 10 ml Documented by: Sucralfate (Carafate) 1 gm PO BID [facility] Last Admin: 06/22/19 07:28 Dose: 1 gm Documented by: Medical - PN: A/P - Time Spent With Patient Total time spent is greater than 50% in coordination of care (as documented) at patient's floor/unit and/or counseling patient: - Narrative A/P Narrative: A: *Acute cholecystitis w/transaminitis: -ultrasound consistent with acute cholecystitis *AFib w/RVR: -Echo reviewed from May 2019 -Case d/w [facility] cardiology Dr. Mahoney; Advised to continue holding anticoagulation until approved by GI for initiation. *Lower GI bleed: -Patient has known history of hemorrhoids s/p hemorrhoidectomy by Dr. Black in the past *Anemia, acute on chronic, from blood loss: -8.9<9.2 *Volume depletion w/metabolic acidosis: Improving with crystalloids *RODRIGUEZ on CKD III-IV: Improved -1.6<2.0<2.5 *DM II: *Hypothyroidism: *Moderate Pulm HTN at baseline: *CAD: continue aspirin/beta-aman/statin *HTN: Plan: -Dr. Schaefer following, plans for endoscopy today -Dr. Adams following, plans for cholecystectomy on Wednesday -Zosyn -Nephrology following, labs pending. and f/u with Neprho outpt -npo except meds, IVF's -nephrology consult -Continue anticoagulation on hold as per cardiology recommendations -continue home Dilt/BB/Clonidine, hold ARB/thiazide/lasix until renal function improves -continue CC diet/sliding scale insulin, hold metformin until renal fxn improved -PT OT -ppx: SCDs, anticoagulation (rivaroxaban) on hold full code Medical - PN: Qual - VTE Deep Vein Thrombosis/Pulmonary Embolism Present on Admission: No
--- NOTE | 2019-06-22 07:51 | XRay Report ---
HISTORY: Follow-up pneumonia and pleural effusions FINDINGS: Patient has mild to moderate alveolar infiltrate in the left lung base, with milder involvement in the right lower lobe. There are mildly prominent increased interstitial lung markings in the mid and upper thorax bilaterally. Small bilateral pleural effusions are present. The pleural effusions have improved since 06/02/19. The left lower lobe infiltrate has become worse. There has been little change in the right side. The heart size is normal. The pulmonary vessels are partially obscured by the superimposed interstitial lung disease. IMPRESSION: Worsening atelectasis or pneumonia in the left lower lobe. Mild generalized interstitial infiltrates throughout both lungs Persistent small bilateral pleural effusions which have improved Interpreted and Authenticated by: William Gauthier 06/22/19
[2019-06-22] MEDS: DILTIAZEM 240 MG CAP.XL.24H PO SCH (08:16)
[2019-06-22] MEDS: DOCUSATE SODIUM 100 MG CAPSULE PO SCH ×2 (08:16→21:29)
[2019-06-22] MEDS: MULTIVIT,THER IRON,CA,FA & MIN 1 TABLET PO SCH (08:16)
[2019-06-22] MEDS: POTASSIUM CHLORIDE 20 MEQ TABLET PO SCH ×6 (08:16→21:31)
[2019-06-22] MEDS: cloNIDine HCL 0.1 MG TABLET PO SCH (08:16)
[2019-06-22] MEDS: METOPROLOL SUCCINATE 50 MG TAB.XL.24H PO SCH (08:16)
[2019-06-22] MEDS ORDERED: POLYETHYLENE GLYCOL 3350 17 GM PACKET PO SCH (09:00)
[2019-06-22 09:26] LABS: Kappa Free Light Chains 27.27 mg/L (3.30-19.40); Lambda Free Light Chains 25.18 mg/L (5.71-26.30)
[2019-06-22 09:59] LABS: INR 1.2 (0.9-1.1)
[2019-06-22] MEDS ORDERED: METOPROLOL TARTRATE 5 MG/5 ML VIAL IV PRN ×2 (11:31→16:43)
[2019-06-22] MEDS ORDERED: POTASSIUM PHOSPHATE 40 MEQ in DEXTROSE 5% IN WATER 500 ML IV ONE (12:12)
[2019-06-22] MEDS: 0.9 % SODIUM CHLORIDE 1,000 ML IV SCH (13:54)
[2019-06-22] MEDS ORDERED: KETAMINE HCL 50 MG/ML ML IV PRN ×2 (16:08→16:43)
[2019-06-22] MEDS ORDERED: MIDAZOLAM 2 MG/2 ML VIAL IV SCH ×2 (16:15→16:43)
[2019-06-22] MEDS ORDERED: PROPOFOL 200 MG/20 ML VIAL IV SCH ×2 (16:15→16:43)
[2019-06-22] MEDS ORDERED: MIDAZOLAM 2 MG/2 ML VIAL ONE (16:29)
[2019-06-22] MEDS ORDERED: PROPOFOL 20 ML IV ONE (16:30)
[2019-06-22] MEDS ORDERED: ACETAMINOPHEN 650 MG/65 ML BOTTLE IV PRN (16:43)
[2019-06-22] MEDS ORDERED: DEXTROSE 50% 50 ML VIAL IV PRN (16:43)
[2019-06-22] MEDS ORDERED: ONDANSETRON 4 MG ODT TABLET SL PRN (16:43)
[2019-06-22] MEDS ORDERED: 0.9 % SODIUM CHLORIDE 1,000 ML IV SCH (16:43)
[2019-06-22] MEDS ORDERED: DEXTROSE 31 GM ORAL.SUSP PO PRN (16:43)
[2019-06-22] MEDS ORDERED: MAGNESIUM SULFATE 2 GM/50 ML BAG IV PRN (16:43)
[2019-06-22] MEDS ORDERED: POTASSIUM CHLORIDE 20 MEQ PACKET PO PRN (16:43)
[2019-06-22] MEDS ORDERED: ACETAMINOPHEN 325 MG TABLET PO PRN (16:43)
[2019-06-22] MEDS ORDERED: ONDANSETRON 4 MG/2 ML VIAL IV PRN (16:43)
[2019-06-22] MEDS ORDERED: 0.9 % SODIUM CHLORIDE 250 ML IV ONE (17:28)
--- NOTE | 2019-06-22 18:03 | General Surgery Progress Note ---
Subjective Patient reports: feels better, still having pain, pain is less, flatus, afebrile Narrative: Note initiated : 06/22/19 at 6:00 pm Service Date, if different from initiated Date: [] Patient: Joanne Nguyễn 79 y/o F admitted on 06/20/19 for Rectal bleed. Chief Complaint: [] Patient is feeling better. She still has tenderness in epigastrium and right upper quadrant with palpation. She had upper endoscopy which showed a mild stricture at the EG junction and mild gastritis. She does not have enough fi ndings to confirm the stomach as the cause of her GI symptoms. Discussed with her the need to proceed with cholecystectomy and she has been added to the schedule for tomorrow. Objective Temp Pulse Resp BP Pulse Ox 97.9 F 54 L 15 72/40 100 06/22/19 17:03 06/22/19 17:03 06/22/19 17:03 06/22/19 17:03 06/22/19 17:03 - Additional Data Intake & Output - Last 24 hours: Intake & Output 06/20/19 06/21/19 06/22/19 06/23/19 05:59 05:59 05:59 05:59 Intake Total 2000 2392 1580 Output Total 650 2500 950 Balance 1351 -108 630 Weight 153 lb 2 oz 149 lb 5 oz - General physical appearance well developed, well nourished, no distress, moderate pain - Eyes PERRL, normal ocular movement - ENT normal pinna, normal nares, normal mucosa, no hearing loss, no congestion - Neck no masses, no bruits, trachea midline, no lymphadenopathy, no venous distension - Respiratory normal expansion, normal respiratory effort, clear to auscultation - Cardiovascular Cardiovascular exam: Present: normal rate and rhythm, +S1, +S2. Absent: JVD, tachycardia (heart rate is well controlled) - Abdomen tender (tenderness in epigastrium and right upper quadrant with guarding; good active bowel sounds) - Integumentary no rash, no growths, no abnormal pigmentation - Neurologic normal coordination, normal sensation - Psychiatric oriented to time, oriented to person, oriented to place, speech is normal, memory intact - Labs 06/22/19 03:42 06/22/19 03:42 Diabetes panel 06/22/19 Range/Units 03:42 Sodium 140 (133-145) mmol/L Potassium 3.3 (3.3-5.1) mmol/L Chloride 102 (96-108) mmol/L Carbon Dioxide 26 (22-30) mmol/L BUN 35 H (8-23) mg/dl Creatinine 1.6 H (0.6-1.1) mg/dl Glucose 104 (70-105) mg/dL Calcium 8.5 L (8.6-10.4) mg/dl AST 98 H (0-37) U/l ALT 163 H (0-40) U/l Alkaline Phosphatase 194 H (39-117) U/L Total Protein 5.9 (5.9-8.4) gm/dL Albumin 2.9 L (3.2-5.2) gm/dL Triglycerides 77 (<150) mg/dl Calcium panel 06/22/19 06/22/19 Range/Units 03:42 03:42 Calcium 8.5 L (8.6-10.4) mg/dl Phosphorus 2.3 L (2.7-4.5) mg/dL Albumin 2.9 L (3.2-5.2) gm/dL 25-OH Vitamin D Total 59.94 (>=30) ng/mL Pituitary panel 06/22/19 Range/Units 03:42 Sodium 140 (133-145) mmol/L Potassium 3.3 (3.3-5.1) mmol/L Chloride 102 (96-108) mmol/L Carbon Dioxide 26 (22-30) mmol/L BUN 35 H (8-23) mg/dl Creatinine 1.6 H (0.6-1.1) mg/dl Glucose 104 (70-105) mg/dL Calcium 8.5 L (8.6-10.4) mg/dl Adrenal panel 06/22/19 Range/Units 03:42 Sodium 140 (133-145) mmol/L Potassium 3.3 (3.3-5.1) mmol/L Chloride 102 (96-108) mmol/L Carbon Dioxide 26 (22-30) mmol/L BUN 35 H (8-23) mg/dl Creatinine 1.6 H (0.6-1.1) mg/dl Glucose 104 (70-105) mg/dL Calcium 8.5 L (8.6-10.4) mg/dl Total Bilirubin 0.7 (0.0-1.0) mg/dL AST 98 H (0-37) U/l ALT 163 H (0-40) U/l Alkaline Phosphatase 194 H (39-117) U/L Total Protein 5.9 (5.9-8.4) gm/dL Albumin 2.9 L (3.2-5.2) gm/dL Assessment and Plan (1) Cholelithiasis and acute cholecystitis without obstruction Status: Acute Assessment and plan: Patient counseled for laparoscopic cholecystectomy which will be performed tomorrow. Current Visit: Yes (2) Atrial fibrillation with rapid ventricular response Status: Resolved Current Visit: Yes (3) RODRIGUEZ (acute kidney injury) Status: Acute Current Visit: No (4) Dehydration Status: Acute Current Visit: No (5) Diabetes mellitus, type 2 Status: Chronic Current Visit: No (6) Hypertension, essential Status: Chronic Current Visit: No - Time Spent With Patient Total time spent is greater than 50% in coordination of care (as documented) at patient's floor/unit and/or counseling patient:
[2019-06-22] MEDS ORDERED: SIMVASTATIN 10 MG TABLET PO SCH (21:00)
[2019-06-22] MEDS ORDERED: SENNOSIDES/DOCUSATE SODIUM 1 TAB TABLET PO SCH (21:00)
[2019-06-22] MEDS ORDERED: cloNIDine HCL 0.1 MG TABLET PO SCH (21:00)
[2019-06-22] MEDS ORDERED: HEPARIN 5,000 UNIT/ML VIAL SQ SCH (21:00)
[2019-06-22] MEDS ORDERED: MELATONIN 3 MG TABLET PO SCH (21:00)
[2019-06-23] MEDS: PIPERACILLIN SODIUM/TAZOBACTAM 2.25 GM in DEXTROSE 5% IN WATER 50 ML IV SCH ×4 (01:20→17:21)
[2019-06-23] MEDS: 0.9 % SODIUM CHLORIDE 10 ML SYRINGE IV SCH ×3 (05:26→20:34)
[2019-06-23 06:25] LABS: Basophils # (Auto) 0 K/mcL (0.0-0.3); Basophils % (Auto) 0.2 % (0.0-2.0); Eosinophils # (Auto) 0.2 K/mcL (0.0-0.7); Eosinophils % (Auto) 1.5 % (0.0-7.0); Granulocytes % (Auto) 71.5 % (38.0-78.0); Hematocrit 28.8 % (36.0-48.0); Hemoglobin 9.4 g/dL (12.0-15.0); Lymphocytes % (Auto) 17.2 % (15.5-49.0); Mean Cell Volume 95.4 fL (80.0-100.0); Mean Corpuscular HGB Conc 32.4 g/dL (31.0-36.0); Monocytes # (Auto) 1.1 K/mcL (0.1-0.9); Monocytes % (Auto) 9.6 % (1.0-12.0); Platelet Count 254 K/mcL (140-440); RBC 3.02 M/mcL (4.00-5.20); Red Cell Distribution Width 16.6 % (11.5-14.5); WBC 11.4 K/mcL (4.5-11.0)
[2019-06-23 06:33] LABS: INR 1.2 (0.9-1.1); Prothrombin Time 15.4 sec (11.9-14.5)
[2019-06-23 06:46] LABS: ALT/SGPT 136 U/l (0-40); AST/SGOT 68 U/l (0-37); Albumin 2.7 gm/dL (3.2-5.2); Albumin/Globulin Ratio 0.9 (1.0-2.3); Alkaline Phosphatase 182 U/L (39-117); Bilirubin,Total 0.5 mg/dL (0.0-1.0); Calcium 8.3 mg/dl (8.6-10.4); Carbon Dioxide 23 mmol/L (22-30); Chloride 104 mmol/L (96-108); Globulin 3.1 gm/dL (2.2-3.7); Glomerular Filtration Rate 33; Glucose 101 mg/dL (70-105); Lactate Dehydrogenase 234 U/L (94-250); Triglycerides 76 mg/dl (<150); Uric Acid 5.1 mg/dL (2.5-8.0)
[2019-06-23 06:54] LABS: Bilirubin,Direct < 0.2 mg/dL (0.0-0.3); Blood Urea Nitrogen 26 mg/dl (8-23); Phosphorous 3.2 mg/dL (2.7-4.5)
[2019-06-23] MEDS ORDERED: OMEPRAZOLE 20 MG CAPSULE PO SCH (07:30)
[2019-06-23] MEDS ORDERED: LEVOTHYROXINE 50 MCG TABLET PO SCH (07:30)
--- NOTE | 2019-06-23 07:31 | Internal Med Progress Note ---
Medical - PN: Subj Patient information: Note initiated : 06/23/19 at 7:18 am Service Date, if different from initiated Date: [] Patient: Joanne Nguyễn a 79 y/o F admitted on 06/20/19 for Rectal bleed. Chief Complaint: [] Interval history: Ms. Nguyễn is a 79 year old F with a known history of CAD/CABG, CKD stage III, HTN, HLD and DM type II who was recently discharged following sepsis secondary to E. coli bacteremia and pyelonephritis. She was discharged and completed 10 days antibiotics. Patient has been intermittently nauseous with episodic retching. She has not been able to eat normal diet. Symptoms are triggered after each meals. She denies food getting stuck in her throat or dysphagia to solids but preferentially takes liquids as she does well with those. She has been taking Zofran to alleviate her symptoms. She has had a progressive decline with severe dehydration due to inability to keep fluids down. She was seen at primary care physician Wilbur garsia office and was given IV fluids. She was diagnosed with dehydration. However within 24 hours patient comes back after she noted blood smeared stool and on toilet paper. She however denies large volume bloody bowel. She endorses it was fresh blood. She presents to the ER with combination of above symptoms. Initial work-up was consistent with A. fib with RVR, elevated creatinine at 2.5, elevated potassium 5.5, BUN 65 but hemoglobin at 9.9. However negative digital rectal exam for blood. She also had elevated LFTs and underwent abdominal ultrasound. Subsequently hospitalist service was consulted after it was controlled on diltiazem drip. Of note patient has been seen by measurement analyst Dr. Stout office and anticoa gulated was held until she was to see GI for endoscopy evaluation. She is yet to schedule an appointment with Dr. Black at [facility]. At the time of evaluation patient is accompanied with her . She was able to answer most of the questions. She is quite distressed due to her symptoms. She endorses symptoms as above. Denies fever, dysuria, diarrhea, headache, photophobia. 06/21-patient currently on diltiazem drip. Case discussed with Dr. christo [place] cardiology. Cardiology recommends continuing to hold anticoagulation until such time deemed appropriate by GI to reinitiate. Case discussed with the ruby developer Dr. Sidhu. Patient will undergo upper and lower endo scopy in 24 hours for evaluation of GI bleed. Currently patient on diltiazem drip rate controlled. Restart home dose Cardizem. 06/22 Patient off diltiazem drip yesterday. On home diltiazem and Toprol. No overnight events or new complaints. Some nausea earlier resolved now. Heart rate is been 80s to low 100's. Reports some constipation now. some gastritis noted on EGD with stricture that was dilated. Per GI, ok to restart anticoagulation. Will restart anticoagulation after cholecystectomy. 06/23 Feeling well. No new complaints. Does have a difficult time sleeping back as of interruptions or noise. No other complaints. Plan for cholecystectomy by Dr. Adams today. Heart rate has been 60s to 80s. did have some low blood pressures last night. Review of Systems: denies headache/fever/chills/vomiting/chest or abdominal pain/cough/dyspnea/diarrhea. Otherwise see above. - Constitutional Vitals: Vital Signs Temp Pulse Resp BP Pulse Ox 98.1 F 54 L 18 116/78 86 L 06/23/19 04:01 06/22/19 17:03 06/23/19 06:00 06/23/19 05:01 06/23/19 06:00 Period Temp Pulse Resp BP Sys/Fitch Pulse Ox Last 24 Hr 97.5 F-98.5 F 54-91 06-28 72-129/40-103 86-100 Intake and Output 06/22/19 06/23/19 06/23/19 21:59 05:59 13:59 Intake Total 1119.0909 100 50 Output Total 350 300 Balance 769.0909 -200 50 Weight 70.307 kg Intake & Output: Intake & Output 06/22/19 06/23/19 06/23/19 21:59 05:59 13:59 Intake Total 1119.0909 100 50 Output Total 350 300 Balance 769.0909 -200 50 Weight 70.307 kg Intake: IV 759.0909 100 50 Sodium Chloride 0.9% 250 ml @ 250 Wide Open IV BOLUS ONE Rx#: [id number] Zosyn 2.25 gm In Dextrose 5% in 100 50 Water 50 ml @ 100 mls/hr IV Q6H [facility] Rx#:[id number] Potassium Phosphate 40 Meq In 509.0909 Dextrose 5% in Water 500 ml @ 127.273 mls/hr IV ONCE ONE Rx#: [id number] Oral 360 Output: Void Amount 350 300 Other: Meal Dinner Jello Percent of Meal Consumed 75% 75% Feeding Ability Assist with Tray Set Up Urine Appearance Clear Urine Color Dark Yellow Bright Yellow Urine Odor Normal # Emeses 0 Exam: General: Alert, Awake, No acute Distress Eyes/N/T: EOMI, Head/Neck: neck supple, CV: irreg irreg, No murmurs, Pulm: Clear b/l, no wheezing/rhonchi/rales Abd: soft, mild RUQ TTP, +BS x4 Ext: no clubbing/cyanosis, trace b/l LE edema Neuro: Alert, no focal deficits, moves all extremities, Skin: warm/dry Medical - PN: Obj Da - Labs CBC & Chem 7: 06/23/19 04:17 06/23/19 04:17 Labs: Abnormal Lab Results 06/23/19 06/23/19 06/23/19 04:17 04:17 04:17 WBC 11.4 H RBC 3.02 L Hgb 9.4 L Hct 28.8 L POC Hct RDW 16.6 H Gran # 8.2 H [place] # (Auto) 1.1 H Seg Neutrophils % Lymphocytes % Myelocytes % Nucleated RBCs RBC Morphology Polychromasia Hypochromasia Anisocytosis ESR PT 15.4 H INR 1.2 H POC Potassium Potassium POC Chloride Carbon Dioxide POC Total CO2 POC BUN BUN 26 H Creatinine 1.5 H POC Creatinine Glucose POC Glucose Uric Acid Calcium 8.3 L Phosphorus Iron TIBC Transferrin % Sat GGT 104 H AST 68 H ALT 136 H Alkaline Phosphatase 182 H Lactate Dehydrogenase C-Reactive Protein Total Protein 5.8 L Albumin 2.7 L Albumin/Globulin Ratio 0.9 L PTH Intact Ur Leukocyte Esterase Urine WBC Hyaline Casts Free [place] LC, Quant 06/22/19 06/22/19 06/22/19 07:23 03:42 03:42 WBC RBC Hgb Hct POC Hct RDW Gran # [place] # (Auto) Seg Neutrophils % Lymphocytes % Myelocytes % Nucleated RBCs RBC Morphology Polychromasia Hypochromasia Anisocytosis ESR PT 15.0 H INR 1.2 H POC Potassium Potassium POC Chloride Carbon Dioxide POC Total CO2 POC BUN BUN Creatinine POC Creatinine Glucose POC Glucose Uric Acid Calcium Phosphorus Iron TIBC Transferrin % Sat GGT AST ALT Alkaline Phosphatase Lactate Dehydrogenase C-Reactive Protein Total Protein Albumin Albumin/Globulin Ratio PTH Intact 145.5 H Ur Leukocyte Esterase Urine WBC Hyaline Casts Free [place] LC, Quant 27.27 H 06/22/19 06/22/19 06/22/19 03:42 03:42 03:42 WBC RBC Hgb Hct POC Hct RDW Gran # [place] # (Auto) Seg Neutrophils % Lymphocytes % Myelocytes % Nucleated RBCs RBC Morphology Polychromasia Hypochromasia Anisocytosis ESR 43 H PT INR POC Potassium Potassium POC Chloride Carbon Dioxide POC Total CO2 POC BUN BUN 35 H Creatinine 1.6 H POC Creatinine Glucose POC Glucose Uric Acid Calcium 8.5 L Phosphorus 2.3 L Iron 28 L TIBC 215 L Transferrin % Sat 13 L GGT 115 H AST 98 H ALT 163 H Alkaline Phosphatase 194 H Lactate Dehydrogenase C-Reactive Protein 1.4 H Total Protein Albumin 2.9 L Albumin/Globulin Ratio PTH Intact Ur Leukocyte Esterase Urine WBC Hyaline Casts Free [place] LC, Quant 06/22/19 06/21/19 06/21/19 03:42 03:50 03:50 WBC 12.3 H 11.3 H RBC 2.89 L 3.07 L Hgb 8.9 L 9.2 L Hct 26.6 L 28.5 L POC Hct RDW 15.6 H 15.8 H Gran # [place] # (Auto) Seg Neutrophils % 85 H Lymphocytes % 14 L Myelocytes % 1 H Nucleated RBCs 1 H RBC Morphology Abnorm A Polychromasia 1+ A 1+ A Hypochromasia 1+ A Anisocytosis 1+ A ESR PT INR POC Potassium Potassium POC Chloride Carbon Dioxide POC Total CO2 POC BUN BUN 54 H Creatinine 2.0 H POC Creatinine Glucose 137 H POC Glucose Uric Acid 9.8 H Calcium Phosphorus Iron TIBC Transferrin % Sat GGT 136 H AST 199 H ALT 216 H Alkaline Phosphatase 223 H Lactate Dehydrogenase 346 H C-Reactive Protein Total Protein Albumin Albumin/Globulin Ratio PTH Intact Ur Leukocyte Esterase Urine WBC Hyaline Casts Free [place] LC, Quant 06/20/19 06/20/19 06/20/19 20:00 13:19 13:19 WBC 13.3 H RBC 3.32 L Hgb 9.9 L Hct 31.2 L POC Hct 30.0 L RDW 15.3 H Gran # 9.7 H [place] # (Auto) 1.1 H Seg Neutrophils % Lymphocytes % Myelocytes % Nucleated RBCs RBC Morphology Polychromasia Hypochromasia Anisocytosis ESR PT INR POC Potassium 5.4 H Potassium 5.5 H POC Chloride 109 H Carbon Dioxide 18 L POC Total CO2 20 L POC BUN 64 H BUN 64 H Creatinine 2.5 H POC Creatinine 2.8 H Glucose 123 H POC Glucose 121 H Uric Acid Calcium Phosphorus Iron TIBC Transferrin % Sat GGT AST 258 H ALT 220 H Alkaline Phosphatase 217 H Lactate Dehydrogenase C-Reactive Protein Total Protein Albumin Albumin/Globulin Ratio 0.9 L PTH Intact Ur Leukocyte Esterase 75 A Urine WBC 9 H Hyaline Casts 22 H Free [place] LC, Quant Meds: Medications Acetaminophen (Tylenol) 650 mg PO Q4-6HP PRN; Protocol PRN Reason: Per Pain Protocol/Fever > 101 Clonidine HCl (Catapres) 0.3 mg PO BID [facility] Last Admin: 06/22/19 21:28 Dose: 0.3 mg Documented by: Dextrose (Dextrose 50%) 0 ml IV UD PRN PRN Reason: Hypoglycemia Diagnostic Test (Pha) (Accu-Chek) 1 each FS ACHS [facility] Last Admin: 06/22/19 21:32 Dose: 1 each Documented by: Diltiazem HCl (Cardizem Cd) 480 mg PO DAILY [facility] Docusate Sodium (Colace) 100 mg PO BID [facility] Last Admin: 06/22/19 21:29 Dose: 100 mg Documented by: Glucose (Insta-Glucose) 15 gm PO PRN PRN PRN Reason: Hypoglycemia Magnesium Sulfate (Magnesium Sulfate) 2 gm in 50 mls @ 50 mls/hr IV UD PRN PRN Reason: MG = or < 1.7 Sodium Chloride (Sodium Chloride 0.9%) 1,000 mls @ 50 mls/hr IV .Q20H [facility] Stop: 06/24/19 02:29 Last Admin: 06/22/19 17:16 Dose: Not Given Documented by: Acetaminophen (Ofirmev) 650 mg in 65 mls @ 130 mls/hr IV Q6HP PRN; Protocol PRN Reason: Per Pain Protocol/Fever > 101 Piperacillin Sod/Tazobactam (Sod 2.25 gm/ Dextrose) 50 mls @ 100 mls/hr IV Q6H [facility]; Protocol Last Infusion: 06/23/19 06:57 Dose: Infused Documented by: Insulin Human Lispro (Humalog) 0 unit SQ ACHS [facility]; Protocol Last Admin: 06/22/19 21:32 Dose: Not Given Documented by: Iron Carb/Multivit/[place]/Folic Acid (Multivitamin W/Minerals) 1 tab PO DAILY [facility] Levothyroxine Sodium (Synthroid) 50 mcg PO ACB [facility] Melatonin (Melatonin 3mg Tablet) 3 mg PO HS [facility] Last Admin: 06/22/19 21:35 Dose: 3 mg Documented by: Metoprolol Succinate (Toprol Xl) 100 mg PO DAILY [facility] Metoprolol Tartrate (Lopressor) 5 mg IV Q2HP PRN PRN Reason: Tachyarrhythmias HR>110 Omeprazole (Prilosec) 40 mg PO QAMAC [facility] Ondansetron HCl (Zofran) 4 mg IV Q4-6HP PRN; Protocol PRN Reason: Nausea And Vomiting Ondansetron HCl (Zofran Odt) 4 mg SL Q4-6HP PRN PRN Reason: Nausea Polyethylene Glycol (Miralax) 17 gm PO DAILY [facility] Potassium Chloride (Klor-Con) 40 meq PO DAILYP PRN PRN Reason: K+ < 3.5 Potassium Chloride (Kdur) 20 meq PO 5XD [facility] Last Admin: 06/22/19 21:31 Dose: 20 meq Documented by: Senna/Docusate Sodium (Senna Plus Tablet) 1 tab PO [facility] Last Admin: 06/22/19 21:28 Dose: 1 tab Documented by: Simvastatin (Zocor) 10 mg PO HS [facility] Last Admin: 06/22/19 21:29 Dose: 10 mg Documented by: Sodium Chloride (Saline Flush) 10 ml IV Q8 [facility] Last Admin: 06/23/19 05:26 Dose: 10 ml Documented by: Sucralfate (Carafate) 1 gm PO BID [facility] Last Admin: 06/22/19 21:32 Dose: 1 gm Documented by: Medical - PN: A/P - Time Spent With Patient Total time spent is greater than 50% in coordination of care (as documented) at patient's floor/unit and/or counseling patient: - Narrative A/P Narrative: A: *Acute cholecystitis w/transaminitis: -ultrasound consistent with acute cholecystitis *AFib w/RVR: rate controlled -Echo reviewed from May 2019 -Case d/w [place] cardiology Dr. Mahoney; Advised to continue holding anticoagulation until approved by GI for initiation. *GI bleed: -EGD with some gastritis and stricture that was dilated -Pt has known history of hemorrhoids s/p hemorrhoidectomy by Dr. Black in the past *Anemia, acute on chronic, from blood loss: -stable *Volume depletion w/metabolic acidosis: resolved *RODRIGUEZ on CKD III-IV (base Cr~1.4-1.6): resolved -1.5<1.6<2.0<2.5 *DM II: *Hypothyroidism: *Moderate Pulm HTN at baseline: *CAD: continue beta-aman/statin *HTN: Plan: -Dr. Adams following, plans for cholecystectomy on Wednesday -Zosyn -Per GI, ok to restart anticoagulation, will restart anticoagulation after cholecystectomy. -Nephrology following, labs pending. and f/u with Nephro outpt -continue home Dilt/BB/Clonidine(decrease), hold ARB/thiazide/lasix until renal function improves, -continue CC diet/sliding scale insulin, d/c metformin d/t CKD change to sitagliptin -PT OT -ppx: SCDs, anticoagulation (rivaroxaban) on hold full code Medical - PN: Qual - VTE Deep Vein Thrombosis/Pulmonary Embolism Present on Admission: No
--- NOTE | 2019-06-23 07:41 | Operative Note ---
DATE OF OPERATION: 06/22/2019 PREPROCEDURE DIAGNOSIS: 1. Upper GI bleed, ? ulcer or trauma from vomiting. 2. History of atrial fibrillation with rapid ventricular response. POSTPROCEDURE DIAGNOSES: Minimal gastritis, stricture EG junction. No blood, no angiodysplasia, no active Dieulafoy's lesion, no ulcer. PROCEDURE: Esophagogastroduodenoscopy with biopsy and dilation. INSTRUMENT USED: Olympus MITCHELL [id number] endoscope. SPECIMENS OBTAINED: Biopsies from antrum to check for Helicobacter. No CLOtest was done. INDICATIONS FOR PROCEDURE: The patient is a 79-year-old lady whose primary care physician is Dr. Adame. I was asked to see the patient by Dr. Guo. The patient did have recurrent atrial fibrillation with rapid ventricular response. She did have some nausea and vomiting. She did have some blood in the emesis. The patient describes some black tarry stools that may have been melena. She has had the anticoagulation interrupted because of her bleeding. Endoscopy is indicated to help determine whether or not the anticoagulation can be restarted or if she needs more intensive treatment for ulcer or destruction of angiodysplasia. The patient states part of the reason why she has nausea and vomiting is because when she takes medication it often precipitates nausea. She has taken omeprazole in the past and this has given her some significant improvement with her stomach distress. Endoscopy is indicated to evaluate for pathology that may explain some bleeding. INFORMED CONSENT: Time of informed consent is about 16:46. The procedure was reviewed with the patient. The patient had no further questions and accepts the risks and benefits thereof. One of the risks that were discussed included . Additional risks that were also discussed included bleeding, reaction to medication, possible perforation and possible need for surgery. IV MEDICATIONS USED: Versed 1 mg and propofol 90. FINDINGS: ESOPHAGUS: Proximal, mid and distal esophagus normal. EG JUNCTION: This was around 39 cm. There was no erythema or edema noted. There was a variable hiatal hernia from about 0 to 2 cm. Because of the stricture, dilation was accomplished with a 17 mm Malian dilator. STOMACH: Cardia, fundus and body normal. Antrum: There were a few areas of minimal erythema and edema, sometimes linear configuration, sometimes scattered. Biopsies were taken. No angiodysplasia were seen. No ulcers were seen. No blood was noted. PYLORUS: Normal. DUODENUM: This appeared normal. No angiodysplasia were seen. RECOMMENDATIONS: Continue omeprazole. I see no objections to restarting the anticoagulation as deemed appropriate for atrial fibrillation. There is little risk of significant bleeding. If, however, the patient vomits, she can get a Carli-Perea tear and sometimes they can bleed significantly. It is possible some of her medications or time of taking medications may need to be adjusted so it causes less ''stomach distress.'' If there is evidence of Helicobacter, appropriate treatment will be recommended. SEDATION TIME: 16:49 to 17:10. Please refer to the preprocedure nurse's notes, procedure flowsheet, procedure record, and post-procedure assessment for details of the sedation including the pre-, intra-, and post-service work. [email or web address] Job ID: [id number] Doc ID: [id number] Estuardo Lopez DO
--- NOTE | 2019-06-23 08:18 | Nephrology Progress Note ---
Subjective Patient information: Note initiated : 06/23/19 at 8:15 am Patient: Joanne Nguyễn 79 y/o F admitted on 06/20/19 for Rectal bleed. Chief Complaint: Weakness Pertinent ROS: Feels better Weakness No Ellis catheter No edema Objective - Vital Signs Vital signs: Vital Signs Temp Pulse Pulse Resp BP Pulse Ox 06/23/19 07:36 19 92 06/23/19 06:01 97.9 F 18 123/71 95 06/23/19 06:00 18 86 L 06/23/19 05:25 21 88 L 06/23/19 05:01 11 L 116/78 99 06/23/19 04:04 15 94 06/23/19 04:01 98.1 F 13 108/53 95 06/23/19 03:01 13 92/58 95 06/23/19 02:01 14 92/61 95 06/23/19 02:00 13 94 06/23/19 01:21 20 92 06/23/19 01:01 24 H 95/65 95 06/23/19 00:01 98.3 F 19 90/63 94 06/22/19 23:01 16 89/51 94 06/22/19 22:02 18 96 06/22/19 22:01 16 119/84 88 L 06/22/19 21:01 20 103/58 99 06/22/19 20:01 97.5 F 19 95/60 99 06/22/19 19:12 21 100 06/22/19 19:01 20 102/60 100 06/22/19 18:48 19 110/63 98 06/22/19 18:32 15 100/83 100 06/22/19 18:19 19 116/63 99 06/22/19 18:18 22 114/103 100 06/22/19 18:01 27 H 102/78 100 06/22/19 17:46 19 99/66 97 06/22/19 17:31 19 94/81 96 06/22/19 17:28 21 95/56 93 06/22/19 17:26 87/57 89 L 06/22/19 17:03 97.9 F 54 L 15 72/40 100 06/22/19 16:42 97.9 F 76 14 103/57 97 06/22/19 16:09 100/64 95 06/22/19 16:01 98.5 F 16 100/64 91 06/22/19 15:43 18 96/56 94 06/22/19 14:01 21 103/64 91 06/22/19 14:00 67 17 91 06/22/19 13:01 19 103/64 93 06/22/19 12:01 98.1 F 17 102/60 95 06/22/19 11:01 19 91/58 89 L 06/22/19 10:47 21 98/63 92 06/22/19 10:00 22 98/63 90 06/22/19 09:01 22 126/92 98 Intake and Output 06/22/19 06/23/19 06/23/19 21:59 05:59 13:59 Intake Total 1119.0909 100 50 Output Total 350 300 450 Balance 769.0909 -200 -400 Intake: IV 759.0909 100 50 Sodium Chloride 0.9% 250 ml @ 250 Wide Open IV [facility] Rx#: [id number] Zosyn 2.25 gm In Dextrose 5% in 100 50 Water 50 ml @ 100 mls/hr IV Q6H [facility] Rx#:[id number] Potassium Phosphate 40 Meq In 509.0909 Dextrose 5% in Water 500 ml @ 127.273 mls/hr IV ONCE ONE Rx#: [id number] Oral 360 Output: Void Amount 350 300 450 Other: Meal Dinner Jello Percent of Meal Consumed 75% 75% Feeding Ability Assist with Tray Set Up Urine Appearance Clear Urine Color Dark Yellow Bright Yellow Dark Yellow Urine Odor Normal # [place] 0 Weight 155 lb Intake & Output: Intake & Output 06/22/19 06/23/19 06/23/19 21:59 05:59 13:59 Intake Total 1119.0909 100 50 Output Total 350 300 450 Balance 769.0909 -200 -400 Weight 155 lb Intake: IV 759.0909 100 50 Sodium Chloride 0.9% 250 ml @ 250 Wide Open IV [facility] Rx#: [id number] Zosyn 2.25 gm In Dextrose 5% in 100 50 Water 50 ml @ 100 mls/hr IV Q6H [facility] Rx#:[id number] Potassium Phosphate 40 Meq In 509.0909 Dextrose 5% in Water 500 ml @ 127.273 mls/hr IV ONCE ONE Rx#: [id number] Oral 360 Output: Void Amount 350 300 450 Other: Meal Dinner Jello Percent of Meal Consumed 75% 75% Feeding Ability Assist with Tray Set Up Urine Appearance Clear Urine Color Dark Yellow Bright Yellow Dark Yellow Urine Odor Normal # Emes[place] 0 - General Appearance General appearance: appears started age EENT: mucous membranes moist Neck: supple Respiratory: clear Cardiology: no edema Gastrointestinal: no tenderness Integumentary: warm and dry Neurologic: no focal deficit, alert and oriented x3 Musculoskeletal: no deformities Psychiatric: mood/affect appropriate, cooperative - Lab 06/23/19 04:17 06/23/19 04:17 Most recent lab results Calcium 8.3 mg/dl (8.6-10.4) L 06/23/19 04:17 Phosphorus 3.2 mg/dL (2.7-4.5) 06/23/19 04:17 Magnesium 2.0 mg/dL (1.6-2.5) 06/23/19 04:17 Assessment and Plan (1) ARF (acute renal failure) Joanne Nguyễn is a 79-year-old female with coronary artery disease s/p CABG and stents, hypertension, hyperlipidemia, hypothyroidism, diabetes mellitus type 2, recent admission for E Coli bacteremia and pyelonephritis in May 2019, admitted on 06/20/19. She presented to ED for nausea and not able to eat. She also noted blood smeared stool and on toilet paper. Initial work-up was consistent with acute kidney injury, atrial fibrillation with RVR and elevated LFTs. Acute kidney injury with initial hyperkalemia and metabolic acidosis, associated with suspected decreased renal perfusion due to recent nausea/vomiting, diuretic use and atrial fibrillation with RVR, present on arrival. She had no recent IV contrast or NSAIDs. Recent work up: Urinalysis on 05/18/19: Straw, Clear, pH 5.0, SG 1.009, protein negative, occult blood 0.2, leukocyte esterase 25, urine WBC 14. CT Abdomen and Pelvis without contrast on 05/18/19: Kidneys show slight inhomogeneity and perinephric fat stranding which is suggestive, but not diagnostic, diffuse renal inflammation such as glomerulonephritis. 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 Current work up: Urinalysis on 06/20/19: Yellow, Clear, pH 5.0, SG 1.012, protein negative, occult blood negative, leukocyte esterase 75. Random urine total protein/creatinine ratio on 06/21/19: 9/39.9= 225 mg/g creatinine. Labs on 06/21/19: TIBC 13%, CRP 1.4, ESR 43, Vitamin D Total (25-Hydroxy) 59.94, PTH (intact) 145.5, serum free kappa/lambda light chain ratio 1.083, Labs on 06/21/19: C3, C4, ANCA screen, anti-GBM A pending. Progress: Creatinine decreased from 1.6 to 1.5 in the past 24 hours. Urine output: 1250 reported in the past 24 hours. No fluid overload. Recommendations: Anticipate no hemodialysis need. Avoid NSAIDs, nephrotoxic medications and IV contrast. Hold SIMONE/ARB. Monitor BMP and urine output. Outpatient follow up appointment on 06/28/19 at 15:00 with me scheduled. BMP on 06/26/19 before the appointment. Status: Acute Priority: High Qualifiers: Qualified Code(s): N17.9 - Acute kidney failure, unspecified
[2019-06-23] MEDS: INSULIN LISPRO 1 UNIT/0.01 ML UNIT SQ SCH ×4 (08:29→20:33)
[2019-06-23] MEDS: SUCRALFATE 1 GM TABLET PO SCH ×2 (08:34→20:17)
[2019-06-23] MEDS: DOCUSATE SODIUM 100 MG CAPSULE PO SCH ×2 (08:34→20:16)
[2019-06-23] MEDS: POTASSIUM CHLORIDE 20 MEQ TABLET PO SCH ×5 (08:34→20:17)
[2019-06-23] MEDS ORDERED: POLYETHYLENE GLYCOL 3350 17 GM PACKET PO SCH (09:00)
[2019-06-23] MEDS ORDERED: DILTIAZEM 240 MG CAP.XL.24H PO SCH (09:00)
[2019-06-23] MEDS ORDERED: METOPROLOL SUCCINATE 50 MG TAB.XL.24H PO SCH (09:00)
[2019-06-23] MEDS ORDERED: cloNIDine HCL 0.1 MG TABLET PO SCH ×2 (09:00→21:00)
[2019-06-23] MEDS ORDERED: MULTIVIT,THER IRON,CA,FA & MIN 1 TABLET PO SCH (09:00)
--- NOTE | 2019-06-23 11:13 | Discharge Summary ---
Medical - DS: Prov Patient information: Note initiated : 06/23/19 at 11:01 am Service Date, if different from initiated Date: [] Patient: Joanne Nguyễn 79 y/o F admitted on 06/20/19 for Rectal bleed. Chief Complaint: [] Date of admission: 06/20/19 15:55 Primary care physician: Wilbur Adame Consults: 06/20/19 Consult to Physician [CONS] Stat Comment: Consulting Provider: Pancho Guo Reason For Exam: Physician to Consult Consult to Physician [CONS] Stat Comment: Consulting Provider: Maurice Carnes Reason For Exam: Physician to Consult 06/21/19 10:12 Consult to Physician [CONS] Routine Comment: Consulting Provider: Rachel Adams Reason For Exam: Physician to Consult 06/21/19 13:40 Consult to Physician [CONS] Routine Comment: Consulting Provider: Estuardo Schaefer Reason For Exam: Physician to Consult Medical - DS: Meds - Discharge Medications Prescriptions: cloNIDine HCL [Catapres] 0.1 mg PO BID #60 tablet sitaGLIPtin [Januvia] 25 mg PO DAILY #30 tablet Active and Home Medications: Home Medications Hydrochlorothiazide [Oretic] 25 mg PO DAILY 10/26/16 [History Confirmed 06/20/19 Last Taken 06/20/19 08:00] Levothyroxine [Synthroid] 50 mcg PO ACB 10/26/16 [History Confirmed 06/20/19 Last Taken 06/20/19 08:00] Potassium Chloride [Kdur] 20 meq PO 5XD 10/26/16 [History Confirmed 06/20/19 Last Taken 06/20/19 08:00] Simvastatin [Zocor] 10 mg PO HS 10/26/16 [History Confirmed 06/20/19 Last Taken 06/19/19 21:00] cloNIDine HCL [Catapres] 0.3 mg PO BID 10/26/16 [History Confirmed 06/20/19 Last Taken 06/20/19 08:00] metFORMIN HCL [Metformin ER Osmotic] 500 mg PO DAILY@1800 10/26/16 [History Confirmed 06/20/19 Last Taken 06/19/19 18:00] Metoprolol Succinate [Toprol Xl] 100 mg PO DAILY 08/25/17 [History Confirmed 06/20/19 Last Taken 06/20/19 08:00] Diltiazem [Cardizem Cd] 480 mg PO DAILY #30 cap.xl.24h 05/25/19 [Rx Confirmed 06/20/19 Last Taken 06/20/19 08:00] Losartan [Cozaar] 50 mg PO DAILY #30 tab 05/25/19 [Rx Confirmed 06/20/19 Last Taken 06/20/19 08:00] Rivaroxaban [Xarelto] 15 mg PO QPMCC #30 tab 05/25/19 [Rx Confirmed 06/20/19 Last Taken 06/19/19 17:00] Ondansetron [Zofran ODT] 4 mg SL Q4-6HP PRN #10 tab 06/15/19 [Rx Confirmed 06/20/19 Last Taken Unknown] Furosemide [Lasix] 20 mg PO DAILY 06/20/19 [History Confirmed 06/20/19 Last Taken 06/20/19 08:00] Melatonin 5 mg PO HS 06/20/19 [History Confirmed 06/20/19 Last Taken 06/19/19 21:00] Omeprazole 40 mg PO QAM 06/20/19 [History Confirmed 06/20/19 Last Taken 06/20/19 08:00] Polyethylene Glycol 3350 [Miralax] 1 dose PO DAILY 06/20/19 [History Confirmed 1 08/20/18 Last Taken 06/19/19 08:00] Sucralfate [Carafate] 1 gm PO BID 06/20/19 [History Confirmed 06/20/19 Last Taken 06/20/19 08:00] Medical - DS: Hosp Hospital Course: Ms. Nguyễn is a 79 year old F with a known history of CAD/CABG, CKD stage III, HTN, HLD and DM type II who was recently discharged following sepsis secondary to E. coli bacteremia and pyelonephritis. She was discharged and completed 10 days antibiotics. Patient has been intermittently nauseous with episodic retching. She has not been able to eat normal diet. Symptoms are triggered after each meals. She denies food getting stuck in her throat or dysphagia to solids but preferentially takes liquids as she does well with those. She has been taking Zofran to alleviate her symptoms. She has had a progressive decline with severe dehydration due to inability to keep fluids down. She was seen at primary care physician Wilbur adame office and was given IV fluids. She was diagnosed with dehydration. However within 24 hours patient comes back after she noted blood smeared stool and on toilet paper. She however denies large volume bloody bowel. She endorses it was fresh blood. She presents to the ER with combination of above symptoms. Initial work-up was consistent with A. fib with RVR, elevated creatinine at 2.5, elevated potassium 5.5, BUN 65 but hemoglobin at 9.9. However negative digital rectal exam for blood. She also had elevated LFTs and underwent abdominal ultrasound. Subsequently hospitalist service was consulted after it was controlled on diltia zem drip. Of note patient has been seen by digital archivist Dr. Stout office and anticoagulated was held until she was to see GI for endoscopy evaluation. She is yet to schedule an appointment with Dr. Black at [facility]. At the time of evaluation patient is accompanied with her . She was able to answer most of the questions. She is quite distressed due to her symptoms. She endorses symptoms as above. Denies fever, dysuria, diarrhea, headache, photophobia. 06/21-patient currently on diltiazem drip. Case discussed with Dr. christo Ellington cardiology. Cardiology recommends continuing to hold anticoagulation until such time deemed appropriate by GI to reinitiate. Case discussed with the repair department manager Dr. Sidhu. Patient will undergo upper and lower endoscopy in 24 hours for evaluation of GI bleed. Currently patient on diltiazem drip rate controlled. Restart home dose Cardizem. 06/22 Patient off diltiazem drip yesterday. On home diltiazem and Toprol. No overn ight events or new complaints. Some nausea earlier resolved now. Heart rate is been 80s to low 100's. Reports some constipation now. some gastritis noted on EGD with stricture that was dilated. Per GI, ok to restart anticoagulation. Will restart anticoagulation after cholecystectomy. 06/23 Feeling well. No new complaints. Does have a difficult time sleeping back as of interruptions or noise. No other complaints. Plan for cholecystectomy by Dr. Adams today. Heart rate has been 60s to 80s. did have some low blood pressures last night. - Time Spent with Patient Total time spent providing and/or coordinating discharge services: Greater than 30 minutes Medical - DS: Exam - Constitutional Vitals: Vital Signs Temp Pulse Pulse Resp BP Pulse Ox 06/23/19 10:35 16 118/91 96 06/23/19 09:01 18 124/87 95 06/23/19 08:28 18 124/85 93 06/23/19 07:36 19 92 06/23/19 06:01 97.9 F 18 123/71 95 06/23/19 06:00 18 86 L 06/23/19 05:25 21 88 L 06/23/19 05:01 11 L 116/78 99 06/23/19 04:04 15 94 06/23/19 04:01 98.1 F 13 108/53 95 06/23/19 03:01 13 92/58 95 06/23/19 02:01 14 92/61 95 06/23/19 02:00 13 94 06/23/19 01:21 20 92 06/23/19 01:01 24 H 95/65 95 06/23/19 00:01 98.3 F 19 90/63 94 06/22/19 23:01 16 89/51 94 06/22/19 22:02 18 96 06/22/19 22:01 16 119/84 88 L 06/22/19 21:01 20 103/58 99 06/22/19 20:01 97.5 F 19 95/60 99 06/22/19 19:12 21 100 06/22/19 19:01 20 102/60 100 06/22/19 18:48 19 110/63 98 06/22/19 18:32 15 100/83 100 06/22/19 18:19 19 116/63 99 06/22/19 18:18 22 114/103 100 06/22/19 18:01 27 H 102/78 100 06/22/19 17:46 19 99/66 97 06/22/19 17:31 19 94/81 96 06/22/19 17:28 21 95/56 93 06/22/19 17:26 87/57 89 L 06/22/19 17:03 97.9 F 54 L 15 72/40 100 06/22/19 16:42 97.9 F 76 14 103/57 97 06/22/19 16:09 100/64 95 06/22/19 16:01 98.5 F 16 100/64 91 06/22/19 15:43 18 96/56 94 06/22/19 14:01 103/64 91 06/22/19 14:00 67 17 91 06/22/19 13:01 103/64 93 06/22/19 12:01 98.1 F 17 102/60 95 Intake and Output 06/22/19 06/23/19 06/23/19 21:59 05:59 13:59 Intake Total 1119.0909 100 982 Output Total 350 300 450 Balance 769.0909 -200 532 Intake: IV 759.0909 100 982 Sodium Chloride 0.9% 1,000 ml @ 932 50 mls/hr IV .Q20H [facility] Rx#: [id number] Sodium Chloride 0.9% 250 ml @ 250 Wide Open IV BOLUS ONE Rx#: [id number] Zosyn 2.25 gm In Dextrose 5% in 100 50 Water 50 ml @ 100 mls/hr IV Q6H [facility] Rx#:[id number] Potassium Phosphate 40 Meq In 509.0909 Dextrose 5% in Water 500 ml @ 127.273 mls/hr IV ONCE ONE Rx#: [id number] Oral 360 Output: Void Amount 350 300 450 Other: Meal Dinner Jello Percent of Meal Consumed 75% 75% Feeding Ability Assist with Tray Set Up Urine Appearance Clear Urine Color Dark Yellow Bright Yellow Dark Yellow Urine Odor Normal # Emeses 0 Weight 70.307 kg Medical - DS: Data Labs on day of discharge: Labs from last 24 hours 06/23/19 06/23/19 06/23/19 04:17 04:17 04:17 WBC 11.4 H RBC 3.02 L Hgb 9.4 L Hct 28.8 L MCV 95.4 MCH 31.0 MCHC 32.4 RDW 16.6 H Plt Count 254 MPV 8.0 Gran % 71.5 Lymph % (Auto) 17.2 Gates % (Auto) 9.6 Eos % (Auto) 1.5 Baso % (Auto) 0.2 Gran # 8.2 H Lymph # (Auto) 2.0 Gates # (Auto) 1.1 H Eos # (Auto) 0.2 Baso # (Auto) 0 PT 15.4 H INR 1.2 H APTT 26 Sodium 139 Potassium 4.4 Chloride 104 Carbon Dioxide 23 Anion Gap 12.0 BUN 26 H Creatinine 1.5 H GFR Calculation 33 Glucose 101 Uric Acid 5.1 Calcium 8.3 L Phosphorus 3.2 Magnesium 2.0 Total Bilirubin 0.5 Direct Bilirubin < 0.2 GGT 104 H AST 68 H ALT 136 H Alkaline Phosphatase 182 H Lactate Dehydrogenase 234 Total Protein 5.8 L Albumin 2.7 L Globulin 3.1 Albumin/Globulin Ratio 0.9 L Triglycerides 76 Medical - DS: A/P - Patient/Caregiver Discharge Instructions Activity: increase activity as tolerated - Follow up Plan Follow up with: Wilbur Adame DO [Primary Care Provider] - Rachel Adams MD [Physician] - Disposition: Home Health Service Prognosis: Fair Rehab Potential: Fair Overall status at discharge: patient is progressing back to baseline Medical - DS: Qual - VTE Deep Vein Thrombosis/Pulmonary Embolism Present on Admission: No
[2019-06-23] MEDS ORDERED: LIDOCAINE HCL/PF 100 MG/5 ML SYRINGE IV ONE (11:55)
[2019-06-23] MEDS ORDERED: PHENYLEPHRINE 10 MG/ML VIAL IV ONE (11:55)
[2019-06-23] MEDS ORDERED: ROCURONIUM 10 MG/ML ML IV ONE (11:55)
[2019-06-23] MEDS ORDERED: KETAMINE 100 MG/ML ML IV ONE (11:55)
[2019-06-23] MEDS ORDERED: PROPOFOL 200 MG/20 ML VIAL IV ONE (11:55)
[2019-06-23] MEDS ORDERED: GLYCOPYRROLATE 0.2 MG/ML VIAL IV ONE (11:55)
[2019-06-23] MEDS ORDERED: SUGAMMADEX SODIUM 200 MG/2 ML VIAL IV ONE (11:55)
[2019-06-23] MEDS ORDERED: MIDAZOLAM 2 MG/2 ML VIAL IV ONE (11:55)
[2019-06-23] MEDS ORDERED: ONDANSETRON 4 MG/2 ML VIAL IV ONE (11:55)
[2019-06-23] MEDS ORDERED: NALBUPHINE 10 MG/ML AMPUL IV ONE (11:55)
[2019-06-23] MEDS ORDERED: fentaNYL 100 MCG/2 ML VIAL IV ONE (11:55)
[2019-06-23] MEDS ORDERED: ONDANSETRON 4 MG/2 ML VIAL IV PRN ×3 (12:39→13:47)
[2019-06-23] MEDS ORDERED: MEPERIDINE 50 MG/ML INJECTION IM PRN ×2 (12:39→13:47)
[2019-06-23] MEDS ORDERED: PROMETHAZINE 25 MG/ML VIAL IM PRN ×2 (12:39→13:47)
[2019-06-23] MEDS ORDERED: MEPERIDINE 25 MG/ML SYRINGE IV PRN ×2 (12:39→13:47)
[2019-06-23] MEDS ORDERED: IPRATROPIUM/ALBUTEROL 3 ML AMPUL.NEB NEB PRN ×2 (12:39→13:47)
[2019-06-23] MEDS ORDERED: fentaNYL 100 MCG/2 ML VIAL IV PRN ×2 (12:39→13:47)
[2019-06-23] MEDS ORDERED: ACETAMINOPHEN 650 MG/65 ML BOTTLE IV ONE (12:39)
[2019-06-23] MEDS ORDERED: KETOROLAC 15 MG/ML VIAL IV PRN ×2 (12:39→13:47)
[2019-06-23] MEDS ORDERED: LACTATED RINGERS 1,000 ML IV SCH ×2 (12:45→13:47)
--- NOTE | 2019-06-23 12:45 | Brief Operative Note ---
Date of procedure: 06/23/19 Pre-op diagnosis: cholelithiasis with cholecystitis Post-op diagnosis: other (acute cholecystitis with cholelithiasis) Procedure: laparoscopic cholecystectomy Grafts/Implants: No Anesthesia: GETA Findings: SEVERE EDEMA OF GALLBLADDER WITH MULTIPLE SMALL STONES EXTENSIVE ACUTE AND CHRONIC ADHESIONS PERICHOLECYSTIC FLUID Complications: none Surgeon: Rachel Adams Estimated blood loss (cc): 15 Specimens Removed/Pathology: other (GALLBLADDER) Condition: stable Disposition: PACU
[2019-06-23] MEDS ORDERED: DEXTROSE 50% 50 ML VIAL IV PRN (13:47)
[2019-06-23] MEDS ORDERED: POTASSIUM CHLORIDE 20 MEQ PACKET PO PRN (13:47)
[2019-06-23] MEDS ORDERED: ACETAMINOPHEN 650 MG/65 ML BOTTLE IV PRN (13:47)
[2019-06-23] MEDS ORDERED: DEXTROSE 31 GM ORAL.SUSP PO PRN (13:47)
[2019-06-23] MEDS ORDERED: MAGNESIUM SULFATE 2 GM/50 ML BAG IV PRN (13:47)
[2019-06-23] MEDS ORDERED: ONDANSETRON 4 MG ODT TABLET SL PRN (13:47)
[2019-06-23] MEDS: SIMVASTATIN 10 MG TABLET PO SCH (20:16)
[2019-06-23] MEDS: SENNOSIDES/DOCUSATE SODIUM 1 TAB TABLET PO SCH (20:17)
[2019-06-23] MEDS: MELATONIN 3 MG TABLET PO SCH (20:17)
[2019-06-23] MEDS: cloNIDine HCL 0.1 MG TABLET PO SCH (20:17)
[2019-06-23] MEDS: ACETAMINOPHEN 325 MG TABLET PO PRN (20:17)
[2019-06-24] MEDS: PIPERACILLIN SODIUM/TAZOBACTAM 2.25 GM in DEXTROSE 5% IN WATER 50 ML IV SCH ×5 (00:11→23:46)
[2019-06-24] MEDS: 0.9 % SODIUM CHLORIDE 10 ML SYRINGE IV SCH ×3 (05:46→20:05)
[2019-06-24 06:29] LABS: Basophils # (Auto) 0 K/mcL (0.0-0.3); Basophils % (Auto) 0.1 % (0.0-2.0); Eosinophils # (Auto) 0 K/mcL (0.0-0.7); Eosinophils % (Auto) 0.3 % (0.0-7.0); Granulocytes % (Auto) 90.4 % (38.0-78.0); Hematocrit 29.3 % (36.0-48.0); Hemoglobin 9.5 g/dL (12.0-15.0); Lymphocytes % (Auto) 7.1 % (15.5-49.0); Mean Cell Volume 94.4 fL (80.0-100.0); Mean Corpuscular HGB Conc 32.2 g/dL (31.0-36.0); Mean Platelet Volume 8.1 fL (7.4-10.4); Monocytes # (Auto) 0.3 K/mcL (0.1-0.9); Monocytes % (Auto) 2.1 % (1.0-12.0); Platelet Count 268 K/mcL (140-440); RBC 3.11 M/mcL (4.00-5.20); Red Cell Distribution Width 16.3 % (11.5-14.5); WBC 13.8 K/mcL (4.5-11.0)
[2019-06-24 06:52] LABS: Bilirubin,Direct < 0.2 mg/dL (0.0-0.3); Chloride 103 mmol/L (96-108)
--- NOTE | 2019-06-24 06:57 | Nephrology Progress Note ---
Subjective Patient information: Note initiated : 06/24/19 at 6:55 am Patient: Joanne Nguyễn 79 y/o F admitted on 06/20/19 for Rectal bleed. Chief Complaint: Weakness Pertinent ROS: Feels better Weakness No Ellis catheter No edema Objective - Vital Signs Vital signs: Vital Signs Temp Pulse Resp BP BP Pulse Ox 06/24/19 06:01 17 144/92 97 06/24/19 05:01 17 129/87 99 06/24/19 04:01 98.2 F 11 L 110/77 100 06/24/19 03:01 15 124/83 100 06/24/19 02:01 11 L 118/91 98 06/24/19 01:03 95 06/24/19 00:01 97.9 F 16 114/82 95 06/23/19 23:44 12 96 06/23/19 23:01 12 122/78 92 06/23/19 22:01 12 111/71 94 06/23/19 21:01 14 117/103 97 06/23/19 20:01 98.1 F 13 126/84 95 06/23/19 20:00 96 06/23/19 19:01 20 120/104 96 06/23/19 18:29 21 97 06/23/19 18:01 16 129/98 94 06/23/19 17:01 15 134/87 96 06/23/19 16:41 11 L 96 06/23/19 16:27 13 134/78 95 06/23/19 16:01 97.4 F 12 134/78 96 06/23/19 15:31 16 143/79 95 06/23/19 15:01 9 L 129/68 90 06/23/19 14:56 25 H 129/71 95 06/23/19 14:49 9 L 97 06/23/19 14:46 10 L 129/71 94 06/23/19 14:31 11 L 135/74 96 06/23/19 14:16 13 133/69 89 L 06/23/19 14:01 18 119/87 90 06/23/19 14:00 96 06/23/19 13:58 125/77 96 06/23/19 13:56 139/95 96 06/23/19 13:41 97.1 F 82 20 125/78 92 06/23/19 13:25 97.4 F 70 21 121/60 84 L 06/23/19 13:10 98.2 F 73 12 114/66 100 06/23/19 13:05 64 12 103/63 97 06/23/19 13:00 78 13 102/64 96 06/23/19 12:55 77 14 106/58 96 06/23/19 12:51 97.3 F 84 15 103/61 95 06/23/19 11:01 17 118/82 93 06/23/19 10:40 15 118/91 99 06/23/19 10:35 16 118/91 96 06/23/19 09:01 18 124/87 95 06/23/19 08:28 18 124/85 93 06/23/19 08:00 96 06/23/19 07:36 19 92 Intake and Output 06/23/19 06/24/19 06/24/19 21:59 05:59 13:59 Intake Total 1600 290 Output Total 650 350 Balance 950 -60 Intake: IV 100 50 Zosyn 2.25 gm In Dextrose 5% in 100 50 Water 50 ml @ 100 mls/hr IV Q6H [facility] Rx#:[id number] Oral 1500 240 Output: Void Amount 650 350 Other: Meal Dinner Percent of Meal Consumed 75% Feeding Ability Assist with Tray Set Up Urine Appearance Clear Clear Urine Color Bright Yellow Bright Yellow Urine Odor Normal Normal Weight 157 lb 14.4 oz Intake & Output: Intake & Output 06/23/19 06/24/19 06/24/19 21:59 05:59 13:59 Intake Total 1600 290 Output Total 650 350 Balance 950 -60 Weight 157 lb 14.4 oz Intake: IV 100 50 Zosyn 2.25 gm In Dextrose 5% in 100 50 Water 50 ml @ 100 mls/hr IV Q6H [facility] Rx#:[id number] Oral 1500 240 Output: Void Amount 650 350 Other: Meal Dinner Percent of Meal Consumed 75% Feeding Ability Assist with Tray Set Up Urine Appearance Clear Clear Urine Color Bright Yellow Bright Yellow Urine Odor Normal Normal - General Appearance General appearance: appears started age EENT: mucous membranes moist Neck: supple Respiratory: clear Cardiology: no edema Gastrointestinal: no tenderness Integumentary: warm and dry Neurologic: no focal deficit, alert and oriented x3 Musculoskeletal: no deformities Psychiatric: mood/affect appropriate, cooperative - Lab 06/24/19 04:22 11/23/19 04:22 Most recent lab results Calcium 8.3 mg/dl (8.6-10.4) L 06/23/19 04:17 Phosphorus 3.2 mg/dL (2.7-4.5) 06/23/19 04:17 Magnesium 2.0 mg/dL (1.6-2.5) 06/23/19 04:17 Assessment and Plan (1) ARF (acute renal failure) Joanne Nguyễn is a 79-year-old female with coronary artery disease s/p CABG and stents, hypertension, hyperlipidemia, hypothyroidism, diabetes mellitus type 2, recent admission for E Coli bacteremia and pyelonephritis in May 2019, admitted on 06/20/19. She presented to ED for nausea and not able to eat. She also noted blood smeared stool and on toilet paper. Initial work-up was consistent with acute kidney injury, atrial fibrillation with RVR and elevated LFTs. Acute kidney injury with initial hyperkalemia and metabolic acidosis, associated with suspected decreased renal perfusion due to recent nausea/vomiting, diuretic use and atrial fibrillation with RVR, present on arrival. She had no recent IV contrast or NSAIDs. Recent work up: Urinalysis on 05/18/19: Straw, Clear, pH 5.0, SG 1.009, protein negative, occult blood 0.2, leukocyte esterase 25, urine WBC 14. CT Abdomen and Pelvis without contrast on 05/18/19: Kidneys show slight inhomogeneity and perinephric fat stranding which is suggestive, but not diagnostic, diffuse renal inflammation such as glomerulonephritis. 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 Current work up: Urinalysis on 06/20/19: Yellow, Clear, pH 5.0, SG 1.012, protein negative, occult blood negative, leukocyte esterase 75. Random urine total protein/creatinine ratio on 06/21/19: 9/39.9= 225 mg/g creatinine. Labs on 06/21/19: TIBC 13%, CRP 1.4, ESR 43, Vitamin D Total (25-Hydroxy) 59.94, PTH (intact) 145.5, serum free kappa/lambda light chain ratio 1.083, Labs on 06/21/19: C3, C4, ANCA screen, anti-GBM A pending. Progress: Creatinine decreased from 1.5 to 1.4 in the past 24 hours. Urine output: 1650 reported in the past 24 hours. No fluid overload. Recommendations: Outpatient follow up appointment on 06/28/19 at 15:00 with me scheduled. BMP on 06/26/19 before the appointment. Status: Acute Priority: High Qualifiers: Acute renal failure type: unspecified Qualified Code(s): N17.9 - Acute kidney failure, unspecified
[2019-06-24 07:01] LABS: ALT/SGPT 120 U/l (0-40); AST/SGOT 53 U/l (0-37); Alkaline Phosphatase 175 U/L (39-117); Bilirubin,Total 0.5 mg/dL (0.0-1.0); Blood Urea Nitrogen 21 mg/dl (8-23); Calcium 8.9 mg/dl (8.6-10.4); Carbon Dioxide 23 mmol/L (22-30); Globulin 3.1 gm/dL (2.2-3.7); Glomerular Filtration Rate 36; Glucose 193 mg/dL (70-105); Lactate Dehydrogenase 253 U/L (94-250); Triglycerides 60 mg/dl (<150); Uric Acid 4.2 mg/dL (2.5-8.0)
[2019-06-24] MEDS: OMEPRAZOLE 20 MG CAPSULE PO SCH (07:29)
[2019-06-24] MEDS: INSULIN LISPRO 1 UNIT/0.01 ML UNIT SQ SCH ×4 (07:30→20:16)
[2019-06-24] MEDS: DILTIAZEM 240 MG CAP.XL.24H PO SCH (07:30)
[2019-06-24] MEDS: METOPROLOL SUCCINATE 50 MG TAB.XL.24H PO SCH (07:30)
[2019-06-24] MEDS: LEVOTHYROXINE 50 MCG TABLET PO SCH (07:30)
[2019-06-24] MEDS: cloNIDine HCL 0.1 MG TABLET PO SCH ×2 (07:31→20:04)
[2019-06-24] MEDS ORDERED: RIVAROXABAN 15 MG TABLET PO ONE (08:05)
--- NOTE | 2019-06-24 08:06 | Internal Med Progress Note ---
Medical - PN: Subj Patient information: Note initiated : 06/24/19 at 7:54 am Service Date, if different from initiated Date: [] Patient: Joanne Nguyễn a 79 y/o F admitted on 06/20/19 for Rectal bleed. Chief Complaint: [] Interval history: Ms. Nguyễn is a 79 year old F with a known history of CAD/CABG, CKD stage III, HTN, HLD and DM type II who was recently discharged following sepsis secondary to E. coli bacteremia and pyelonephritis. She was discharged and completed 10 days antibiotics. Patient has been intermittently nauseous with episodic retching. She has not been able to eat normal diet. Symptoms are triggered after each meals. She denies food getting stuck in her throat or dysphagia to solids but preferentially takes liquids as she does well with those. She has been taking Zofran to alleviate her symptoms. She has had a progressive decline with severe dehydration due to inability to keep fluids down. She was seen at primary care physician Wilbur garsia office and was given IV fluids. She was diagnosed with dehydration. However within 24 hours patient comes back after she noted blood smeared stool and on toilet paper. She however denies large volume bloody bowel. She endorses it was fresh blood. She presents to the ER with combination of above symptoms. Initial work-up was consistent with A. fib with RVR, elevated creatinine at 2.5, elevated potassium 5.5, BUN 65 but hemoglobin at 9.9. However negative digital rectal exam for blood. She also had elevated LFTs and underwent abdominal ultrasound. Subsequently hospitalist service was consulted after it was controlled on diltiazem drip. Of note patient has been seen by rn wellness Dr. Stout office and anticoa gulated was held until she was to see GI for endoscopy evaluation. She is yet to schedule an appointment with Dr. Black at [facility]. At the time of evaluation patient is accompanied with her . She was able to answer most of the questions. She is quite distressed due to her symptoms. She endorses symptoms as above. Denies fever, dysuria, diarrhea, headache, photophobia. 06/21-patient currently on diltiazem drip. Case discussed with Dr. christo [place] cardiology. Cardiology recommends continuing to hold anticoagulation until such time deemed appropriate by GI to reinitiate. Case discussed with the wirer passenger car Dr. Sidhu. Patient will undergo upper and lower endo scopy in 24 hours for evaluation of GI bleed. Currently patient on diltiazem drip rate controlled. Restart home dose Cardizem. 06/22 Patient off diltiazem drip yesterday. On home diltiazem and Toprol. No overnight events or new complaints. Some nausea earlier resolved now. Heart rate is been 80s to low 100's. Reports some constipation now. some gastritis noted on EGD with stricture that was dilated. Per GI, ok to restart anticoagulation. Will restart anticoagulation after cholecystectomy. 06/23 Feeling well. No new complaints. Does have a difficult time sleeping back as of interruptions or noise. No other complaints. Plan for cholecystectomy by Dr. Adams today. Heart rate has been 60s to 80s. did have some low blood pressures last night. 06/24 No bowel months or flatus since surgery. Good appetite this morning. Heart rate tachycardic overnight since surgery. No chest pain shortness of breath pains or complaints. Review of Systems: denies headache/fever/chills/vomiting/chest or abdominal pain/cough/dyspnea/diarrhea. Otherwise see above. - Constitutional Vitals: Vital Signs Temp Pulse Resp BP Pulse Ox 98.2 F 82 17 144/92 97 06/24/19 04:01 06/23/19 13:41 06/24/19 06:01 06/24/19 06:01 06/24/19 06:01 Period Temp Pulse Resp BP Sys/Fitch Pulse Ox Last 24 Hr 97.1 F-98.2 F 64-84 9-25 102-144/58-104 84-100 Intake and Output 06/23/19 06/24/19 06/24/19 21:59 05:59 13:59 Intake Total 1600 290 50 Output Total 650 350 Balance 950 -60 50 Weight 71.622 kg Intake & Output: Intake & Output 06/23/19 06/24/19 06/24/19 21:59 05:59 13:59 Intake Total 1600 290 50 Output Total 650 350 Balance 950 -60 50 Weight 71.622 kg Intake: IV 100 50 50 Zosyn 2.25 gm In Dextrose 5% in 100 50 50 Water 50 ml @ 100 mls/hr IV Q6H [facility] Rx#:[id number] Oral 1500 240 Output: Void Amount 650 350 Other: Meal Dinner Percent of Meal Consumed 75% Feeding Ability Assist with Tray Set Up Urine Appearance Clear Clear Urine Color Bright Yellow Bright Yellow Urine Odor Normal Normal Exam: General: Alert, Awake, No acute Distress Eyes/N/T: EOMI, Head/Neck: neck supple, CV: irreg irreg, No murmurs, Pulm: Clear b/l, no wheezing/rhonchi/rales Abd: soft, +BS x4 Ext: no clubbing/cyanosis, trace b/l LE edema Neuro: Alert, no focal deficits, moves all extremities, Skin: warm/dry Medical - PN: Obj Da - Labs CBC & Chem 7: 06/24/19 04:22 06/24/19 04:22 Labs: Abnormal Lab Results 06/24/19 06/24/19 06/23/19 04:22 04:22 04:17 WBC 13.8 H 11.4 H RBC 3.11 L 3.02 L Hgb 9.5 L 9.4 L Hct 29.3 L 28.8 L RDW 16.3 H 16.6 H Gran % 90.4 H Lymph % (Auto) 7.1 L Gran # 12.5 H 8.2 H Lymph # (Auto) 1.0 L [place] # (Auto) 1.1 H Seg Neutrophils % Lymphocytes % Myelocytes % Nucleated RBCs RBC Morphology Polychromasia Hypochromasia Anisocytosis ESR PT INR BUN Creatinine 1.4 H Glucose 193 H Calcium Phosphorus Iron TIBC Transferrin % Sat GGT 100 H AST 53 H ALT 120 H Alkaline Phosphatase 175 H Lactate Dehydrogenase 253 H C-Reactive Protein Total Protein Albumin 3.0 L Albumin/Globulin Ratio PTH Intact Free [place] LC, Quant 06/23/19 06/23/19 06/22/19 04:17 04:17 07:23 WBC RBC Hgb Hct RDW Gran % Lymph % (Auto) Gran # Lymph # (Auto) [place] # (Auto) Seg Neutrophils % Lymphocytes % Myelocytes % Nucleated RBCs RBC Morphology Polychromasia Hypochromasia Anisocytosis ESR PT 15.4 H 15.0 H INR 1.2 H 1.2 H BUN 26 H Creatinine 1.5 H Glucose Calcium 8.3 L Phosphorus Iron TIBC Transferrin % Sat GGT 104 H AST 68 H ALT 136 H Alkaline Phosphatase 182 H Lactate Dehydrogenase C-Reactive Protein Total Protein 5.8 L Albumin 2.7 L Albumin/Globulin Ratio 0.9 L PTH Intact Free [place] LC, Quant 06/22/19 06/22/19 06/22/19 03:42 03:42 03:42 WBC RBC Hgb Hct RDW Gran % Lymph % (Auto) Gran # Lymph # (Auto) [place] # (Auto) Seg Neutrophils % Lymphocytes % Myelocytes % Nucleated RBCs RBC Morphology Polychromasia Hypochromasia Anisocytosis ESR PT INR BUN Creatinine Glucose Calcium Phosphorus Iron 28 L TIBC 215 L Transferrin % Sat 13 L GGT AST ALT Alkaline Phosphatase Lactate Dehydrogenase C-Reactive Protein 1.4 H Total Protein Albumin Albumin/Globulin Ratio PTH Intact 145.5 H Free [place] LC, Quant 27.27 H 06/22/19 06/22/19 06/22/19 03:42 03:42 03:42 WBC 12.3 H RBC 2.89 L Hgb 8.9 L Hct 26.6 L RDW 15.6 H Gran % Lymph % (Auto) Gran # Lymph # (Auto) [place] # (Auto) Seg Neutrophils % 85 H Lymphocytes % 14 L Myelocytes % Nucleated RBCs RBC Morphology Polychromasia 1+ A Hypochromasia Anisocytosis 1+ A ESR 43 H PT INR BUN 35 H Creatinine 1.6 H Glucose Calcium 8.5 L Phosphorus 2.3 L Iron TIBC Transferrin % Sat GGT 115 H AST 98 H ALT 163 H Alkaline Phosphatase 194 H Lactate Dehydrogenase C-Reactive Protein Total Protein Albumin 2.9 L Albumin/Globulin Ratio PTH Intact Free [place] LC, Quant 06/21/19 03:50 WBC RBC Hgb Hct RDW Gran % Lymph % (Auto) Gran # Lymph # (Auto) [place] # (Auto) Seg Neutrophils % Lymphocytes % Myelocytes % 1 H Nucleated RBCs 1 H RBC Morphology Abnorm A Polychromasia 1+ A Hypochromasia 1+ A Anisocytosis ESR PT INR BUN Creatinine Glucose Calcium Phosphorus Iron TIBC Transferrin % Sat GGT AST ALT Alkaline Phosphatase Lactate Dehydrogenase C-Reactive Protein Total Protein Albumin Albumin/Globulin Ratio PTH Intact Free [place] LC, Quant Meds: Medications Acetaminophen (Tylenol) 650 mg PO Q4-6HP PRN; Protocol PRN Reason: Per Pain Protocol/Fever > 101 Last Admin: 06/23/19 20:17 Dose: 650 mg Documented by: Clonidine HCl (Catapres) 0.1 mg PO BID LILLIAN Last Admin: 06/24/19 07:31 Dose: 0.1 mg Documented by: Dextrose (Dextrose 50%) 0 ml IV UD PRN PRN Reason: Hypoglycemia Diagnostic Test (Pha) (Accu-Chek) 1 each FS [facility] Last Admin: 06/24/19 07:29 Dose: 1 each Documented by: Diltiazem HCl (Cardizem Cd) 480 mg PO DAILY [facility] Last Admin: 06/24/19 07:30 Dose: 480 mg Documented by: Docusate Sodium (Colace) 100 mg PO BID [facility] Last Admin: 06/23/19 20:16 Dose: 100 mg Documented by: Glucose (Insta-Glucose) 15 gm PO PRN PRN PRN Reason: Hypoglycemia Magnesium Sulfate (Magnesium Sulfate) 2 gm in 50 mls @ 50 mls/hr IV UD PRN PRN Reason: MG = or < 1.7 Acetaminophen (Ofirmev) 650 mg in 65 mls @ 130 mls/hr IV Q6HP PRN; Protocol PRN Reason: Per Pain Protocol/Fever > 101 Piperacillin Sod/Tazobactam (Sod 2.25 gm/ Dextrose) 50 mls @ 100 mls/hr IV Q6H [facility]; Protocol Last Infusion: 06/24/19 06:57 Dose: Infused Documented by: Insulin Human Lispro (Humalog) 0 unit SQ [facility]; Protocol Last Admin: 06/24/19 07:30 Dose: 2 unit Documented by: Iron Carb/Multivit/[place]/Folic Acid (Multivitamin W/Minerals) 1 tab PO DAILY [facility] Levothyroxine Sodium (Synthroid) 50 mcg PO ACB [facility] Last Admin: 06/24/19 07:30 Dose: 50 mcg Documented by: Melatonin (Melatonin 3mg Tablet) 3 mg PO HS [facility] Last Admin: 06/23/19 20:17 Dose: 3 mg Documented by: Metoprolol Succinate (Toprol Xl) 100 mg PO DAILY [facility] Last Admin: 06/24/19 07:30 Dose: 100 mg Documented by: Metoprolol Tartrate (Lopressor) 5 mg IV Q2HP PRN PRN Reason: Tachyarrhythmias HR>110 Omeprazole (Prilosec) 40 mg PO QAMAC [facility] Last Admin: 06/24/19 07:29 Dose: 40 mg Documented by: Ondansetron HCl (Zofran) 4 mg IV Q4-6HP PRN; Protocol PRN Reason: Nausea And Vomiting Ondansetron HCl (Zofran Odt) 4 mg SL Q4-6HP PRN PRN Reason: Nausea Polyethylene Glycol (Miralax) 17 gm PO DAILY [facility] Potassium Chloride (Klor-Con) 40 meq PO DAILYP PRN PRN Reason: K+ < 3.5 Potassium Chloride (Kdur) 20 meq PO 5XD [facility] Last Admin: 06/23/19 20:17 Dose: 20 meq Documented by: Senna/Docusate Sodium (Senna Plus Tablet) 1 tab PO HS [facility] Last Admin: 06/23/19 20:17 Dose: 1 tab Documented by: Simvastatin (Zocor) 10 mg PO HS [facility] Last Admin: 06/23/19 20:16 Dose: 10 mg Documented by: Sitagliptin Phosphate (Januvia) 25 mg PO DAILY [facility] Sodium Chloride (Saline Flush) 10 ml IV Q8 [facility] Last Admin: 06/24/19 05:46 Dose: 10 ml Documented by: Sucralfate (Carafate) 1 gm PO BID [facility] Last Admin: 06/23/19 20:17 Dose: 1 gm Documented by: Medical - PN: A/P - Time Spent With Patient Total time spent is greater than 50% in coordination of care (as documented) at patient's floor/unit and/or counseling patient: - Narrative A/P Narrative: A: *Acute cholecystitis w/transaminitis: s/p lap raisa (06/23) -ultrasound consistent with acute cholecystitis *AFib w/RVR: elevated since surgery -Echo reviewed from May 2019 -Case d/w [place] cardiology Dr. Mahoney; Advised to continue holding anticoagulation until approved by GI for initiation. *GI bleed: stable -EGD with some gastritis and stricture that was dilated -Pt has known history of hemorrhoids s/p hemorrhoidectomy by Dr. Black in the past *Anemia, acute on chronic, from blood loss: -stable *Volume depletion w/metabolic acidosis: resolved *RODRIGUEZ on CKD III-IV (base Cr~1.4-1.6): resolved *DM II: *Hypothyroidism: *Moderate Pulm HTN at baseline: *CAD: continue beta-aman/statin *HTN: Plan: -Dr. Adams following, -Zosyn -Per GI, ok to restart anticoagulation, will restart anticoagulation after cholecystectomy. -Nephrology following, labs pending. and f/u with Nephro outpt -continue home Dilt, BB, Clonidine(decrease), hold ARB/thiazide/lasix until renal function improves, -prn Lopressor -continue CC diet/sliding scale insulin, d/c metformin d/t CKD change to sitagliptin -PT OT -ppx: rivaroxaban full code Medical - PN: Qual - VTE Deep Vein Thrombosis/Pulmonary Embolism Present on Admission: No
[2019-06-24] MEDS ORDERED: sitaGLIPtin 50 MG TABLET PO SCH (09:00)
[2019-06-24 09:32] LABS: Anisocytosis 1+ (NONE SEEN); Band Neutrophils % 11 % (0-10); Lymphocytes % 11 % (15-49); Monocytes % (Manual) 2 % (1-12); Platelet Estimate NORMAL (NORMAL); RBC Morphology ABNORMAL (NORMAL); Segmented Neutrophils % 76 % (38-78)
[2019-06-24] MEDS: POLYETHYLENE GLYCOL 3350 17 GM PACKET PO SCH (09:46)
[2019-06-24] MEDS: sitaGLIPtin 50 MG TABLET PO SCH (09:46)
[2019-06-24] MEDS: METOPROLOL TARTRATE 5 MG/5 ML VIAL IV PRN (09:46)
[2019-06-24] MEDS: DOCUSATE SODIUM 100 MG CAPSULE PO SCH ×2 (09:47→20:04)
[2019-06-24] MEDS: SUCRALFATE 1 GM TABLET PO SCH ×2 (09:47→20:04)
[2019-06-24] MEDS: POTASSIUM CHLORIDE 20 MEQ TABLET PO SCH ×5 (09:47→20:04)
[2019-06-24] MEDS: MULTIVIT,THER IRON,CA,FA & MIN 1 TABLET PO SCH (09:48)
[2019-06-24] MEDS ORDERED: METOPROLOL TARTRATE 5 MG/5 ML VIAL IV ONE (10:02)
--- NOTE | 2019-06-24 12:59 | General Surgery Progress Note ---
Subjective Patient reports: pain is less, tolerating a regular diet, flatus, afebrile Narrative: Note initiated : 06/24/19 at 12:57 pm Service Date, if different from initiated Date: [] Patient: Joanne Nguyễn 79 y/o F admitted on 06/20/19 for Rectal bleed. Chief Complaint: [patient is doing well. She has had some exacerbation of her atrial fibrillation with heart rate up to the 130s during the night. Her med ication has been increased and her rate is trending downward at this time. She has no discomfort relative to the surgery. White blood count 13.8, hemoglobin 9.5, hematocrit 29.3, AST 53, ALT 120, creatinine 1.4.] Objective Temp Pulse Resp BP Pulse Ox 98.2 F 82 17 131/87 90 06/24/19 11:00 06/23/19 13:41 06/24/19 11:00 06/24/19 11:00 06/24/19 11:00 - Additional Data Intake & Output - Last 24 hours: Intake & Output 06/22/19 06/23/19 06/24/19 06/25/19 05:59 05:59 05:59 05:59 Intake Total 2392 2799.0909 3687 50 Output Total 2500 1250 1650 400 Balance -108 1549.0909 2037 -350 Weight 149 lb 5 oz 155 lb 157 lb 14.4 oz - General physical appearance well developed, well nourished, no distress - Eyes PERRL, normal ocular movement - ENT normal pinna, normal nares, normal mucosa, no hearing loss, no congestion - Neck no masses, no bruits, trachea midline, no lymphadenopathy, no venous distension - Respiratory normal expansion, normal respiratory effort, clear to auscultation - Cardiovascular Cardiovascular exam: Present: +S1, +S2, tachycardia (irregular rhythm variable between 90 and 120) - Abdomen tender ( mild tenderness around port sites otherwise benign abdominal exam), bowel sounds (present), surgical scars (none), masses (none) - Integumentary no rash, no growths, no abnormal pigmentation - Neurologic normal coordination, normal sensation - Musculoskeletal normal gait, normal posture - Psychiatric oriented to time, oriented to person, oriented to place, speech is normal, memory intact - Labs 06/24/19 04:22 06/24/19 04:22 Diabetes panel 06/24/19 Range/Units 04:22 Sodium 138 (133-145) mmol/L Potassium 4.6 (3.3-5.1) mmol/L Chloride 103 (96-108) mmol/L Carbon Dioxide 23 (22-30) mmol/L BUN 21 (8-23) mg/dl Creatinine 1.4 H (0.6-1.1) mg/dl Glucose 193 H (70-105) mg/dL Calcium 8.9 (8.6-10.4) mg/dl AST 53 H (0-37) U/l ALT 120 H (0-40) U/l Alkaline Phosphatase 175 H (39-117) U/L Total Protein 6.1 (5.9-8.4) gm/dL Albumin 3.0 L (3.2-5.2) gm/dL Triglycerides 60 (<150) mg/dl Calcium panel 06/24/19 Range/Units 04:22 Calcium 8.9 (8.6-10.4) mg/dl Phosphorus 3.0 (2.7-4.5) mg/dL Albumin 3.0 L (3.2-5.2) gm/dL Pituitary panel 06/24/19 Range/Units 04:22 Sodium 138 (133-145) mmol/L Potassium 4.6 (3.3-5.1) mmol/L Chloride 103 (96-108) mmol/L Carbon Dioxide 23 (22-30) mmol/L BUN 21 (8-23) mg/dl Creatinine 1.4 H (0.6-1.1) mg/dl Glucose 193 H (70-105) mg/dL Calcium 8.9 (8.6-10.4) mg/dl Adrenal panel 06/24/19 Range/Units 04:22 Sodium 138 (133-145) mmol/L Potassium 4.6 (3.3-5.1) mmol/L Chloride 103 (96-108) mmol/L Carbon Dioxide 23 (22-30) mmol/L BUN 21 (8-23) mg/dl Creatinine 1.4 H (0.6-1.1) mg/dl Glucose 193 H (70-105) mg/dL Calcium 8.9 (8.6-10.4) mg/dl Total Bilirubin 0.5 (0.0-1.0) mg/dL AST 53 H (0-37) U/l ALT 120 H (0-40) U/l Alkaline Phosphatase 175 H (39-117) U/L Total Protein 6.1 (5.9-8.4) gm/dL Albumin 3.0 L (3.2-5.2) gm/dL Assessment and Plan (1) Cholelithiasis and acute cholecystitis without obstruction Status: Acute Assessment and plan: Patient has stable postoperative state with normal LFTs Current Visit: Yes (2) Atrial fibrillation with rapid ventricular response Status: Resolved Assessment and plan: Onset of rapid ventricular rate but improved on oral medication Current Visit: Yes (3) RODRIGUEZ (acute kidney injury) Status: Acute Current Visit: No (4) Dehydration Status: Resolved Current Visit: No (5) Diabetes mellitus, type 2 Status: Chronic Current Visit: No (6) Hypertension, essential Status: Chronic Current Visit: No - Time Spent With Patient Total time spent is greater than 50% in coordination of care (as documented) at patient's floor/unit and/or counseling patient:
[2019-06-24] MEDS ORDERED: RIVAROXABAN 15 MG TABLET PO SCH (17:30)
[2019-06-24] MEDS: MELATONIN 3 MG TABLET PO SCH (20:03)
[2019-06-24] MEDS: SIMVASTATIN 10 MG TABLET PO SCH (20:04)
[2019-06-24] MEDS: SENNOSIDES/DOCUSATE SODIUM 1 TAB TABLET PO SCH (20:04)
[2019-06-24] MEDS: ACETAMINOPHEN 325 MG TABLET PO PRN (20:04)
[2019-06-25] MEDS: METOPROLOL TARTRATE 5 MG/5 ML VIAL IV PRN (03:15)
[2019-06-25] MEDS: PIPERACILLIN SODIUM/TAZOBACTAM 2.25 GM in DEXTROSE 5% IN WATER 50 ML IV SCH ×2 (05:51→11:45)
[2019-06-25] MEDS: 0.9 % SODIUM CHLORIDE 10 ML SYRINGE IV SCH ×3 (05:51→22:22)
[2019-06-25 06:23] LABS: Hematocrit 32.3 % (36.0-48.0); Hemoglobin 10.6 g/dL (12.0-15.0); Mean Cell Volume 93.6 fL (80.0-100.0); Mean Corpuscular HGB Conc 32.8 g/dL (31.0-36.0); Mean Platelet Volume 7.8 fL (7.4-10.4); Platelet Count 386 K/mcL (140-440); RBC 3.45 M/mcL (4.00-5.20); Red Cell Distribution Width 16.5 % (11.5-14.5)
[2019-06-25 06:29] LABS: ALT/SGPT 106 U/l (0-40); AST/SGOT 41 U/l (0-37); Albumin 3.1 gm/dL (3.2-5.2); Albumin/Globulin Ratio 0.9 (1.0-2.3); Alkaline Phosphatase 182 U/L (39-117); Bilirubin,Direct < 0.2 mg/dL (0.0-0.3); Bilirubin,Total 0.4 mg/dL (0.0-1.0); Calcium 9.1 mg/dl (8.6-10.4); Carbon Dioxide 20 mmol/L (22-30); Chloride 104 mmol/L (96-108); Globulin 3.5 gm/dL (2.2-3.7); Glucose 161 mg/dL (70-105); Lactate Dehydrogenase 262 U/L (94-250); Phosphorous 2.7 mg/dL (2.7-4.5); Triglycerides 109 mg/dl (<150); Uric Acid 5.3 mg/dL (2.5-8.0)
[2019-06-25 06:31] LABS: Blood Urea Nitrogen 38 mg/dl (8-23); Glomerular Filtration Rate 25
--- NOTE | 2019-06-25 08:03 | Internal Med Progress Note ---
Medical - PN: Subj Patient information: Note initiated : 06/25/19 at 7:58 am Service Date, if different from initiated Date: [] Patient: Joanne Nguyễn a 79 y/o F admitted on 06/20/19 for Rectal bleed. Chief Complaint: [] Interval history: Ms. Nguyễn is a 79 year old F with a known history of CAD/CABG, CKD stage III, HTN, HLD and DM type II who was recently discharged following sepsis secondary to E. coli bacteremia and pyelonephritis. She was discharged and completed 10 days antibiotics. Patient has been intermittently nauseous with episodic retching. She has not been able to eat normal diet. Symptoms are triggered after each meals. She denies food getting stuck in her throat or dysphagia to solids but preferentially takes liquids as she does well with those. She has been taking Zofran to alleviate her symptoms. She has had a progressive decline with severe dehydration due to inability to keep fluids down. She was seen at primary care physician Wilbur garsia office and was given IV fluids. She was diagnosed with dehydration. However within 24 hours patient comes back after she noted blood smeared stool and on toilet paper. She however denies large volume bloody bowel. She endorses it was fresh blood. She presents to the ER with combination of above symptoms. Initial work-up was consistent with A. fib with RVR, elevated creatinine at 2.5, elevated potassium 5.5, BUN 65 but hemoglobin at 9.9. However negative digital rectal exam for blood. She also had elevated LFTs and underwent abdominal ultrasound. Subsequently hospitalist service was consulted after it was controlled on diltiazem drip. Of note patient has been seen by gift manager Dr. Stout office and anticoa gulated was held until she was to see GI for endoscopy evaluation. She is yet to schedule an appointment with Dr. Black at [facility]. At the time of evaluation patient is accompanied with her . She was able to answer most of the questions. She is quite distressed due to her symptoms. She endorses symptoms as above. Denies fever, dysuria, diarrhea, headache, photophobia. 06/21-patient currently on diltiazem drip. Case discussed with Dr. christo Ellington cardiology. Cardiology recommends continuing to hold anticoagulation until such time deemed appropriate by GI to reinitiate. Case discussed with the prepress supervisor Dr. Sidhu. Patient will undergo upper and lower endo scopy in 24 hours for evaluation of GI bleed. Currently patient on diltiazem drip rate controlled. Restart home dose Cardizem. 06/22 Patient off diltiazem drip yesterday. On home diltiazem and Toprol. No overnight events or new complaints. Some nausea earlier resolved now. Heart rate is been 80s to low 100's. Reports some constipation now. some gastritis noted on EGD with stricture that was dilated. Per GI, ok to restart anticoagulation. Will restart anticoagulation after cholecystectomy. 06/23 Feeling well. No new complaints. Does have a difficult time sleeping back as of interruptions or noise. No other complaints. Plan for cholecystectomy by Dr. Adams today. Heart rate has been 60s to 80s. did have some low blood pressures last night. 06/24 No bowel months or flatus since surgery. Good appetite this morning. Heart rate tachycardic overnight since surgery. No chest pain shortness of breath pains or complaints. 06/25 Patient started feeling achy and crampy abdominal pain in the upper quadrants overnight. Denies any fevers chills. Feels a little bloated. States she is passed a little bit of gas no bowel movements. White blood cell count increased last night as well as her creatinine. Is anxious. Stat CT abdomen pelvis pending this morning. Diet on hold. Patient has a bit of a dry cough and some shortness of breath felt to be from abdominal distention \Review of Systems: denies headache/fever/chills/vomiting/chest pain/diarrhea. Otherwise see above. - Constitutional Vitals: Vital Signs Temp Pulse Resp BP Pulse Ox 98.1 F 82 14 134/96 91 06/25/19 07:01 06/24/19 14:00 06/25/19 06:01 06/25/19 07:01 06/25/19 07:27 Period Temp Pulse Resp BP Sys/Fitch Pulse Ox Last 24 Hr 97.4 F-98.4 F 82 12-22 107-150/83-107 90-97 Intake and Output 06/24/19 06/25/19 06/25/19 21:59 05:59 13:59 Intake Total 510 290 Output Total 450 650 Balance 60 -360 Weight 73.482 kg Intake & Output: Intake & Output 06/24/19 06/25/19 06/25/19 21:59 05:59 13:59 Intake Total 510 290 Output Total 450 650 Balance 60 -360 Weight 73.482 kg Intake: IV 50 50 Zosyn 2.25 gm In Dextrose 5% in 50 50 Water 50 ml @ 100 mls/hr IV Q6H [facility] Rx#:[id number] Oral 460 240 Output: Void Amount 450 650 Other: Meal Dinner Percent of Meal Consumed 75% Feeding Ability Assist with Tray Set Up Urine Appearance Clear Clear Urine Color Bright Yellow Bright Yellow Urine Odor Normal Exam: General: Alert, Awake, No acute Distress, anxious Eyes/N/T: EOMI, Head/Neck: neck supple, CV: irreg irreg, No murmurs, Pulm: Clear b/l, no wheezing/rhonchi/rales Abd: soft, mild TTP upper quads more so on right, +BS x4 Ext: no clubbing/cyanosis, trace b/l LE edema Neuro: Alert, no focal deficits, moves all extremities, Skin: warm/dry Medical - PN: Obj Da - Labs CBC & Chem 7: 06/25/19 04:53 06/25/19 04:53 Labs: Abnormal Lab Results 06/25/19 06/25/19 06/24/19 04:53 04:53 04:22 WBC 30.0 H RBC 3.45 L Hgb 10.6 L Hct 32.3 L RDW 16.5 H Gran % Lymph % (Auto) Gran # Lymph # (Auto) Wilkin # (Auto) Band Neutrophils % 11 H Lymphocytes % 11 L Anisocytosis 1+ A PT INR Potassium 5.2 H Carbon Dioxide 20 L BUN 38 H Creatinine 1.9 H Glucose 161 H Calcium GGT 114 H AST 41 H ALT 106 H Alkaline Phosphatase 182 H Lactate Dehydrogenase 262 H Total Protein Albumin 3.1 L Albumin/Globulin Ratio 0.9 L Free [place] LC, Quant 06/24/19 06/24/19 06/23/19 04:22 04:22 04:17 WBC 13.8 H 11.4 H RBC 3.11 L 3.02 L Hgb 9.5 L 9.4 L Hct 29.3 L 28.8 L RDW 16.3 H 16.6 H Gran % 90.4 H Lymph % (Auto) 7.1 L Gran # 12.5 H 8.2 H Lymph # (Auto) 1.0 L Wilkin # (Auto) 1.1 H Band Neutrophils % Lymphocytes % Anisocytosis PT INR Potassium Carbon Dioxide BUN Creatinine 1.4 H Glucose 193 H Calcium GGT 100 H AST 53 H ALT 120 H Alkaline Phosphatase 175 H Lactate Dehydrogenase 253 H Total Protein Albumin 3.0 L Albumin/Globulin Ratio Free [place] LC, Quant 06/23/19 06/23/19 06/22/19 04:17 04:17 07:23 WBC RBC Hgb Hct RDW Gran % Lymph % (Auto) Gran # Lymph # (Auto) Wilkin # (Auto) Band Neutrophils % Lymphocytes % Anisocytosis PT 15.4 H 15.0 H INR 1.2 H 1.2 H Potassium Carbon Dioxide BUN 26 H Creatinine 1.5 H Glucose Calcium 8.3 L GGT 104 H AST 68 H ALT 136 H Alkaline Phosphatase 182 H Lactate Dehydrogenase Total Protein 5.8 L Albumin 2.7 L Albumin/Globulin Ratio 0.9 L Free [place] LC, Quant 06/22/19 03:42 WBC RBC Hgb Hct RDW Gran % Lymph % (Auto) Gran # Lymph # (Auto) Wilkin # (Auto) Band Neutrophils % Lymphocytes % Anisocytosis PT INR Potassium Carbon Dioxide BUN Creatinine Glucose Calcium GGT AST ALT Alkaline Phosphatase Lactate Dehydrogenase Total Protein Albumin Albumin/Globulin Ratio Free [place] LC, Quant 27.27 H Meds: Medications Acetaminophen (Tylenol) 650 mg PO Q4-6HP PRN; Protocol PRN Reason: Per Pain Protocol/Fever > 101 Last Admin: 06/24/19 20:04 Dose: 650 mg Documented by: Clonidine HCl (Catapres) 0.1 mg PO BID [facility] Last Admin: 06/24/19 20:04 Dose: 0.1 mg Documented by: Dextrose (Dextrose 50%) 0 ml IV UD PRN PRN Reason: Hypoglycemia Diagnostic Test (Pha) (Accu-Chek) 1 each FS ACHS [facility] Last Admin: 06/24/19 20:15 Dose: 1 each Documented by: Diltiazem HCl (Cardizem Cd) 480 mg PO DAILY [facility] Last Admin: 06/24/19 07:30 Dose: 480 mg Documented by: Docusate Sodium (Colace) 100 mg PO BID [facility] Last Admin: 06/24/19 20:04 Dose: 100 mg Documented by: Glucose (Insta-Glucose) 15 gm PO PRN PRN PRN Reason: Hypoglycemia Acetaminophen (Ofirmev) 650 mg in 65 mls @ 130 mls/hr IV Q6HP PRN; Protocol PRN Reason: Per Pain Protocol/Fever > 101 Last Admin: 06/25/19 00:29 Dose: 130 mls/hr Documented by: Piperacillin Sod/Tazobactam (Sod 2.25 gm/ Dextrose) 50 mls @ 100 mls/hr IV Q6H [facility]; Protocol Last Admin: 06/25/19 05:51 Dose: 100 mls/hr Documented by: Insulin Human Lispro (Humalog) 0 unit SQ ACHS [facility]; Protocol Last Admin: 06/24/19 20:16 Dose: 2 unit Documented by: Iron Carb/Multivit/[place]/Folic Acid (Multivitamin W/Minerals) 1 tab PO DAILY [facility] Last Admin: 06/24/19 09:48 Dose: 1 tab Documented by: Levothyroxine Sodium (Synthroid) 50 mcg PO ACB [facility] Last Admin: 06/24/19 07:30 Dose: 50 mcg Documented by: Melatonin (Melatonin 3mg Tablet) 3 mg PO HS [facility] Last Admin: 06/24/19 20:03 Dose: 3 mg Documented by: Metoprolol Succinate (Toprol Xl) 100 mg PO DAILY [facility] Last Admin: 06/24/19 07:30 Dose: 100 mg Documented by: Metoprolol Tartrate (Lopressor) 5 mg IV Q2HP PRN PRN Reason: Tachyarrhythmias HR>110 Last Admin: 06/25/19 03:15 Dose: 5 mg Documented by: Omeprazole (Prilosec) 40 mg PO QAMAC [facility] Last Admin: 06/24/19 07:29 Dose: 40 mg Documented by: Ondansetron HCl (Zofran) 4 mg IV Q4-6HP PRN; Protocol PRN Reason: Nausea And Vomiting Last Admin: 06/25/19 00:38 Dose: 4 mg Documented by: Ondansetron HCl (Zofran Odt) 4 mg SL Q4-6HP PRN PRN Reason: Nausea Polyethylene Glycol (Miralax) 17 gm PO DAILY [facility] Last Admin: 06/24/19 09:46 Dose: 17 gm Documented by: Potassium Chloride (Klor-Con) 40 meq PO DAILYP PRN PRN Reason: K+ < 3.5 Rivaroxaban (Xarelto) 15 mg PO QPMCC [facility] Senna/Docusate Sodium (Senna Plus Tablet) 1 tab PO HS [facility] Last Admin: 06/24/19 20:04 Dose: 1 tab Documented by: Simvastatin (Zocor) 10 mg PO HS [facility] Last Admin: 06/24/19 20:04 Dose: 10 mg Documented by: Sitagliptin Phosphate (Januvia) 25 mg PO DAILY [facility] Last Admin: 06/24/19 09:46 Dose: 25 mg Documented by: Sodium Chloride (Saline Flush) 10 ml IV Q8 [facility] Last Admin: 06/25/19 05:51 Dose: 10 ml Documented by: Sucralfate (Carafate) 1 gm PO BID [facility] Last Admin: 06/24/19 20:04 Dose: 1 gm Documented by: Medical - PN: A/P - Time Spent With Patient Total time spent is greater than 50% in coordination of care (as documented) at patient's floor/unit and/or counseling patient: - Narrative A/P Narrative: A: *Acute cholecystitis w/transaminitis: s/p lap raisa (06/23) -ultrasound consistent with acute cholecystitis *Leukocytosis: increased, *AFib w/RVR: since surgery has been fluctuating, elevated o/n -Echo reviewed from May 2019 -Case d/w [place] cardiology Dr. Mahoney; Advised to continue holding anticoagulation until approved by GI for initiation. *GI bleed: stable -EGD with some gastritis and stricture that was dilated -Pt has known history of hemorrhoids s/p hemorrhoidectomy by Dr. Black in the past *Anemia, acute on chronic, from blood loss: -stable *Volume depletion w/metabolic acidosis: resolved *RODRIGUEZ on CKD: resolved but cr increased this morning -1.9<1.4 *DM II: *Hypothyroidism: *Moderate Pulm HTN at baseline: *CAD: continue beta-aman/statin *HTN: Plan: -Dr. Adams following, -Zosyn -CT a/p pending -Per GI, ok to restart anticoagulation, restarted after surgery -Nephrology following, labs pending. and f/u with Nephro outpt -hold PO meds for now(change lopressor to IV). home Dilt, BB, Clonidine(decrease), hold ARB/thiazide/lasix until renal function improves, -prn Lopressor -SSI, d/c metformin d/t CKD, change to sitagliptin -PT OT -ppx: rivaroxaban full code Medical - PN: Qual - VTE Deep Vein Thrombosis/Pulmonary Embolism Present on Admission: No
[2019-06-25 08:39] LABS: Anisocytosis 1+ (NONE SEEN); Band Neutrophils % 2 % (0-10); Lymphocytes % 8 % (15-49); Monocytes % (Manual) 3 % (1-12); Platelet Estimate NORMAL (NORMAL); Polychromasia 1+ (NONE SEEN); RBC Morphology ABNORM (NORMAL); Reactive Lymphocytes 1 % (0-2); Segmented Neutrophils % 86 % (38-78)
[2019-06-25] MEDS ORDERED: LORazepam 2 MG/ML VIAL IV ONE (09:10)
[2019-06-25] MEDS ORDERED: 0.9 % SODIUM CHLORIDE 1,000 ML IV SCH ×2 (09:15→11:16)
--- NOTE | 2019-06-25 09:19 | Cat Scan Report ---
History: Abdominal pain and elevated white blood cell count following surgery TECHNIQUE: The abdomen was imaged without oral or intravenous contrast scanning from the diaphragm to the symphysis pubis. Sagittal and coronal reformats were created. Radiation exposure was limited using dose reduction technology. FINDINGS: There are small to moderate-sized bilateral layering pleural effusions. There is partial consolidation of the basilar segments of both lower lobes with air bronchograms. This is probably atelectasis. Superimposed pneumonia cannot be excluded. Heart is mildly enlarged. Evaluation of abdominal organs without contrast is somewhat limited. No abnormality seen within the liver or spleen. There are postsurgical changes following recent laparoscopic surgery. The gallbladder is been removed and there are clips in the gallbladder fossa. There are some stranding of the fat in the trey hepatis due to the recent surgery. There is no evidence of a bile leak or abscess. The bile ducts are nondilated. There is no evidence of mass or inflammation the pancreas. There are bilateral adrenal nodules. They have low-attenuation. The nodule in the right is 1 cm nodule in the left is 8.5 mm. These are probably incidental adenomas. The no kidney stone or hydronephrosis are present. There are several noninflamed diverticula in the sigmoid colon. The appendix is not clearly identified. There is no evidence of bowel obstruction or ileus. A moderate amount stool is present throughout the colon. Trace amount of ascites is present in the abdomen or pelvis. This is within normal limits following the preceding abdominal surgery. The uterus and ovaries are atrophic. The urinary bladder appears grossly normal. There is subcutaneous edema throughout the abdominal wall. A right hip prosthesis is present. There is severe disc degeneration at L4-5 and L5-S1. Moderate atherosclerotic disease is present in the distal aorta and iliac arteries. The aorta is normal in caliber. There is no abscess or free intraperitoneal air. No abnormally enlarged lymph nodes are present. IMPRESSION: Normal postoperative changes following recent cholecystectomy. Bilateral pleural effusions with atelectasis/pneumonia in both lower lobes Interpreted and Authenticated by: William Gauthier 06/25/19
[2019-06-25] MEDS: METOPROLOL TARTRATE 5 MG/5 ML VIAL IV SCH ×2 (09:35→11:45)
[2019-06-25] MEDS: INSULIN LISPRO 1 UNIT/0.01 ML UNIT SQ SCH ×4 (09:36→20:10)
[2019-06-25 10:36] LABS: C-Reactive Protein 1.2 mg/dl (0.0-0.8)
[2019-06-25] MEDS ORDERED: CEFEPIME 2 GM VIAL IV SCH ×2 (12:00→18:00)
--- NOTE | 2019-06-25 13:28 | Nephrology Progress Note ---
Subjective Patient information: Note initiated : 06/25/19 at 1:26 pm Patient: Joanne Nguyễn 79 y/o F admitted on 06/20/19 for Rectal bleed. Chief Complaint: Abdominal pain Pertinent ROS: Abdominal pain No shortness of breath No edema NPO Objective - Vital Signs Vital signs: Vital Signs Temp Pulse Resp BP Pulse Ox 06/25/19 12:07 97 06/25/19 12:01 146/98 93 06/25/19 11:48 132/110 96 06/25/19 11:01 146/99 06/25/19 10:01 149/105 93 06/25/19 09:55 94 06/25/19 09:50 151/98 93 06/25/19 09:01 97.5 F 143/102 94 06/25/19 08:25 93 06/25/19 08:01 148/115 97 06/25/19 07:27 91 06/25/19 07:01 98.1 F 134/96 94 06/25/19 06:01 14 129/89 92 06/25/19 05:01 15 123/96 92 06/25/19 04:01 97.6 F 14 136/97 06/25/19 03:01 15 150/107 92 06/25/19 02:01 14 125/86 91 06/25/19 02:00 92 06/25/19 01:01 13 133/88 92 06/25/19 00:01 98.1 F 14 140/92 94 06/24/19 23:01 16 140/91 92 06/24/19 22:01 15 130/87 93 06/24/19 21:01 15 117/85 95 06/24/19 20:01 98.3 F 16 120/84 95 06/24/19 19:03 95 06/24/19 19:01 139/103 95 06/24/19 18:34 140/98 94 06/24/19 16:02 98.4 F 20 107/96 96 06/24/19 15:34 17 06/24/19 15:02 18 127/89 94 06/24/19 14:01 17 119/83 06/24/19 14:00 82 Intake and Output 06/24/19 06/25/19 06/25/19 21:59 05:59 13:59 Intake Total 510 290 50 Output Total 450 650 200 Balance 60 -360 -150 Intake: IV 50 50 50 Zosyn 2.25 gm In Dextrose 5% in 50 50 50 Water 50 ml @ 100 mls/hr IV Q6H [facility] Rx#:[id number] Oral 460 240 Output: Void Amount 450 650 200 Other: Meal Dinner Percent of Meal Consumed 75% Feeding Ability Assist with Tray Set Up Urine Appearance Clear Clear Clear Urine Color Bright Yellow Bright Yellow Bright Yellow Urine Odor Normal Normal Weight 162 lb 162 lb Patient Weight 06/26/19 05:59 Weight 162 lb Intake & Output: Intake & Output 06/24/19 06/25/19 06/25/19 21:59 05:59 13:59 Intake Total 510 290 50 Output Total 450 650 200 Balance 60 -360 -150 Weight 162 lb 162 lb Intake: IV 50 50 50 Zosyn 2.25 gm In Dextrose 5% in 50 50 50 Water 50 ml @ 100 mls/hr IV Q6H [facility] Rx#:[id number] Oral 460 240 Output: Void Amount 450 650 200 Other: Meal Dinner Percent of Meal Consumed 75% Feeding Ability Assist with Tray Set Up Urine Appearance Clear Clear Clear Urine Color Bright Yellow Bright Yellow Bright Yellow Urine Odor Normal Normal - General Appearance General appearance: appears started age EENT: mucous membranes moist Neck: supple Respiratory: clear Cardiology: no edema, rapid rhythm, irregular rhythm Gastrointestinal: tenderness Integumentary: warm and dry Neurologic: no focal deficit, alert and oriented x3 Musculoskeletal: no deformities Psychiatric: mood/affect appropriate, cooperative - Lab 06/25/19 04:53 06/25/19 04:53 Most recent lab results Calcium 9.1 mg/dl (8.6-10.4) 06/25/19 04:53 Phosphorus 2.7 mg/dL (2.7-4.5) 06/25/19 04:53 Magnesium 2.3 mg/dL (1.6-2.5) 06/25/19 04:53 Assessment and Plan (1) ARF (acute renal failure) Joanne Nguyễn is a 79-year-old female with coronary artery disease s/p CABG and stents, hypertension, hyperlipidemia, hypothyroidism, diabetes mellitus type 2, recent admission for E Coli bacteremia and pyelonephritis in May 2019, admitted on 06/20/19. She presented to ED for nausea and not able to eat. She also noted blood smeared stool and on toilet paper. Initial work-up was consistent with acute kidney injury, atrial fibrillation with RVR and elevated LFTs. Acute kidney injury with initial hyperkalemia and metabolic acidosis, associated with suspected decreased renal perfusion due to recent nausea/vomiting, diuretic use and atrial fibrillation with RVR, present on arrival. She had no recent IV contrast or NSAIDs. Recent work up: Urinalysis on 05/18/19: Straw, Clear, pH 5.0, SG 1.009, protein negative, occult blood 0.2, leukocyte esterase 25, urine WBC 14. CT Abdomen and Pelvis without contrast on 05/18/19: Kidneys show slight inhomogeneity and perinephric fat stranding which is suggestive, but not diagnostic, diffuse renal inflammation such as glomerulonephritis. 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 Current work up: Urinalysis on 06/20/19: Yellow, Clear, pH 5.0, SG 1.012, protein negative, occult blood negative, leukocyte esterase 75. Random urine total protein/creatinine ratio on 06/21/19: 9/39.9= 225 mg/g creatinine. Labs on 06/21/19: TIBC 13%, CRP 1.4, ESR 43, Vitamin D Total (25-Hydroxy) 59.94, PTH (intact) 145.5, serum free kappa/lambda light chain ratio 1.083, Labs on 06/21/19: C3, C4, ANCA screen, anti-GBM A pending. Progress: Creatinine increased from 1.4 to 1.9 in the past 24 hours. Urine output: 1500 reported in the past 24 hours. Metabolic acidosis, hyperkalemia and hyponatremia developing. No fluid overload. Recommendations: Sodium Bicarbonate (150 mEq in 1 L D5W) at 40 ml/hour for metabolic acidosis and prevention of dehydration. Outpatient follow up appointment will be rescheduled. Status: Acute Priority: Medium Qualifiers: Acute renal failure type: unspecified Qualified Code(s): N17.9 - Acute kidney failure, unspecified (2) Hyperkalemia Please see above Status: Acute Priority: Medium (3) Metabolic acidosis Please see above Status: Acute Priority: Medium
[2019-06-25] MEDS ORDERED: SODIUM BICARBONATE VIAL 150 MEQ in DEXTROSE 5% IN WATER 850 ML IV SCH (13:30)
[2019-06-25] MEDS ORDERED: METOPROLOL TARTRATE 5 MG/5 ML VIAL IV SCH ×2 (13:45→14:00)
[2019-06-25] MEDS: DILTIAZEM 125 MG in DEXTROSE 5% IN WATER 100 ML IV SCH (13:55)
--- NOTE | 2019-06-25 14:19 | XRay Report ---
HISTORY: Elevated white blood cell count after abdominal surgery FINDINGS: There is a moderate size infiltrate in the left lower lobe and a smaller infiltrate posteriorly medially in the right lower lobe. Small bilateral pleural effusions are present, left greater than right. The upper lung covarrubias are clear. The heart size is normal. There is no pulmonary vascular congestion. No free intra-abdominal air is present. Comparison with the prior exam from 06/22/19 shows the left lower lobe infiltrate has become worse and there is been relatively little change in the right side. IMPRESSION: bibasilar infiltrates and pleural effusions. This may be a combination of pneumonia and atelectasis. Interpreted and Authenticated by: William Gauthier 06/25/19
[2019-06-25] MEDS: SODIUM BICARBONATE VIAL 150 MEQ in DEXTROSE 5% IN WATER 850 ML IV SCH (14:21)
[2019-06-25] MEDS: metroNIDAZOLE 500 MG/100 ML BAG IV SCH ×2 (14:28→22:22)
[2019-06-25] MEDS: LEVOTHYROXINE 50 MCG TABLET PO SCH (14:41)
[2019-06-25] MEDS: OMEPRAZOLE 20 MG CAPSULE PO SCH (14:41)
[2019-06-25] MEDS: cloNIDine HCL 0.1 MG TABLET PO SCH ×2 (14:42→20:09)
[2019-06-25] MEDS: MULTIVIT,THER IRON,CA,FA & MIN 1 TABLET PO SCH (14:42)
[2019-06-25] MEDS: SUCRALFATE 1 GM TABLET PO SCH ×2 (14:42→20:09)
[2019-06-25] MEDS: DOCUSATE SODIUM 100 MG CAPSULE PO SCH ×2 (14:42→20:10)
[2019-06-25] MEDS: POLYETHYLENE GLYCOL 3350 17 GM PACKET PO SCH ×3 (14:44→20:12)
[2019-06-25] MEDS: METOPROLOL SUCCINATE 50 MG TAB.XL.24H PO SCH (14:44)
[2019-06-25] MEDS: sitaGLIPtin 50 MG TABLET PO SCH (14:44)
[2019-06-25] MEDS: DILTIAZEM 240 MG CAP.XL.24H PO SCH (14:44)
--- NOTE | 2019-06-25 15:21 | General Surgery Progress Note ---
Subjective Patient reports: feels better, pain is less, tolerating liquids well, flatus, no bowel movement, afebrile Narrative: Note initiated : 06/25/19 at 3:18 pm Service Date, if different from initiated Date: [] Patient: Joanne Nguyễn 79 y/o F admitted on 06/20/19 for Rectal bleed. Chief Complaint: [Patient is clinically stable however she has had some increase in her pulse rate and her white blood count is increased to 30,000. The change in pulse rate is because of lack of taking her Cardizem and metoprolol orally. The elevated white blood count is not in line with her clinical presentation. She is afebrile. Her CRP is 1.2 and her lactic acid is 2. Her pro calcitonin is less than 0.10. Temperature is have been consistently less than 99. Other labs revealed BUN 38, creatinine 1.9, potassium 5.2. Her LFTs show no change in her bilirubin is normal. She [place] 8904.] Objective Temp Pulse Resp BP Pulse Ox 97.9 F 82 14 145/85 94 06/25/19 13:04 06/24/19 14:00 06/25/19 06:01 06/25/19 13:04 06/25/19 13:40 - Additional Data Intake & Output - Last 24 hours: Intake & Output 06/23/19 06/24/19 06/25/19 06/26/19 05:59 05:59 05:59 05:59 Intake Total 2799.0909 3687 1460 274 Output Total 1250 1650 1500 400 Balance 1549.0909 2037 -40 -126 Weight 155 lb 157 lb 14.4 oz 162 lb 162 lb - General physical appearance well developed, well nourished, no distress - Eyes PERRL, normal ocular movement - ENT normal pinna, normal nares, normal mucosa, no hearing loss, no congestion - Neck no masses, no bruits, trachea midline, no lymphadenopathy, no venous distension - Respiratory normal expansion, normal respiratory effort, clear to auscultation - Cardiovascular Cardiovascular exam: Present: irregular rhythm, tachycardia (irregularly irregular rhythm with heart rate between 130 and 140) - Abdomen tender (mild tenderness around port sites), bowel sounds (present), surgical scars (none), masses (none) - Integumentary no rash, no growths, no abnormal pigmentation - Neurologic normal coordination, normal sensation - Musculoskeletal normal gait - Psychiatric oriented to time, oriented to person, oriented to place, speech is normal, memory intact - Labs 06/25/19 04:53 06/25/19 04:53 Diabetes panel 06/25/19 Range/Units 04:53 Sodium 135 (133-145) mmol/L Potassium 5.2 H (3.3-5.1) mmol/L Chloride 104 (96-108) mmol/L Carbon Dioxide 20 L (22-30) mmol/L BUN 38 H (8-23) mg/dl Creatinine 1.9 H (0.6-1.1) mg/dl Glucose 161 H (70-105) mg/dL Calcium 9.1 (8.6-10.4) mg/dl AST 41 H (0-37) U/l ALT 106 H (0-40) U/l Alkaline Phosphatase 182 H (39-117) U/L Total Protein 6.6 (5.9-8.4) gm/dL Albumin 3.1 L (3.2-5.2) gm/dL Triglycerides 109 (<150) mg/dl Calcium panel 06/25/19 Range/Units 04:53 Calcium 9.1 (8.6-10.4) mg/dl Phosphorus 2.7 (2.7-4.5) mg/dL Albumin 3.1 L (3.2-5.2) gm/dL Pituitary panel 06/25/19 Range/Units 04:53 Sodium 135 (133-145) mmol/L Potassium 5.2 H (3.3-5.1) mmol/L Chloride 104 (96-108) mmol/L Carbon Dioxide 20 L (22-30) mmol/L BUN 38 H (8-23) mg/dl Creatinine 1.9 H (0.6-1.1) mg/dl Glucose 161 H (70-105) mg/dL Calcium 9.1 (8.6-10.4) mg/dl Adrenal panel 06/25/19 Range/Units 04:53 Sodium 135 (133-145) mmol/L Potassium 5.2 H (3.3-5.1) mmol/L Chloride 104 (96-108) mmol/L Carbon Dioxide 20 L (22-30) mmol/L BUN 38 H (8-23) mg/dl Creatinine 1.9 H (0.6-1.1) mg/dl Glucose 161 H (70-105) mg/dL Calcium 9.1 (8.6-10.4) mg/dl Total Bilirubin 0.4 (0.0-1.0) mg/dL AST 41 H (0-37) U/l ALT 106 H (0-40) U/l Alkaline Phosphatase 182 H (39-117) U/L Total Protein 6.6 (5.9-8.4) gm/dL Albumin 3.1 L (3.2-5.2) gm/dL Assessment and Plan (1) Cholelithiasis and acute cholecystitis without obstruction Status: Acute Assessment and plan: Patient has stable postoperative state with normal LFTs Follow-up CT of the abdomen shows no operative changes that would suggest bile leak or infection Current Visit: Yes (2) Atrial fibrillation with rapid ventricular response Status: Resolved Assessment and plan: Onset of rapid ventricular rate which should respond with oral medications Current Visit: Yes (3) RODRIGUEZ (acute kidney injury) Status: Acute Current Visit: No (4) Dehydration Status: Resolved Current Visit: No (5) Diabetes mellitus, type 2 Status: Chronic Current Visit: No (6) Hypertension, essential Status: Chronic Current Visit: No - Time Spent With Patient Total time spent is greater than 50% in coordination of care (as documented) at patient's floor/unit and/or counseling patient:
[2019-06-25] MEDS ORDERED: AMIODARONE 150 MG in DEXTROSE 5% IN WATER 50 ML IV ONE (15:38)
[2019-06-25] MEDS: RIVAROXABAN 15 MG TABLET PO SCH (15:46)
[2019-06-25] MEDS ORDERED: diphenhydrAMINE 25 MG CAPSULE PO PRN (17:41)
[2019-06-25] MEDS ORDERED: BISACODYL 10 MG SUPP.RECT PR ONE ×2 (17:44→20:06)
[2019-06-25] MEDS ORDERED: diphenhydrAMINE 25 MG CAPSULE ONE (20:08)
[2019-06-25] MEDS: SIMVASTATIN 10 MG TABLET PO SCH (20:09)
[2019-06-25] MEDS: SENNOSIDES/DOCUSATE SODIUM 1 TAB TABLET PO SCH (20:10)
[2019-06-25] MEDS: MELATONIN 3 MG TABLET PO SCH (20:16)
[2019-06-25] MEDS ORDERED: diphenhydrAMINE 25 MG CAPSULE PO ONE (21:00)
[2019-06-25] MEDS ORDERED: MELATONIN 3 MG TABLET PO SCH (21:00)
[2019-06-25] MEDS ORDERED: cloNIDine HCL 0.1 MG TABLET PO PRN (22:13)
[2019-06-25] MEDS ORDERED: cloNIDine HCL 0.1 MG TABLET PO SCH (22:15)
[2019-06-26] MEDS: POLYETHYLENE GLYCOL 3350 17 GM PACKET PO SCH ×3 (00:19→08:54)
[2019-06-26] MEDS ORDERED: DILTIAZEM 125 MG/25 ML VIAL IV ONE (02:47)
[2019-06-26] MEDS: DILTIAZEM 125 MG in DEXTROSE 5% IN WATER 100 ML IV SCH ×2 (02:48→22:42)
[2019-06-26 04:48] LABS: Hematocrit 33.7 % (36.0-48.0); Hemoglobin 10.9 g/dL (12.0-15.0); Mean Cell Volume 92.8 fL (80.0-100.0); Mean Corpuscular HGB Conc 32.3 g/dL (31.0-36.0); Mean Platelet Volume 7.8 fL (7.4-10.4); Platelet Count 398 K/mcL (140-440); RBC 3.63 M/mcL (4.00-5.20); WBC 22.6 K/mcL (4.5-11.0)
[2019-06-26 05:05] LABS: ALT/SGPT 121 U/l (0-40); AST/SGOT 66 U/l (0-37); Albumin 3.2 gm/dL (3.2-5.2); Albumin/Globulin Ratio 0.9 (1.0-2.3); Alkaline Phosphatase 185 U/L (39-117); Bilirubin,Direct < 0.2 mg/dL (0.0-0.3); Bilirubin,Total 0.6 mg/dL (0.0-1.0); Blood Urea Nitrogen 33 mg/dl (8-23); Calcium 8.7 mg/dl (8.6-10.4); Carbon Dioxide 20 mmol/L (22-30); Chloride 103 mmol/L (96-108); Globulin 3.4 gm/dL (2.2-3.7); Glucose 157 mg/dL (70-105); Lactate Dehydrogenase 258 U/L (94-250); Phosphorous 2.9 mg/dL (2.7-4.5); Triglycerides 138 mg/dl (<150); Uric Acid 5.4 mg/dL (2.5-8.0)
[2019-06-26 05:12] LABS: Glomerular Filtration Rate 33
[2019-06-26] MEDS: 0.9 % SODIUM CHLORIDE 10 ML SYRINGE IV SCH ×3 (05:33→21:12)
[2019-06-26] MEDS: metroNIDAZOLE 500 MG/100 ML BAG IV SCH ×3 (05:33→21:12)
--- NOTE | 2019-06-26 06:30 | Nephrology Progress Note ---
Subjective Patient information: Note initiated : 06/26/19 at 6:27 am Patient: Joanne Nguyễn 79 y/o F admitted on 06/20/19 for Rectal bleed. Chief Complaint: Abdominal pain Pertinent ROS: Feels better Shortness of breath No Ellis catheter No edema Objective - Vital Signs Vital signs: Vital Signs Temp Pulse Resp BP Pulse Ox 06/26/19 06:02 92 06/26/19 05:31 135/90 91 06/26/19 05:26 91 06/26/19 05:16 145/79 90 06/26/19 05:01 16 144/91 90 06/26/19 04:46 143/98 92 06/26/19 04:31 148/73 90 06/26/19 04:16 151/98 91 06/26/19 04:09 89 L 06/26/19 04:01 98.2 F 18 130/90 88 L 06/26/19 03:31 141/93 06/26/19 03:16 133/89 06/26/19 03:01 128/91 06/26/19 02:46 141/95 06/26/19 02:31 147/92 06/26/19 02:16 127/95 06/26/19 01:46 143/96 06/26/19 01:31 141/75 06/26/19 01:16 131/89 06/26/19 01:01 147/105 06/26/19 00:51 144/89 06/26/19 00:50 135/103 06/26/19 00:48 165/141 06/26/19 00:46 144/89 06/26/19 00:31 135/95 06/26/19 00:16 135/73 06/26/19 00:01 97.9 F 20 125/75 93 06/25/19 23:46 123/72 06/25/19 23:31 126/92 06/25/19 23:16 124/74 06/25/19 23:01 132/83 06/25/19 22:47 116/88 06/25/19 22:31 129/79 06/25/19 22:16 133/78 06/25/19 22:01 125/95 06/25/19 21:46 134/78 06/25/19 21:31 154/100 06/25/19 21:16 137/112 06/25/19 21:01 155/124 06/25/19 20:46 144/65 94 06/25/19 20:33 133/98 93 06/25/19 20:16 138/96 91 06/25/19 20:03 97.9 F 22 137/81 92 06/25/19 19:53 147/97 96 06/25/19 19:50 97.6 F 22 147/97 94 06/25/19 19:31 126/93 92 06/25/19 19:16 134/77 90 06/25/19 19:11 89 L 06/25/19 19:01 18 138/86 90 06/25/19 18:46 134/71 92 06/25/19 18:31 138/87 87 L 06/25/19 18:26 134/78 92 06/25/19 18:11 130/100 92 06/25/19 18:01 131/102 93 06/25/19 18:00 92 06/25/19 17:51 139/97 89 L 06/25/19 17:41 138/91 91 06/25/19 17:31 140/93 06/25/19 17:16 142/84 91 06/25/19 17:11 133/97 86 L 06/25/19 17:06 148/96 93 06/25/19 17:01 128/108 93 06/25/19 16:56 155/81 91 06/25/19 16:51 106/95 89 L 06/25/19 16:46 142/101 93 06/25/19 16:41 98.2 F 143/102 90 06/25/19 16:36 137/99 91 06/25/19 16:31 138/115 92 06/25/19 16:26 142/98 89 L 06/25/19 16:25 91 06/25/19 16:21 145/121 92 06/25/19 16:16 154/106 92 06/25/19 16:11 154/107 94 06/25/19 16:06 143/103 90 06/25/19 16:01 156/96 89 L 06/25/19 15:56 134/97 90 06/25/19 15:51 140/115 06/25/19 15:46 150/112 94 06/25/19 15:41 149/108 93 06/25/19 15:36 136/95 94 06/25/19 15:34 94 06/25/19 15:31 138/121 94 06/25/19 15:26 153/99 89 L 06/25/19 15:21 147/109 93 06/25/19 15:16 144/101 93 06/25/19 15:11 134/66 97 06/25/19 15:06 155/89 94 06/25/19 15:01 136/98 93 06/25/19 14:56 132/90 94 06/25/19 14:51 131/73 94 06/25/19 14:46 150/133 91 06/25/19 14:42 138/108 06/25/19 14:32 133/93 06/25/19 14:01 98.1 F 139/95 06/25/19 14:00 82 06/25/19 13:40 94 06/25/19 13:04 97.9 F 145/85 06/25/19 12:07 97 06/25/19 12:01 146/98 93 06/25/19 11:48 132/110 96 06/25/19 11:01 146/99 06/25/19 10:01 149/105 93 06/25/19 09:55 94 06/25/19 09:50 151/98 93 06/25/19 09:01 97.5 F 143/102 94 06/25/19 08:25 93 06/25/19 08:01 148/115 97 06/25/19 07:27 91 06/25/19 07:01 98.1 F 134/96 94 Intake and Output 06/25/19 06/26/19 06/26/19 21:59 05:59 13:59 Intake Total 286 148 Output Total 350 675 Balance -64 -527 Intake: IV 286 148 Cordarone 150 mg In Dextrose 5% 53 in Water 50 ml @ 300 mls/hr IV ONCE ONE Rx#:[id number] Cardizem 125 mg In Dextrose 5% 68 48 in Water 100 ml @ 5 MG/HR 5 mls /hr IV Q24H [facility] Rx#:[id number] Output: Void Amount 350 675 Other: Urine Appearance Clear Urine Color Bright Yellow Bright Yellow Urine Odor Strong Stool Size Small Stool Color Brown Stool Consistency Soft # Emeses 0 Weight 161 lb 6.4 oz Intake & Output: Intake & Output 06/25/19 06/26/19 06/26/19 21:59 05:59 13:59 Intake Total 286 148 Output Total 350 675 Balance -64 -527 Weight 161 lb 6.4 oz Intake: IV 286 148 Cordarone 150 mg In Dextrose 5% 53 in Water 50 ml @ 300 mls/hr IV ONCE ONE Rx#:[id number] Cardizem 125 mg In Dextrose 5% 68 48 in Water 100 ml @ 5 MG/HR 5 mls /hr IV Q24H [facility] Rx#:[id number] Output: Void Amount 350 675 Other: Urine Appearance Clear Urine Color Bright Yellow Bright Yellow Urine Odor Strong Stool Size Small Stool Color Brown Stool Consistency Soft # Emeses 0 - General Appearance General appearance: appears started age EENT: mucous membranes moist Neck: supple Respiratory: clear, rales Cardiology: no edema, irregular rhythm Gastrointestinal: no tenderness Integumentary: warm and dry Neurologic: no focal deficit, alert and oriented x3 Musculoskeletal: no deformities Psychiatric: mood/affect appropriate, cooperative - Lab 06/26/19 03:59 06/26/19 03:59 Most recent lab results Calcium 8.7 mg/dl (8.6-10.4) 06/26/19 03:59 Phosphorus 2.9 mg/dL (2.7-4.5) 06/26/19 03:59 Magnesium 2.3 mg/dL (1.6-2.5) 06/26/19 03:59 Assessment and Plan (1) ARF (acute renal failure) Joanne Nguyễn is a 79-year-old female with coronary artery disease s/p CABG and stents, hypertension, hyperlipidemia, hypothyroidism, diabetes mellitus type 2, recent admission for E Coli bacteremia and pyelonephritis in May 2019, admitted on 06/20/19. She presented to ED for nausea and not able to eat. She also noted blood smeared stool and on toilet paper. Initial work-up was con sistent with acute kidney injury, atrial fibrillation with RVR and elevated LFTs. Acute kidney injury with initial hyperkalemia and metabolic acidosis, associated with suspected decreased renal perfusion due to recent nausea/vomiting, diuretic use and atrial fibrillation with RVR, present on arrival. She had no recent IV contrast or NSAIDs. Recent work up: Urinalysis on 05/18/19: Straw, Clear, pH 5.0, SG 1.009, protein negative, occult blood 0.2, leukocyte esterase 25, urine WBC 14. CT Abdomen and Pelvis without contrast on 05/18/19: Kidneys show slight inhomogeneity and perinephric fat stranding which is suggestive, but not diagnostic, diffuse renal inflammation such as glomerulonephritis. 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 Current work up: Urinalysis on 06/20/19: Yellow, Clear, pH 5.0, SG 1.012, protein negative, occult blood negative, leukocyte esterase 75. Random urine total protein/creatinine ratio on 06/21/19: 9/39.9= 225 mg/g creatinine. Labs on 06/21/19: TIBC 13%, CRP 1.4, ESR 43, Vitamin D Total (25-Hydroxy) 59.94, PTH (intact) 145.5, serum free kappa/lambda light chain ratio 1.083, Labs on 06/21/19: C3, C4, ANCA screen, anti-GBM A pending. Progress: Creatinine decreased from 1.9 to 1.5 in the past 24 hours. Urine output: 1425 reported in the past 24 hours. Metabolic acidosis, persistent. Hyperkalemia, resolved. Fluid overload, worsening. Recommendations: Sodium Bicarbonate (150 mEq in 1 L D5W) at 40 ml/hour discontinued. Furosemide 20 mg IV x 1. Outpatient follow up appointment will be rescheduled. Status: Acute Priority: Medium Qualifiers: Acute renal failure type: unspecified Qualified Code(s): N17.9 - Acute kidney failure, unspecified (2) Hyperkalemia Please see above Status: Resolved Priority: Medium (3) Metabolic acidosis Please see above Status: Acute Priority: Medium
--- NOTE | 2019-06-26 07:24 | Internal Med Progress Note ---
Medical - PN: Subj Patient information: Note initiated : 06/26/19 at 7:19 am Service Date, if different from initiated Date: [] Patient: Joanne Nguyễn a 79 y/o F admitted on 06/20/19 for Rectal bleed. Chief Complaint: [] Interval history: Ms. Nguyễn is a 79 year old F with a known history of CAD/CABG, CKD stage III, HTN, HLD and DM type II who was recently discharged following sepsis secondary to E. coli bacteremia and pyelonephritis. She was discharged and completed 10 days antibiotics. Patient has been intermittently nauseous with episodic retching. She has not been able to eat normal diet. Symptoms are triggered after each meals. She denies food getting stuck in her throat or dysphagia to solids but preferentially takes liquids as she does well with those. She has been taking Zofran to alleviate her symptoms. She has had a progressive decline with severe dehydration due to inability to keep fluids down. She was seen at primary care physician Wilbur garsia office and was given IV fluids. She was diagnosed with dehydration. However within 24 hours patient comes back after she noted blood smeared stool and on toilet paper. She however denies large volume bloody bowel. She endorses it was fresh blood. She presents to the ER with combination of above symptoms. Initial work-up was consistent with A. fib with RVR, elevated creatinine at 2.5, elevated potassium 5.5, BUN 65 but hemoglobin at 9.9. However negative digital rectal exam for blood. She also had elevated LFTs and underwent abdominal ultrasound. Subsequently hospitalist service was consulted after it was controlled on diltiazem drip. Of note patient has been seen by woodyard crane operator Dr. Stout office and anticoa gulated was held until she was to see GI for endoscopy evaluation. She is yet to schedule an appointment with Dr. Black at [facility]. At the time of evaluation patient is accompanied with her . She was able to answer most of the questions. She is quite distressed due to her symptoms. She endorses symptoms as above. Denies fever, dysuria, diarrhea, headache, photophobia. 06/21-patient currently on diltiazem drip. Case discussed with Dr. christo Ellington cardiology. Cardiology recommends continuing to hold anticoagulation until such time deemed appropriate by GI to reinitiate. Case discussed with the motorcycle tester Dr. Sidhu. Patient will undergo upper and lower endo scopy in 24 hours for evaluation of GI bleed. Currently patient on diltiazem drip rate controlled. Restart home dose Cardizem. 06/22 Patient off diltiazem drip yesterday. On home diltiazem and Toprol. No overnight events or new complaints. Some nausea earlier resolved now. Heart rate is been 80s to low 100's. Reports some constipation now. some gastritis noted on EGD with stricture that was dilated. Per GI, ok to restart anticoagulation. Will restart anticoagulation after cholecystectomy. 06/23 Feeling well. No new complaints. Does have a difficult time sleeping back as of interruptions or noise. No other complaints. Plan for cholecystectomy by Dr. Adams today. Heart rate has been 60s to 80s. did have some low blood pressures last night. 06/24 No bowel months or flatus since surgery. Good appetite this morning. Heart rate tachycardic overnight since surgery. No chest pain shortness of breath pains or complaints. 06/25 Patient started feeling achy and crampy abdominal pain in the upper quadrants overnight. Denies any fevers chills. Feels a little bloated. States she is passed a little bit of gas no bowel movements. White blood cell count increased last night as well as her creatinine. Is anxious. Stat CT abdomen pelvis pending this morning. Diet on hold. Patient has a bit of a dry cough and some shortness of breath felt to be from abdominal distention 06/26 Diltiazem drip titrated down to 5 last night but needed to come back up to 10/hour. Heart rates have been 80s to 90s overnight. Will restart p.o. diltiazem and wean off IV drip. She did have a large bowel movement last night improved crampy abdominal pain. She denies any abdominal pain this morning. She appears less anxious. White blood cell count is improved today, no bandemia. Creatinine improved. does feel some dyspnea. + fluid balance and pleural effusion, will d/w nephro regarding fluid balance. Review of Systems: denies headache/fever/chills/vomiting/chest pain/cough/diarrhea. Otherwise see above. - Constitutional Vitals: Vital Signs Temp Pulse Resp BP Pulse Ox 97.7 F 82 16 143/104 94 06/26/19 07:01 06/25/19 14:00 06/26/19 05:01 06/26/19 07:01 06/26/19 07:02 Period Temp Pulse Resp BP Sys/Fitch Pulse Ox Last 24 Hr 97.5 F-98.2 F 82 16-22 106-165/65-141 86-97 Intake and Output 06/25/19 06/26/19 06/26/19 21:59 05:59 13:59 Intake Total 286 148 Output Total 350 675 Balance -64 -527 Weight 73.21 kg Intake & Output: Intake & Output 06/25/19 06/26/19 06/26/19 21:59 05:59 13:59 Intake Total 286 148 Output Total 350 675 Balance -64 -527 Weight 73.21 kg Intake: IV 286 148 Cordarone 150 mg In Dextrose 5% 53 in Water 50 ml @ 300 mls/hr IV ONCE ONE Rx#:[id number] Cardizem 125 mg In Dextrose 5% 68 48 in Water 100 ml @ 5 MG/HR 5 mls /hr IV Q24H [facility] Rx#:[id number] Output: Void Amount 350 675 Other: Urine Appearance Clear Urine Color Bright Yellow Bright Yellow Urine Odor Strong Stool Size Small Stool Color Brown Stool Consistency Soft # Emeses 0 Exam: General: Alert, Awake, No acute Distress, anxious Eyes/N/T: EOMI, Head/Neck: neck supple, CV: irreg irreg, No murmurs, Pulm: mild diminished at bases, no wheezing Abd: soft, mild TTP upper quads more so on right, +BS x4 Ext: no clubbing/cyanosis, mild b/l LE edema Neuro: Alert, no focal deficits, moves all extremities, Skin: warm/dry Medical - PN: Obj Da - Labs CBC & Chem 7: 06/26/19 03:59 06/26/19 03:59 Labs: Abnormal Lab Results 06/26/19 06/26/19 06/26/19 03:59 03:59 03:59 WBC 22.6 H RBC 3.63 L Hgb 10.9 L Hct 33.7 L RDW 17.0 H Gran % Lymph % (Auto) Gran # Lymph # (Auto) Seg Neutrophils % Band Neutrophils % Lymphocytes % RBC Morphology Polychromasia Anisocytosis Potassium Carbon Dioxide 20 L BUN 33 H Creatinine 1.5 H Glucose 157 H GGT 150 H AST 66 H ALT 121 H Alkaline Phosphatase 185 H Lactate Dehydrogenase 258 H C-Reactive Protein NT-Pro-B Natriuret Pep 50565.0 H Albumin Albumin/Globulin Ratio 0.9 L 06/25/19 06/25/19 06/25/19 09:30 04:53 04:53 WBC 30.0 H RBC 3.45 L Hgb 10.6 L Hct 32.3 L RDW 16.5 H Gran % Lymph % (Auto) Gran # Lymph # (Auto) Seg Neutrophils % 86 H Band Neutrophils % Lymphocytes % 8 L RBC Morphology Abnorm A Polychromasia 1+ A Anisocytosis 1+ A Potassium 5.2 H Carbon Dioxide 20 L BUN 38 H Creatinine 1.9 H Glucose 161 H GGT 114 H AST 41 H ALT 106 H Alkaline Phosphatase 182 H Lactate Dehydrogenase 262 H C-Reactive Protein 1.2 H NT-Pro-B Natriuret Pep 8904.0 H Albumin 3.1 L Albumin/Globulin Ratio 0.9 L 06/24/19 06/24/19 06/24/19 04:22 04:22 04:22 WBC 13.8 H RBC 3.11 L Hgb 9.5 L Hct 29.3 L RDW 16.3 H Gran % 90.4 H Lymph % (Auto) 7.1 L Gran # 12.5 H Lymph # (Auto) 1.0 L Seg Neutrophils % Band Neutrophils % 11 H Lymphocytes % 11 L RBC Morphology Polychromasia Anisocytosis 1+ A Potassium Carbon Dioxide BUN Creatinine 1.4 H Glucose 193 H GGT 100 H AST 53 H ALT 120 H Alkaline Phosphatase 175 H Lactate Dehydrogenase 253 H C-Reactive Protein NT-Pro-B Natriuret Pep Albumin 3.0 L Albumin/Globulin Ratio Meds: Medications Acetaminophen (Tylenol) 650 mg PO Q4-6HP PRN; Protocol PRN Reason: Per Pain Protocol/Fever > 101 Last Admin: 06/24/19 20:04 Dose: 650 mg Documented by: Cefepime HCl (Maxipime) 2 gm IV Q24H [facility]; Protocol Clonidine HCl (Catapres) 0.1 mg PO Q6HP PRN PRN Reason: sbp>150 Clonidine HCl (Catapres) 0.2 mg PO BID [facility] Dextrose (Dextrose 50%) 0 ml IV UD PRN PRN Reason: Hypoglycemia Diagnostic Test (Pha) (Accu-Chek) 1 each FS ACHS [facility] Last Admin: 06/26/19 06:57 Dose: 1 each Documented by: Diltiazem HCl (Cardizem Cd) 480 mg PO DAILY [facility] Last Admin: 06/25/19 14:44 Dose: 480 mg Documented by: Diphenhydramine HCl (Benadryl) 25 mg PO HSP PRN PRN Reason: Insomnia Docusate Sodium (Colace) 100 mg PO BID [facility] Last Admin: 06/25/19 20:10 Dose: 100 mg Documented by: Glucose (Insta-Glucose) 15 gm PO PRN PRN PRN Reason: Hypoglycemia Acetaminophen (Ofirmev) 650 mg in 65 mls @ 130 mls/hr IV Q6HP PRN; Protocol PRN Reason: Per Pain Protocol/Fever > 101 Last Infusion: 06/25/19 14:22 Dose: Infused Documented by: Sodium Bicarbonate 150 meq/ (Dextrose) 1,000 mls @ 40 mls/hr IV Q20H [facility] Last Admin: 06/25/19 14:21 Dose: 40 mls/hr Documented by: Diltiazem HCl 125 mg/ Dextrose 125 mls @ 5 mls/hr IV Q24H [facility]; Protocol Last Admin: 06/26/19 02:48 Dose: 10 mg/hr, 10 mls/hr Documented by: Metronidazole (Flagyl) 500 mg in 100 mls @ 100 mls/hr IV Q8H [facility]; Protocol Last Admin: 06/26/19 05:33 Dose: 100 mls/hr Documented by: Insulin Human Lispro (Humalog) 0 unit SQ [facility]; Protocol Last Admin: 06/25/19 20:10 Dose: Not Given Documented by: Iron Carb/Multivit/Alfalfa/Folic Acid (Multivitamin W/Minerals) 1 tab PO DAILY [facility] Last Admin: 06/25/19 14:42 Dose: Not Given Documented by: Levothyroxine Sodium (Synthroid) 50 mcg PO ACB [facility] Last Admin: 06/25/19 14:41 Dose: Not Given Documented by: Melatonin (Melatonin 3mg Tablet) 3 mg PO HS [facility] Last Admin: 06/25/19 20:16 Dose: 3 mg Documented by: Melatonin (Melatonin 3mg Tablet) 3 mg PO QHS [facility] Last Admin: 06/25/19 20:11 Dose: Not Given Documented by: Metoprolol Tartrate (Lopressor) 5 mg IV Q2HP PRN PRN Reason: Tachyarrhythmias HR>110 Last Admin: 06/25/19 03:15 Dose: 5 mg Documented by: Metoprolol Tartrate (Lopressor) 50 mg PO BID [facility] Omeprazole (Prilosec) 40 mg PO QAMAC [facility] Last Admin: 06/25/19 14:41 Dose: Not Given Documented by: Ondansetron HCl (Zofran) 4 mg IV Q4-6HP PRN; Protocol PRN Reason: Nausea And Vomiting Last Admin: 06/25/19 00:38 Dose: 4 mg Documented by: Ondansetron HCl (Zofran Odt) 4 mg SL Q4-6HP PRN PRN Reason: Nausea Polyethylene Glycol (Miralax) 17 gm PO DAILY [facility] Last Admin: 06/25/19 14:44 Dose: 17 gm Documented by: Potassium Chloride (Klor-Con) 40 meq PO DAILYP PRN PRN Reason: K+ < 3.5 Rivaroxaban (Xarelto) 15 mg PO QPMCC [facility] Last Admin: 06/25/19 15:46 Dose: 15 mg Documented by: Senna/Docusate Sodium (Senna Plus Tablet) 1 tab PO [facility] Last Admin: 06/25/19 20:10 Dose: 1 tab Documented by: Simvastatin (Zocor) 10 mg PO HS [facility] Last Admin: 06/25/19 20:09 Dose: 10 mg Documented by: Sitagliptin Phosphate (Januvia) 25 mg PO DAILY [facility] Last Admin: 06/25/19 14:44 Dose: 25 mg Documented by: Sodium Chloride (Saline Flush) 10 ml IV Q8 [facility] Last Admin: 06/26/19 05:33 Dose: Not Given Documented by: Sucralfate (Carafate) 1 gm PO BID [facility] Last Admin: 06/25/19 20:09 Dose: 1 gm Documented by: Medical - PN: A/P - Time Spent With Patient Total time spent is greater than 50% in coordination of care (as documented) at patient's floor/unit and/or counseling patient: - Narrative A/P Narrative: A: *Acute cholecystitis w/transaminitis: s/p lap raisa (06/23) -ultrasound consistent with acute cholecystitis - *Leukocytosis: increased yesterday, no bandemia, CRP lower than prior. Improved today -f/u CT a/p stool throughout but no acute *AFib w/RVR: since surgery has been fluctuating, elevated o/n -Echo reviewed from May 2019 -Case d/w [place] cardiology Dr. Mahoney; Advised to continue holding anticoagulation until approved by GI for initiation. *GI bleed: stable -EGD with some gastritis and stricture that was dilated -Pt has known history of hemorrhoids s/p hemorrhoidectomy by Dr. Black in the past *Anemia, acute on chronic, from blood loss: -stable *Volume depletion w/metabolic acidosis: resolved *RODRIGUEZ on CKD: resolved but cr increased this morning -1.5<1.9<1.4 *DM II: *Hypothyroidism: *Moderate Pulm HTN at baseline: *CAD: continue beta-aman/statin *HTN: Plan: -Dr. Adams following, -cefepime/flagyl -Nephrology following, labs pending. and f/u with Nephro outpt -d/w nephro about fluid balance (pleural effusions, dyspnea), ?lasix -Per GI, ok to restart anticoagulation, restarted after surgery -restart PO dilt and wean off dilt gtt, changed toprol to lopressor -decreased clonidine from 0.3 to 0.2bid, hold ARB/thiazide/lasix until renal function stable -SSI, d/c metformin d/t CKD, changed to sitagliptin -PT OT -ppx: rivaroxaban full code Medical - PN: Qual - VTE Deep Vein Thrombosis/Pulmonary Embolism Present on Admission: No
[2019-06-26] MEDS: OMEPRAZOLE 20 MG CAPSULE PO SCH (07:28)
[2019-06-26] MEDS: INSULIN LISPRO 1 UNIT/0.01 ML UNIT SQ SCH ×4 (07:28→21:16)
[2019-06-26] MEDS: LEVOTHYROXINE 50 MCG TABLET PO SCH (07:28)
[2019-06-26 07:42] LABS: Anisocytosis 1+ (NONE SEEN); Lymphocytes % 9 % (15-49); Monocytes % (Manual) 6 % (1-12); Platelet Estimate NORMAL (NORMAL); RBC Morphology ABNORM (NORMAL); Segmented Neutrophils % 85 % (38-78)
[2019-06-26] MEDS: DILTIAZEM 240 MG CAP.XL.24H PO SCH (08:54)
[2019-06-26] MEDS: METOPROLOL TARTRATE 50 MG TABLET PO SCH ×2 (08:55→21:11)
[2019-06-26] MEDS: MULTIVIT,THER IRON,CA,FA & MIN 1 TABLET PO SCH (08:55)
[2019-06-26] MEDS: cloNIDine HCL 0.1 MG TABLET PO SCH ×2 (08:55→21:11)
[2019-06-26] MEDS: DOCUSATE SODIUM 100 MG CAPSULE PO SCH ×2 (08:55→21:11)
[2019-06-26] MEDS: SUCRALFATE 1 GM TABLET PO SCH ×2 (08:55→21:12)
[2019-06-26] MEDS: sitaGLIPtin 50 MG TABLET PO SCH (08:55)
[2019-06-26] MEDS ORDERED: FUROSEMIDE 20 MG/2 ML VIAL IV ONE (09:31)
[2019-06-26] MEDS: CEFEPIME 2 GM VIAL IV SCH (09:41)
[2019-06-26] MEDS: SODIUM BICARBONATE VIAL 150 MEQ in DEXTROSE 5% IN WATER 850 ML IV SCH (10:50)
--- NOTE | 2019-06-26 12:33 | Surgical Pathology Report ---
HISTOLOGY SPECIMEN MICROSCOPIC DIAGNOSIS GALLBLADDER, CHOLECYSTECTOMY: -- CHRONIC CHOLECYSTITIS WITH CHOLESTEROLOSIS. (RLF:tu) PROCEDURAL IMPRESSION Acute cholecystitis. GROSS DESCRIPTION Received in formalin labeled gallbladder, is a purple-garcia gallbladder that measures 8.2 x 3.7 x 2.3 cm. There are multiple metal clips identified including one on the duct. The mucosa is pink-narvaez and covered with lacy yellow pigmentation. The wall is up to 0.2 cm thick. Grossly there are no stones identified. Recycler Forklift Driver Truck Driver sections are submitted in one cassette. (SCB:tu) Electronically Signed by: Jane Petersen M.D.
--- NOTE | 2019-06-26 12:51 | Surgical Pathology Report ---
HISTOLOGY SPECIMEN MICROSCOPIC DIAGNOSIS STOMACH, ANTRUM, BIOPSY: -- MILD CHRONIC GASTRITIS. -- NO HELICOBACTER SPECIES IDENTIFIED ON ALCIAN YELLOW STAIN (ADEQUATE TECHNICAL CONTROL). (EBD:tu) CLINICAL HISTORY Nausea and vomiting; blood in emesis. PROCEDURAL IMPRESSION Gastritis; stricture at EG junction; variable hiatal hernia. GROSS DESCRIPTION Received in formalin labeled antrum biopsy, are four narvaez tissue fragments from 0.4 to 0.6 cm. Entirely submitted - one cassette. (SCB:tu) Electronically Signed by: Greta Miller M.D.
--- NOTE | 2019-06-26 16:25 | General Surgery Progress Note ---
Subjective Patient reports: feels better, pain is less, flatus, bowel movement, afebrile Narrative: Note initiated : 06/26/19 at 4:23 pm Service Date, if different from initiated Date: [] Patient: Joanne Nguyễn 79 y/o F admitted on 06/20/19 for Rectal bleed. Chief Complaint: [Patient is clinically improved. She is not having any difficulty relative to her gallbladder surgery. Her heart rate is better controlled. Renal function is improving. White blood count is down to 22.6. Hemoglobin and hematocrit stable.] Objective Temp Pulse Resp BP Pulse Ox 98.1 F 82 16 114/70 92 06/26/19 13:03 06/25/19 14:00 06/26/19 05:01 06/26/19 15:01 06/26/19 15:09 - Additional Data Intake & Output - Last 24 hours: Intake & Output 06/24/19 06/25/19 06/26/19 06/27/19 05:59 05:59 05:59 05:59 Intake Total 3687 3323 555 5631 Output Total 1650 1500 1425 300 Balance 2037 -40 -791 807 Weight 157 lb 14.4 oz 162 lb 161 lb 6.4 oz - General physical appearance well developed, well nourished, no distress - Eyes PERRL, normal ocular movement - ENT normal pinna, normal nares, normal mucosa, no hearing loss, no congestion - Neck no masses, no bruits, trachea midline, no lymphadenopathy, no venous distension - Respiratory normal expansion, normal respiratory effort, clear to auscultation - Cardiovascular Cardiovascular exam: Present: normal rate and rhythm, RRR, +S1, +S2. Absent: JVD, tachycardia - Abdomen tender (mild tenderness around upper medial port site otherwise benign abdomen with good active bowel sounds), bowel sounds (present), surgical scars (none), masses (none) - Integumentary no rash, no growths, no abnormal pigmentation - Neurologic normal coordination, normal sensation - Musculoskeletal normal gait, normal posture - Psychiatric oriented to time, oriented to person, oriented to place, speech is normal, memory intact - Labs 06/26/19 03:59 06/26/19 03:59 Diabetes panel 06/26/19 Range/Units 03:59 Sodium 139 (133-145) mmol/L Potassium 3.8 (3.3-5.1) mmol/L Chloride 103 (96-108) mmol/L Carbon Dioxide 20 L (22-30) mmol/L BUN 33 H (8-23) mg/dl Creatinine 1.5 H (0.6-1.1) mg/dl Glucose 157 H (70-105) mg/dL Calcium 8.7 (8.6-10.4) mg/dl AST 66 H (0-37) U/l ALT 121 H (0-40) U/l Alkaline Phosphatase 185 H (39-117) U/L Total Protein 6.6 (5.9-8.4) gm/dL Albumin 3.2 (3.2-5.2) gm/dL Triglycerides 138 (<150) mg/dl Calcium panel 06/26/19 Range/Units 03:59 Calcium 8.7 (8.6-10.4) mg/dl Phosphorus 2.9 (2.7-4.5) mg/dL Albumin 3.2 (3.2-5.2) gm/dL Pituitary panel 06/26/19 Range/Units 03:59 Sodium 139 (133-145) mmol/L Potassium 3.8 (3.3-5.1) mmol/L Chloride 103 (96-108) mmol/L Carbon Dioxide 20 L (22-30) mmol/L BUN 33 H (8-23) mg/dl Creatinine 1.5 H (0.6-1.1) mg/dl Glucose 157 H (70-105) mg/dL Calcium 8.7 (8.6-10.4) mg/dl Adrenal panel 06/26/19 Range/Units 03:59 Sodium 139 (133-145) mmol/L Potassium 3.8 (3.3-5.1) mmol/L Chloride 103 (96-108) mmol/L Carbon Dioxide 20 L (22-30) mmol/L BUN 33 H (8-23) mg/dl Creatinine 1.5 H (0.6-1.1) mg/dl Glucose 157 H (70-105) mg/dL Calcium 8.7 (8.6-10.4) mg/dl Total Bilirubin 0.6 (0.0-1.0) mg/dL AST 66 H (0-37) U/l ALT 121 H (0-40) U/l Alkaline Phosphatase 185 H (39-117) U/L Total Protein 6.6 (5.9-8.4) gm/dL Albumin 3.2 (3.2-5.2) gm/dL Assessment and Plan (1) Cholelithiasis and acute cholecystitis without obstruction Status: Acute Assessment and plan: Patient has recovered from her biliary symptoms. Current Visit: Yes (2) Atrial fibrillation with rapid ventricular response Status: Resolved Assessment and plan: Onset of rapid ventricular rate which should respond with oral medications Current Visit: Yes (3) RODRIGUEZ (acute kidney injury) Status: Acute Current Visit: No (4) Dehydration Status: Resolved Current Visit: No (5) Diabetes mellitus, type 2 Status: Chronic Current Visit: No (6) Hypertension, essential Status: Chronic Current Visit: No - Time Spent With Patient Total time spent is greater than 50% in coordination of care (as documented) at patient's floor/unit and/or counseling patient:
[2019-06-26] MEDS ORDERED: DILTIAZEM 125 MG in DEXTROSE 5% IN WATER 100 ML IV PRN (16:30)
[2019-06-26] MEDS: RIVAROXABAN 15 MG TABLET PO SCH (17:25)
[2019-06-26] MEDS: MELATONIN 3 MG TABLET PO SCH (21:11)
[2019-06-26] MEDS: SIMVASTATIN 10 MG TABLET PO SCH (21:11)
[2019-06-26] MEDS: SENNOSIDES/DOCUSATE SODIUM 1 TAB TABLET PO SCH (21:11)
[2019-06-27] MEDS: 0.9 % SODIUM CHLORIDE 250 ML IV SCH ×2 (00:15→16:55)
[2019-06-27] MEDS: metroNIDAZOLE 500 MG/100 ML BAG IV SCH ×3 (05:27→20:56)
[2019-06-27] MEDS: 0.9 % SODIUM CHLORIDE 10 ML SYRINGE IV SCH ×3 (05:27→20:56)
[2019-06-27 06:32] LABS: Basophils # (Auto) 0 K/mcL (0.0-0.3); Basophils % (Auto) 0.1 % (0.0-2.0); Eosinophils # (Auto) 0 K/mcL (0.0-0.7); Eosinophils % (Auto) 0.1 % (0.0-7.0); Granulocytes % (Auto) 83.2 % (38.0-78.0); Hemoglobin 10.2 g/dL (12.0-15.0); Lymphocytes # (Auto) 1.6 K/mcL (1.5-4.8); Lymphocytes % (Auto) 9.7 % (15.5-49.0); Mean Cell Volume 95.4 fL (80.0-100.0); Mean Corpuscular HGB Conc 31.9 g/dL (31.0-36.0); Mean Platelet Volume 7.5 fL (7.4-10.4); Monocytes # (Auto) 1.1 K/mcL (0.1-0.9); Monocytes % (Auto) 6.9 % (1.0-12.0); Platelet Count 333 K/mcL (140-440); RBC 3.36 M/mcL (4.00-5.20); Red Cell Distribution Width 17.3 % (11.5-14.5); WBC 16.6 K/mcL (4.5-11.0)
[2019-06-27 07:06] LABS: ALT/SGPT 93 U/l (0-40); AST/SGOT 36 U/l (0-37); Albumin 3.1 gm/dL (3.2-5.2); Albumin/Globulin Ratio 1.1 (1.0-2.3); Alkaline Phosphatase 157 U/L (39-117); Bilirubin,Direct < 0.2 mg/dL (0.0-0.3); Bilirubin,Total 0.5 mg/dL (0.0-1.0); Blood Urea Nitrogen 29 mg/dl (8-23); Calcium 8.8 mg/dl (8.6-10.4); Carbon Dioxide 24 mmol/L (22-30); Chloride 104 mmol/L (96-108); Globulin 2.9 gm/dL (2.2-3.7); Glomerular Filtration Rate 36; Glucose 115 mg/dL (70-105); Lactate Dehydrogenase 248 U/L (94-250); Triglycerides 87 mg/dl (<150); Uric Acid 5.7 mg/dL (2.5-8.0)
[2019-06-27 07:11] LABS: Phosphorous 2.2 mg/dL (2.7-4.5)
[2019-06-27] MEDS: LEVOTHYROXINE 50 MCG TABLET PO SCH (07:38)
[2019-06-27] MEDS: OMEPRAZOLE 20 MG CAPSULE PO SCH (07:38)
[2019-06-27] MEDS: INSULIN LISPRO 1 UNIT/0.01 ML UNIT SQ SCH ×4 (07:39→20:57)
--- NOTE | 2019-06-27 07:48 | Nephrology Progress Note ---
Subjective Patient information: Note initiated : 06/27/19 at 7:46 am Patient: Joanne Nguyễn 79 y/o F admitted on 06/20/19 for Rectal bleed. Chief Complaint: Weakness Pertinent ROS: Weakness Fluid overload Shortness of breath No edema No Ellis catheter Objective - Vital Signs Vital signs: Vital Signs Temp Resp BP Pulse Ox 06/27/19 07:22 92 06/27/19 07:05 91 06/27/19 07:01 97.9 F 134/80 92 06/27/19 06:10 18 138/89 95 06/27/19 05:01 16 140/88 92 06/27/19 04:01 98.5 F 18 122/72 90 06/27/19 03:01 120/87 91 06/27/19 02:37 108/67 91 06/27/19 02:01 94/65 92 06/27/19 01:01 143/97 88 L 06/27/19 00:46 144/101 90 06/27/19 00:01 97.7 F 26 H 142/90 90 06/26/19 23:01 125/97 92 06/26/19 22:50 149/94 91 06/26/19 22:17 110/95 90 06/26/19 21:01 18 141/92 92 06/26/19 20:01 98.3 F 18 128/72 92 06/26/19 19:01 132/79 93 06/26/19 18:21 97.9 F 145/83 93 06/26/19 17:57 92 06/26/19 17:11 93 06/26/19 17:10 93 06/26/19 16:01 98.0 F 133/87 93 06/26/19 15:09 92 06/26/19 15:01 114/70 93 06/26/19 14:21 94 06/26/19 14:01 121/86 93 06/26/19 13:58 93 06/26/19 13:03 98.1 F 131/80 98 06/26/19 12:01 126/91 06/26/19 11:40 91 06/26/19 11:01 119/72 91 06/26/19 10:53 96 06/26/19 10:01 131/75 98 06/26/19 09:01 142/77 100 06/26/19 08:10 138/84 94 06/26/19 08:01 97 Intake and Output 06/26/19 06/27/19 06/27/19 21:59 05:59 13:59 Intake Total 400 204 153 Output Total 475 450 550 Balance -75 -246 -057 Intake: IV 100 104 153 Cardizem 125 mg In Dextrose 5% 4 53 in Water 100 ml @ 5 MG/HR 5 mls /hr IV Q24HP PRN Rx#:[id number] Oral 300 100 Output: Void Amount 175 450 550 Urine/Stool Mix 300 Other: Meal Dinner Nourishment/Supplement Percent of Meal Consumed 100% 75% Feeding Ability Independent Independent Nourishment/Supplement name strawberries with whipped cream and few bites of apple sauce Urine Appearance Clear Clear Urine Color Bright Yellow Bright Yellow Urine Odor Normal Stool Size Small Smear Stool Color Brown Brown Brown Stool Consistency Soft Liquid Liquid # Bowel Movements 1 1 # Emeses 0 Weight 159 lb 6.4 oz Intake & Output: Intake & Output 06/26/19 06/27/19 06/27/19 21:59 05:59 13:59 Intake Total 400 204 153 Output Total 475 450 550 Balance -75 -246 -397 Weight 159 lb 6.4 oz Intake: IV 100 104 153 Cardizem 125 mg In Dextrose 5% 4 53 in Water 100 ml @ 5 MG/HR 5 mls /hr IV Q24HP PRN Rx#:[id number] Oral 300 100 Output: Void Amount 175 450 550 Urine/Stool Mix 300 Other: Meal Dinner Nourishment/Supplement Percent of Meal Consumed 100% 75% Feeding Ability Independent Independent Nourishment/Supplement name strawberries with whipped cream and few bites of apple sauce Urine Appearance Clear Clear Urine Color Bright Yellow Bright Yellow Urine Odor Normal Stool Size Small Smear Stool Color Brown Brown Brown Stool Consistency Soft Liquid Liquid # Bowel Movements 1 1 # Emeses 0 - General Appearance General appearance: appears started age EENT: mucous membranes moist Neck: supple Respiratory: rales Cardiology: no edema Gastrointestinal: no tenderness Integumentary: warm and dry Neurologic: no focal deficit, alert and oriented x3 Musculoskeletal: no deformities Psychiatric: mood/affect appropriate, cooperative - Lab 06/27/19 04:00 06/27/19 04:00 Most recent lab results Calcium 8.8 mg/dl (8.6-10.4) 06/27/19 04:00 Phosphorus 2.2 mg/dL (2.7-4.5) L 06/27/19 04:00 Magnesium 2.0 mg/dL (1.6-2.5) 06/27/19 04:00 Assessment and Plan (1) ARF (acute renal failure) Joanne Nguyễn is a 79-year-old female with coronary artery disease s/p CABG and stents, hypertension, hyperlipidemia, hypothyroidism, diabetes mellitus type 2, recent admission for E Coli bacteremia and pyelonephritis in May 2019, admitted on 06/20/19. She presented to ED for nausea and not able to eat. She also noted blood smeared stool and on toilet paper. Initial work-up was consistent with acute kidney injury, atrial fibrillation with RVR and elevated LFTs. Acute kidney injury with initial hyperkalemia and metabolic acidosis, associated with suspected decreased renal perfusion due to recent nausea/vomiting, diuretic use and atrial fibrillation with RVR, present on arrival. She had no recent IV contrast or NSAIDs. Recent work up: Urinalysis on 05/18/19: Straw, Clear, pH 5.0, SG 1.009, protein negative, occult blood 0.2, leukocyte esterase 25, urine WBC 14. CT Abdomen and Pelvis without contrast on 05/18/19: Kidneys show slight inhomogeneity and perinephric fat stranding which is suggestive, but not diagnostic, diffuse renal inflammation such as glomerulonephritis. 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 Current work up: Urinalysis on 06/20/19: Yellow, Clear, pH 5.0, SG 1.012, protein negative, occult blood negative, leukocyte esterase 75. Random urine total protein/creatinine ratio on 06/21/19: 9/39.9= 225 mg/g creatinine. Labs on 06/21/19: TIBC 13%, CRP 1.4, ESR 43, Vitamin D Total (25-Hydroxy) 59.94, PTH (intact) 145.5, serum free kappa/lambda light chain ratio 1.083, Labs on 06/21/19: C3, C4, ANCA screen, anti-GBM A pending. Progress: Creatinine decreased from 1.5 to 1.4 in the past 24 hours. Urine output: 925 reported in the past 24 hours. Metabolic acidosis, resolved. Fluid overload, not resolved. Recommendations: Furosemide 40 mg IV BIDD for fluid overload. Outpatient follow up appointment scheduled on 07/17/19 at 14:00. Status: Acute Priority: Medium Qualifiers: Acute renal failure type: unspecified Qualified Code(s): N17.9 - Acute kidney failure, unspecified (2) Metabolic acidosis Please see above Status: Resolved Priority: Medium
[2019-06-27] MEDS: CEFEPIME 2 GM VIAL IV SCH (08:08)
[2019-06-27] MEDS: DILTIAZEM 240 MG CAP.XL.24H PO SCH (08:08)
[2019-06-27] MEDS: METOPROLOL TARTRATE 50 MG TABLET PO SCH ×3 (08:09→21:09)
[2019-06-27] MEDS: SUCRALFATE 1 GM TABLET PO SCH ×2 (08:09→20:55)
[2019-06-27] MEDS: DOCUSATE SODIUM 100 MG CAPSULE PO SCH ×2 (08:09→20:57)
[2019-06-27] MEDS: sitaGLIPtin 50 MG TABLET PO SCH (08:09)
[2019-06-27] MEDS: cloNIDine HCL 0.1 MG TABLET PO SCH ×2 (08:09→20:56)
[2019-06-27] MEDS: POLYETHYLENE GLYCOL 3350 17 GM PACKET PO SCH (08:10)
[2019-06-27] MEDS: MULTIVIT,THER IRON,CA,FA & MIN 1 TABLET PO SCH (08:10)
[2019-06-27] MEDS ORDERED: METOPROLOL TARTRATE 50 MG TABLET PO ONE (08:55)
[2019-06-27] MEDS: FUROSEMIDE 40 MG/4 ML VIAL IV SCH ×2 (09:16→15:15)
--- NOTE | 2019-06-27 09:28 | Internal Med Progress Note ---
Medical - PN: Subj Patient information: Note initiated : 06/27/19 at 9:15 am Service Date, if different from initiated Date: [] Patient: Joanne Nguyễn a 79 y/o F admitted on 06/20/19 for Rectal bleed. Chief Complaint: [] Interval history: Ms. Nguyễn is a 79 year old F with a known history of CAD/CABG, CKD stage III, HTN, HLD and DM type II who was recently discharged following sepsis secondary to E. coli bacteremia and pyelonephritis. She was discharged and completed 10 days antibiotics. Patient has been intermittently nauseous with episodic retching. She has not been able to eat normal diet. Symptoms are triggered after each meals. She denies food getting stuck in her throat or dysphagia to solids but preferentially takes liquids as she does well with those. She has been taking Zofran to alleviate her symptoms. She has had a progressive decline with severe dehydration due to inability to keep fluids down. She was seen at primary care physician Wilbur garsia office and was given IV fluids. She was diagnosed with dehydration. However within 24 hours patient comes back after she noted blood smeared stool and on toilet paper. She however denies large volume bloody bowel. She endorses it was fresh blood. She presents to the ER with combination of above symptoms. Initial work-up was consistent with A. fib with RVR, elevated creatinine at 2.5, elevated potassium 5.5, BUN 65 but hemoglobin at 9.9. However negative digital rectal exam for blood. She also had elevated LFTs and underwent abdominal ultrasound. Subsequently hospitalist service was consulted after it was controlled on diltiazem drip. Of note patient has been seen by academic services coordinator Dr. Stout office and anticoa gulated was held until she was to see GI for endoscopy evaluation. She is yet to schedule an appointment with Dr. Black at [facility]. At the time of evaluation patient is accompanied with her . She was able to answer most of the questions. She is quite distressed due to her symptoms. She endorses symptoms as above. Denies fever, dysuria, diarrhea, headache, photophobia. 06/21-patient currently on diltiazem drip. Case discussed with Dr. christo Ellington cardiology. Cardiology recommends continuing to hold anticoagulation until such time deemed appropriate by GI to reinitiate. Case discussed with the match up worker Dr. Sidhu. Patient will undergo upper and lower endo scopy in 24 hours for evaluation of GI bleed. Currently patient on diltiazem drip rate controlled. Restart home dose Cardizem. 06/22 Patient off diltiazem drip yesterday. On home diltiazem and Toprol. No overnight events or new complaints. Some nausea earlier resolved now. Heart rate is been 80s to low 100's. Reports some constipation now. some gastritis noted on EGD with stricture that was dilated. Per GI, ok to restart anticoagulation. Will restart anticoagulation after cholecystectomy. 06/23 Feeling well. No new complaints. Does have a difficult time sleeping back as of interruptions or noise. No other complaints. Plan for cholecystectomy by Dr. Adams today. Heart rate has been 60s to 80s. did have some low blood pressures last night. 06/24 No bowel months or flatus since surgery. Good appetite this morning. Heart rate tachycardic overnight since surgery. No chest pain shortness of breath pains or complaints. 06/25 Patient started feeling achy and crampy abdominal pain in the upper quadrants overnight. Denies any fevers chills. Feels a little bloated. States she is passed a little bit of gas no bowel movements. White blood cell count increased last night as well as her creatinine. Is anxious. Stat CT abdomen pelvis pending this morning. Diet on hold. Patient has a bit of a dry cough and some shortness of breath felt to be from abdominal distention 06/26 Diltiazem drip titrated down to 5 last night but needed to come back up to 10/hour. Heart rates have been 80s to 90s overnight. Will restart p.o. diltiazem and wean off IV drip. She did have a large bowel movement last night improved crampy abdominal pain. She denies any abdominal pain this morning. She appears less anxious. White blood cell count is improved today, no bandemia. Creatinine improved. does feel some dyspnea. + fluid balance and pleural effusion, will d/w nephro regarding fluid balance. 06/27-patient continues to experience A. fib RVR despite 480 diltiazem and metoprolol increase 200 twice daily. On rivaroxaban for stroke prophylaxis. Continue rate control measures. Continue rivaroxaban. No significant postoperative pain. Ambulating and ongoing physical therapy. No concerns per staff - Constitutional Vitals: Vital Signs Temp Pulse Resp BP Pulse Ox 97.9 F 82 18 134/80 92 06/27/19 07:01 06/25/19 14:00 06/27/19 06:10 06/27/19 07:01 06/27/19 07:22 Period Temp Pulse Resp BP Sys/Fitch Pulse Ox Last 24 Hr 97.7 F-98.5 F 94-149/65-101 88-98 Intake and Output 06/26/19 06/27/19 06/27/19 21:59 05:59 13:59 Intake Total 400 204 153 Output Total 475 450 550 Balance -75 -246 -397 Weight 159 lb 6.4 oz Intake & Output: Intake & Output 06/26/19 06/27/19 06/27/19 21:59 05:59 13:59 Intake Total 400 204 153 Output Total 475 450 550 Balance -75 -246 -397 Weight 159 lb 6.4 oz Intake: IV 100 104 153 Cardizem 125 mg In Dextrose 5% 4 53 in Water 100 ml @ 5 MG/HR 5 mls /hr IV Q24HP PRN Rx#:[id number] Oral 300 100 Output: Void Amount 175 450 550 Urine/Stool Mix 300 Other: Meal Dinner Nourishment/Supplement Percent of Meal Consumed 100% 75% Feeding Ability Independent Independent Nourishment/Supplement name strawberries with whipped cream and few bites of apple sauce Urine Appearance Clear Clear Urine Color Bright Yellow Bright Yellow Urine Odor Normal Stool Size Small Smear Stool Color Brown Brown Brown Stool Consistency Soft Liquid Liquid # Bowel Movements 1 1 # Emeses 0 General appearance: no acute distress Exam: A. fib rate controlled around 100 1 telemetry nonlabored breathing No anxiety Nondistended abdomen Medical - PN: Obj Da - Labs CBC & Chem 7: 06/27/19 04:00 06/27/19 04:00 Labs: Abnormal Lab Results 06/27/19 06/27/19 06/26/19 04:00 04:00 03:59 WBC 16.6 H RBC 3.36 L Hgb 10.2 L Hct 32.0 L RDW 17.3 H Gran % 83.2 H Lymph % (Auto) 9.7 L Gran # 13.8 H Harney # (Auto) 1.1 H Seg Neutrophils % Band Neutrophils % Lymphocytes % RBC Morphology Polychromasia Anisocytosis Potassium Carbon Dioxide BUN 29 H Creatinine 1.4 H Glucose 115 H Phosphorus 2.2 L GGT 127 H AST ALT 93 H Alkaline Phosphatase 157 H Lactate Dehydrogenase C-Reactive Protein NT-Pro-B Natriuret Pep 74586.0 H Albumin 3.1 L Albumin/Globulin Ratio 06/26/19 06/26/19 06/25/19 03:59 03:59 09:30 WBC 22.6 H RBC 3.63 L Hgb 10.9 L Hct 33.7 L RDW 17.0 H Gran % Lymph % (Auto) Gran # Harney # (Auto) Seg Neutrophils % 85 H Band Neutrophils % Lymphocytes % 9 L RBC Morphology Abnorm A Polychromasia Anisocytosis 1+ A Potassium Carbon Dioxide 20 L BUN 33 H Creatinine 1.5 H Glucose 157 H Phosphorus GGT 150 H AST 66 H ALT 121 H Alkaline Phosphatase 185 H Lactate Dehydrogenase 258 H C-Reactive Protein 1.2 H NT-Pro-B Natriuret Pep 8904.0 H Albumin Albumin/Globulin Ratio 0.9 L 06/25/19 06/25/19 06/24/19 04:53 04:53 04:22 WBC 30.0 H RBC 3.45 L Hgb 10.6 L Hct 32.3 L RDW 16.5 H Gran % Lymph % (Auto) Gran # Harney # (Auto) Seg Neutrophils % 86 H Band Neutrophils % 11 H Lymphocytes % 8 L 11 L RBC Morphology Abnorm A Polychromasia 1+ A Anisocytosis 1+ A 1+ A Potassium 5.2 H Carbon Dioxide 20 L BUN 38 H Creatinine 1.9 H Glucose 161 H Phosphorus GGT 114 H AST 41 H ALT 106 H Alkaline Phosphatase 182 H Lactate Dehydrogenase 262 H C-Reactive Protein NT-Pro-B Natriuret Pep Albumin 3.1 L Albumin/Globulin Ratio 0.9 L Meds: Medications Acetaminophen (Tylenol) 650 mg PO Q4-6HP PRN; Protocol PRN Reason: Per Pain Protocol/Fever > 101 Last Admin: 06/24/19 20:04 Dose: 650 mg Documented by: Cefepime HCl (Maxipime) 2 gm IV Q24H [facility]; Protocol Last Admin: 06/27/19 08:08 Dose: 2 gm Documented by: Clonidine HCl (Catapres) 0.1 mg PO Q6HP PRN PRN Reason: sbp>150 Clonidine HCl (Catapres) 0.2 mg PO BID [facility] Last Admin: 06/27/19 08:09 Dose: 0.2 mg Documented by: Dextrose (Dextrose 50%) 0 ml IV UD PRN PRN Reason: Hypoglycemia Diagnostic Test (Pha) (Accu-Chek) 1 each FS ACHS [facility] Last Admin: 06/27/19 08:10 Dose: 1 each Documented by: Diltiazem HCl (Cardizem Cd) 480 mg PO DAILY [facility] Last Admin: 06/27/19 08:08 Dose: 480 mg Documented by: Diphenhydramine HCl (Benadryl) 25 mg PO HSP PRN PRN Reason: Insomnia Docusate Sodium (Colace) 100 mg PO BID [facility] Last Admin: 06/27/19 08:09 Dose: 100 mg Documented by: Furosemide (Lasix) 40 mg IV BIDD [facility] Glucose (Insta-Glucose) 15 gm PO PRN PRN PRN Reason: Hypoglycemia Acetaminophen (Ofirmev) 650 mg in 65 mls @ 130 mls/hr IV Q6HP PRN; Protocol PRN Reason: Per Pain Protocol/Fever > 101 Last Infusion: 06/25/19 14:22 Dose: Infused Documented by: Metronidazole (Flagyl) 500 mg in 100 mls @ 100 mls/hr IV Q8H [facility]; Protocol Last Infusion: 06/27/19 06:48 Dose: Infused Documented by: Diltiazem HCl 125 mg/ Dextrose 125 mls @ 5 mls/hr IV Q24HP PRN; Protocol PRN Reason: TITRATE TO KEEP HR <100,SBP>90 Last Titration: 06/27/19 06:21 Dose: 8 mg/hr, 8 mls/hr Documented by: Sodium Chloride (Sodium Chloride 0.9%) 250 mls @ 20 mls/hr IV .[id number] [facility] Last Admin: 06/27/19 00:15 Dose: 20 mls/hr Documented by: Insulin Human Lispro (Humalog) 0 unit SQ [facility]; Protocol Last Admin: 06/27/19 07:39 Dose: Not Given Documented by: Iron Carb/Multivit/Chemical Plant Technical Director/Folic Acid (Multivitamin W/Minerals) 1 tab PO DAILY [facility] Last Admin: 06/27/19 08:10 Dose: 1 tab Documented by: Levothyroxine Sodium (Synthroid) 50 mcg PO ACB [facility] Last Admin: 06/27/19 07:38 Dose: 50 mcg Documented by: Melatonin (Melatonin 3mg Tablet) 3 mg PO [facility] Last Admin: 06/26/19 21:11 Dose: 3 mg Documented by: Metoprolol Tartrate (Lopressor) 5 mg IV Q2HP PRN PRN Reason: Tachyarrhythmias HR>110 Last Admin: 06/25/19 03:15 Dose: 5 mg Documented by: Metoprolol Tartrate (Lopressor) 100 mg PO BID [facility] Last Admin: 06/27/19 09:01 Dose: Not Given Documented by: Omeprazole (Prilosec) 40 mg PO QAMAC [facility] Last Admin: 06/27/19 07:38 Dose: 40 mg Documented by: Ondansetron HCl (Zofran) 4 mg IV Q4-6HP PRN; Protocol PRN Reason: Nausea And Vomiting Last Admin: 06/25/19 00:38 Dose: 4 mg Documented by: Ondansetron HCl (Zofran Odt) 4 mg SL Q4-6HP PRN PRN Reason: Nausea Polyethylene Glycol (Miralax) 17 gm PO DAILY [facility] Last Admin: 06/27/19 08:10 Dose: 17 gm Documented by: Potassium Chloride (Klor-Con) 40 meq PO DAILYP PRN PRN Reason: K+ < 3.5 Potassium Chloride (Kdur) 10 meq PO TIDCC [facility] Rivaroxaban (Xarelto) 15 mg PO QPMCC [facility] Last Admin: 06/26/19 17:25 Dose: 15 mg Documented by: Senna/Docusate Sodium (Senna Plus Tablet) 1 tab PO [facility] Last Admin: 06/26/19 21:11 Dose: 1 tab Documented by: Simvastatin (Zocor) 10 mg PO [facility] Last Admin: 06/26/19 21:11 Dose: 10 mg Documented by: Sitagliptin Phosphate (Januvia) 25 mg PO DAILY [facility] Last Admin: 06/27/19 08:09 Dose: 25 mg Documented by: Sodium Chloride (Saline Flush) 10 ml IV Q8 [facility] Last Admin: 06/27/19 05:27 Dose: 10 ml Documented by: Sucralfate (Carafate) 1 gm PO BID [facility] Last Admin: 06/27/19 08:09 Dose: 1 gm Documented by: Medical - PN: A/P - Time Spent With Patient Total time spent is greater than 50% in coordination of care (as documented) at patient's floor/unit and/or counseling patient: 25 - 35 minutes (1) Atrial fibrillation with rapid ventricular response Status: Resolved Assessment and plan: * A. fib with RVR-on diltiazem/metoprolol 100/rivaroxaban * Acute cholecystitis status post cholecystectomy * Sepsis with leukocytosis white count downtrending from 30,000-16.6 * Lower GI bleed-status post upper and lower endoscopy. Hemorrhoids * Acute on chronic kidney disease, creatinine 1.4. Nephrology on board * History of pulmonary hypertension * DM type II continue CC diet/sliding scale insulin. * Hypothyroidism continue thyroxine * Moderate pulmonary hypertension at baseline * History of CAD continue aspirin/beta-aman/statin * History of hypertension continue beta-aman/clonidine * Full code * Prophylaxis on rivaroxaban Plan * Diet advancement per surgery * Rate control measures, increase metoprolol 200 twice daily * PT OT * Discharge planning Current Visit: Yes Medical - PN: Qual - VTE Deep Vein Thrombosis/Pulmonary Embolism Present on Admission: No
[2019-06-27] MEDS: POTASSIUM CHLORIDE 10 MEQ TABLET PO SCH ×2 (11:48→17:37)
[2019-06-27] MEDS: RIVAROXABAN 15 MG TABLET PO SCH (17:36)
[2019-06-27] MEDS: SIMVASTATIN 10 MG TABLET PO SCH (20:55)
[2019-06-27] MEDS: MELATONIN 3 MG TABLET PO SCH (20:55)
[2019-06-27] MEDS: ACETAMINOPHEN 325 MG TABLET PO PRN (20:56)
[2019-06-27] MEDS: SENNOSIDES/DOCUSATE SODIUM 1 TAB TABLET PO SCH (20:57)
[2019-06-27] MEDS: METOPROLOL TARTRATE 5 MG/5 ML VIAL IV PRN (21:39)
[2019-06-28] MEDS: 0.9 % SODIUM CHLORIDE 250 ML IV SCH (00:33)
[2019-06-28] MEDS: 0.9 % SODIUM CHLORIDE 10 ML SYRINGE IV SCH (05:49)
[2019-06-28] MEDS: metroNIDAZOLE 500 MG/100 ML BAG IV SCH (05:49)
[2019-06-28] MEDS: OMEPRAZOLE 20 MG CAPSULE PO SCH (07:58)
[2019-06-28] MEDS: LEVOTHYROXINE 50 MCG TABLET PO SCH (07:58)
[2019-06-28] MEDS: CEFEPIME 2 GM VIAL IV SCH (08:01)
[2019-06-28] MEDS: INSULIN LISPRO 1 UNIT/0.01 ML UNIT SQ SCH ×2 (08:10→12:23)
[2019-06-28 08:12] LABS: Myeloperoxidase Antibody <1.0 AI (<1.0)
[2019-06-28 08:16] LABS: Anti-Glomerular Basement Memb < 1.0 AI (<1.0)
[2019-06-28] MEDS: MULTIVIT,THER IRON,CA,FA & MIN 1 TABLET PO SCH (08:33)
[2019-06-28] MEDS: POTASSIUM CHLORIDE 10 MEQ TABLET PO SCH ×2 (08:33→12:23)
[2019-06-28] MEDS: METOPROLOL TARTRATE 50 MG TABLET PO SCH (08:34)
[2019-06-28] MEDS: cloNIDine HCL 0.1 MG TABLET PO SCH (08:34)
[2019-06-28] MEDS: DILTIAZEM 240 MG CAP.XL.24H PO SCH (08:34)
[2019-06-28] MEDS: sitaGLIPtin 50 MG TABLET PO SCH (08:34)
[2019-06-28] MEDS: DOCUSATE SODIUM 100 MG CAPSULE PO SCH (08:35)
[2019-06-28] MEDS: POLYETHYLENE GLYCOL 3350 17 GM PACKET PO SCH (08:35)
[2019-06-28] MEDS: FUROSEMIDE 40 MG/4 ML VIAL IV SCH (08:35)
[2019-06-28 09:08] LABS: C3, Serum 128 mg/dL (83-193); C4, Serum 31 mg/dL (15-57)
--- NOTE | 2019-06-28 09:11 | Nephrology Progress Note ---
Subjective Patient information: Note initiated : 06/28/19 at 9:08 am Patient: Joanne Nguyễn 79 y/o F admitted on 06/20/19 for Rectal bleed. Chief Complaint: Weakness Pertinent ROS: Feels better Weakness No Ellis catheter No edema Shortness of breath Objective - Vital Signs Vital signs: Vital Signs Temp Pulse Resp BP Pulse Ox 06/28/19 08:48 96 06/28/19 08:02 98.1 F 151/99 97 06/28/19 07:09 94 06/28/19 07:01 146/99 97 06/28/19 06:01 15 153/108 94 06/28/19 05:01 16 141/88 98 06/28/19 04:01 97.8 F 15 158/99 97 06/28/19 03:01 15 155/94 97 06/28/19 02:01 16 136/88 92 06/28/19 02:00 16 96 06/28/19 01:01 15 132/75 93 06/28/19 00:01 98.1 F 14 136/82 96 06/27/19 23:01 15 117/77 94 06/27/19 22:01 16 138/86 94 06/27/19 21:01 153/101 89 L 06/27/19 20:01 98.4 F 142/76 91 06/27/19 19:42 143/87 90 06/27/19 19:39 93 06/27/19 19:37 16 143/87 93 06/27/19 18:02 92 06/27/19 18:01 139/83 92 06/27/19 17:59 139/83 92 06/27/19 17:44 134/79 89 L 06/27/19 16:46 89 L 06/27/19 16:15 98.1 F 134/79 93 06/27/19 14:00 82 18 93 06/27/19 13:01 134/102 93 06/27/19 12:04 92 06/27/19 12:02 118/87 94 06/27/19 11:01 121/68 93 06/27/19 10:01 127/89 89 L 06/27/19 09:54 88 L 06/27/19 09:52 123/80 89 L 06/27/19 09:46 90 Intake and Output 06/27/19 06/28/19 06/28/19 21:59 05:59 13:59 Intake Total 1390 300 100 Output Total 950 1025 600 Balance 440 725 -500 Intake: IV 450 100 Sodium Chloride 0.9% 250 ml @ 250 20 mls/hr IV .[id number] [facility] Rx#: [id number] Oral 940 300 Output: Void Amount 450 1025 Urine/Stool Mix 500 600 Other: Meal Dinner Percent of Meal Consumed 75% Feeding Ability Independent Urine Appearance Clear Clear Urine Color Bright Yellow Bright Yellow Urine Odor Normal Normal Stool Size Moderate Stool Color Brown Brown Stool Consistency Soft Soft Loose Loose # Voids 1 Weight 159 lb 4.8 oz Intake & Output: Intake & Output 06/27/19 06/28/19 06/28/19 21:59 05:59 13:59 Intake Total 1390 300 100 Output Total 950 1025 600 Balance 440 -725 -500 Weight 159 lb 4.8 oz Intake: IV 450 100 Sodium Chloride 0.9% 250 ml @ 250 20 mls/hr IV .[id number] [facility] Rx#: [id number] Oral 940 300 Output: Void Amount 450 1025 Urine/Stool Mix 500 600 Other: Meal Dinner Percent of Meal Consumed 75% Feeding Ability Independent Urine Appearance Clear Clear Urine Color Bright Yellow Bright Yellow Urine Odor Normal Normal Stool Size Moderate Stool Color Brown Brown Stool Consistency Soft Soft Loose Loose # Voids 1 - General Appearance General appearance: appears started age EENT: mucous membranes moist Neck: supple Respiratory: clear Cardiology: no edema Gastrointestinal: no tenderness Integumentary: warm and dry Neurologic: no focal deficit, alert and oriented x3 Musculoskeletal: no deformities Psychiatric: mood/affect appropriate, cooperative - Lab 06/27/19 04:00 06/27/19 04:00 Most recent lab results Calcium 8.8 mg/dl (8.6-10.4) 06/27/19 04:00 Phosphorus 2.2 mg/dL (2.7-4.5) L 06/27/19 04:00 Magnesium 2.0 mg/dL (1.6-2.5) 06/27/19 04:00 Assessment and Plan (1) ARF (acute renal failure) Joanne Nguyễn is a 79-year-old female with coronary artery disease s/p CABG and stents, hypertension, hyperlipidemia, hypothyroidism, diabetes mellitus type 2, recent admission for E Coli bacteremia and pyelonephritis in May 2019, admitted on 06/20/19. She presented to ED for nausea and not able to eat. She also noted blood smeared stool and on toilet paper. Initial work-up was consistent with acute kidney injury, atrial fibrillation with RVR and elevated LFTs. Acute kidney injury with initial hyperkalemia and metabolic acidosis, associated with suspected decreased renal perfusion due to recent nausea/vomiting, diuretic use and atrial fibrillation with RVR, present on arrival. She had no recent IV contrast or NSAIDs. Recent work up: Urinalysis on 05/18/19: Straw, Clear, pH 5.0, SG 1.009, protein negative, occult blood 0.2, leukocyte esterase 25, urine WBC 14. CT Abdomen and Pelvis without contrast on 05/18/19: Kidneys show slight inhomogeneity and perinephric fat stranding which is suggestive, but not diagnostic, diffuse renal inflammation such as glomerulonephritis. 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 Current work up: Urinalysis on 06/20/19: Yellow, Clear, pH 5.0, SG 1.012, protein negative, occult blood negative, leukocyte esterase 75. Random urine total protein/creatinine ratio on 06/21/19: 9/39.9= 225 mg/g creatinine. Labs on 06/21/19: TIBC 13%, CRP 1.4, ESR 43, Vitamin D Total (25-Hydroxy) 59.94, PTH (intact) 145.5, serum free kappa/lambda light chain ratio 1.083, ANCA screen negative, anti-GBM Ab <1.0. Labs on 06/21/19: C3, C4 pending. Progress: Creatinine decreased to 1.4 in the past 24 hours. Urine output: +3000 reported in the past 24 hours. Fluid overload, improved with Furosemide 40 mg IV BIDD. Recommendations: Furosemide changed to 40 mg OP daily after her first IV dose today. Anticipated discharge to swing bed. Outpatient follow up appointment scheduled on 07/17/19 at 14:00. Status: Acute Priority: Medium Qualifiers: Acute renal failure type: unspecified Qualified Code(s): N17.9 - Acute kidney failure, unspecified
--- NOTE | 2019-06-28 09:43 | Discharge Summary ---
Medical - DS: Prov Patient information: Note initiated : 06/28/19 at 9:41 am Service Date, if different from initiated Date: [] Patient: Joanne Nguyễn 79 y/o F admitted on 06/20/19 for Rectal bleed. Chief Complaint: [] Date of admission: 06/20/19 15:55 Discharge date: 06/28/19 Primary care physician: Wilbur Adame Consults: 06/20/19 Consult to Physician [CONS] Stat Comment: Consulting Provider: Pancho Guo Reason For Exam: Physician to Consult Consult to Physician [CONS] Stat Comment: Consulting Provider: Maurice Carnes Reason For Exam: Physician to Consult 06/20/19 16:29 Consult to Physician [CONS] Routine Comment: Consulting Provider: Pancho Guo Reason For Exam: Physician to Consult 06/21/19 10:12 Consult to Physician [CONS] Routine Comment: Consulting Provider: Rachel Adams Reason For Exam: Physician to Consult 06/21/19 13:40 Consult to Physician [CONS] Routine Comment: Consulting Provider: Estuardo Schaefer Reason For Exam: Physician to Consult Discharging clinician: Pancho Guo Medical - DS: Meds - Discharge Medications Prescriptions: cloNIDine HCL [Catapres] 0.2 mg PO BID #1 tab sitaGLIPtin [Januvia] 25 mg PO DAILY #30 tab Active and Home Medications: Home Medications Levothyroxine [Synthroid] 50 mcg PO ACB 10/26/16 [History Confirmed 06/20/19 Last Taken 06/20/19 08:00] Potassium Chloride [Kdur] 20 meq PO 5XD 10/26/16 [History Confirmed 06/20/19 Last Taken 06/20/19 08:00] Simvastatin [Zocor] 10 mg PO HS 10/26/16 [History Confirmed 06/20/19 Last Taken 06/19/19 21:00] Metoprolol Succinate [Toprol Xl] 100 mg PO DAILY 08/25/17 [History Confirmed 06/20/19 Last Taken 06/20/19 08:00] Diltiazem [Cardizem Cd] 480 mg PO DAILY #30 cap.xl.24h 05/25/19 [Rx Confirmed 06/20/19 Last Taken 06/20/19 08:00] Rivaroxaban [Xarelto] 15 mg PO QPMCC #30 tab 05/25/19 [Rx Confirmed 06/20/19 Last Taken 06/19/19 17:00] Ondansetron [Zofran ODT] 4 mg SL Q4-6HP PRN #10 tab 06/15/19 [Rx Confirmed 06/20/19 Last Taken Unknown] Melatonin 5 mg PO HS 06/20/19 [History Confirmed 06/20/19 Last Taken 06/19/19 21:00] Omeprazole 40 mg PO QAM 06/20/19 [History Confirmed 06/20/19 Last Taken 06/20/19 08:00] Polyethylene Glycol 3350 [Miralax] 1 dose PO DAILY 06/20/19 [History Confirmed 06/20/19 Last Taken 06/19/19 08:00] Sucralfate [Carafate] 1 gm PO BID 06/20/19 [History Confirmed 06/20/19 Last Taken 06/20/19 08:00] sitaGLIPtin [Januvia] 25 mg PO DAILY #30 tab 06/23/19 [Rx Last Taken Unknown] cloNIDine HCL [Catapres] 0.2 mg PO BID #1 tab 06/25/19 [Rx Last Taken Unknown] Medical - DS: Hosp Hospital Course: Discharge diagnosis * A. fib with RVR-on diltiazem/metoprolol 100/rivaroxaban. Rate controlled * Acute cholecystitis status post cholecystectomy. Doing well. * Sepsis with leukocytosis white count improved from 30,000-16.6 * Lower GI bleed-status post upper and lower endoscopy. Hemorrhoids . Stable hemoglobin * Acute on chronic kidney disease, creatinine 1.4. Nephrology on board * History of pulmonary hypertension * DM type II continue CC diet/sliding scale insulin. * Hypothyroidism continue thyroxine * Moderate pulmonary hypertension at baseline * History of CAD continue aspirin/beta-aman/statin * History of hypertension continue beta-aman/clonidine Brief hospital course Ms. Nguyễn is a 79 year old F with a known history of CAD/CABG, CKD stage III, HTN, HLD and DM type II who was recently discharged following sepsis secondary to E. coli bacteremia and pyelonephritis. She was discharged and completed 10 days antibiotics. Patient has been intermittently nauseous with episodic retching. She has not been able to eat normal diet. Symptoms are triggered after each meals. She denies food getting stuck in her throat or dysphagia to solids but preferentially takes liquids as she does well with those. She has been taking Zofran to alleviate her symptoms. She has had a progressive decline with severe dehydration due to inability to keep fluids down. She was seen at primary care physician Wilbur adame office and was given IV fluids. She was diagnosed with dehydration. However within 24 hours patient comes back after she noted blood smeared stool and on toilet paper. She however denies large volume bloody bowel. She endorses it was fresh blood. She presents to the ER with combination of above symptoms. Initial work-up was consistent with A. fib with RVR, elevated creatinine at 2.5, elevated potassium 5.5, BUN 65 but hemoglobin at 9.9. However negative digital rectal exam for blood. She also had elevated LFTs and underwent abdominal ultrasound. Subsequently hospitalist service was consulted after it was controlled on diltiazem drip. Of note patient has been seen by welder machine operator Dr. Stout office and anticoagulated was held until she was to see GI for endoscopy evaluation. She is yet to schedule an appointment with Dr. Black at [facility]. At the time of evaluation patient is accompanied with her . She was able to answer most of the questions. She is quite distressed due to her symptoms. She endorses symptoms as above. Denies fever, dysuria, diarrhea, headache, photophobia. 06/21-patient currently on diltiazem drip. Case discussed with Dr. christo Ellington cardiology. Cardiology recommends continuing to hold anticoagulation until such time deemed appropriate by GI to reinitiate. Case discussed with the doctor of chiropractic Dr. Sidhu. Patient will undergo upper and lower endoscopy in 24 hours for evaluation of GI bleed. Currently patient on diltiazem drip rate controlled. Restart home dose Cardizem. 06/22 Patient off diltiazem drip yesterday. On home diltiazem and Toprol. No overnight events or new complaints. Some nausea earlier resolved now. Heart rate is been 80s to low 100's. Reports some constipation now. some gastritis noted on EGD with stricture that was dilated. Per GI, ok to restart anticoagulation. Will restart anticoagulation after cholecystectomy. 06/23 Feeling well. No new complaints. Does have a difficult time sleeping back as of interruptions or noise. No other complaints. Plan for cholecystectomy by Dr. Adams today. Heart rate has been 60s to 80s. did have some low blood pressures last night. 06/24 No bowel months or flatus since surgery. Good appetite this morning. Heart rate tachycardic overnight since surgery. No chest pain shortness of breath pains or complaints. 06/25 Patient started feeling achy and crampy abdominal pain in the upper quadrants overnight. Denies any fevers chills. Feels a little bloated. States she is passed a little bit of gas no bowel movements. White blood cell count increased last night as well as her creatinine. Is anxious. Stat CT abdomen pelvis pending this morning. Diet on hold. Patient has a bit of a dry cough and some shortness of breath felt to be from abdominal distention 06/26 Diltiazem drip titrated down to 5 last night but needed to come back up to 10/hour. Heart rates have been 80s to 90s overnight. Will restart p.o. diltiazem and wean off IV drip. She did have a large bowel movement last night improved crampy abdominal pain. She denies any abdominal pain this morning. She appears less anxious. White blood cell count is improved today, no bandemia. Creatinine improved. does feel some dyspnea. + fluid balance and pleural effusion, will d/w nephro regarding fluid balance. 06/27-patient continues to experience A. fib RVR despite 480 diltiazem and metoprolol increase 200 twice daily. On rivaroxaban for stroke prophylaxis. Continue rate control measures. Continue rivaroxaban. No significant postoperative pain. Ambulating and ongoing physical therapy. No concerns per staff 06/28 -Patient discharging to swing bed status for continued posthospitalization rehab. Doing well overnight. Off diltiazem drip. Heart rate rate in good control. at bedside. On 2 L oxygen. White count has down trended. Plan to continue aggressive PT OT during swing bed stay Discharge diagnosis: . - Time Spent with Patient Total time spent providing and/or coordinating discharge services: Medical - DS: Exam - Constitutional Vitals: Vital Signs Temp Pulse Resp BP Pulse Ox 06/28/19 09:14 93 06/28/19 09:01 132/96 95 06/28/19 08:48 96 06/28/19 08:02 98.1 F 151/99 97 06/28/19 07:09 94 06/28/19 07:01 146/99 97 06/28/19 06:01 15 153/108 94 06/28/19 05:01 16 141/88 98 06/28/19 04:01 97.8 F 15 158/99 97 06/28/19 03:01 15 155/94 97 06/28/19 02:01 16 136/88 92 06/28/19 02:00 16 96 06/28/19 01:01 15 132/75 93 06/28/19 00:01 98.1 F 14 136/82 96 06/27/19 23:01 15 117/77 94 06/27/19 22:01 16 138/86 94 06/27/19 21:01 153/101 89 L 06/27/19 20:01 98.4 F 142/76 91 06/27/19 19:42 143/87 90 06/27/19 19:39 93 06/27/19 19:37 16 143/87 93 06/27/19 18:02 92 06/27/19 18:01 139/83 92 06/27/19 17:59 139/83 92 06/27/19 17:44 134/79 89 L 06/27/19 16:46 89 L 06/27/19 16:15 98.1 F 134/79 93 06/27/19 14:00 82 18 93 06/27/19 13:01 134/102 93 06/27/19 12:04 92 06/27/19 12:02 118/87 94 06/27/19 11:01 121/68 93 06/27/19 10:01 127/89 89 L 06/27/19 09:54 88 L 06/27/19 09:52 123/80 89 L 06/27/19 09:46 90 Intake and Output 06/27/19 06/28/19 06/28/19 21:59 05:59 13:59 Intake Total 1390 300 100 Output Total 950 1025 600 Balance 440 -725 -500 Intake: IV 450 100 Sodium Chloride 0.9% 250 ml @ 250 20 mls/hr IV .[id number] [facility] Rx#: [id number] Oral 940 300 Output: Void Amount 450 1025 Urine/Stool Mix 500 600 Other: Meal Dinner Percent of Meal Consumed 75% Feeding Ability Independent Urine Appearance Clear Clear Urine Color Bright Yellow Bright Yellow Urine Odor Normal Normal Stool Size Moderate Stool Color Brown Brown Stool Consistency Soft Soft Loose Loose # Voids 1 Weight 159 lb 4.8 oz Medical - DS: Data Labs on day of discharge: Labs from last 24 hours 06/22/19 06/21/19 03:42 10:29 ANCA Screen Negative c-ANCA Titer TNP Anti-Proteinase 3 <1.0 p-ANCA Titer TNP Atypical p-ANCA Titer TNP Myeloperoxidase Ab <1.0 Glomerular Base Mem IgG < 1.0 Complement C3 128 Complement C4 31 Tot Complement (CH50) >60 A Medical - DS: A/P - Patient/Caregiver Discharge Instructions Activity: increase activity as tolerated Diet: Renal/Consistent Carbs Prescriptions: cloNIDine HCL [Catapres] 0.2 mg PO BID #1 tab sitaGLIPtin [Januvia] 25 mg PO DAILY #30 tab - Problem Maintenance (1) Atrial fibrillation with rapid ventricular response Status: Resolved - Follow up Plan Follow up with: Wilbur Adame DO [Primary Care Provider] - Rachel Adams MD [Physician] - Disposition: Xfer As Swing Bed ([facility]) Prognosis: Fair Rehab Potential: Fair I certify that the patient requires SNF services: Yes Overall status at discharge: patient is progressing back to baseline Medical - DS: Qual - VTE Deep Vein Thrombosis/Pulmonary Embolism Present on Admission: No
[2019-06-28] MEDS: SUCRALFATE 1 GM TABLET PO SCH (10:43)
[2019-06-29] MEDS ORDERED: FUROSEMIDE 40 MG TABLET PO SCH (09:00)
--- NOTE | 2019-07-05 08:36 | Operative Note ---
DATE OF OPERATION: 06/23/2019 PREOPERATIVE DIAGNOSIS: Cholelithiasis with cholecystitis. POSTOPERATIVE DIAGNOSIS: Acute cholecystitis with cholelithiasis. PROCEDURE: Laparoscopic cholecystectomy. SURGEON: Rachel Adams M.D. FINDINGS: Severe edema of the gallbladder with multiple small stones. Extensive acute and chronic adhesions. Large volume pericholecystic fluid. DESCRIPTION OF PROCEDURE: Under general anesthesia, the patient's abdomen was prepped and draped in a sterile field. A timeout procedure was carried out as per protocol. Supraumbilical midline incision was made and Veress needle was inserted uneventfully. The abdomen was insufflated with 2.5 liters of CO2. A 12 mm port was placed uneventfully. Laparoscope was placed. Under laparoscopic guidance, a 12 mm port and two 5 mm ports were placed in the right subcostal region. The patient was placed in reverse Trendelenburg position and rotated to the left. There was marked edema of the gallbladder with multiple stones. The gallbladder was decompressed with a Weck needle. There were extensive acute and chronic adhesions which were taken down with blunt dissection and with electrocautery. Pericholecystic fluid was suctioned. The gallbladder was sequentially dissected at the infundibulum until the cystic duct was encountered. Cystic duct was followed down to the common bile duct. The cystic artery branch showed an anterior and posterior branch. These were dissected onto the wall of the gallbladder, clipped with four clips each and divided. The gallbladder was then from the infrahepatic bed using electrocautery. It was placed in an Endopouch and retrieved. There was modest amount of bleeding, but there was no bleeding at the completion of the procedure. No drain was placed. The gallbladder was placed in an Endopouch and retrieved. The CO2 was allowed to escape from the abdomen, and the ports were removed. Fascia at the umbilicus was closed with 0 Vicryl. Skin incisions were closed with veena. Incisions were covered with Tegaderm. The patient was awakened, transferred to a bed, and taken to the postanesthetic care unit in satisfactory condition. LCS:jackson Job ID: [id number] Doc ID: [id number] Rachel Adams M.D.
== END 2019-06-28 09:45 | disposition swing bed (61) | DRG 854 ==
LOC: ED 12:55 → ICU 17:54
PROVIDERS: ADMIT Internal Medicine; ATTEND Internal Medicine

== ENCOUNTER 2019-10-08 12:24 | Inpatient (IN) ==
--- NOTE | 2019-10-08 12:52 | Emergency Department Note ---
Nausea/Vomiting/Diarrhea HPI - General Chief complaint: Nausea/Vomiting/Diarrhea Stated complaint: Nausea, vomiting Time Seen by Provider: 10/08/19 12:43 Source: patient Mode of arrival: ambulatory Limitations: no limitations - History of Present Illness HPI Narrative: This patient has had nausea and vomiting for the last day. She has some wheezing last night and her O2 sat was in the mid 80s and she is had slight cough but does not really feel short of breath. No history of COPD or lung disease. No diarrhea infectious had little constipation at times. No abdominal pain. No chest pain. - Related Data Home Medications Medication Instructions Recorded Confirmed Levothyroxine [Synthroid] 50 mcg PO ACB 10/26/16 10/08/19 Simvastatin [Zocor] 10 mg PO HS 10/26/16 10/08/19 Melatonin 5 mg PO HS 06/20/19 10/08/19 Omeprazole 40 mg PO QAM 06/20/19 10/08/19 Polyethylene Glycol 3350 [Miralax] 1 dose PO DAILY 06/20/19 10/08/19 cholecalciferol (vitamin D3) 50 2,000 unit PO QDAY 07/28/19 10/08/19 mcg (2,000 unit) tablet insulin glargine 100 unit/mL (3 8 unit SUB-Q QDAY ml 07/28/19 10/08/19 mL) subcutaneous pen magnesium oxide 400 mg PO QDAY 07/28/19 10/08/19 multivitamin 1 tab PO QAM 07/28/19 10/08/19 torsemide 10 mg tablet 10 mg PO QDAY 07/28/19 10/08/19 Diltiazem HCl [Diltiazem ER] 120 mg PO BID 10/08/19 10/08/19 Metoprolol Succinate [Toprol Xl] 100 mg PO BID 10/08/19 10/08/19 Previous Rx's Medication Instructions Recorded Rivaroxaban [Xarelto] 15 mg PO QPMCC #30 tab 05/25/19 Ondansetron [Zofran ODT] 4 mg SL Q4-6HP PRN #10 tab 06/15/19 Allergies Allergy/AdvReac Type Severity Reaction Status Date / Time hydrocodone AdvReac Mild Vomiting Verified 10/08/19 12:27 oxycodone [Oxycodone] AdvReac Mild Vomiting Verified 10/08/19 12:27 Sulfa (Sulfonamide AdvReac Mild Redness of Verified 10/08/19 12:27 Antibiotics) Skin Review of Systems All systems ED: reviewed and negative except as stated. Past Medical History - Past Medical History [facility] Narrative: Medical History (Last Updated 07/28/19 @ 13:46 by Adriana Khan MD) Protein-calorie malnutrition, moderate (Chronic) Syncope and collapse (Chronic) Acute renal failure (Chronic) Atrial fibrillation with RVR (Chronic) Dyspnea (Chronic) Acute heart failure with preserved ejection fraction (Chronic) Elevated liver enzymes (Chronic) Hypercalcemia (Chronic) Hyperkalemia (Chronic) Syncopal episodes (Chronic) Symptomatic bradycardia (Chronic) RODRIGUEZ (acute kidney injury) (Chronic) Chronic kidney disease, stage 3 (Chronic) Atrial fibrillation (Chronic) Hemorrhoids (Chronic) Hypothyroidism (Chronic) Dyslipidemia (Chronic) CAD (coronary artery disease) (Chronic) Sepsis (Chronic) Recurrent UTI (Chronic) Hypertension, essential (Chronic) Diabetes mellitus, type 2 (Chronic ~2008) Adrenal adenoma (Chronic) Past Surgical History (Last Updated 07/28/19 @ 11:06 by Bianca Rice) History of bladder repair surgery (Chronic) History of cholecystectomy (Chronic) History of total right knee replacement (TKR) (Chronic) S/P total hip arthroplasty (Chronic) Family History (Last Updated 07/28/19 @ 09:19 by Adriana Khan MD) Sister Hypertension Other Diabetes mellitus Medical history: Reports: arthritis, atrial fibrillation, DM, other (UTI's. DENIES pyelonephritis., Recently admitted to hospital with sepsis. ). Denies: chronic anticoagulation (except aspirin.), CVA, myocardial infarction, renal disease, TIA [employer] history: Reports: non-contributory Surgical history ED: Reports: hip replacement, orthopedic, other - Social History smoking status: Never smoker Alcohol use: Reports: None Physical Exam Limitations: no limitations General appearance: alert Head: atraumatic Eye: Present: normal appearance ENT: Present: normal exam Neck: Present: normal inspection Chest: Present: normal inspection Respiratory: Present: normal lung sounds bilaterally Cardiovascular: Present: regular rate, normal rhythm, normal heart sounds Abdominal: Present: soft. Absent: distention, tenderness Neurological: Present: alert Psychiatric: Present: normal affect Skin: Present: warm, dry Course Vital Signs Temperature 97.2 F 10/08/19 12:25 Pulse Rate 73 10/08/19 12:25 Respiratory Rate 13 10/08/19 12:25 Blood Pressure 131/82 10/08/19 12:25 Pulse Oximetry (%) 86 L 10/08/19 12:25 Temperature 97.2 F 10/08/19 12:25 Pulse Rate 80 10/08/19 20:31 Respiratory Rate 17 10/08/19 14:01 Blood Pressure 140/87 10/08/19 20:31 Pulse Oximetry (%) 94 10/08/19 20:31 Nausea/Vomiting/Diarrhea - MDM Narrative Medical decision making narrative: Patient's nausea came under good control quickly with some Zofran but she required oxygen. Chest x-ray showed a left pleural effusion and a CT scan was performed that confirms that with some atelectasis. She also has a UTI. Her BNP was 11,000. She does not feel that short of breath but certainly has evidence of heart failure. We will plan to admit her to the hospital and give her Rocephin for her UTI. - Lab Data Lab results reviewed: Yes I reviewed the patient's lab results. Result diagrams: 10/08/19 12:55 10/08/19 12:55 Lab Results 10/08/19 10/08/19 10/08/19 Range/Units 12:55 12:55 12:55 WBC 11.3 H (4.50-11.00) K/mcL RBC 3.64 (3.59-5.38) M/mcL Hgb 10.1 L (11.2-15.7) g/dL Hct 31.5 L (34.1-44.9) % MCV 86.5 (80.0-100.0) fL MCH 27.7 (26.0-34.0) pg MCHC 32.1 (31.0-36.0) g/dL RDW 16.1 H (11.5-14.5) % Plt Count 383 (140-440) K/mcL MPV 9.2 (7.4-10.4) fL Gran % 82.3 H (38.0-78.0) % Lymph % (Auto) 9.6 L (15.5-49.0) % [place] % (Auto) 7.5 (1.0-12.0) % Eos % (Auto) 0.2 (0.0-7.0) % Baso % (Auto) 0.4 (0.0-2.0) % Gran # 9.28 H (1.80-8.00) K/mcL Lymph # (Auto) 1.08 L (1.50-4.80) K/mcL [place] # (Auto) 0.84 (0.10-0.90) K/mcL Eos # (Auto) 0.02 (0.00-0.70) K/mcL Baso # (Auto) 0.05 (0.00-0.30) K/mcL VBG Lactic Acid 2.1 H (0.5-2.0) mmol/L Sodium 141 (133-145) mmol/L Potassium 3.7 (3.3-5.1) mmol/L Chloride 99 (96-108) mmol/L Carbon Dioxide 25 (22-30) mmol/L Anion Gap 17.0 H (8-16) BUN 37 H (8-23) mg/dl Creatinine 1.9 H (0.6-1.1) mg/dl GFR Calculation 25 Glucose 145 H (70-105) mg/dL Calcium 9.4 (8.6-10.4) mg/dl Total Bilirubin 0.9 (0.0-1.0) mg/dL AST 29 (0-37) U/l ALT 35 (0-40) U/l Alkaline Phosphatase 121 H (39-117) U/L Troponin T (0-0.03) ng/ml NT-Pro-B Natriuret Pep 24657.0 H (0-450) pg/ml Total Protein 7.0 (5.9-8.4) gm/dL Albumin 3.7 (3.2-5.2) gm/dL Globulin 3.3 (2.2-3.7) gm/dL Albumin/Globulin Ratio 1.1 (1.0-2.3) Urine Color Urine Appearance Urine pH (5.0-9.0) Ur Specific [place] (1.000-1.035) Urine Protein (NEG) mg/dL Urine Glucose (UA) (NEG) mg/dL Urine Ketones (NEG) mg/dL Urine Occult Blood (<0.03) mg/dL Urine Nitrate (NEG) Urine Bilirubin (NEG) mg/dL Urine Urobilinogen (NEG) mg/dL Ur Leukocyte Esterase (NEG) /uL Urine RBC (0-1) /hpf Urine WBC (0-4) /hpf Ur Squamous Epith Cells (0-4) /hpf Ur Transition Epith Cell (0-2) /hpf Urine Bacteria (0) /hpf Hyaline Casts (0-2) /lpf Urine Mucus (0) /hpf Ur Culture Indicated? 10/08/19 10/08/19 Range/Units 12:55 16:30 WBC (4.50-11.00) K/mcL RBC (3.59-5.38) M/mcL Hgb (11.2-15.7) g/dL Hct (34.1-44.9) % MCV (80.0-100.0) fL MCH (26.0-34.0) pg MCHC (31.0-36.0) g/dL RDW (11.5-14.5) % Plt Count (140-440) K/mcL MPV (7.4-10.4) fL Gran % (38.0-78.0) % Lymph % (Auto) (15.5-49.0) % [place] % (Auto) (1.0-12.0) % Eos % (Auto) (0.0-7.0) % Baso % (Auto) (0.0-2.0) % Gran # (1.80-8.00) K/mcL Lymph # (Auto) (1.50-4.80) K/mcL [place] # (Auto) (0.10-0.90) K/mcL Eos # (Auto) (0.00-0.70) K/mcL Baso # (Auto) (0.00-0.30) K/mcL VBG Lactic Acid (0.5-2.0) mmol/L Sodium (133-145) mmol/L Potassium (3.3-5.1) mmol/L Chloride (96-108) mmol/L Carbon Dioxide (22-30) mmol/L Anion Gap (8-16) BUN (8-23) mg/dl Creatinine (0.6-1.1) mg/dl GFR Calculation Glucose (70-105) mg/dL Calcium (8.6-10.4) mg/dl Total Bilirubin (0.0-1.0) mg/dL AST (0-37) U/l ALT (0-40) U/l Alkaline Phosphatase (39-117) U/L Troponin T < 0.01 (0-0.03) ng/ml NT-Pro-B Natriuret Pep (0-450) pg/ml Total Protein (5.9-8.4) gm/dL Albumin (3.2-5.2) gm/dL Globulin (2.2-3.7) gm/dL Albumin/Globulin Ratio (1.0-2.3) Urine Color Yellow Urine Appearance Cloudy Urine pH 6.0 (5.0-9.0) Ur Specific [place] 1.016 (1.000-1.035) Urine Protein 30 A (NEG) mg/dL Urine Glucose (UA) Negative (NEG) mg/dL Urine Ketones Neg (NEG) mg/dL Urine Occult Blood Neg (<0.03) mg/dL Urine Nitrate Neg (NEG) Urine Bilirubin Neg (NEG) mg/dL Urine Urobilinogen Neg (NEG) mg/dL Ur Leukocyte Esterase 500 A (NEG) /uL Urine RBC 4 H (0-1) /hpf Urine WBC > 182 H (0-4) /hpf Ur Squamous Epith Cells 1 (0-4) /hpf Ur Transition Epith Cell 2 (0-2) /hpf Urine Bacteria Few A (0) /hpf Hyaline Casts 43 H (0-2) /lpf Urine Mucus Few (0) /hpf Ur Culture Indicated? Yes - Radiology Data Radiology results reviewed: Yes I reviewed the patient's radiology results. Disposition Pt seen by EGG PACKER/PA only: No Clinical Impression: UTI (urinary tract infection), Congestive heart failure Disposition: Xfer As Outpt/Obs ([facility]) Condition: Good Referrals: Wilbur Adame DO [Primary Care Provider] - Time of Disposition: 20:36
[2019-10-08 13:57] LABS: Basophils # (Auto) 0.05 K/mcL (0.00-0.30); Basophils % (Auto) 0.4 % (0.0-2.0); Eosinophils # (Auto) 0.02 K/mcL (0.00-0.70); Eosinophils % (Auto) 0.2 % (0.0-7.0); Granulocytes % (Auto) 82.3 % (38.0-78.0); Hematocrit 31.5 % (34.1-44.9); Hemoglobin 10.1 g/dL (11.2-15.7); Lymphocytes # (Auto) 1.08 K/mcL (1.50-4.80); Lymphocytes % (Auto) 9.6 % (15.5-49.0); Mean Cell Volume 86.5 fL (80.0-100.0); Mean Corpuscular HGB Conc 32.1 g/dL (31.0-36.0); Mean Platelet Volume 9.2 fL (7.4-10.4); Monocytes # (Auto) 0.84 K/mcL (0.10-0.90); Monocytes % (Auto) 7.5 % (1.0-12.0); Platelet Count 383 K/mcL (140-440); RBC 3.64 M/mcL (3.59-5.38); Red Cell Distribution Width 16.1 % (11.5-14.5); WBC 11.3 K/mcL (4.50-11.00)
[2019-10-08 14:39] LABS: ALT/SGPT 35 U/l (0-40); AST/SGOT 29 U/l (0-37); Albumin 3.7 gm/dL (3.2-5.2); Albumin/Globulin Ratio 1.1 (1.0-2.3); Alkaline Phosphatase 121 U/L (39-117); Bilirubin,Total 0.9 mg/dL (0.0-1.0); Blood Urea Nitrogen 37 mg/dl (8-23); Calcium 9.4 mg/dl (8.6-10.4); Carbon Dioxide 25 mmol/L (22-30); Chloride 99 mmol/L (96-108); Globulin 3.3 gm/dL (2.2-3.7); Glomerular Filtration Rate 25; Glucose 145 mg/dL (70-105)
--- NOTE | 2019-10-08 14:50 | XRay Report ---
HISTORY: Shortness of breath, nausea and vomiting FINDINGS: There is moderate consolidation in the left lower lobe and a mild alveolar infiltrate in the right lower lobe. Superimposed upon this is a small left-sided pleural effusion. Similar findings were present on prior chest x-ray done on 06/25/19. There is greater consolidation in the left lower lobe today than there was previously. The upper lung covarrubias are clear. The heart size is normal. IMPRESSION: bibasilar infiltrates, left worse than right. This may be atelectasis or pneumonia. Left-sided pleural effusion Interpreted and Authenticated by: William Gauthier 10/08/19
--- NOTE | 2019-10-08 15:52 | Cat Scan Report ---
History: Shortness of breath, pleural effusion, cardiac disease TECHNIQUE: The chest was imaged without oral or intravenous contrast. Patient's BUN and creatinine are elevated ranging is for administering intravenous contrast. Sagittal, coronal and axial MIPS images were created. The radiation exposure was limited using dose reduction technology. FINDINGS: There are small to moderate-sized bilateral layering pleural effusions, left larger than right. Associated with this is compressive atelectasis in both lower lobes, left worse than right. Multiple air bronchograms are present within the atelectatic lung. Superimposed pneumonia cannot be excluded. There are mild groundglass alveolar opacities in a mosaic distribution in the upper lobes and to a milder extent in the right middle lobe and superior segment of the right lower lobe. There is no evidence of a lung mass. There is a 3 x 4 mm granuloma beneath the pleural laterally in the right upper lobe. Several indeterminate lymph nodes are present in the mediastinum. They are located in the pretracheal retrocaval space and lateral to the aortic arch. The measure up to 1.7 cm. The largest has a fatty central hilum. IMPRESSION: Bilateral pleural effusions with associated atelectasis in both lower lobes, left greater than right Cardiomegaly Alveolar opacities in the upper lungs. This could be due to congestive heart failure or alveolitis Nonspecific lymphadenopathy in the mediastinum Dr. Saucedo was called with the results Interpreted and Authenticated by: William Gauthier 10/08/19
[2019-10-08 17:12] LABS: Appearance,Urine CLOUDY; Bacteria,Urine FEW /hpf (0); Bilirubin,Urine NEG (NEG); Color,Urine YELLOW; Culture Indicated,Urine YES; Glucose,Urine (UA) NEGATIVE (NEG); Ketones,Urine NEG (NEG); Leukocyte Esterase,Urine 500 /uL (NEG); Mucus,Urine FEW /hpf (0); Nitrate,Urine NEG (NEG); Protein,Urine 30 mg/dL (NEG); Specific Gravity,Urine 1.016 (1.000-1.035); Urine Blood NEG mg/dL (<0.03); Urine Hyaline Cast 43 /lpf (0-2); Urine RBC 4 /hpf (0-1); Urine Squamous Epithelial Cell 1 /hpf (0-4); Urine Transitional Epi Cells 2 /hpf (0-2); Urine WBC > 182 /hpf (0-4); Urobilinogen,Urine NEG (NEG)
[2019-10-08] MEDS ORDERED: cefTRIAXone 1 GM VIAL IV ONE (17:20)
[2019-10-08] MEDS ORDERED: FUROSEMIDE 40 MG/4 ML VIAL IV ONE (17:48)
[2019-10-08] MEDS ORDERED: ACETAMINOPHEN 325 MG TABLET PO PRN ×2 (21:54→22:31)
[2019-10-08] MEDS ORDERED: PNEUMOCOCCAL 23-VAL P-SAC VAC 0.5 ML SYRINGE IM ONE (21:54)
[2019-10-08] MEDS ORDERED: ONDANSETRON 4 MG/2 ML VIAL IV PRN ×2 (21:54→22:31)
[2019-10-08] MEDS ORDERED: 0.9 % SODIUM CHLORIDE 10 ML SYRINGE IV SCH (22:00)
--- NOTE | 2019-10-08 22:28 | Internal Med History&Physical ---
Medical - H&P: [facility] Patient information: Note initiated : 10/08/19 at 10:11 pm Service Date, if different from initiated Date: [] Patient: Joanne Nguyễn a 79 y/o F admitted on for Nausea, vomiting. Chief Complaint: [n/v x 2 days] History of present illness: Ms. Nguyễn is a 79 year old F with a medical history of CHF, atrial fibrillation on Xarelto, high blood pressure, and type 2 diabetes who was brought to the ER due to nausea and vomiting for 2 days. As per patient, she has been having nausea, vomiting, mild shortness of breath and a mild cough over the past 2 days. In the ER, she was found to have a desaturation, mid 80s. In the ER, chest CT showed bilateral pleural effusion. When I saw this patient in the ER, other than the symptoms mentioned above, she denied headache, dizziness, chest pain, abdominal pain, dysuria, fever, chills, or runny nose. Denied recent travel or sick contact. - Constitutional Additional comments: No symptoms reported - EENT Additional comments: No symptoms reported - Cardiovascular Additional comments: No symptoms reported - Respiratory Respiratory: Present: cough Additional comments: Cough, mild shortness of breath - Gastrointestinal Additional comments: Nausea and vomiting - Musculoskeletal Additional comments: No symptoms reported - Integumentary Additional comments: No symptoms reported - Neurological Additional comments: No symptoms reported - Psychiatric Additional comments: No symptoms reported - Endocrine Additional comments: No symptoms reported - Hematologic/Lymphatic Additional comments: No symptoms reported - Allergic/Immunologic Additional comments: No symptoms reported Medical - H&P: PMH Medical history: Diabetes type 2, high blood pressure, CHF, and atrial fibrillation Pertinent family history: Father had lung cancer and bladder cancer; mother had high blood pressure Smoking status: Never smoker Drug use: none Alcohol use: none Medical - H&P: Meds Home Medications Medication Instructions Recorded Confirmed Type Levothyroxine [Synthroid] 50 mcg PO ACB 10/26/16 10/08/19 History Simvastatin [Zocor] 10 mg PO HS 10/26/16 10/08/19 History Rivaroxaban [Xarelto] 15 mg PO QPMCC #30 tab 05/25/19 10/08/19 Rx Ondansetron [Zofran ODT] 4 mg SL Q4-6HP PRN #10 tab 06/15/19 10/08/19 Rx Melatonin 5 mg PO HS 06/20/19 10/08/19 History Omeprazole 40 mg PO QAM 06/20/19 10/08/19 History Polyethylene Glycol 3350 [Miralax] 1 dose PO DAILY 06/20/19 10/08/19 History cholecalciferol (vitamin D3) 50 2,000 unit PO QDAY 07/28/19 10/08/19 History mcg (2,000 unit) tablet insulin glargine 100 unit/mL (3 8 unit SUB-Q QDAY ml 07/28/19 10/08/19 History mL) subcutaneous pen magnesium oxide 400 mg PO QDAY 07/28/19 10/08/19 History multivitamin 1 tab PO QAM 07/28/19 10/08/19 History torsemide 10 mg tablet 10 mg PO QDAY 07/28/19 10/08/19 History Diltiazem HCl [Diltiazem ER] 120 mg PO BID 10/08/19 10/08/19 History Metoprolol Succinate [Toprol Xl] 100 mg PO BID 10/08/19 10/08/19 History Allergies Allergy/AdvReac Type Severity Reaction Status Date / Time hydrocodone AdvReac Mild Vomiting Verified 10/08/19 12:27 oxycodone [Oxycodone] AdvReac Mild Vomiting Verified 10/08/19 12:27 Sulfa (Sulfonamide AdvReac Mild Redness of Verified 10/08/19 12:27 Antibiotics) Skin Medical - H&P: Exam - Constitutional Vitals: Temp Pulse Resp BP Pulse Ox 97.2 F 107 H 17 130/63 90 10/08/19 12:25 10/08/19 22:01 10/08/19 14:01 10/08/19 22:01 10/08/19 22:01 - Other Additional findings: General appearance: alert, awake, no acute distress Head: atraumatic, normocephalic Eye: normal appearance, PERRL, EOMI ENT: No rhinorrhea Neck: Supple, no thyroid megaly Chest: No tenderness Respiratory: Right lower lobe crackles Cardiovascular: Irregular irregular, no murmur, no JVD Abdominal: Normal bowel sounds, soft, no tenderness Extremities: No edema Neurological: Alert, awake, grossly no focal neurological deficit Psychiatric: normal affect Skin: Present: warm, dry Medical - H&P: Reslt - Labs CBC & Chem 7: 10/08/19 12:55 10/08/19 12:55 Labs: Short CBC 10/08/19 Range/Units 12:55 WBC 11.3 H (4.50-11.00) K/mcL Hgb 10.1 L (11.2-15.7) g/dL Hct 31.5 L (34.1-44.9) % Plt Count 383 (140-440) K/mcL BMP 10/08/19 12:55 Sodium 141 Potassium 3.7 Chloride 99 Carbon Dioxide 25 BUN 37 H Creatinine 1.9 H Glucose 145 H Calcium 9.4 Cardiac Enzymes 10/08/19 Range/Units 12:55 Troponin T < 0.01 (0-0.03) ng/ml Liver Function 10/08/19 Range/Units 12:55 Total Bilirubin 0.9 (0.0-1.0) mg/dL AST 29 (0-37) U/l ALT 35 (0-40) U/l Alkaline Phosphatase 121 H (39-117) U/L Albumin 3.7 (3.2-5.2) gm/dL Urine 10/08/19 Range/Units 16:30 Urine Color Yellow Urine Appearance Cloudy Urine pH 6.0 (5.0-9.0) Ur Specific Campbell 1.016 (1.000-1.035) Urine Protein 30 A (NEG) mg/dL Urine Glucose (UA) Negative (NEG) mg/dL Medical - H&P: A/P - Narrative A/P Narrative: Assessment: 1. Acute hypoxic respiratory failure 2. Systolic CHF exacerbation, BNP 67850 3. Atrial fibrillation 4. HTN 5. DM type 2 6. UTI 7. RODRIGUEZ, creatinine 1.1 on 06/29/2019 8. Pleural efffusino, bilateral 9. Borderline prolonged QT interval Plan: 1. Saturation mid 80s in the ER. Pulse ox and oxygen 2. CHF exacerbation, unknown type. Echocardiogram Intake and output, daily weight, torsemide 10mg daily is on hold Lasix 20 mg twice daily Repeat electrolytes and a renal function in the morning 3. Rate controlled Continue metoprolol and diltiazem drip Continue Xarelto 4. Continue metoprolol and diltiazem. Hydralazine as needed 5. Avoid nephrotoxic meds, intake and output, repeat renal function in the morning 6. Chest CT showed Bilateral pleural effusions with associated atelectasis in both lower lobes, left greater than right. Lasix 7. Avoid prolonged QT meds 8. DVT prophylaxis: On Xalrelto 9. CODE STATUS: Full
[2019-10-08] MEDS ORDERED: hydrALAZINE 20 MG/ML VIAL IV PRN (22:39)
--- NOTE | 2019-10-08 22:47 | Event Note ---
Advanced Care Planning Documents Parties in Attendance: Patient Decisional Capacity: Yes I explained the process regarding CPR, defibrillation, shock, intubation and medication treatment were all discussed and explained in detail to the patient. We also discussed potential risks/benefits, including limitations of the procedure. I educated pt on the reality of CPR, how television makes it appear that we are usually successful, and people wake up right away, and can often leave the hospital shortly after. I explained that for young people, and those with few medical problems will do better, those with chronic medical problems or severe illnesses are less likely to survive. If they do survive, they may end up on life support, and possibly have physical and mental deficits. They are usually more dependent on other for their care needs after surviving a code, and would typically require a stay in a rehab facility, and are not usually discharged home from the hospital. Pt would like to have full code (agreed with cpr, resuscitation and intubation).
[2019-10-08] MEDS ORDERED: METOCLOPRAMIDE 10 MG/2 ML VIAL ONE (23:39)
[2019-10-08] MEDS: METOCLOPRAMIDE 10 MG/2 ML VIAL IV SCH (23:41)
[2019-10-09] MEDS ORDERED: METOCLOPRAMIDE 10 MG/2 ML VIAL IV SCH
[2019-10-09] MEDS ORDERED: IPRATROPIUM/ALBUTEROL 3 ML AMPUL.NEB NEB SCH (01:00)
[2019-10-09] MEDS ORDERED: IPRATROPIUM/ALBUTEROL 3 ML AMPUL.NEB NEB ONE (01:14)
[2019-10-09] MEDS: IPRATROPIUM/ALBUTEROL 3 ML AMPUL.NEB NEB SCH ×4 (01:16→21:34)
[2019-10-09] MEDS: METOCLOPRAMIDE 10 MG/2 ML VIAL IV SCH ×3 (05:22→18:07)
[2019-10-09] MEDS: 0.9 % SODIUM CHLORIDE 10 ML SYRINGE IV SCH ×3 (05:22→21:08)
[2019-10-09] MEDS ORDERED: METOCLOPRAMIDE 10 MG/2 ML VIAL ONE (05:22)
[2019-10-09] MEDS ORDERED: LEVOTHYROXINE 50 MCG TABLET PO SCH (07:30)
[2019-10-09] MEDS ORDERED: INSULIN LISPRO 1 UNIT/0.01 ML UNIT SQ SCH (07:30)
[2019-10-09] MEDS ORDERED: PANTOPRAZOLE 40 MG TABLET PO SCH (07:30)
[2019-10-09 07:53] LABS: Basophils # (Auto) 0.05 K/mcL (0.00-0.30); Basophils % (Auto) 0.5 % (0.0-2.0); Eosinophils # (Auto) 0.08 K/mcL (0.00-0.70); Eosinophils % (Auto) 0.7 % (0.0-7.0); Granulocytes % (Auto) 74.8 % (38.0-78.0); Hematocrit 28.4 % (34.1-44.9); Hemoglobin 9.1 g/dL (11.2-15.7); Lymphocytes # (Auto) 1.45 K/mcL (1.50-4.80); Lymphocytes % (Auto) 13.5 % (15.5-49.0); Mean Cell Volume 86.3 fL (80.0-100.0); Mean Platelet Volume 9.3 fL (7.4-10.4); Monocytes # (Auto) 1.13 K/mcL (0.10-0.90); Monocytes % (Auto) 10.5 % (1.0-12.0); Platelet Count 335 K/mcL (140-440); RBC 3.29 M/mcL (3.59-5.38); Red Cell Distribution Width 16.2 % (11.5-14.5); WBC 10.7 K/mcL (4.50-11.00)
[2019-10-09] MEDS ORDERED: FUROSEMIDE 20 MG/2 ML VIAL IV SCH (08:00)
[2019-10-09 08:09] LABS: Estimated Average Glucose(eAG) 143 mg/dL; Hemoglobin A1C 6.6 % HGB (4.0-6.0)
[2019-10-09 08:23] LABS: ALT/SGPT 27 U/l (0-40); AST/SGOT 22 U/l (0-37); Albumin 3.4 gm/dL (3.2-5.2); Albumin/Globulin Ratio 1.2 (1.0-2.3); Alkaline Phosphatase 104 U/L (39-117); Bilirubin,Total 0.5 mg/dL (0.0-1.0); Blood Urea Nitrogen 33 mg/dl (8-23); Calcium 9.1 mg/dl (8.6-10.4); Carbon Dioxide 26 mmol/L (22-30); Chloride 102 mmol/L (96-108); Globulin 2.9 gm/dL (2.2-3.7); Glomerular Filtration Rate 29; Glucose 92 mg/dL (70-105); Thyroid Stimulating Hormone 4.66 uIU/ml (0.27-5.01)
[2019-10-09] MEDS: INSULIN LISPRO 1 UNIT/0.01 ML UNIT SQ SCH ×4 (08:28→21:05)
[2019-10-09] MEDS: DOCUSATE SODIUM 100 MG CAPSULE PO SCH ×2 (08:29→21:01)
[2019-10-09] MEDS: METOPROLOL SUCCINATE 50 MG TAB.XL.24H PO SCH ×2 (08:30→20:59)
[2019-10-09] MEDS: MULTIVIT,THER IRON,CA,FA & MIN 1 TABLET PO SCH (08:31)
[2019-10-09] MEDS: DILTIAZEM 120 MG CAP.XL.24H PO SCH ×2 (08:31→21:01)
[2019-10-09] MEDS: VITAMIN D3 1,000 UNIT TABLET PO SCH (08:32)
[2019-10-09] MEDS: MAGNESIUM OXIDE 400 MG TABLET PO SCH (08:32)
[2019-10-09] MEDS: FUROSEMIDE 20 MG/2 ML VIAL IV SCH ×2 (08:33→16:57)
[2019-10-09] MEDS: POLYETHYLENE GLYCOL 3350 17 GM PACKET PO SCH (08:33)
[2019-10-09] MEDS ORDERED: MULTIVITAMIN PO SCH (09:00)
[2019-10-09] MEDS ORDERED: MAGNESIUM OXIDE 400 MG PO SCH (09:00)
[2019-10-09] MEDS ORDERED: INSULIN GLARGINE, HUMAN 1 UNIT/0.01 ML SQ SCH (09:00)
[2019-10-09] MEDS ORDERED: DILTIAZEM HCL 120 MG PO SCH (09:00)
[2019-10-09] MEDS ORDERED: METOPROLOL SUCCINATE 100 MG PO SCH (09:00)
[2019-10-09] MEDS ORDERED: [UNRECOGNIZED DRUG - OTHER] PO SCH (09:00)
[2019-10-09] MEDS ORDERED: DOCUSATE SODIUM 100 MG CAPSULE PO SCH (09:00)
[2019-10-09] MEDS ORDERED: CHOLECALCIFEROL 2000 UNIT PO SCH (09:00)
[2019-10-09] MEDS ORDERED: POLYETHYLENE GLYCOL 3350 17 GM PACKET PO SCH (09:00)
[2019-10-09] MEDS: PANTOPRAZOLE 40 MG TABLET PO SCH (10:41)
[2019-10-09] MEDS: LEVOTHYROXINE 50 MCG TABLET PO SCH (10:41)
[2019-10-09] MEDS ORDERED: RIVAROXABAN 15 MG TABLET PO SCH ×2 (17:30)
--- NOTE | 2019-10-09 18:43 | Internal Med Progress Note ---
Medical - PN: Subj Patient information: Note initiated : 10/09/19 at 6:37 pm Service Date, if different from initiated Date: [] Patient: Joanne Nguyễn 79 y/o F admitted on 10/08/19 for Nausea, vomiting. Chief Complaint: [] Interval history: Today pt feels better, stronger. Denies fever or chills. Nausea, vomiting, and diarrhea improving. Discussed with radiologist, who felt she has moderate pleural effusion, L > R. Xarelto is on hold today. Pt will probably have thoracentesis tomorrow. thoracentesis order and effusion labs were ordered - Constitutional Vitals: Vital Signs Temp Pulse Resp BP Pulse Ox 98.6 F 110 H 18 135/80 96 10/09/19 12:00 10/09/19 13:35 10/09/19 13:35 10/09/19 12:00 10/09/19 12:00 Period Temp Pulse Resp BP Sys/Fitch Pulse Ox Last 24 Hr 97.2 F-98.6 F 78-110 16-20 124-150/63-104 90-96 Intake and Output 10/09/19 10/09/19 10/09/19 05:59 13:59 21:59 Intake Total 0 240 Output Total 1250 500 300 Balance -1250 -500 -60 Weight 64.41 kg 64.41 kg Patient Weight 10/10/19 05:59 Weight 64.41 kg Intake & Output: Intake & Output 10/09/19 10/09/19 10/09/19 05:59 13:59 21:59 Intake Total 0 240 Output Total 1250 500 300 Balance -1250 -500 -60 Weight 64.41 kg 64.41 kg Intake: Oral 0 240 Output: Urine Catheter Amount 300 Void Amount 1250 500 Other: Meal Lunch Percent of Meal Consumed 100% Feeding Ability Independent Urine Appearance Clear Clear Clear Urine Color Bright Yellow Bright Yellow Bright Yellow Urine Odor Normal - Additional findings Additional findings: General appearance: alert, awake, no acute distress Head: atraumatic, normocephalic Eye: normal appearance, PERRL, EOMI ENT: No rhinorrhea Neck: Supple, no thyroid megaly Chest: No tenderness Respiratory: Right lower lobe crackles Cardiovascular: Irregular irregular, no murmur, no JVD Abdominal: Normal bowel sounds, soft, no tenderness Extremities: No edema Neurological: Alert, awake, grossly no focal neurological deficit Psychiatric: normal affect Skin: Present: warm, dry Medical - PN: Obj Da - Labs CBC & Chem 7: 10/09/19 05:25 10/09/19 05:25 Labs: Abnormal Lab Results 10/09/19 10/09/19 10/08/19 05:25 05:25 16:30 WBC RBC 3.29 L Hgb 9.1 L Hct 28.4 L RDW 16.2 H Gran % Lymph % (Auto) 13.5 L Gran # 8.02 H Lymph # (Auto) 1.45 L Bates # (Auto) 1.13 H VBG Lactic Acid Potassium 3.0 L Anion Gap BUN 33 H Creatinine 1.7 H Glucose Hemoglobin A1c 6.6 H Alkaline Phosphatase NT-Pro-B Natriuret Pep Urine Protein 30 A Ur Leukocyte Esterase 500 A Urine RBC 4 H Urine WBC > 182 H Urine Bacteria Few A Hyaline Casts 43 H 10/08/19 10/08/19 10/08/19 12:55 12:55 12:55 WBC 11.3 H RBC Hgb 10.1 L Hct 31.5 L RDW 16.1 H Gran % 82.3 H Lymph % (Auto) 9.6 L Gran # 9.28 H Lymph # (Auto) 1.08 L Bates # (Auto) VBG Lactic Acid 2.1 H Potassium Anion Gap 17.0 H BUN 37 H Creatinine 1.9 H Glucose 145 H Hemoglobin A1c Alkaline Phosphatase 121 H NT-Pro-B Natriuret Pep 51982.0 H Urine Protein Ur Leukocyte Esterase Urine RBC Urine WBC Urine Bacteria Hyaline Casts Meds: Medications Acetaminophen (Tylenol) 650 mg PO Q6HP PRN; Protocol PRN Reason: Per Pain Protocol/Fever > 101 Albuterol/Ipratropium (Duoneb) [address] [facility] Last Admin: 10/09/19 13:34 Dose: 3 ml Documented by: Diagnostic Test (Pha) (Accu-Chek) [address] [facility] Last Admin: 10/09/19 16:57 Dose: 1 each Documented by: Diltiazem HCl (Cardizem Sr) [address] [facility] Last Admin: 10/09/19 08:31 Dose: 120 mg Documented by: Docusate Sodium (Colace) [address] [facility] Last Admin: 10/09/19 08:29 Dose: 100 mg Documented by: Furosemide (Lasix) [address] [facility] Last Admin: 10/09/19 16:57 Dose: 20 mg Documented by: Hydralazine HCl (Apresoline) 10 mg IV Q4 PRN PRN Reason: Hypertension Insulin Glargine (Lantus) [address] [facility] Insulin Human Lispro (Humalog) 0 [facility] SQ [facility]; Protocol Last Admin: 10/09/19 17:00 Dose: Not Given Documented by: Iron Carb/Multivit/[place]/Folic Acid (Multivitamin W/Minerals) [address] [facility] Last Admin: 10/09/19 08:31 Dose: 1 tab Documented by: Levothyroxine Sodium (Synthroid) [address] [facility] Last Admin: 10/09/19 10:41 Dose: 50 mcg Documented by: Magnesium Oxide (Magnesium Oxide) [address] [facility] Last Admin: 10/09/19 08:32 Dose: 400 mg Documented by: Melatonin (Melatonin 3mg Tablet) [address] [facility] Metoclopramide HCl (Reglan) [address] [facility] Last Admin: 10/09/19 18:07 Dose: 5 mg Documented by: Metoprolol Succinate (Toprol Xl) [address] [facility] Last Admin: 10/09/19 08:30 Dose: 100 mg Documented by: Ondansetron HCl (Zofran) 4 mg IV Q6HP PRN PRN Reason: Nausea And Vomiting Pantoprazole Sodium (Protonix) [address] [facility] Last Admin: 10/09/19 10:41 Dose: 40 mg Documented by: Pneumococcal Polyvalent Vaccine (Pneumovax 23) 0.5 ml IM .ONCE ONE Stop: 10/10/19 10:01 Polyethylene Glycol (Miralax) [address] [facility] Last Admin: 10/09/19 08:33 Dose: Not Given Documented by: Simvastatin (Zocor) 10 mg PO [facility] Sodium Chloride (Saline Flush) [address] [facility] Last Admin: 10/09/19 14:52 Dose: 10 ml Documented by: Vitamin D (Vitamin D3) 2,[address] [facility] Last Admin: 10/09/19 08:32 Dose: 2,000 unit Documented by: Medical - PN: A/P - Time Spent With Patient Total time spent is greater than 50% in coordination of care (as documented) at patient's floor/unit and/or counseling patient: - Narrative A/P Narrative: Assessment: 1. Acute hypoxic respiratory failure 2. Systolic CHF exacerbation, BNP 96787 3. Atrial fibrillation 4. HTN 5. DM type 2 6. UTI 7. RODRIGUEZ, creatinine 1.1 on 06/29/2019 8. Pleural efffusino, bilateral 9. Borderline prolonged QT interval Plan: 1. Saturation mid 80s in the ER. Pulse ox and oxygen 2. CHF exacerbation, unknown type. Echocardiogram was performed, report pending Intake and output, daily weight, torsemide 10mg daily is on hold Lasix 20 mg twice daily Repeat electrolytes and a renal function in the morning 3. for atrial fib, rate controlled Continue metoprolol and diltiazem drip Continue Xarelto (held today for possible thoracentesis) 4. Continue metoprolol and diltiazem. Hydralazine as needed 5. Avoid nephrotoxic meds, intake and output, creatinine trending down. repeat renal function in the morning 6. Chest CT showed Bilateral pleural effusions with associated atelectasis in both lower lobes, left greater than right. Lasix Discussed with radiologist, who felt she has moderate pleural effusion, L > R. Xarelto is on hold today. Pt will probably have thoracentesis tomorrow. thoracentesis order and effusion labs were ordered. 7. Avoid prolonged QT meds 8. DVT prophylaxis: On Xalrelto (held today. SCD ordered) 9. CODE STATUS: Full Medical - PN: Qual - VTE Deep Vein Thrombosis/Pulmonary Embolism Present on Admission: No
[2019-10-09] MEDS ORDERED: SIMVASTATIN 10 MG TABLET PO SCH (21:00)
[2019-10-09] MEDS ORDERED: NON FORMULARY MEDICATION 1 DOSE MISCELL (Melatonin 5 MG) PO SCH (21:00)
[2019-10-09] MEDS: MELATONIN 3 MG TABLET PO SCH (21:00)
[2019-10-09] MEDS: SIMVASTATIN 10 MG TABLET PO SCH (21:02)
[2019-10-09] MEDS: INSULIN GLARGINE, HUMAN 1 UNIT/0.01 ML SQ SCH (21:03)
[2019-10-10] MEDS: METOCLOPRAMIDE 10 MG/2 ML VIAL IV SCH ×4 (00:33→17:36)
[2019-10-10] MEDS: IPRATROPIUM/ALBUTEROL 3 ML AMPUL.NEB NEB SCH ×5 (00:33→18:40)
[2019-10-10] MEDS: 0.9 % SODIUM CHLORIDE 10 ML SYRINGE IV SCH ×4 (06:16→22:16)
[2019-10-10] MEDS: PANTOPRAZOLE 40 MG TABLET PO SCH (07:01)
[2019-10-10] MEDS: LEVOTHYROXINE 50 MCG TABLET PO SCH (07:01)
[2019-10-10] MEDS: INSULIN LISPRO 1 UNIT/0.01 ML UNIT SQ SCH ×4 (07:04→21:19)
[2019-10-10] MEDS: FUROSEMIDE 20 MG/2 ML VIAL IV SCH ×2 (08:54→17:35)
[2019-10-10] MEDS: POTASSIUM CHLORIDE 20 MEQ TABLET PO SCH ×4 (08:54→22:11)
[2019-10-10] MEDS: DOCUSATE SODIUM 100 MG CAPSULE PO SCH ×2 (08:55→21:09)
[2019-10-10] MEDS: METOPROLOL SUCCINATE 50 MG TAB.XL.24H PO SCH (08:55)
[2019-10-10] MEDS: DILTIAZEM 120 MG CAP.XL.24H PO SCH (08:55)
[2019-10-10] MEDS: MULTIVIT,THER IRON,CA,FA & MIN 1 TABLET PO SCH (08:55)
[2019-10-10] MEDS: MAGNESIUM OXIDE 400 MG TABLET PO SCH (08:55)
[2019-10-10] MEDS: VITAMIN D3 1,000 UNIT TABLET PO SCH (08:55)
[2019-10-10] MEDS: POLYETHYLENE GLYCOL 3350 17 GM PACKET PO SCH (08:57)
[2019-10-10 09:16] LABS: Basophils # (Auto) 0.04 K/mcL (0.00-0.30); Basophils % (Auto) 0.4 % (0.0-2.0); Eosinophils # (Auto) 0.17 K/mcL (0.00-0.70); Eosinophils % (Auto) 1.5 % (0.0-7.0); Granulocytes % (Auto) 74.4 % (38.0-78.0); Hematocrit 30.9 % (34.1-44.9); Hemoglobin 9.5 g/dL (11.2-15.7); Lymphocytes # (Auto) 1.49 K/mcL (1.50-4.80); Lymphocytes % (Auto) 13.5 % (15.5-49.0); Mean Cell Volume 88.3 fL (80.0-100.0); Mean Corpuscular HGB Conc 30.7 g/dL (31.0-36.0); Mean Platelet Volume 9.2 fL (7.4-10.4); Monocytes # (Auto) 1.12 K/mcL (0.10-0.90); Monocytes % (Auto) 10.2 % (1.0-12.0); Platelet Count 359 K/mcL (140-440); Red Cell Distribution Width 16.5 % (11.5-14.5)
[2019-10-10 09:42] LABS: ALT/SGPT 26 U/l (0-40); AST/SGOT 23 U/l (0-37); Albumin 3.3 gm/dL (3.2-5.2); Alkaline Phosphatase 115 U/L (39-117); Bilirubin,Total 0.5 mg/dL (0.0-1.0); Blood Urea Nitrogen 31 mg/dl (8-23); Calcium 9.1 mg/dl (8.6-10.4); Carbon Dioxide 27 mmol/L (22-30); Chloride 99 mmol/L (96-108); Globulin 3.2 gm/dL (2.2-3.7); Glomerular Filtration Rate 33; Glucose 91 mg/dL (70-105)
[2019-10-10] MEDS ORDERED: PNEUMOCOCCAL 23-VAL P-SAC VAC 0.5 ML SYRINGE IM ONE (10:00)
[2019-10-10 14:08] LABS: POC INR 1.2 (0.9-1.2); POC Pro Time 13.9 sec (11.9-14.5)
--- NOTE | 2019-10-10 17:39 | Ultrasound Report ---
Ultrasound-guided thoracentesis CLINICAL INFORMATION: Left pleural effusion TECHNIQUE: Procedure and risks including possibility of bleeding, infection, and pneumothorax were explained to the patient. They understood and wished to proceed. With the patient in upright position, the fluid was first sonographically localized over the posterior right 10th intercostal space at posterior axillary line. The skin overlying this region was marked, prepped and locally anesthetized with 1% lidocaine using a 25-gauge needle to the level the parietal pleura. An 18-gauge Bgif[place]eh needle was then advanced under sonographic guidance into the pleural fluid and approximately a centimeter and 50 cc of mildly hemorrhagic pleural fluid was aspirated. Post procedure scanning shows only minimal residual fluid. Patient tolerated procedure well without apparent complication. Follow-up chest x-ray to be obtained IMPRESSION: Successful thoracentesis yielding 650 cc of minimally hemorrhagic appearing simple pleural fluid. No apparent complication Interpreted and Authenticated by: Matthew Vasquez 10/10/19
--- NOTE | 2019-10-10 17:40 | XRay Report ---
CLINICAL INFORMATION: POST Thoracentesis COMPARISON: 10/08/2019 FINDINGS: Moderate cardiomegaly is unchanged. Mediastinum and pulmonary vessels are normal. Following left thoracentesis, there is only a small residual left pleural effusion. No pneumothorax or other complication. Left basilar atelectasis has improved with mild patchy residual. Small region of infiltrate or atelectasis in the right base and small right pleural effusion unchanged. IMPRESSION: Following left thoracentesis, only small residual left pleural effusion. No complication. Left basilar atelectasis has improved. Small infiltrate or atelectasis right base and small right pleural effusion stable Interpreted and Authenticated by: Matthew Vasquez 10/10/19
[2019-10-10 18:20] LABS: pH,Body Fluid 7.81
[2019-10-10] MEDS ORDERED: METOPROLOL TARTRATE 5 MG/5 ML VIAL IV PRN ×2 (19:18→21:53)
[2019-10-10] MEDS ORDERED: METOPROLOL TARTRATE 5 MG/5 ML VIAL IV ONE (19:25)
--- NOTE | 2019-10-10 19:53 | Internal Med Progress Note ---
Medical - PN: Subj Patient information: Note initiated : 10/10/19 at 7:48 pm Service Date, if different from initiated Date: [] Patient: Joanne Nguyễn 79 y/o F admitted on 10/08/19 for Nausea, vomiting. Chief Complaint: [] Interval history: 10/08 Today pt feels better, stronger. Denies fever or chills. Nausea, vomiting, and diarrhea improving. Discussed with radiologist, who felt she has moderate pleural effusion, L > R. Xarelto is on hold today. Pt will probably have thoracentesis tomorrow. thoracentesis order and effusion labs were ordered 10/09 Does not have new complaints. She underwent US guided thoracentesis today by Dr Vasquez. 650 cc hemorrhagic appearing simple pleural fluid out. - Constitutional Vitals: Vital Signs Temp Pulse Resp BP Pulse Ox 98.7 F 120 H 22 140/87 93 10/10/19 18:39 10/10/19 18:39 10/10/19 18:39 10/10/19 18:39 10/10/19 18:58 Period Temp Pulse Resp BP Sys/Fitch Pulse Ox Last 24 Hr 97.5 F-98.7 F 84-120 18-22 126-154/70-87 92-96 Intake and Output 10/10/19 10/10/19 10/10/19 05:59 13:59 21:59 Intake Total 520 740 Output Total 600 300 Balance -80 440 Weight 64.183 kg Patient Weight 10/11/19 05:59 Weight 64.183 kg Intake & Output: Intake & Output 10/10/19 10/10/19 10/10/19 05:59 13:59 21:59 Intake Total 520 740 Output Total 600 300 Balance -80 440 Weight 64.183 kg Intake: Oral 520 740 Output: Void Amount 600 300 Other: Meal Dinner Percent of Meal Consumed Refused Feeding Ability Independent Urine Appearance Clear Clear Urine Color Bright Yellow Bright Yellow Bright Yellow Urine Odor Normal Normal Normal Stool Size Small Stool Color Brown Stool Consistency Formed # Voids 1 # Bowel Movements 2 - Additional findings Additional findings: General appearance: alert, awake, no acute distress Head: atraumatic, normocephalic Eye: normal appearance, PERRL, EOMI ENT: No rhinorrhea Neck: Supple, no thyroid megaly Chest: No tenderness Respiratory: Right lower lobe crackles Cardiovascular: Irregular irregular, no murmur, no JVD Abdominal: Normal bowel sounds, soft, no tenderness Extremities: No edema Neurological: Alert, awake, grossly no focal neurological deficit Psychiatric: normal affect Skin: Present: warm, dry Medical - PN: Obj Da - Labs CBC & Chem 7: 10/10/19 06:31 10/10/19 06:31 Labs: Abnormal Lab Results 10/10/19 10/10/19 10/09/19 06:31 06:31 05:25 WBC RBC 3.50 L Hgb 9.5 L Hct 30.9 L MCHC 30.7 L RDW 16.5 H Gran % Lymph % (Auto) 13.5 L Gran # 8.19 H Lymph # (Auto) 1.49 L [place] # (Auto) 1.12 H VBG Lactic Acid Potassium 3.0 L 3.0 L Anion Gap BUN 31 H 33 H Creatinine 1.5 H 1.7 H Glucose Hemoglobin A1c 6.6 H Alkaline Phosphatase NT-Pro-B Natriuret Pep Urine Protein Ur Leukocyte Esterase Urine RBC Urine WBC Urine Bacteria Hyaline Casts 10/09/19 10/08/19 10/08/19 05:25 16:30 12:55 WBC RBC 3.29 L Hgb 9.1 L Hct 28.4 L MCHC RDW 16.2 H Gran % Lymph % (Auto) 13.5 L Gran # 8.02 H Lymph # (Auto) 1.45 L [place] # (Auto) 1.13 H VBG Lactic Acid 2.1 H Potassium Anion Gap BUN Creatinine Glucose Hemoglobin A1c Alkaline Phosphatase NT-Pro-B Natriuret Pep Urine Protein 30 A Ur Leukocyte Esterase 500 A Urine RBC 4 H Urine WBC > 182 H Urine Bacteria Few A Hyaline Casts 43 H 10/08/19 10/08/19 12:55 12:55 WBC 11.3 H RBC Hgb 10.1 L Hct 31.5 L MCHC RDW 16.1 H Gran % 82.3 H Lymph % (Auto) 9.6 L Gran # 9.28 H Lymph # (Auto) 1.08 L [place] # (Auto) VBG Lactic Acid Potassium Anion Gap 17.0 H BUN 37 H Creatinine 1.9 H Glucose 145 H Hemoglobin A1c Alkaline Phosphatase 121 H NT-Pro-B Natriuret Pep 31842.0 H Urine Protein Ur Leukocyte Esterase Urine RBC Urine WBC Urine Bacteria Hyaline Casts Meds: Medications Acetaminophen (Tylenol) 650 mg PO Q6HP PRN; Protocol PRN Reason: Per Pain Protocol/Fever > 101 Albuterol/Ipratropium (Duoneb) 3 ml NEB Q6HRT [facility] Last Admin: 10/10/19 18:40 Dose: Not Given Documented by: Diagnostic Test (Pha) (Accu-Chek) 1 each FS [facility] Last Admin: 10/10/19 17:36 Dose: 1 each Documented by: Docusate Sodium (Colace) 100 mg PO BID [facility] Last Admin: 10/10/19 08:55 Dose: 100 mg Documented by: Furosemide (Lasix) 20 mg IV BIDD [facility] Last Admin: 10/10/19 17:35 Dose: 20 mg Documented by: Hydralazine HCl (Apresoline) 10 mg IV Q4 PRN PRN Reason: Hypertension Insulin Glargine (Lantus) 8 unit SQ [facility] Last Admin: 10/09/19 21:03 Dose: 8 units Documented by: Insulin Human Lispro (Humalog) 0 unit SQ [facility]; Protocol Last Admin: 10/10/19 17:38 Dose: Not Given Documented by: Iron Carb/Multivit/[place]/Folic Acid (Multivitamin W/Minerals) 1 tab PO QAM [facility] Last Admin: 10/10/19 08:55 Dose: 1 tab Documented by: Levothyroxine Sodium (Synthroid) 50 mcg PO ACB [facility] Last Admin: 10/10/19 07:01 Dose: 50 mcg Documented by: Magnesium Oxide (Magnesium Oxide) 400 mg PO QDAY [facility] Last Admin: 10/10/19 08:55 Dose: 400 mg Documented by: Melatonin (Melatonin 3mg Tablet) 3 mg PO [facility] Last Admin: 10/09/19 21:00 Dose: 3 mg Documented by: Metoclopramide HCl (Reglan) 5 mg IV Q6 [facility] Last Admin: 10/10/19 17:36 Dose: 5 mg Documented by: Metoprolol Succinate (Toprol Xl) 100 mg PO BID [facility] Last Admin: 10/10/19 08:55 Dose: 100 mg Documented by: Metoprolol Tartrate (Lopressor) 5 mg IV Q2HP PRN PRN Reason: Tachyarrhythmias HR>110 Ondansetron HCl (Zofran) 4 mg IV Q6HP PRN PRN Reason: Nausea And Vomiting Pantoprazole Sodium (Protonix) 40 mg PO QAMAC [facility] Last Admin: 10/10/19 07:01 Dose: 40 mg Documented by: Polyethylene Glycol (Miralax) 17 gm PO DAILY [facility] Last Admin: 10/10/19 08:57 Dose: Not Given Documented by: Simvastatin (Zocor) 10 mg PO HS [facility] Last Admin: 10/09/19 21:02 Dose: 10 mg Documented by: Sodium Chloride (Saline Flush) 10 ml IV Q8 [facility] Last Admin: 10/10/19 17:37 Dose: 10 ml Documented by: Vitamin D (Vitamin D3) 2,000 unit PO QDAY [facility] Last Admin: 10/10/19 08:55 Dose: 2,000 unit Documented by: Medical - PN: A/P - Time Spent With Patient Total time spent is greater than 50% in coordination of care (as documented) at patient's floor/unit and/or counseling patient: - Narrative A/P Narrative: Assessment: 1. Acute hypoxic respiratory failure 2. Systolic CHF exacerbation, BNP 24426 3. Atrial fibrillation 4. HTN 5. DM type 2 6. UTI 7. RODRIGUEZ, creatinine 1.1 on 06/29/2019 8. Pleural efffusino, bilateral, s/p thoracentesis today 9. Borderline prolonged QT interval Plan: 1. Saturation mid 80s in the ER. Pulse ox and oxygen 2. CHF exacerbation, unknown type. Echocardiogram was performed, report pending Intake and output, daily weight, torsemide 10mg daily is on hold Lasix 20 mg twice daily Repeat electrolytes and a renal function in the morning 3. for atrial fib, rate controlled Continue metoprolol and diltiazem drip Continue Xarelto (been on hold since yesterday for thoracentesis) 4. Continue metoprolol and diltiazem. Hydralazine as needed 5. Avoid nephrotoxic meds, intake and output, creatinine trending down. creatinine trending down. repeat renal function in the morning 6. Chest CT showed Bilateral pleural effusions with associated atelectasis in both lower lobes, left greater than right. Lasix Discussed with radiologist, who felt she has moderate pleural effusion, L > R. Xarelto been on hold since yesterday. thoracentesis was performed today, 650 ml was out from left side. 7. Avoid prolonged QT meds 8. DVT prophylaxis: On Xalrelto (held today. SCD ordered) 9. CODE STATUS: Full Medical - PN: Qual - VTE Deep Vein Thrombosis/Pulmonary Embolism Present on Admission: No
--- NOTE | 2019-10-10 20:18 | Internal Med Progress Note ---
Medical - PN: Subj Patient information: Note initiated : 10/10/19 at 8:07 pm Service Date, if different from initiated Date: [] Patient: Joanne Nguyễn a 79 y/o F admitted on 10/08/19 for Nausea, vomiting. Chief Complaint: [] Interval history: Ms. Nguyễn is a 79 year old F with a medical history of CHF, atrial fibrillation on Xarelto, high blood pressure, and type 2 diabetes who was brought to the ER due to nausea and vomiting for 2 days. As per patient, she has been having nausea, vomiting, mild shortness of breath and a mild cough over the past 2 days. In the ER, she was found to have a desaturation, mid 80s. In the ER, chest CT showed bilateral pleural effusion. When I saw this patient in the ER, other than the symptoms mentioned above, she denied headache, dizziness, chest pain, abdominal pain, dysuria, fever, chills, or runny nose. Denied recent travel or sick contact. 10/08 Today pt feels better, stronger. Denies fever or chills. Nausea, vomiting, and diarrhea improving. Discussed with radiologist, who felt she has moderate pleural effusion, L > R. Xarelto is on hold today. Pt will probably have thoracentesis tomorrow. thoracentesis order and effusion labs were ordered 10/09 Does not have new complaints. She underwent US guided thoracentesis today by Dr Vasquez. 650 cc hemorrhagic appearing simple pleural fluid out. 10/10 - Constitutional Vitals: Vital Signs Temp Pulse Resp BP Pulse Ox 98.7 F 120 H 22 140/87 93 10/10/19 18:39 10/10/19 18:39 10/10/19 18:39 10/10/19 18:39 10/10/19 18:58 Period Temp Pulse Resp BP Sys/Fitch Pulse Ox Last 24 Hr 97.5 F-98.7 F 84-120 18-22 126-154/70-87 92-96 Intake and Output 10/10/19 10/10/19 10/10/19 05:59 13:59 21:59 Intake Total 520 740 Output Total 600 300 Balance -80 440 Weight 64.183 kg Patient Weight 10/11/19 05:59 Weight 64.183 kg Intake & Output: Intake & Output 10/10/19 10/10/19 10/10/19 05:59 13:59 21:59 Intake Total 520 740 Output Total 600 300 Balance -80 440 Weight 64.183 kg Intake: Oral 520 740 Output: Void Amount 600 300 Other: Meal Dinner Percent of Meal Consumed Refused Feeding Ability Independent Urine Appearance Clear Clear Urine Color Bright Yellow Bright Yellow Bright Yellow Urine Odor Normal Normal Normal Stool Size Small Stool Color Brown Stool Consistency Formed # Voids 1 # Bowel Movements 2 Exam: General: Alert, Awake, No acute Distress Eyes/N/T: EOMI, Head/Neck: neck supple, CV: irreg irreg, No murmurs, Pulm: right base rales, no wheezing Abd: soft, nontender, +BS x4 Ext: no clubbing/cyanosis/edema Neuro: Alert, no focal deficits, moves all extremities, Skin: warm/dry Medical - PN: Obj Da - Labs CBC & Chem 7: 10/10/19 06:31 10/10/19 06:31 Labs: Abnormal Lab Results 10/10/19 10/10/19 10/09/19 06:31 06:31 05:25 WBC RBC 3.50 L Hgb 9.5 L Hct 30.9 L MCHC 30.7 L RDW 16.5 H Gran % Lymph % (Auto) 13.5 L Gran # 8.19 H Lymph # (Auto) 1.49 L [place] # (Auto) 1.12 H VBG Lactic Acid Potassium 3.0 L 3.0 L Anion Gap BUN 31 H 33 H Creatinine 1.5 H 1.7 H Glucose Hemoglobin A1c 6.6 H Alkaline Phosphatase NT-Pro-B Natriuret Pep Urine Protein Ur Leukocyte Esterase Urine RBC Urine WBC Urine Bacteria Hyaline Casts 10/09/19 10/08/19 10/08/19 05:25 16:30 12:55 WBC RBC 3.29 L Hgb 9.1 L Hct 28.4 L MCHC RDW 16.2 H Gran % Lymph % (Auto) 13.5 L Gran # 8.02 H Lymph # (Auto) 1.45 L [place] # (Auto) 1.13 H VBG Lactic Acid 2.1 H Potassium Anion Gap BUN Creatinine Glucose Hemoglobin A1c Alkaline Phosphatase NT-Pro-B Natriuret Pep Urine Protein 30 A Ur Leukocyte Esterase 500 A Urine RBC 4 H Urine WBC > 182 H Urine Bacteria Few A Hyaline Casts 43 H 03/08/20 03/08/20 12:55 12:55 WBC 11.3 H RBC Hgb 10.1 L Hct 31.5 L MCHC RDW 16.1 H Gran % 82.3 H Lymph % (Auto) 9.6 L Gran # 9.28 H Lymph # (Auto) 1.08 L [place] # (Auto) VBG Lactic Acid Potassium Anion Gap 17.0 H BUN 37 H Creatinine 1.9 H Glucose 145 H Hemoglobin A1c Alkaline Phosphatase 121 H NT-Pro-B Natriuret Pep 59361.0 H Urine Protein Ur Leukocyte Esterase Urine RBC Urine WBC Urine Bacteria Hyaline Casts Meds: Medications Acetaminophen (Tylenol) 650 mg PO Q6HP PRN; Protocol PRN Reason: Per Pain Protocol/Fever > 101 Albuterol/Ipratropium (Duoneb) 3 ml NEB Q6HRT [facility] Last Admin: 10/10/19 18:40 Dose: Not Given Documented by: Diagnostic Test (Pha) (Accu-Chek) 1 each FS [facility] Last Admin: 10/10/19 17:36 Dose: 1 each Documented by: Docusate Sodium (Colace) 100 mg PO BID [facility] Last Admin: 10/10/19 08:55 Dose: 100 mg Documented by: Furosemide (Lasix) 20 mg IV BIDD [facility] Last Admin: 10/10/19 17:35 Dose: 20 mg Documented by: Hydralazine HCl (Apresoline) 10 mg IV Q4 PRN PRN Reason: Hypertension Insulin Glargine (Lantus) 8 unit SQ [facility] Last Admin: 10/09/19 21:03 Dose: 8 units Documented by: Insulin Human Lispro (Humalog) 0 unit SQ [facility]; Protocol Last Admin: 10/10/19 17:38 Dose: Not Given Documented by: Iron Carb/Multivit/[employer]/Folic Acid (Multivitamin W/Minerals) 1 tab PO QAM [facility] Last Admin: 10/10/19 08:55 Dose: 1 tab Documented by: Levothyroxine Sodium (Synthroid) 50 mcg PO ACB [facility] Last Admin: 10/10/19 07:01 Dose: 50 mcg Documented by: Magnesium Oxide (Magnesium Oxide) 400 mg PO QDAY [facility] Last Admin: 10/10/19 08:55 Dose: 400 mg Documented by: Melatonin (Melatonin 3mg Tablet) 3 mg PO HS [facility] Last Admin: 10/09/19 21:00 Dose: 3 mg Documented by: Metoclopramide HCl (Reglan) 5 mg IV Q6 [facility] Last Admin: 10/10/19 17:36 Dose: 5 mg Documented by: Metoprolol Succinate (Toprol Xl) 100 mg PO BID [facility] Last Admin: 10/10/19 08:55 Dose: 100 mg Documented by: Metoprolol Tartrate (Lopressor) 5 mg IV Q2HP PRN PRN Reason: Tachyarrhythmias HR>110 Ondansetron HCl (Zofran) 4 mg IV Q6HP PRN PRN Reason: Nausea And Vomiting Pantoprazole Sodium (Protonix) 40 mg PO QAMAC [facility] Last Admin: 10/10/19 07:01 Dose: 40 mg Documented by: Polyethylene Glycol (Miralax) 17 gm PO DAILY [facility] Last Admin: 10/10/19 08:57 Dose: Not Given Documented by: Simvastatin (Zocor) 10 mg PO [facility] Last Admin: 10/09/19 21:02 Dose: 10 mg Documented by: Sodium Chloride (Saline Flush) 10 ml IV Q8 [facility] Last Admin: 10/10/19 17:37 Dose: 10 ml Documented by: Vitamin D (Vitamin D3) 2,000 unit PO QDAY [facility] Last Admin: 10/10/19 08:55 Dose: 2,000 unit Documented by: Medical - PN: A/P - Time Spent With Patient Total time spent is greater than 50% in coordination of care (as documented) at patient's floor/unit and/or counseling patient: - Narrative A/P Narrative: A: * Acute hypoxic respiratory failure: 2/2 chf -on 2L * acute Systolic/diastolic CHF exacerbation -EF 40-45%, Grade III diastolic, MR/AI *b/l pleural effusion: -s/p Left Thora (10/09) of 650cc * Atrial fibrillation w/RVR: * HTN * DM type 2 * UTI (Klebsiella) * RODRIGUEZ on CKD IIIb: * Pleural effusion, bilateral Plan: -iv lasix bid, torsemide held for now -Intake and output, daily weight, -Continue toprol, prn IV lopressor -no diltiazem given EF 40% -cont Rocephin -IS -pt/ot -prophylaxis: On Xalrelto CODE STATUS: Full Medical - PN: Qual - VTE Deep Vein Thrombosis/Pulmonary Embolism Present on Admission: No
[2019-10-10] MEDS ORDERED: cefTRIAXone 1 GM VIAL IV SCH (20:30)
[2019-10-10] MEDS ORDERED: METOPROLOL SUCCINATE 50 MG TAB.XL.24H PO SCH (21:00)
[2019-10-10] MEDS: METOPROLOL TARTRATE 5 MG/5 ML VIAL IV SCH (21:07)
[2019-10-10] MEDS: MELATONIN 3 MG TABLET PO SCH (21:08)
[2019-10-10] MEDS: SIMVASTATIN 10 MG TABLET PO SCH (21:09)
[2019-10-10] MEDS: INSULIN GLARGINE, HUMAN 1 UNIT/0.01 ML SQ SCH (21:11)
[2019-10-10] MEDS ORDERED: 0.9 % SODIUM CHLORIDE 250 ML IV SCH (21:30)
[2019-10-10] MEDS ORDERED: ESMOLOL 2,500 MG in PREMIX 1 BAG IV SCH (21:30)
[2019-10-10] MEDS ORDERED: hydrALAZINE 20 MG/ML VIAL IV PRN (21:53)
[2019-10-10] MEDS ORDERED: ACETAMINOPHEN 325 MG TABLET PO PRN (21:53)
[2019-10-10] MEDS ORDERED: ONDANSETRON 4 MG/2 ML VIAL ONE (22:13)
[2019-10-10] MEDS: 0.9 % SODIUM CHLORIDE 250 ML IV SCH (22:14)
[2019-10-10] MEDS: ONDANSETRON 4 MG/2 ML VIAL IV PRN (22:14)
[2019-10-10] MEDS: ESMOLOL 2,500 MG in PREMIX 1 BAG IV SCH (22:25)
[2019-10-10] MEDS ORDERED: AMIODARONE 150 MG in DEXTROSE 5% IN WATER 50 ML IV PRN ×2 (23:30)
[2019-10-10] MEDS ORDERED: AMIODARONE 150 MG/3 ML VIAL IV ONE (23:33)
[2019-10-11] MEDS ORDERED: METOCLOPRAMIDE 10 MG/2 ML VIAL ONE ×2 (00:14→04:55)
[2019-10-11] MEDS: METOCLOPRAMIDE 10 MG/2 ML VIAL IV SCH ×3 (00:14→12:13)
[2019-10-11] MEDS ORDERED: IPRATROPIUM/ALBUTEROL 3 ML AMPUL.NEB NEB ONE (00:14)
[2019-10-11] MEDS: IPRATROPIUM/ALBUTEROL 3 ML AMPUL.NEB NEB SCH ×3 (00:15→12:55)
[2019-10-11] MEDS ORDERED: AMIODARONE 360 MG/200 ML BAG IV ONE (01:17)
[2019-10-11] MEDS: AMIODARONE 360 MG in PREMIX 1 BAG IV SCH ×5 (01:23→12:39)
[2019-10-11] MEDS: METOPROLOL TARTRATE 5 MG/5 ML VIAL IV SCH (01:24)
[2019-10-11] MEDS ORDERED: ONDANSETRON 4 MG/2 ML VIAL ONE (02:22)
[2019-10-11] MEDS: 0.9 % SODIUM CHLORIDE 10 ML SYRINGE IV SCH ×2 (04:58→14:41)
[2019-10-11 06:44] LABS: Basophils # (Auto) 0.07 K/mcL (0.00-0.30); Basophils % (Auto) 0.6 % (0.0-2.0); Eosinophils # (Auto) 0.01 K/mcL (0.00-0.70); Eosinophils % (Auto) 0.1 % (0.0-7.0); Granulocytes % (Auto) 73.9 % (38.0-78.0); Hematocrit 30.5 % (34.1-44.9); Hemoglobin 9.5 g/dL (11.2-15.7); Lymphocytes # (Auto) 1.67 K/mcL (1.50-4.80); Lymphocytes % (Auto) 14.2 % (15.5-49.0); Mean Cell Volume 87.9 fL (80.0-100.0); Mean Corpuscular HGB Conc 31.1 g/dL (31.0-36.0); Mean Platelet Volume 9.3 fL (7.4-10.4); Monocytes # (Auto) 1.32 K/mcL (0.10-0.90); Monocytes % (Auto) 11.2 % (1.0-12.0); Platelet Count 382 K/mcL (140-440); RBC 3.47 M/mcL (3.59-5.38); Red Cell Distribution Width 16.7 % (11.5-14.5); WBC 11.8 K/mcL (4.50-11.00)
--- NOTE | 2019-10-11 07:11 | Internal Med Progress Note ---
Medical - PN: Subj Patient information: Note initiated : 10/11/19 at 7:06 am Service Date, if different from initiated Date: [] Patient: Joanne Nguyễn a 79 y/o F admitted on 10/08/19 for Nausea, vomiting. Chief Complaint: [] Interval history: Ms. Nguyễn is a 79 year old F with a medical history of CHF, atrial fibrillation on Xarelto, high blood pressure, and type 2 diabetes who was brought to the ER due to nausea and vomiting for 2 days. As per patient, she has been having nausea, vomiting, mild shortness of breath and a mild cough over the past 2 days. In the ER, she was found to have a desaturation, mid 80s. In the ER, chest CT showed bilateral pleural effusion. When I saw this patient in the ER, other than the symptoms mentioned above, she denied headache, dizziness, chest pain, abdominal pain, dysuria, fever, chills, or runny nose. Denied recent travel or sick contact. 10/08 Today pt feels better, stronger. Denies fever or chills. Nausea, vomiting, and diarrhea improving. Discussed with radiologist, who felt she has moderate pleural effusion, L > R. Xarelto is on hold today. Pt will probably have thoracentesis tomorrow. thoracentesis order and effusion labs were ordered 10/09 Does not have new complaints. She underwent US guided thoracentesis today by Dr Vasquez. 650 cc hemorrhagic appearing simple pleural fluid out. 10/10 Patient did not sleep well last night. She does have a dry cough. States her shortness of breath is improving. She was started on esmolol drip last night and then switch to amiodarone with heart rates around 100. Did have an episode of nausea vomiting after breakfast this morning. Has some wheezing. Obtaining records from Dr. Mahoney office. - Constitutional Vitals: Vital Signs Temp Pulse Resp BP Pulse Ox 98.8 F 115 H 21 151/104 92 10/11/19 03:46 10/11/19 04:47 10/11/19 04:47 10/11/19 04:47 10/11/19 04:47 Period Temp Pulse Resp BP Sys/Fitch Pulse Ox Last 24 Hr 97.7 F-98.8 F 84-142 15-28 109-154/70-112 90-100 Intake and Output 10/10/19 10/11/19 10/11/19 21:59 05:59 13:59 Intake Total 1540 770 Output Total 600 150 Balance 940 620 Weight 64.183 kg Intake & Output: Intake & Output 10/10/19 10/11/19 10/11/19 21:59 05:59 13:59 Intake Total 1540 770 Output Total 600 150 Balance 940 620 Weight 64.183 kg Intake: IV 170 Sodium Chloride 0.9% 250 ml @ 6 20 mls/hr IV .[id number] [facility] Rx#: [id number] Cordarone 150 mg In Dextrose 5% 53 in Water 50 ml @ 300 mls/hr IV ONCE PRN Rx#:[id number] Brevibloc 2,500 mg In Premix 1 111 Bag @ 50 MCG/KG/MIN 19.255 mls/ hr IV .Q13H [facility] Rx#:[id number] Oral 1540 600 Output: Urine Catheter Amount 150 Void Amount 600 Other: Meal Dinner Percent of Meal Consumed Refused Feeding Ability Independent Urine Appearance Clear Urine Color Bright Yellow Urine Odor Normal Stool Size Small Stool Color Brown Stool Consistency Soft # Voids 1 # Bowel Movements 1 Exam: General: Alert, Awake, No acute Distress Eyes/N/T: EOMI, Head/Neck: neck supple, CV: irreg irreg, No murmurs, Pulm: right base rales, no wheezing Abd: soft, nontender, +BS x4 Ext: no clubbing/cyanosis/edema Neuro: Alert, no focal deficits, moves all extremities, Skin: warm/dry Medical - PN: Obj Da - Labs CBC & Chem 7: 10/11/19 05:00 10/11/19 05:00 Labs: Abnormal Lab Results 10/11/19 10/10/19 10/10/19 05:00 06:31 06:31 WBC 11.8 H RBC 3.47 L 3.50 L Hgb 9.5 L 9.5 L Hct 30.5 L 30.9 L MCHC 30.7 L RDW 16.7 H 16.5 H Gran % Lymph % (Auto) 14.2 L 13.5 L Gran # 8.72 H 8.19 H Lymph # (Auto) 1.49 L [place] # (Auto) 1.32 H 1.12 H VBG Lactic Acid Potassium 3.0 L Anion Gap BUN 31 H Creatinine 1.5 H Glucose Hemoglobin A1c Alkaline Phosphatase NT-Pro-B Natriuret Pep Urine Protein Ur Leukocyte Esterase Urine RBC Urine WBC Urine Bacteria Hyaline Casts 10/09/19 10/09/19 10/08/19 05:25 05:25 16:30 WBC RBC 3.29 L Hgb 9.1 L Hct 28.4 L MCHC RDW 16.2 H Gran % Lymph % (Auto) 13.5 L Gran # 8.02 H Lymph # (Auto) 1.45 L [place] # (Auto) 1.13 H VBG Lactic Acid Potassium 3.0 L Anion Gap BUN 33 H Creatinine 1.7 H Glucose Hemoglobin A1c 6.6 H Alkaline Phosphatase NT-Pro-B Natriuret Pep Urine Protein 30 A Ur Leukocyte Esterase 500 A Urine RBC 4 H Urine WBC > 182 H Urine Bacteria Few A Hyaline Casts 43 H 10/08/19 10/08/19 10/08/19 12:55 12:55 12:55 WBC 11.3 H RBC Hgb 10.1 L Hct 31.5 L MCHC RDW 16.1 H Gran % 82.3 H Lymph % (Auto) 9.6 L Gran # 9.28 H Lymph # (Auto) 1.08 L [place] # (Auto) VBG Lactic Acid 2.1 H Potassium Anion Gap 17.0 H BUN 37 H Creatinine 1.9 H Glucose 145 H Hemoglobin A1c Alkaline Phosphatase 121 H NT-Pro-B Natriuret Pep 61245.0 H Urine Protein Ur Leukocyte Esterase Urine RBC Urine WBC Urine Bacteria Hyaline Casts Meds: Medications Acetaminophen (Tylenol) 650 mg PO Q6HP PRN; Protocol PRN Reason: Per Pain Protocol/Fever > 101 Albuterol/Ipratropium (Duoneb) 3 ml NEB Q6HRT [facility] Last Admin: 10/11/19 00:15 Dose: Not Given Documented by: Ceftriaxone Sodium (Rocephin) 1 gm IV Q24H [facility]; Protocol Diagnostic Test (Pha) (Accu-Chek) 1 each FS ACHS [facility] Docusate Sodium (Colace) 100 mg PO BID [facility] Furosemide (Lasix) 20 mg IV BIDD [facility] Hydralazine HCl (Apresoline) 10 mg IV Q4 PRN PRN Reason: Hypertension Esmolol HCl 2,500 mg/ Premix 250 mls @ 19.255 mls/hr IV .Q13H [facility]; Protocol Last Titration: 10/11/19 01:23 Dose: 0 mcg/kg/min, 0 mls/hr Documented by: Sodium Chloride (Sodium Chloride 0.9%) 250 mls @ 20 mls/hr IV .[id number] [facility] Last Infusion: 10/10/19 22:51 Dose: 5 mls/hr Documented by: AMIODARONE 360 mg/ Premix 200 mls @ 33.333 mls/hr IV .Q6H [facility]; Protocol Last Admin: 10/11/19 01:23 Dose: 1 mg/min, 33.333 mls/hr Documented by: AMIODARONE 360 mg/ Premix 200 mls @ 16.667 mls/hr IV .Q12H [facility]; Protocol Last Admin: 10/11/19 06:52 Dose: 0.5 mg/min, 16.667 mls/hr Documented by: Insulin Glargine (Lantus) 8 unit SQ HS [facility] Insulin Human Lispro (Humalog) 0 unit SQ ACHS [facility]; Protocol Iron Carb/Multivit/[place]/Folic Acid (Multivitamin W/Minerals) 1 tab PO QAM [facility] Levothyroxine Sodium (Synthroid) 50 mcg PO ACB [facility] Magnesium Oxide (Magnesium Oxide) 400 mg PO QDAY [facility] Melatonin (Melatonin 3mg Tablet) 3 mg PO HS [facility] Last Admin: 10/10/19 22:53 Dose: 3 mg Documented by: Metoclopramide HCl (Reglan) 5 mg IV Q6 [facility] Last Admin: 10/11/19 04:58 Dose: Not Given Documented by: Metoprolol Succinate (Toprol Xl) 150 mg PO BID [facility] Metoprolol Tartrate (Lopressor) 5 mg IV Q2HP PRN PRN Reason: Tachyarrhythmias HR>110 Ondansetron HCl (Zofran) 4 mg IV Q6HP PRN PRN Reason: Nausea And Vomiting Last Admin: 10/10/19 22:14 Dose: 4 mg Documented by: Pantoprazole Sodium (Protonix) 40 mg PO QAMAC [facility] Polyethylene Glycol (Miralax) 17 gm PO DAILY [facility] Rivaroxaban (Xarelto) 15 mg PO QHS [facility] Simvastatin (Zocor) 10 mg PO HS [facility] Sodium Chloride (Saline Flush) 10 ml IV Q8 [facility] Last Admin: 10/11/19 04:58 Dose: 10 ml Documented by: Vitamin D (Vitamin D3) 2,000 unit PO QDAY [facility] Medical - PN: A/P - Time Spent With Patient Total time spent is greater than 50% in coordination of care (as documented) at patient's floor/unit and/or counseling patient: - Narrative A/P Narrative: A: * Acute hypoxic respiratory failure: 2/2 chf -on 2L * acute Systolic/diastolic CHF exacerbation -EF 40-45%, Grade III diastolic, mod MR, mod AI *b/l pleural effusion: -s/p Left Thora (10/09) of 650cc * Atrial fibrillation w/RVR: -in amio gtt *Hypokalemia: resolved *HTN *DM type 2 *UTI (Klebsiella) *?RODRIGUEZ on CKD IIIb: *Anemia, chronic *Hypothyroid: Plan: -lasix hold today, home torsemide held on admit -I'/O's, weights -Amio gtt, toprol -diltiazem stopped given EF 40% -discuss with Dr. Mahoney -cont Rocephin -IS -pt/ot -prophylaxis: On Xalrelto/home ppi CODE STATUS: Full Medical - PN: Qual - VTE Deep Vein Thrombosis/Pulmonary Embolism Present on Admission: No
[2019-10-11] MEDS ORDERED: LEVOTHYROXINE 50 MCG TABLET PO SCH (07:30)
[2019-10-11] MEDS ORDERED: PANTOPRAZOLE 40 MG TABLET PO SCH (07:30)
[2019-10-11 07:41] LABS: ALT/SGPT 80 U/l (0-40); AST/SGOT 110 U/l (0-37); Albumin 3.3 gm/dL (3.2-5.2); Alkaline Phosphatase 148 U/L (39-117); Bilirubin,Direct 0.2 mg/dL (0.0-0.3); Bilirubin,Total 0.6 mg/dL (0.0-1.0); Blood Urea Nitrogen 33 mg/dl (8-23); Calcium 9.3 mg/dl (8.6-10.4); Carbon Dioxide 24 mmol/L (22-30); Chloride 96 mmol/L (96-108); Globulin 3.2 gm/dL (2.2-3.7); Glomerular Filtration Rate 27; Glucose 129 mg/dL (70-105); Lactate Dehydrogenase 364 U/L (94-250); Phosphorous 3.2 mg/dL (2.7-4.5); Triglycerides 63 mg/dl (<150); Uric Acid 9.2 mg/dL (2.5-8.0)
[2019-10-11] MEDS: ONDANSETRON 4 MG/2 ML VIAL IV PRN (07:55)
[2019-10-11] MEDS: INSULIN LISPRO 1 UNIT/0.01 ML UNIT SQ SCH ×2 (07:58→12:08)
[2019-10-11] MEDS ORDERED: FUROSEMIDE 20 MG/2 ML VIAL IV SCH (08:00)
[2019-10-11] MEDS ORDERED: METOPROLOL SUCCINATE 50 MG TAB.XL.24H PO SCH (09:00)
[2019-10-11] MEDS ORDERED: VITAMIN D3 1,000 UNIT TABLET PO SCH (09:00)
[2019-10-11] MEDS ORDERED: DOCUSATE SODIUM 100 MG CAPSULE PO SCH (09:00)
[2019-10-11] MEDS ORDERED: MULTIVIT,THER IRON,CA,FA & MIN 1 TABLET PO SCH (09:00)
[2019-10-11] MEDS ORDERED: POLYETHYLENE GLYCOL 3350 17 GM PACKET PO SCH (09:00)
[2019-10-11] MEDS ORDERED: MAGNESIUM OXIDE 400 MG TABLET PO SCH (09:00)
--- NOTE | 2019-10-11 10:48 | Transfer Summary ---
Transfer Discharge Sum: Prov Patient information: Note initiated : 10/11/19 at 10:46 am Service Date, if different from initiated Date: [] Patient: Joanne Nguyễn 79 y/o F admitted on 10/08/19 for Nausea, vomiting. Chief Complaint: [] Date of admission: 10/08/19 22:17 Discharge Date: 10/11/19 Primary care physician: Wilbur Adame Consults: 10/08/19 Consult to Physician [CONS] Stat Comment: Consulting Provider: Ella Trinh Reason For Exam: Physician to Consult Transfer Discharge Sum: Med - Medications Active and Home Medications: Home Medications Levothyroxine [Synthroid] 50 mcg PO ACB 10/26/16 [History Confirmed 10/08/19] Simvastatin [Zocor] 10 mg PO HS 10/26/16 [History Confirmed 10/08/19] Rivaroxaban [Xarelto] 15 mg PO QPMCC #30 tab 05/25/19 [Rx Confirmed 10/08/19] Ondansetron [Zofran ODT] 4 mg SL Q4-6HP PRN #10 tab 06/15/19 [Rx Confirmed 10/08/19] Melatonin 5 mg PO HS 06/20/19 [History Confirmed 10/08/19] Omeprazole 40 mg PO QAM 06/20/19 [History Confirmed 10/08/19] cholecalciferol (vitamin D3) 50 mcg (2,000 unit) tablet 2,000 unit PO QDAY 07/28/19 [History Confirmed 10/08/19] insulin glargine 100 unit/mL (3 mL) subcutaneous pen 8 unit SUB-Q QHS ml 07/28/19 [History Confirmed 10/08/19] magnesium oxide 400 mg PO QDAY 07/28/19 [History Confirmed 10/08/19] multivitamin 1 tab PO QAM 07/28/19 [History Confirmed 10/08/19] torsemide 10 mg tablet 10 mg PO QDAY 07/28/19 [History Confirmed 10/08/19] Diltiazem HCl [Diltiazem ER] 120 mg PO BID 10/08/19 [History Confirmed 10/08/19] Metoprolol Succinate [Toprol Xl] 100 mg PO BID 10/08/19 [History Confirmed 10/08/19] Psyllium Husk [Metamucil] 660 gm PO QHS 10/08/19 [History Confirmed 10/08/19] Active Medications Acetaminophen (Tylenol) 650 mg PO Q6HP PRN; Protocol PRN Reason: Per Pain Protocol/Fever > 101 Albuterol/Ipratropium (Duoneb) 3 ml NEB Q6HRT [facility] Last Admin: 10/11/19 07:42 Dose: 3 ml Documented by: Ceftriaxone Sodium (Rocephin) 1 gm IV Q24H [facility]; Protocol Diagnostic Test (Pha) (Accu-Chek) 1 each FS ACHS [facility] Last Admin: 10/11/19 07:55 Dose: 1 each Documented by: Docusate Sodium (Colace) 100 mg PO BID [facility] Last Admin: 10/11/19 09:21 Dose: Not Given Documented by: Hydralazine HCl (Apresoline) 10 mg IV Q4 PRN PRN Reason: Hypertension Esmolol HCl 2,500 mg/ Premix 250 mls @ 19.255 mls/hr IV .Q13H [facility]; Protocol Last Titration: 10/11/19 01:23 Dose: 0 mcg/kg/min, 0 mls/hr Documented by: Sodium Chloride (Sodium Chloride 0.9%) 250 mls @ 20 mls/hr IV .[id number] [facility] Last Infusion: 10/10/19 22:51 Dose: 5 mls/hr Documented by: AMIODARONE 360 mg/ Premix 200 mls @ 33.333 mls/hr IV .Q6H [facility]; Protocol Last Admin: 10/11/19 07:42 Dose: Not Given Documented by: AMIODARONE 360 mg/ Premix 200 mls @ 16.667 mls/hr IV .Q12H [facility]; Protocol Last Admin: 10/11/19 06:52 Dose: 0.5 mg/min, 16.667 mls/hr Documented by: Insulin Glargine (Lantus) 8 unit SQ HS [facility] Insulin Human Lispro (Humalog) 0 unit SQ ACHS [facility]; Protocol Last Admin: 10/11/19 07:58 Dose: Not Given Documented by: Iron Carb/Multivit/Director Software Quality Assurance/Folic Acid (Multivitamin W/Minerals) 1 tab PO QAM [facility] Last Admin: 10/11/19 09:20 Dose: 1 tab Documented by: Levothyroxine Sodium (Synthroid) 50 mcg PO ACB [facility] Last Admin: 10/11/19 08:03 Dose: 50 mcg Documented by: Magnesium Oxide (Magnesium Oxide) 400 mg PO QDAY [facility] Last Admin: 10/11/19 09:20 Dose: 400 mg Documented by: Melatonin (Melatonin 3mg Tablet) 3 mg PO HS [facility] Last Admin: 10/10/19 22:53 Dose: 3 mg Documented by: Metoclopramide HCl (Reglan) 5 mg IV Q6 [facility] Last Admin: 10/11/19 04:58 Dose: Not Given Documented by: Metoprolol Succinate (Toprol Xl) 150 mg PO BID [facility] Last Admin: 10/11/19 09:20 Dose: 150 mg Documented by: Metoprolol Tartrate (Lopressor) 5 mg IV Q2HP PRN PRN Reason: Tachyarrhythmias HR>110 Ondansetron HCl (Zofran) 4 mg IV Q6HP PRN PRN Reason: Nausea And Vomiting Last Admin: 10/11/19 07:55 Dose: 4 mg Documented by: Pantoprazole Sodium (Protonix) 40 mg PO QAMAC [facility] Last Admin: 10/11/19 07:55 Dose: 40 mg Documented by: Polyethylene Glycol (Miralax) 17 gm PO DAILY [facility] Last Admin: 10/11/19 09:21 Dose: Not Given Documented by: Rivaroxaban (Xarelto) 15 mg PO QHS [facility] Simvastatin (Zocor) 10 mg PO HS [facility] Sodium Chloride (Saline Flush) 10 ml IV Q8 [facility] Last Admin: 10/11/19 04:58 Dose: 10 ml Documented by: Vitamin D (Vitamin D3) 2,000 unit PO QDAY [facility] Last Admin: 10/11/19 09:21 Dose: 2,000 unit Documented by: Transfer Discharge Sum: Hosp Hospital course: Ms. Nguyễn is a 79 year old F Ms. Nguyễn is a 79 year old F with a medical history of CHF, atrial fibrillation on Xarelto, high blood pressure, and type 2 diabetes who was brought to the ER due to nausea and vomiting for 2 days. As per patient, she has been having nausea, vomiting, mild shortness of breath and a mild cough over the past 2 days. In the ER, she was found to have a desaturation, mid 80s. In the ER, chest CT showed bilateral pleural effusion. When I saw this patient in the ER, other than the symptoms mentioned above, she denied headache, dizziness, chest pain, abdominal pain, dysuria, fever, chills, or runny nose. Denied recent travel or sick contact. 10/08 Today pt feels better, stronger. Denies fever or chills. Nausea, vomiting, and diarrhea improving. Discussed with radiologist, who felt she has moderate pleural effusion, L > R. Xarelto is on hold today. Pt will probably have thoracentesis tomorrow. thoracentesis order and effusion labs were ordered 10/09 Does not have new complaints. She underwent US guided thoracentesis today by Dr Vasquez. 650 cc hemorrhagic appearing simple pleural fluid out. 10/10 Patient did not sleep well last night. She does have a dry cough. States her shortness of breath is improving. She was started on esmolol drip last night and then switch to amiodarone with heart rates around 100. Did have an episode of nausea vomiting after breakfast this morning. Has some wheezing. Given the complicated cardiology case and difficulty in rhythm control I discussed the case with Dr. Mahoney and then subsequently Dr. Seals at [place]. We will transfer her for cardiology needs and further evaluation and treatment. A: * Acute hypoxic respiratory failure: 2/2 chf * acute Systolic/diastolic CHF exacerbation -EF 40-45%, Grade III diastolic, mod MR, mod AI *b/l pleural effusion: -s/p Left Thora (10/09) of 650cc * Atrial fibrillation w/RVR: -on amio gtt *Hypokalemia: resolved *HTN *DM type 2 *UTI (Klebsiella) *RODRIGUEZ on CKD IIIb: *Anemia, chronic *Hypothyroid: - Time Spent with Patient Total time spent providing and/or coordinating transfer services: Greater than 30 minutes Transfer Discharge Sum: Exam - Constitutional Vitals: Vital Signs Temp Pulse Pulse Resp BP BP Pulse Ox 10/11/19 08:10 113 H 23 H 92 10/11/19 08:01 98.1 F 106 H 25 H 140/88 92 10/11/19 07:43 104 H 17 10/11/19 06:01 115 H 23 H 168/92 94 10/11/19 04:47 115 H 21 151/104 92 10/11/19 04:01 116 H 28 H 146/98 93 10/11/19 03:46 98.8 F 118 H 24 H 146/112 93 10/11/19 03:31 117 H 24 H 146/96 97 10/11/19 03:16 116 H 23 H 132/109 96 10/11/19 03:01 124 H 16 109/94 94 10/11/19 02:46 120 H 19 143/97 100 10/11/19 02:31 119 H 24 H 141/91 100 10/11/19 02:16 124 H 28 H 130/85 90 10/11/19 02:01 124 H 21 147/100 97 10/11/19 01:46 123 H 23 H 131/98 94 10/11/19 01:31 120 H 21 141/85 94 10/11/19 01:16 117 H 23 H 134/92 94 10/11/19 01:01 117 H 17 142/99 97 10/11/19 00:46 115 H 20 148/102 95 10/11/19 00:31 113 H 23 H 142/97 93 10/11/19 00:16 114 H 26 H 131/83 90 10/11/19 00:01 123 H 25 H 124/99 90 10/11/19 00:00 92 10/10/19 23:46 126 H 142/103 95 10/10/19 23:31 131 H 15 137/100 94 10/10/19 23:16 129 H 17 130/104 96 10/10/19 23:01 130 H 23 H 144/98 93 10/10/19 22:46 131 H 24 H 132/99 92 10/10/19 22:31 124 H 16 146/98 95 10/10/19 22:29 137 H 22 147/103 94 10/10/19 22:16 135 H 25 H 143/102 92 10/10/19 22:05 134 H 25 H 147/91 91 10/10/19 20:20 136 H 10/10/19 19:42 142 H 10/10/19 19:00 138 H 10/10/19 18:58 93 10/10/19 18:39 98.7 F 120 H 22 140/87 93 10/10/19 16:00 98.3 F 113 H 22 126/70 96 10/10/19 13:45 110 H 20 10/10/19 12:00 97.7 F 98 H 18 142/80 92 Intake and Output 10/10/19 10/11/19 10/11/19 21:59 05:59 13:59 Intake Total 1540 770 200 Output Total 600 150 Balance 940 620 200 Intake: IV 170 200 Sodium Chloride 0.9% 250 ml @ 6 20 mls/hr IV .[id number] [facility] Rx#: [id number] Cordarone 150 mg In Dextrose 5% 53 in Water 50 ml @ 300 mls/hr IV ONCE PRN Rx#:[id number] Nexterone 360 mg In Premix 1 200 Bag @ 1 MG/MIN 33.333 mls/hr IV .Q6H [facility] Rx#:[id number] Brevibloc 2,500 mg In Premix 1 111 Bag @ 50 MCG/KG/MIN 19.255 mls/ hr IV .Q13H [facility] Rx#:[id number] Oral 1540 600 Output: Urine Catheter Amount 150 Void Amount 600 Other: Meal Dinner Percent of Meal Consumed Refused Feeding Ability Independent Urine Appearance Clear Urine Color Bright Yellow Urine Odor Normal Stool Size Small Stool Color Brown Stool Consistency Soft # Voids 1 # Bowel Movements 1 Weight 64.183 kg Transfer Discharge Sum: Data Procedures and tests throughout hospitalization: Pending Orders 10/08/19 Consult to Physician [CONS] Stat 10/08/19 12:28 Oxygen Order (ED/SSSU) .Continuous 10/08/19 17:20 Blood Culture Stat 10/08/19 21:54 Admit as Inpatient Routine Ambulate-Progressive TID Condition Routine IV Insertion/Management QSHIFT Intake and Output qshiftio Notify Provider .routine Up to chair .prn VTE Risk: Assessment .once Vital Signs Q4 Weight Monitoring QHS Resuscitation Status Routine RD to Adjust Diet/Supplements as Needed Routine Occupational Therapy Eval & Tx DAILY Physical Therapy Eval & Tx DAILY Oxygen Order .Routine Pulse Oximetry CONT 10/08/19 22:00 Nebulizer management .Routine 10/09/19 00:03 youth nutritional monitor CONT 10/09/19 10:08 Albumin,Pleural Fluid Routine Cell Count w Diff, Pleural Fld Routine Glucose,Pleural Fluid Routine LDH,Pleural Fluid Routine Total Protein,Pleural Fluid Routine 10/09/19 10:09 Pathology Non-[facility] TESTER Cytology Routine 10/09/19 13:44 Consistent Carbohydrate Diet 10/09/19 18:55 SCD [Anti-Embolism Devices] DAILY 10/10/19 16:15 Consent for Procedure ONCE 10/10/19 17:00 Body Fluid Culture and Gram St Stat 10/10/19 20:13 Incentive Spirometry Assess/Tx Q1HWA 10/10/19 21:53 0.9 % Sodium Chloride [Sodium Chloride 0.9%] 250 ml IV 20 mls/hr Acetaminophen [Tylenol] 650 mg PO Q6HP PRN Metoprolol Tartrate [Lopressor] 5 mg IV Q2HP PRN Ondansetron [Zofran] 4 mg IV Q6HP PRN Premix 1 bag Esmolol [Brevibloc] 2,500 mg IV 50 mcg/kg/min hydrALAZINE [Apresoline] 10 mg IV Q4 PRN 10/10/19 22:00 0.9 % Sodium Chloride [Saline Flush] 10 ml IV Q8 10/11/19 00:00 Metoclopramide [Reglan] 5 mg IV Q6 10/11/19 01:00 Ipratropium/Albuterol [Duoneb] 3 ml NEB Q6HRT 10/11/19 01:15 Premix 1 bag Amiodarone [Nexterone] 360 mg IV 0.5 mg/min Premix 1 bag Amiodarone [Nexterone] 360 mg IV 1 mg/min 10/11/19 07:30 Accu-Chek 1 each FS ACHS Insulin Lispro [HumaLOG] See Dose Instructions SQ ACHS Levothyroxine [Synthroid] 50 mcg PO ACB Pantoprazole [Protonix] 40 mg PO QAMAC 10/11/19 09:00 Docusate Sodium [Colace] 100 mg PO BID Magnesium Oxide 400 mg PO QDAY Metoprolol Succinate [Toprol Xl] 150 mg PO BID Multivit,Ther Iron,Ca,FA & Min [Multivitamin W/Minerals] 1 tab PO QAM Polyethylene Glycol 3350 [Miralax] 17 gm PO DAILY Vitamin D3 2,000 unit PO QDAY 10/11/19 20:30 cefTRIAXone [Rocephin] 1 gm IV Q24H 10/11/19 21:00 Insulin Glargine, Human [Lantus] 8 unit SQ HS Melatonin [Melatonin 3Mg Tablet] 3 mg PO HS Rivaroxaban [Xarelto] 15 mg PO QHS Simvastatin [Zocor] 10 mg PO HS 10/12/19 05:00 Inpatient Panel Routine Quality Measure Queries - VTE Deep Vein Thrombosis/Pulmonary Embolism Present on Admission: No
[2019-10-11] MEDS: 0.9 % SODIUM CHLORIDE 250 ML IV SCH (11:58)
[2019-10-11] MEDS: ESMOLOL 2,500 MG in PREMIX 1 BAG IV SCH (11:59)
[2019-10-11] MEDS ORDERED: cefTRIAXone 1 GM VIAL IV SCH (20:30)
[2019-10-11] MEDS ORDERED: RIVAROXABAN 15 MG TABLET PO SCH ×2 (21:00)
[2019-10-11] MEDS ORDERED: INSULIN GLARGINE, HUMAN 1 UNIT/0.01 ML SQ SCH (21:00)
[2019-10-11] MEDS ORDERED: MELATONIN 3 MG TABLET PO SCH (21:00)
[2019-10-11] MEDS ORDERED: SIMVASTATIN 10 MG TABLET PO SCH (21:00)
--- NOTE | 2019-10-12 10:58 | Non-GYN Cytology Report ---
NON FLOUR DISTRIBUTOR SPECIMEN NG DX CATEGORY Negative MICROSCOPIC DIAGNOSIS PLEURAL FLUID, LEFT, THORACENTESIS: -- CHRONIC INFLAMMATION AND REACTIVE MESOTHELIAL CELLS. -- NEGATIVE FOR ATYPICAL OR MALIGNANT CELLS. (DMT:adj) MICROSCOPIC DESCRIPTION A thinprep monolayer slide, Estrada Giemsa stained cytospin slide, Diff Quik stained cytospin slide, pap stained cytospin slide and a cell block slide are reviewed. Each contains numerous macrophages, small lymphocytes, a few reactive mesothelial cells and red blood cells. No atypical or malignant cells are identified. (DMT:adj) EXTERNAL COMMENT ~475 mL fresh cloudy red fluid: 1 thinprep, 1 Estrada Giemsa, 1 pap, 1 Diff Quik, 1 cell block Electronically Signed by: Warner Prieto M.D.
== END 2019-10-11 13:40 | disposition short-term general hospital (02) | DRG 189 ==
LOC: ED 12:24 → MEDSUR 22:17 → ICU 10-10 21:55
PROVIDERS: ADMIT Internal Medicine; ATTEND Internal Medicine

== ENCOUNTER 2024-05-22 07:36 | Inpatient (IN) ==
[2024-05-22 08:38] LABS: Basophils # (Auto) 0.02 K/mcL (0.00-0.30); Basophils % (Auto) 0.2 % (0.0-2.0); Eosinophils # (Auto) 0.04 K/mcL (0.00-0.70); Eosinophils % (Auto) 0.3 % (0.0-7.0); Hematocrit 42.6 % (34.1-44.9); Hemoglobin 13.5 g/dL (11.2-15.7); Lymphocytes # (Auto) 2.11 K/mcL (1.50-4.80); Lymphocytes % (Auto) 16.2 % (15.5-49.0); Mean Cell Volume 100.5 fL (80.0-100.0); Mean Corpuscular HGB Conc 31.7 g/dL (31.0-36.0); Mean Platelet Volume 9.6 fL (8.8-12.5); Monocytes # (Auto) 1.32 K/mcL (0.10-0.90); Monocytes % (Auto) 10.2 % (1.0-12.0); Neutrophils % (Auto) 72.9 % (38.0-78.0); Platelet Count 279 K/mcL (140-440); RBC 4.24 M/mcL (3.59-5.38); Red Cell Distribution Width 16.2 % (11.5-14.5)
[2024-05-22 08:52] LABS: ALT/SGPT 362 U/L (<40); AST/SGOT 356 U/L (<32); Albumin/Globulin Ratio 1.5 (1.0-2.3); Alkaline Phosphatase 158 U/L (39-117); Bilirubin,Total 1.7 mg/dL (0.1-1.0); Blood Urea Nitrogen 52 mg/dL (8-23); Calcium 9.9 mg/dL (8.6-10.4); Carbon Dioxide 18 mmol/L (22-30); Chloride 107 mmol/L (96-108); Globulin 2.7 gm/dL (2.2-3.7); Glomerular Filtration Rate 28; Glucose 106 mg/dL (70-105); Potassium 4.8 mmol/L (3.3-5.1); Sodium 143 mmol/L (133-145)
[2024-05-22] MEDS: cefTRIAXone 1 GM VIAL IV ONE (10:00)
[2024-05-22] MEDS: DOXYCYCLINE 100 MG in DEXTROSE 5% IN WATER 100 ML IV ONE (10:01)
[2024-05-22] MEDS: FUROSEMIDE 40 MG/4 ML VIAL IV ONE (10:01)
[2024-05-22 11:25] LABS: C-Reactive Protein 1.74 mg/dL (0.03-0.80)
[2024-05-22 12:38] LABS: Appearance,Urine Clear (Clear); Bacteria,Urine Few /hpf (0); Bilirubin,Urine Negative (Negative); Color,Urine Yellow; Glucose,Urine (UA) Negative (Negative); Ketones,Urine Negative (Negative); Leukocyte Esterase,Urine Trace /uL (Negative); Mucus,Urine Few /hpf; Nitrate,Urine Positive (Negative); PH,Urine 5.5 (5.0-9.0); Protein,Urine Negative (Negative); Urine Blood Trace-intact ery/mcL (Negative); Urine Hyaline Cast 1 /lph (0-2); Urine RBC < 1 /hpf (0-3); Urine Squamous Epithelial Cell < 1 /hpf (0-4); Urine WBC 3 /hpf (0-4); Urobilinogen,Urine Normal
[2024-05-22] MEDS ORDERED: ACETAMINOPHEN 325 MG TABLET PO PRN (14:23)
[2024-05-22] MEDS ORDERED: SENNOSIDES 1 TABLET PO PRN (14:23)
[2024-05-22] MEDS: 0.9 % SODIUM CHLORIDE 10 ML SYRINGE IV SCH (15:26)
[2024-05-22 15:40] LABS: Thyroid Stimulating Hormone 2.25 uIU/mL (0.27-5.01)
[2024-05-22] MEDS: METOPROLOL SUCCINATE 50 MG TAB.XL.24H PO SCH ×2 (15:40→21:01)
[2024-05-22 16:19] LABS: Free T4 (Free Thyroxine) 1.77 ng/dL (0.93-1.70)
[2024-05-22 17:02] LABS: Hepatitis A Antibody IgM Non-Reactive (Non-Reactive); Hepatitis B Surface Antigen Negative (Negative); Hepatitis C Virus Antibody Non-Reactive (Non-Reactive)
[2024-05-22] MEDS: RIVAROXABAN 15 MG TABLET PO SCH (17:31)
[2024-05-22] MEDS: 0.9 % SODIUM CHLORIDE 1,000 ML IV SCH ×2 (17:31→21:02)
[2024-05-22] MEDS ORDERED: PSYLLIUM HUSK 660 GM PO SCH (21:00)
[2024-05-22] MEDS: DOXYCYCLINE 100 MG in DEXTROSE 5% IN WATER 100 ML IV SCH (21:01)
[2024-05-22] MEDS: MELATONIN 3 MG TABLET PO SCH (21:01)
[2024-05-22] MEDS: SIMVASTATIN 10 MG TABLET PO SCH (21:03)
[2024-05-23] MEDS: PANTOPRAZOLE 40 MG TABLET PO SCH (07:16)
[2024-05-23] MEDS: LEVOTHYROXINE 50 MCG TABLET PO SCH (07:16)
[2024-05-23 07:25] LABS: Basophils # (Auto) 0.02 K/mcL (0.00-0.30); Basophils % (Auto) 0.2 % (0.0-2.0); Eosinophils # (Auto) 0.02 K/mcL (0.00-0.70); Eosinophils % (Auto) 0.2 % (0.0-7.0); Hemoglobin 12.9 g/dL (11.2-15.7); Lymphocytes # (Auto) 1.58 K/mcL (1.50-4.80); Lymphocytes % (Auto) 12.5 % (15.5-49.0); Mean Cell Volume 111.1 fL (80.0-100.0); Mean Corpuscular HGB Conc 28.7 g/dL (31.0-36.0); Mean Platelet Volume 9.5 fL (8.8-12.5); Monocytes # (Auto) 1.26 K/mcL (0.10-0.90); Monocytes % (Auto) 9.9 % (1.0-12.0); Platelet Count 231 K/mcL (140-440); RBC 4.05 M/mcL (3.59-5.38); Red Cell Distribution Width 16.7 % (11.5-14.5); WBC 12.7 K/mcL (4.5-11.0)
[2024-05-23 07:32] LABS: ALT/SGPT 481 U/L (<40); AST/SGOT 451 U/L (<32); Albumin 3.7 gm/dL (3.2-5.2); Albumin/Globulin Ratio 1.5 (1.0-2.3); Alkaline Phosphatase 166 U/L (39-117); Bilirubin,Direct 0.7 mg/dL (<0.3); Bilirubin,Total 1.5 mg/dL (0.1-1.0); Blood Urea Nitrogen 60 mg/dL (8-23); Calcium 9.3 mg/dL (8.6-10.4); Carbon Dioxide 16 mmol/L (22-30); Chloride 107 mmol/L (96-108); Globulin 2.5 gm/dL (2.2-3.7); Glomerular Filtration Rate 30; Glucose 119 mg/dL (70-105); Lactate Dehydrogenase 387 U/L (135-225); Phosphorous 4.4 mg/dL (2.5-4.5); Potassium 4.4 mmol/L (3.3-5.1); Sodium 142 mmol/L (133-145); Triglycerides 72 mg/dL (<150); Uric Acid 10.9 mg/dL (2.5-8.0)
[2024-05-23] MEDS: SPIRONOLACTONE 25 MG TABLET PO SCH (08:09)
[2024-05-23] MEDS: amLODIPine 5 MG TABLET PO SCH (08:10)
[2024-05-23] MEDS: MAGNESIUM OXIDE 400 MG TABLET PO SCH (08:10)
[2024-05-23] MEDS: cefTRIAXone 1 GM VIAL IV SCH (08:11)
[2024-05-23] MEDS: 0.9 % SODIUM CHLORIDE 1,000 ML IV SCH (08:11)
[2024-05-23] MEDS: ONDANSETRON 4 MG/2 ML VIAL IV PRN (17:42)
[2024-05-24 06:39] LABS: Basophils # (Auto) 0.01 K/mcL (0.00-0.30); Basophils % (Auto) 0.1 % (0.0-2.0); Eosinophils # (Auto) 0.02 K/mcL (0.00-0.70); Eosinophils % (Auto) 0.2 % (0.0-7.0); Hematocrit 39.1 % (34.1-44.9); Hemoglobin 12.3 g/dL (11.2-15.7); Lymphocytes # (Auto) 1.42 K/mcL (1.50-4.80); Mean Cell Volume 101.8 fL (80.0-100.0); Mean Corpuscular HGB Conc 31.5 g/dL (31.0-36.0); Mean Platelet Volume 9.8 fL (8.8-12.5); Monocytes # (Auto) 1.33 K/mcL (0.10-0.90); Monocytes % (Auto) 10.3 % (1.0-12.0); Neutrophils % (Auto) 78.2 % (38.0-78.0); Platelet Count 219 K/mcL (140-440); RBC 3.84 M/mcL (3.59-5.38); Red Cell Distribution Width 16.3 % (11.5-14.5); WBC 12.9 K/mcL (4.5-11.0)
[2024-05-24 06:55] LABS: ALT/SGPT 644 U/L (<40); AST/SGOT 628 U/L (<32); Albumin 3.5 gm/dL (3.2-5.2); Albumin/Globulin Ratio 1.5 (1.0-2.3); Alkaline Phosphatase 207 U/L (39-117); Bilirubin,Direct 0.9 mg/dL (<0.3); Bilirubin,Total 1.7 mg/dL (0.1-1.0); Blood Urea Nitrogen 60 mg/dL (8-23); Calcium 8.8 mg/dL (8.6-10.4); Carbon Dioxide 16 mmol/L (22-30); Chloride 107 mmol/L (96-108); Globulin 2.3 gm/dL (2.2-3.7); Glomerular Filtration Rate 32; Glucose 99 mg/dL (70-105); Lactate Dehydrogenase 465 U/L (135-225); Potassium 4.3 mmol/L (3.3-5.1); Sodium 140 mmol/L (133-145); Triglycerides 59 mg/dL (<150); Uric Acid 10.1 mg/dL (2.5-8.0)
[2024-05-24 08:27] LABS: Creatine Kinase 103 U/L (24-170)
[2024-05-24 09:08] LABS: Iron 41 ug/dL (37-145); TIBC Calculation 250 ug/dl (228-428); Transferrin % Saturation 16 % (15-50)
[2024-05-24] MEDS: AMOXICILLIN 250 MG CAPSULE PO SCH (10:53)
[2024-05-24] MEDS: DOXYCYCLINE HYCLATE 100 MG TABLET.ORL PO SCH (10:54)
[2024-05-24] MEDS: 0.9 % SODIUM CHLORIDE 1,000 ML IV SCH (11:49)
[2024-05-24 12:08] LABS: Amphetamine Screen,Urine None detected; Barbiturate Screen,Urine None detected; Benzodiazepines Screen,Urine None detected; Cannabinoid Screen,Urine None detected; Cocaine Screen,Urine None detected; Fentanyl, Urine Screen None Detected; Opiate Screen,Urine None detected; Oxycodone, Urine Screen None detected; Phencyclidine Screen,Urine None detected
[2024-05-25 06:01] LABS: Basophils # (Auto) 0.03 K/mcL (0.00-0.30); Basophils % (Auto) 0.2 % (0.0-2.0); Eosinophils # (Auto) 0.02 K/mcL (0.00-0.70); Eosinophils % (Auto) 0.1 % (0.0-7.0); Hematocrit 42.3 % (34.1-44.9); Lymphocytes # (Auto) 1.55 K/mcL (1.50-4.80); Lymphocytes % (Auto) 10.9 % (15.5-49.0); Mean Cell Volume 104.2 fL (80.0-100.0); Mean Corpuscular HGB Conc 30.7 g/dL (31.0-36.0); Mean Platelet Volume 9.7 fL (8.8-12.5); Monocytes # (Auto) 1.46 K/mcL (0.10-0.90); Monocytes % (Auto) 10.3 % (1.0-12.0); Neutrophils % (Auto) 78.1 % (38.0-78.0); Platelet Count 193 K/mcL (140-440); RBC 4.06 M/mcL (3.59-5.38); Red Cell Distribution Width 16.7 % (11.5-14.5); WBC 14.2 K/mcL (4.5-11.0)
[2024-05-25 07:09] LABS: ALT/SGPT 855 U/L (<40); AST/SGOT 801 U/L (<32); Albumin 3.5 gm/dL (3.2-5.2); Albumin/Globulin Ratio 1.5 (1.0-2.3); Alkaline Phosphatase 258 U/L (39-117); Blood Urea Nitrogen 62 mg/dL (8-23); Carbon Dioxide 15 mmol/L (22-30); Chloride 108 mmol/L (96-108); Globulin 2.4 gm/dL (2.2-3.7); Glomerular Filtration Rate 32; Glucose 100 mg/dL (70-105); Lactate Dehydrogenase 474 U/L (135-225); Phosphorous 3.9 mg/dL (2.5-4.5); Potassium 4.7 mmol/L (3.3-5.1); Sodium 140 mmol/L (133-145); Triglycerides 75 mg/dL (<150); Uric Acid 10.6 mg/dL (2.5-8.0)
[2024-05-25] MEDS: LOSARTAN 25 MG TABLET PO SCH (08:32)
[2024-05-25] MEDS: SPIRONOLACTONE 25 MG TABLET PO SCH (12:25)
[2024-05-25] MEDS: FUROSEMIDE 40 MG/4 ML VIAL IV SCH (12:26)
[2024-05-26 06:28] LABS: Basophils # (Auto) 0.02 K/mcL (0.00-0.30); Basophils % (Auto) 0.1 % (0.0-2.0); Eosinophils # (Auto) 0.02 K/mcL (0.00-0.70); Eosinophils % (Auto) 0.1 % (0.0-7.0); Hematocrit 39.2 % (34.1-44.9); Hemoglobin 12.5 g/dL (11.2-15.7); Lymphocytes # (Auto) 1.04 K/mcL (1.50-4.80); Lymphocytes % (Auto) 7.6 % (15.5-49.0); Mean Corpuscular HGB Conc 31.9 g/dL (31.0-36.0); Mean Platelet Volume 9.9 fL (8.8-12.5); Monocytes # (Auto) 1.41 K/mcL (0.10-0.90); Monocytes % (Auto) 10.3 % (1.0-12.0); Neutrophils % (Auto) 81.6 % (38.0-78.0); Platelet Count 186 K/mcL (140-440); RBC 3.88 M/mcL (3.59-5.38); Red Cell Distribution Width 16.5 % (11.5-14.5); WBC 13.6 K/mcL (4.5-11.0)
[2024-05-26 07:32] LABS: ALT/SGPT 877 U/L (<40); AST/SGOT 717 U/L (<32); Albumin 3.5 gm/dL (3.2-5.2); Albumin/Globulin Ratio 1.5 (1.0-2.3); Alkaline Phosphatase 259 U/L (39-117); Bilirubin,Direct 0.9 mg/dL (<0.3); Bilirubin,Total 1.9 mg/dL (0.1-1.0); Blood Urea Nitrogen 61 mg/dL (8-23); Carbon Dioxide 17 mmol/L (22-30); Chloride 107 mmol/L (96-108); Globulin 2.3 gm/dL (2.2-3.7); Glomerular Filtration Rate 35; Glucose 101 mg/dL (70-105); Lactate Dehydrogenase 397 U/L (135-225); Phosphorous 3.1 mg/dL (2.5-4.5); Potassium 3.9 mmol/L (3.3-5.1); Sodium 141 mmol/L (133-145); Triglycerides 85 mg/dL (<150); Uric Acid 10.8 mg/dL (2.5-8.0)
[2024-05-26] MEDS: FUROSEMIDE 40 MG/4 ML VIAL IV SCH (08:37)
[2024-05-26] MEDS: cefTRIAXone 2 GM in DEXTROSE 5% IN WATER 50 ML IV SCH (09:17)
[2024-05-26] MEDS ORDERED: SODIUM CHLORIDE IRRIG SOLUTION 250 ML BOTTLE IRR ONE (13:40)
[2024-05-26] MEDS: POLYETHYLENE GLYCOL 3350 17 GM PACKET PO SCH (16:30)
[2024-05-26] MEDS: 0.9 % SODIUM CHLORIDE 10 ML SYRINGE IV SCH (20:20)
[2024-05-27 07:02] LABS: Basophils # (Auto) 0.03 K/mcL (0.00-0.30); Basophils % (Auto) 0.3 % (0.0-2.0); Eosinophils # (Auto) 0.08 K/mcL (0.00-0.70); Eosinophils % (Auto) 0.8 % (0.0-7.0); Hematocrit 39.5 % (34.1-44.9); Hemoglobin 13.1 g/dL (11.2-15.7); Lymphocytes # (Auto) 0.92 K/mcL (1.50-4.80); Mean Cell Volume 97.1 fL (80.0-100.0); Mean Corpuscular HGB Conc 33.2 g/dL (31.0-36.0); Mean Platelet Volume 9.9 fL (8.8-12.5); Monocytes # (Auto) 0.97 K/mcL (0.10-0.90); Monocytes % (Auto) 9.5 % (1.0-12.0); Platelet Count 177 K/mcL (140-440); RBC 4.07 M/mcL (3.59-5.38); Red Cell Distribution Width 16.5 % (11.5-14.5); WBC 10.2 K/mcL (4.5-11.0)
[2024-05-27 07:32] LABS: ALT/SGPT 672 U/L (<40); AST/SGOT 407 U/L (<32); Albumin 3.5 gm/dL (3.2-5.2); Albumin/Globulin Ratio 1.5 (1.0-2.3); Alkaline Phosphatase 254 U/L (39-117); Bilirubin,Direct 0.8 mg/dL (<0.3); Bilirubin,Total 1.9 mg/dL (0.1-1.0); Blood Urea Nitrogen 50 mg/dL (8-23); Calcium 9.1 mg/dL (8.6-10.4); Carbon Dioxide 24 mmol/L (22-30); Chloride 103 mmol/L (96-108); Globulin 2.3 gm/dL (2.2-3.7); Glomerular Filtration Rate 42; Glucose 94 mg/dL (70-105); Lactate Dehydrogenase 359 U/L (135-225); Phosphorous 2.2 mg/dL (2.5-4.5); Sodium 142 mmol/L (133-145); Triglycerides 76 mg/dL (<150); Uric Acid 9.9 mg/dL (2.5-8.0)
[2024-05-27] MEDS: 0.9 % SODIUM CHLORIDE 10 ML SYRINGE IV PRN (08:52)
[2024-05-27] MEDS: POTASSIUM CHLORIDE 20 MEQ PACKET PO SCH (10:08)
[2024-05-27] MEDS: QUEtiapine 25 MG TABLET PO PRN (20:59)
[2024-05-28 07:49] LABS: ALT/SGPT 501 U/L (<40); AST/SGOT 237 U/L (<32); Albumin 3.4 gm/dL (3.2-5.2); Albumin/Globulin Ratio 1.5 (1.0-2.3); Alkaline Phosphatase 245 U/L (39-117); Bilirubin,Direct 0.7 mg/dL (<0.3); Bilirubin,Total 1.7 mg/dL (0.1-1.0); Blood Urea Nitrogen 44 mg/dL (8-23); C-Reactive Protein 1.19 mg/dL (0.03-0.80); Calcium 9.4 mg/dL (8.6-10.4); Carbon Dioxide 31 mmol/L (22-30); Chloride 100 mmol/L (96-108); Globulin 2.3 gm/dL (2.2-3.7); Glomerular Filtration Rate 47; Glucose 100 mg/dL (70-105); Lactate Dehydrogenase 312 U/L (135-225); Potassium 3.7 mmol/L (3.3-5.1); Sodium 142 mmol/L (133-145); Triglycerides 76 mg/dL (<150); Uric Acid 8.5 mg/dL (2.5-8.0)
[2024-05-28 08:10] LABS: Basophils # (Auto) 0.02 K/mcL (0.00-0.30); Basophils % (Auto) 0.2 % (0.0-2.0); Eosinophils # (Auto) 0.09 K/mcL (0.00-0.70); Eosinophils % (Auto) 0.9 % (0.0-7.0); Hemoglobin 12.9 g/dL (11.2-15.7); Lymphocytes % (Auto) 11.9 % (15.5-49.0); Mean Cell Volume 98.8 fL (80.0-100.0); Mean Corpuscular HGB Conc 32.3 g/dL (31.0-36.0); Mean Platelet Volume 9.9 fL (8.8-12.5); Monocytes # (Auto) 1.03 K/mcL (0.10-0.90); Monocytes % (Auto) 10.2 % (1.0-12.0); Neutrophils % (Auto) 76.6 % (38.0-78.0); Platelet Count 163 K/mcL (140-440); RBC 4.05 M/mcL (3.59-5.38); Red Cell Distribution Width 16.7 % (11.5-14.5); WBC 10.1 K/mcL (4.5-11.0)
[2024-05-28] MEDS: POTASSIUM PHOSPHATE 40 MEQ in DEXTROSE 5% IN WATER 500 ML IV ONE (12:25)
[2024-05-28] MEDS ORDERED: guaiFENesin/DEXTROMETHORPHAN 5ML UD CUP PO PRN (16:38)
[2024-05-28] MEDS ORDERED: DEXTROSE 31 GM ORAL.SUSP PO PRN (16:38)
[2024-05-28] MEDS ORDERED: DEXTROSE 50% 50 ML VIAL IV PRN (16:38)
[2024-05-28] MEDS: INSULIN LISPRO 1 UNIT/0.01 ML UNIT SQ SCH (17:02)
[2024-05-29 06:41] LABS: Basophils # (Auto) 0.01 K/mcL (0.00-0.30); Basophils % (Auto) 0.1 % (0.0-2.0); Eosinophils # (Auto) 0.14 K/mcL (0.00-0.70); Eosinophils % (Auto) 1.2 % (0.0-7.0); Hemoglobin 13.7 g/dL (11.2-15.7); Lymphocytes # (Auto) 1.08 K/mcL (1.50-4.80); Lymphocytes % (Auto) 9.5 % (15.5-49.0); Mean Cell Volume 99.1 fL (80.0-100.0); Mean Corpuscular HGB Conc 31.9 g/dL (31.0-36.0); Mean Platelet Volume 9.6 fL (8.8-12.5); Monocytes # (Auto) 1.24 K/mcL (0.10-0.90); Monocytes % (Auto) 10.9 % (1.0-12.0); Neutrophils % (Auto) 77.9 % (38.0-78.0); Platelet Count 163 K/mcL (140-440); RBC 4.34 M/mcL (3.59-5.38); Red Cell Distribution Width 16.8 % (11.5-14.5); WBC 11.3 K/mcL (4.5-11.0)
[2024-05-29 07:07] LABS: ALT/SGPT 414 U/L (<40); AST/SGOT 163 U/L (<32); Albumin 3.6 gm/dL (3.2-5.2); Albumin/Globulin Ratio 1.4 (1.0-2.3); Alkaline Phosphatase 237 U/L (39-117); Bilirubin,Direct 0.6 mg/dL (<0.3); Bilirubin,Total 1.6 mg/dL (0.1-1.0); Blood Urea Nitrogen 43 mg/dL (8-23); Calcium 9.3 mg/dL (8.6-10.4); Carbon Dioxide 32 mmol/L (22-30); Chloride 96 mmol/L (96-108); Globulin 2.5 gm/dL (2.2-3.7); Glomerular Filtration Rate 47; Glucose 101 mg/dL (70-105); Lactate Dehydrogenase 317 U/L (135-225); Phosphorous 2.9 mg/dL (2.5-4.5); Potassium 3.6 mmol/L (3.3-5.1); Sodium 139 mmol/L (133-145); Triglycerides 75 mg/dL (<150)
[2024-05-29 07:23] VITALS: TEMP 97.8
[2024-05-29] MEDS: VITAMIN D3 25 MCG TABLET PO SCH (08:12)
[2024-05-29] MEDS: FUROSEMIDE 40 MG TABLET PO SCH (08:13)
[2024-05-29 08:47] LABS: Hemoglobin A1C 6.4 % Hgb (4.0-6.0)
[2024-05-29] MEDS ORDERED: TORSEMIDE 10 MG TABLET PO SCH (09:00)
[2024-05-29 13:54] VITALS: O2SAT 98
== END 2024-05-29 14:38 | DRG 193 ==
LOC: ED 07:36 → MEDSUR 14:16
PROVIDERS: ADMIT Student in an Organized Health Care Education/Training Program; ATTEND Student in an Organized Health Care Education/Training Program